=== PATIENT | male | born 1965 | race Caucasian/White ===

== ENCOUNTER 2016-12-28 13:33 | Inpatient (IN) | payer MEDICARE, OTHER ==
[~2016-12-28] VITALS: Ht 180.3 cm; Wt 77.6 kg
[~2016-12-28 13:33] MED LIST: PERC10TA27 PO; PRAV20TA2 PO; REQU5TAB PO
[2016-12-29] MEDS ORDERED: DIAZ5TAB PO ×2 (08:16)
[2017-01-02] MEDS ORDERED: CYCL1TAB29 PO (11:04)
[2017-01-02] MEDS ORDERED: DILA2TAB2 PO (11:04)
[2017-01-04 09:53] VITALS: BP 106/73; PULSE 76; RESP 18; TEMP 98.4; O2SAT 98
[2017-01-04] MEDS ORDERED: HYDROmorphone HCL 2 MG TAB ONE (10:08)
[2017-01-04] MEDS ORDERED: VANCOMYCIN HCL 1000 MG ON-CALL/NS 250 ML IV SCH ×2 (10:45)
[2017-01-04] MEDS ORDERED: METOPROLOL TARTRATE 25 MG TAB PO PRN (10:45)
[2017-01-04] MEDS ORDERED: INSULIN HUMAN REGULAR 1,000 UNITS/10 ML VIAL SQ PRN (10:45)
[2017-01-04] MEDS ORDERED: LACTATED RINGER'S 1000 ML IV PRN (10:45)
[2017-01-04] MEDS ORDERED: CHLORHEXIDINE GLUCONATE 2 % 1 PACK (2 CLOTHS) TOPICAL PRN (10:45)
[2017-01-04] MEDS ORDERED: POVIDONE IODINE 5% (ANTISEPSIS KIT) 4 APPLICATIONS EACH NARE PRN (10:45)
[2017-01-04] MEDS ORDERED: SODIUM CHLORID 0.9% 500 ML IV PRN (10:45)
[2017-01-04] MEDS ORDERED: LACTATED RINGER'S 1000 ML INJ 2,000 ML IV ONE (12:00)
[2017-01-04] MEDS ORDERED: PROPOFOL 200 MG/20 ML AMP IV ONE (12:00)
[2017-01-04] MEDS ORDERED: ONDANSETRON HCL 4 MG/2 ML VIAL IV PUSH ONE (12:00)
[2017-01-04] MEDS ORDERED: ACETAMINOPHEN 1000 MG/100 ML VIAL IV ONE (13:30)
[2017-01-04] MEDS ORDERED: GELFOAM SIZE 100 ONE (13:38)
[2017-01-04] MEDS ORDERED: THROMBIN (TOPICAL) 5,000 UNIT VIAL ONE (13:38)
[2017-01-04] MEDS ORDERED: GENTAMICIN SULFATE 80 MG/2 ML VIAL ONE (13:38)
[2017-01-04] MEDS ORDERED: ceFAZolin 2 GM PREMIX 50 ML ONE (13:38)
[2017-01-04] MEDS ORDERED: HYDROmorphone HCL PF 2 MG/ML VIAL ONE ×2 (13:39→14:41)
[2017-01-04] MEDS ORDERED: MIDAZOLAM HCL 2 MG/2 ML VIAL ONE (14:40)
[2017-01-04] MEDS ORDERED: FAMOTIDINE 20 MG/2 ML VIAL ONE (14:41)
[2017-01-04] MEDS ORDERED: fentaNYL CITRATE 250 MCG/5 ML AMP ONE ×2 (14:41→17:21)
[2017-01-04] MEDS ORDERED: KETAMINE HCL 500 MG/5 ML VIAL ONE (15:38)
[2017-01-04] MEDS ORDERED: BUPIVACAINE HCL PF 0.5% 30 ML VIAL ONE (17:45)
--- NOTE | 2017-01-04 19:40 | PD.OP ---
Operative Report Date of Surgery: Jan 04, 2017 Preoperative Diagnosis: Severe lumbar spondylosis Postoperative Diagnosis: Severe lumbar spondylosis Procedure: L4-L5 laminectomy, interbody arthrodhesis using PEEK cage and autologous bone graft, L4-L5 instrumental fixation using transpedicular screws and rods, L4-L5 posterolateral fusion using autologous bone graft and demineralized bone matrix. Microsurgical dissection Anesthesia: general Surgeon: Jairo Hood Manager Of Radiology(s): Robyn Tuttle Operation and Findings: INDICATIONS FOR PROCEDURE Mr Childers is a 51 year-old male who presented with intractable mechanical back pain and kayla evidence of lower extremity L5 radiculopathy. He had a prior laminectomy at L4-5 and a prior fusion at L5-S1. He failed maximum nonsurgical management including multiple modalities of conservative treatment as well as pain management interventions by an interventional pain specialist. The patient has undergone a previous surgical procedure. A redo surgical decompression and arthrodhesis at L4-5 were indicated as a last resort. The [id number] details of the procedure, indications, alternatives, risks and potential complications were fully discussed with the patient. The patient fully understood. All the questions were answered. No guarantees were given. The patient voiced requesting the procedure and provided informed consents. The patient was offered the alternative of delaying the procedure and continuing with nonsurgical management. DETAILS OF THE SURGICAL PROCEDURE Prior to the procedure, the surgical incision was marked in the preoperative surgical holding room, and the procedure, risks, and potential complications revisited with the patient. Placement of electrodes for intraoperative neurophysiological monitoring was completed. The patient was taken to the operative room, and following induction of general anesthesia, endotracheal intubation was performed. A Ramírez catheter, bilateral TORREY hose and sequential compression devices were placed and kept throughout the procedure. The patient was positioned prone, over a Sanya table over a Abilio frame. All pressure in the preoperative surgical holding room points were carefully padded with eggcrate and gel mattress. The eyes were tapped shut after ointment was applied by the anesthesiologist to prevent corneal abrasion. A Melia hugger was placed over the exposed lower body to maintain control of the core body temperature. The electrophysiological team placed the needles and electrodes in their proper location and baseline SSEP's and motor evoked potentials were registered. The entrance to each pedicles was marked using a C arm. The lumbar region was prepped and draped in the usual sterile fashion. The surgical procedure was performed in several steps as follow: SURGICAL APPROACH Once the patient was positioned, a localizing cross-table lateral x-ray was performed with a C-arm. Two paramedian small incisions were outlined on the skin approximately 3cm from the midline. The skin incisions were made with a # 10 blade. Small bleeders were controlled with the cautery. The dissection was then carried out into deper planes and through the thoracolumbar fascia with a Bovie. The intermuscular septum was identified and the myscles were blunted dissected along the septum. The facets and transverse process of L4 and L5 exposed and the proper anatomical landmarks were identified. A microsurgical self-retaining retractor was placed on the incision, and a localizing lateralizing cross-table x-ray was performed with an instrument underneath a lamina of the lumbar spine. INSTRUMENTAL FIXATION At this point in the procedure, placement of bilateral transpedicular screws was necessary for stabilization of the spine. Initially, the entry point for the screw was selected anatomically at the junction of the facet, with the transverse process, and the pars interarticularis at L4 and L5. This was started with a Giamshetti needle followed by the use of a barnes wire. A tap was used to create the threads for the screws. Finally bilateral transpedicular screws were carefully placed bilaterally at L4, and L5 under fluoroscopic visualization. An appropriate purchase was achieved with all screws. The position of each screw was assessed anatomically with an AP, lateral , oblique Xrays. An intraoperative scan view of the spine was then performed using the iso-centric c-arm. Each screw was then assessed electrophysiologically stimulating each screw with a nerve stimulator. SURGICAL DECOMPRESSION There was significant mass effect with compression of the neural structures. In order to relieve neural compression, it was necessary to perform a decompressive laminectomy, with decompression of the spinal canal and bilateral lateral recesses. Note that the scope of such decompression was significantly more extensive than the minimal exposure necessary to perform an interbody fusion, as there was extreme facet arthropathy with near complete collapse of the disk spaces and severe stenosis cause by the hyperthrophic joint facets. At this point of the procedure the operative microscope was draped in the usual sterile fashion and brought to the field. The rest of the surgical procedure was performed using microdissection technique with the exception of the closure. The margins of the previous laminectomy were expossed. Under the operating microscope, a decompressive laminectomy was carried out at L4-L5 as follow: given the previous laminectomy and significant scaring which was theathering the dural sac, it was necessary to further drill the facet to allow propper expossure of the disk. The laminae, base of the spinous processes and facets were carefully drilled exposing the ligamentum flavum. The facets were abnormal. A disk protusion was compressing the neural structures and exiting nerve roots. A near complete facetectomy was necessary resulting in further mechanical instability. The ligamentum flavum appeared hypertrophic, which in combination to scar tissue resulted on mass effect on the dorsal surface of the neural structures. The superior free border of the ligamentum flavum was elevated with a ligament dissector and the ligamentum flavum and scar tissue were removed with a 3 and 4 mm Kerrison forceps. The scar tissue and ligament were very adherent to the dural sac and during the dissection, and extreme care was taken during the dissection. The exiting nerve roots were identified, and a wide foraminotomy was performed with a Kerrison in their trajectory towards the neural foramen. Epidural veins located laterally to the dural sac were coagulated with the bipolar cautery, and then incised using microscissors. Gentle medial retraction of the dural sac allowed me to expose the disc space for the discectomy. Upon completion of the discectomy, an excellent decompression of the neural structures was achieved. The dura was very thinned. A durotomy or CSF leak did not occur, but as a precaution, the thinned area of dura was reinforced using duraseal INTERBODY ARTHRODHESIS In order to correct the narrowing of the disk space and maintain distraction of the space, and to achieve a solid interbody fusion, it was necessary the insertion of an interbody device into the disk space. Otherwise, the disk space would collapse, compromising the result of the surgical procedure. At this point of the procedure, the annulus fibrosus of the disk was carefully coagulated with a bipolar cautery and incised using an 11 bladed knife. Then, a microdiscectomy was carried out in a standard fashion using a combination of straight and up-biting pituitary forceps. A reverse angle curette was applied underneath the posterior longitudinal ligament, and used to push the disk fragments into the disk space, so they can be safely removed with a pituitary forceps. Once the discectomy was completed, it was necessary to decorticate the endplates, in order to eliminate the cartilaginous endplate and to expose healthy bone appropriate to perform the interbody fusion. The endplates at L4- L5 were then thoroughly decorticated using increasing size bone ronen and ring curets, eliminating the cartilaginous fragments from both, the superior and inferior endplates. A disk space distractor was applied to the pedicle screws and gentle distraction was applied. This maneuver was assisted by the use of a disk distractor. Increased motility was noted at the disk, which was consistent with instability due to facet arthropathy. Once a thorough preparation of the disk space was achieved, the disk space was irrigated with antibiotic solution, and the interbody fusion was performed by carefully impacting an expandable PPEK cages filled with autologous bone graft. The cage was then deployed underfluroscopic visualization. A solid position of the cage with good purchase was achieved. The position of the cage was assessed anatomically with a probe and radiologically with the C-arm. POSTEROLATERAL FUSION The posterolateral fusion is a critical component to the procedure, to prevent future fatigue and failure of the instrumental fixation. Initially, the transverse processes of the vertebral bodies, lateral surface of the facets and the lateral gutters of the spine were carefully cleaned, eliminating all soft tissue and muscle attachments. The area was then irrigated with a large amount of antibiotic solution. Subsequently, the transverse processes, lateral surface of the facets, and lateral gutters of the spine were thoroughly decorticated using the TPS drill with a 5mm cutting juhi, exposing cancellous bone, in preparation for the posterolateral fusion. The incision was again irrigated with antibiotic solution. Then, the posterolateral fusion was then performed by carefully packing the lateral gutters of the spine at L4-L5 with autologous iliac crest bone combined with demineralized bone matrix. I packed as much bone as possible. COMPLETION OF THE INSTRUMENTATION AND CLOSURE The rods were brought to the field, applied to all the screws, and the screw caps were sequentially applied. Compression was performed between the pedicle screws, and final tightening of the screws was completed using a torque wrench. The incision was again thoroughly irrigated with several liters of antibiotic solution, and hemostasis secured with the bipolar cautery. A Valsalva Maneuver performed by the anesthesiologist failed to show any evidence of cerebrospinal fluid leak or bleeding. The incision was then closed in planes. 0 Vicryl was used in an interrupted fashion to close the thoracolumbar fascia and the superficial fascia. The subcutaneous tissue was then approximated using 3-0 Vicryl in an interrupted fashion. Special care was taken to avoid space. The skin was then closed with 4-0 Vicryl and 3-0 Ethylon in a running, subcuticular fashion. Each plane of closure was irrigated with antibiotic solution. At the end of the procedure the sponge, needle and instrument counts were all correct. Estimated blood loss was 200 cc. No blood transfusion was given. The entire procedure was performed using continuous electrophysiological monitoring of the somatosensorial evoked potentials and EMG. The patient received prophylactic antibiotics. The patient was then extubated and transferred to the recovery room in stable condition. Jairo Hood MD Jan 04, 2017 19:40
[2017-01-04] MEDS ORDERED: MORPHINE SULFATE 4 MG/ML INJ IV PUSH PRN ×2 (19:45)
[2017-01-04] MEDS ORDERED: DIAZEPAM 5 MG TAB PO PRN (19:45)
[2017-01-04] MEDS ORDERED: NALOXONE HCL 0.4 MG/ML AMP IV PRN (19:45)
[2017-01-04] MEDS ORDERED: SODIUM CHLORIDE 0.9% FLUSH 5 ML FLUSH IVF PRN (19:45)
[2017-01-04] MEDS ORDERED: diphenhydrAMINE HCL 50 MG/ML VIAL IV PRN (19:45)
[2017-01-04] MEDS: NS + KCL 20 MEQ INJ 1,000 ML IV SCH (20:03)
[2017-01-04] MEDS ORDERED: NS + KCL 20 MEQ INJ 1,000 ML ONE (20:07)
[2017-01-04] MEDS ORDERED: DO NOT ADM ANY ANTICOAGULANT DRUGS PRN (20:15)
[2017-01-04] MEDS ORDERED: *MEPERIDINE 25 MG INJ VIAL PERIprocedural Use ONLY ONE (20:17)
--- NOTE | 2017-01-04 20:50 | RADRPT ---
EXAM DATE/TIME: 01/04/2017 15:31 [facility] COMPARISON: No previous studies available for comparison. INDICATIONS : L4-5 Posterior lumbar fusion. MEDICAL HISTORY : Smoker. SURGICAL HISTORY : L5-S1 Laminectomy. ENCOUNTER: Initial ACUITY: 1 day PAIN SCORE: Non-responsive. LOCATION: Lumbar spine. FINDINGS: Two view examination was performed in the OR. Transpedicular screws are seen at the L4 and L5 levels with a stabilization device at the L4-5 disc space. The hardware appears well placed.. CONCLUSION: Good placement of the surgical hardware. Donaldo Mccoy MD on January 04, 2017 at 20:46 Board Certified Radiologist. This report was verified electronically.
[2017-01-04 21:00] VITALS: BP 112/65; PULSE 86; RESP 18; TEMP 96.5; O2SAT 96
[2017-01-04] MEDS: SODIUM CHLORIDE 0.9% FLUSH 5 ML FLUSH IVF SCH (21:00)
[2017-01-04] MEDS: HYDROmorphone HCL PCA 6 MG/30 ML IV SCH (21:52)
[2017-01-04] MEDS: PCA - TOTAL MG DILAUDID DELIVERED PER SHIFT SCH (22:00)
[2017-01-04] MEDS: oxyCODONE/ACETAMINOPHEN 10 MG/325 MG TAB PO SCH (23:29)
[2017-01-04] MEDS: ceFAZolin 2 GM PREMIX 50 ML IV SCH (23:29)
[2017-01-05] VITALS (7 sets, daily range): BP systolic 98–119; BP diastolic 59–72; PULSE 84–95; RESP 16–18; TEMP 96.4–98.3; O2SAT 95–98
[2017-01-05] MEDS: PRAVASTATIN SOD 20 MG TAB PO SCH ×2 (00:41→22:08)
[2017-01-05] MEDS: HYDROmorphone HCL PCA 6 MG/30 ML IV SCH ×5 (00:47→19:28)
[2017-01-05] MEDS: PCA - TOTAL MG DILAUDID DELIVERED PER SHIFT SCH ×3 (06:00→22:00)
[2017-01-05] MEDS: oxyCODONE/ACETAMINOPHEN 10 MG/325 MG TAB PO SCH ×3 (06:11→22:08)
[2017-01-05] MEDS: NS + KCL 20 MEQ INJ 1,000 ML IV SCH ×2 (06:12→14:51)
[2017-01-05] MEDS: ceFAZolin 2 GM PREMIX 50 ML IV SCH ×2 (06:13→14:53)
[2017-01-05 08:17] LABS: POTASSIUM 4.2 MEQ/L (3.5-5.1)
[2017-01-05 08:19] LABS: AUTOMATED NEUTROPHIL # 11.5 TH/MM3 (1.8-7.7); HEMATOCRIT 38.4 % (39.0-51.0); HEMO FLAGS DIFF FINAL; LYMPH % 8.5 % (9.0-44.0); LYMPHOCYTE # 1.2 TH/MM3 (1.0-4.8); MEAN CELL VOLUME 100.6 FL (80.0-100.0); MEAN CORPUSCULAR HEMOGLOBIN 33.6 PG (27.0-34.0); MEAN CORPUSCULAR HGB CONC 33.4 % (32.0-36.0); MONO % 7.2 % (0.0-8.0); NEUT % 84.3 % (16.0-70.0); PLATELET COUNT 202 TH/MM3 (150-450); RED BLOOD COUNT 3.81 MIL/MM3 (4.50-5.90); RED CELL DISTRIBUTION WIDTH 13.7 % (11.6-17.2); WHITE BLOOD COUNT 13.6 TH/MM3 (4.0-11.0)
[2017-01-05] MEDS: SODIUM CHLORIDE 0.9% FLUSH 5 ML FLUSH IVF SCH ×2 (09:00→21:00)
[2017-01-05] MEDS: CYCLOBENZAPRINE HCL 10 MG TAB PO SCH ×3 (09:23→17:34)
[2017-01-05] MEDS: PANTOPRAZOLE SODIUM 40 MG VIAL IVP SCH (09:24)
[2017-01-05] MEDS: SODIUM CHLOR 0.9% 1000 ML INJ 1,000 ML IV SCH (10:30)
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
[2017-01-05] MEDS ORDERED: BEDSIDE COMMODE1 MI1 (12:31)
[2017-01-05] MEDS ORDERED: WALKER WHEELS/F1 MIS (12:31)
--- NOTE | 2017-01-05 12:35 | HHI.NSPN ---
(Mary Beth Witt) Note Status Status: Progress Note (Mary Beth Witt) Interval History Interval History Mr. Childers is s/p L4-L5 laminectomy, interbody arthrodhesis using PEEK cage and autologous bone graft, L4-L5 instrumental fixation using transpedicular screws and rods, L4-L5 posterolateral fusion using autologous bone graft and demineralized bone matrix. Microsurgical dissection on Jan 04, 2017. 01/05: POD 1, doing well, surgical pain controlled on WASHING MACHINE STRIPER. (Mary Beth Witt) Labs, Micro, & Vital Signs Results Date Time Temp Pulse Resp B/P Pulse Ox O2 Delivery O2 Flow Rate FiO2 01/05/17 10:50 18 01/05/17 09:18 18 01/05/17 08:24 98 21 01/05/17 08:00 97.4 84 16 105/69 96 01/05/17 08:00 18 01/05/17 06:00 18 01/05/17 04:31 18 01/05/17 04:15 96.4 91 18 119/72 97 01/05/17 00:47 19 01/05/17 00:10 97.1 84 18 98/59 95 01/04/17 22:00 18 01/04/17 21:52 16 01/04/17 21:00 96.5 86 18 112/65 96 01/04/17 20:55 83 15 127/81 100 Room Air 01/04/17 20:30 82 15 135/83 99 Room Air 01/04/17 20:15 81 15 121/78 100 Room Air 01/04/17 20:00 85 15 119/76 99 Nasal Cannula 2 01/04/17 19:50 97.5 93 15 127/70 100 Nasal Cannula 2 01/05/17 07:00 Intake Total 3960 ml Output Total 3875 ml Balance 85 ml Constitutional Vital Signs Date Time Temp Pulse Resp B/P Pulse Ox O2 Delivery O2 Flow Rate FiO2 01/05/17 10:50 18 01/05/17 09:18 18 01/05/17 08:24 98 21 01/05/17 08:00 97.4 84 16 105/69 96 01/05/17 08:00 18 01/05/17 06:00 18 01/05/17 04:31 18 01/05/17 04:15 96.4 91 18 119/72 97 01/05/17 00:47 19 01/05/17 00:10 97.1 84 18 98/59 95 01/04/17 22:00 18 01/04/17 21:52 16 01/04/17 21:00 96.5 86 18 112/65 96 01/04/17 20:55 83 15 127/81 100 Room Air 01/04/17 20:30 82 15 135/83 99 Room Air 01/04/17 20:15 81 15 121/78 100 Room Air 01/04/17 20:00 85 15 119/76 99 Nasal Cannula 2 01/04/17 19:50 97.5 93 15 127/70 100 Nasal Cannula 2 01/05/17 07:00 Intake Total 3960 ml Output Total 3875 ml Balance 85 ml (Mary Beth Witt) Review of Systems/Exam Exam Mr. Childers is alert, in no apparent distress. Speech is fluent. Incision is clean and dry, with dermabond prineo dressing in place. Cranial nerve examination: pupils equal, round and reactive to light. Extra- ocular movements are intact. Facial motor are normal and symmetrical. Muscle strength is 5/5 upper extremities. 5/5 to both iliopsoas, quadriceps, hamstrings, plantarflexion, dorsiflexion, and EHL in the lower extremities. (Mary Beth Witt) Exam Mr. Childers is alert, in no apparent distress. Speech is fluent. Incision is clean and dry, with dermabond prineo dressing in place. Cranial nerve examination: pupils equal, round and reactive to light. Extra- ocular movements are intact. Facial motor are normal and symmetrical. Muscle strength is 5/5 upper extremities. 5/5 to both iliopsoas, quadriceps, hamstrings, plantarflexion, dorsiflexion, and EHL Incision clean (Jairo Hood MD) Medications Current Medications Current Medications Medications (Trade) Dose Ordered Sig/Crsielda Route PRN Reason Start Time Stop Time Status Last Admin Dose Admin Lactated Ringer's 1,000 ml @ 30 mls/hr Q24H PRN IV SEE LABEL COMMENTS 01/04/17 10:45 01/07/17 10:44 01/04/17 10:00 Sodium Chloride 500 ml @ 30 mls/hr [id number] PRN IV SEE LABEL COMMENTS 01/04/17 10:45 01/07/17 10:44 Sodium Chloride 1,000 ml @ 30 mls/hr Q24H IV 01/04/17 10:30 Potassium Chloride/Sodium Chloride (NS + KCl 20 Meq Inj) 1,000 ml @ 100 mls/hr Q10H IV 01/04/17 19:35 01/05/17 06:12 IV Flush (NS Flush) 2 ml UNSCH PRN IVF FLUSH AFTER USING IV ACCESS 01/04/17 19:45 IV Flush 2 ml 2 ml BID IVF 01/04/17 21:00 Cefazolin Sodium/ Dextrose (Ancef 2 Gm Premix) 50 ml @ 100 mls/hr Q8H IV 01/04/17 22:00 01/05/17 14:29 01/05/17 06:13 Pantoprazole Sodium (Protonix Inj) 40 mg DAILY IVP 01/05/17 09:00 01/05/17 09:24 Acetaminophen (Tylenol) 650 mg Q4H PRN PO TEMPERATURE > 101.5 F 01/04/17 19:45 Cyclobenzaprine HCl (Flexeril) 10 mg TID PO 01/05/17 09:00 01/05/17 09:23 Diazepam (Valium) 5 mg DAILY PRN PO ANXIETY 01/04/17 19:45 Oxycodone/ Acetaminophen (Percocet 10-325 Mg) 1 tab Q8HR PO 01/04/17 22:00 01/05/17 06:11 Pravastatin Sodium (Pravachol) 20 mg HS PO 01/04/17 21:00 01/05/17 00:41 Ropinirole HCl (Requip) 5 mg DAILY PO 01/05/17 09:00 01/05/17 09:23 Ropinirole HCl (Requip) 10 mg HS PO 01/04/17 21:00 Naloxone HCl (Narcan Inj) 0.4 mg UNSCH PRN IV RESPIRATORY RATE LESS THAN 10 01/04/17 19:45 Diphenhydramine HCl (Benadryl Inj) 25 mg Q6H PRN IV ITCHING 01/04/17 19:45 Hydromorphone HCl (Dilaudid WASHING MACHINE STRIPER Inj) 6 mg UNSCH IV 01/04/17 19:45 01/05/17 09:18 WASHING MACHINE STRIPER Dosage Infused (Pha) 1 Q8HR .XX 01/04/17 22:00 01/05/17 06:00 Miscellaneous Information ALL NURSING DEPARTME... UNSCH PRN .XX SEE LABEL COMMENTS 01/04/17 20:15 01/05/17 20:14 (Mary Beth Witt) Medical Decision Making MDM Remarks 51 y/o male s/p L4-5 PLIF on 01/04/17, POD 1, doing well, neuro stable (Mary Beth Witt) Plan Plan Remarks cont surgical pain control with WASHING MACHINE STRIPER pump, strict bed rest today, will start mobilize OOB tomorrow with LSO cont IS every hour SCDs and TEDs for dvt prophylaxis appreciate medical mgt assistance (Mary Beth Witt) Attending Statement cont surgical pain control with WASHING MACHINE STRIPER pump, strict bed rest today, will start mobilize OOB tomorrow with LSO cont IS every hour SCDs and TEDs for dvt prophylaxis The exam, history, and the medical decision-making described in the above note were completed with the assistance of the mid-level provider. I reviewed and agree with the findings presented. I attest that I had a [id number] encounter with the patient on the same day, and personally performed and documented my assessment and findings in the medical record. (Jairo Hood MD) Mary Beth Witt Jan 05, 2017 12:35 Jairo Hood MD Jan 09, 2017 19:47
[2017-01-06] VITALS (7 sets, daily range): BP systolic 109–135; BP diastolic 61–78; PULSE 89–104; RESP 16–20; TEMP 96.7–98.6; O2SAT 90–97
[2017-01-06] MEDS: HYDROmorphone HCL PCA 6 MG/30 ML IV SCH ×4 (00:04→13:21)
[2017-01-06] MEDS: oxyCODONE/ACETAMINOPHEN 10 MG/325 MG TAB PO SCH ×3 (05:09→21:59)
[2017-01-06] MEDS: PCA - TOTAL MG DILAUDID DELIVERED PER SHIFT SCH ×3 (05:16→22:00)
[2017-01-06 07:59] LABS: AUTOMATED NEUTROPHIL # 7.7 TH/MM3 (1.8-7.7); BASOPHIL % 0.3 % (0.0-2.0); EOSINOPHIL # 0.1 TH/MM3 (0-0.4); EOSINOPHIL % 0.5 % (0.0-4.0); HEMATOCRIT 38.8 % (39.0-51.0); HEMO FLAGS DIFF FINAL; LYMPH % 21.1 % (9.0-44.0); LYMPHOCYTE # 2.3 TH/MM3 (1.0-4.8); MEAN CELL VOLUME 101.5 FL (80.0-100.0); MEAN CORPUSCULAR HEMOGLOBIN 33.6 PG (27.0-34.0); MEAN CORPUSCULAR HGB CONC 33.1 % (32.0-36.0); MONO % 8.3 % (0.0-8.0); NEUT % 69.8 % (16.0-70.0); PLATELET COUNT 189 TH/MM3 (150-450); RED BLOOD COUNT 3.82 MIL/MM3 (4.50-5.90); RED CELL DISTRIBUTION WIDTH 13.7 % (11.6-17.2)
[2017-01-06] MEDS: NS + KCL 20 MEQ INJ 1,000 ML IV SCH ×4 (08:52→22:02)
[2017-01-06] MEDS: CYCLOBENZAPRINE HCL 10 MG TAB PO SCH ×3 (08:55→18:30)
[2017-01-06] MEDS: PANTOPRAZOLE SODIUM 40 MG VIAL IVP SCH (08:56)
[2017-01-06] MEDS: SODIUM CHLORIDE 0.9% FLUSH 5 ML FLUSH IVF SCH ×2 (08:57→21:00)
[2017-01-06] MEDS: SODIUM CHLOR 0.9% 1000 ML INJ 1,000 ML IV SCH (10:30)
--- NOTE | 2017-01-06 11:42 | HHI.PR ---
Subjective Remarks pt has some pain at sx site left foot numbness is improving no other complaint ros for 10 point system is unremarkable Objective Objective Results - Vital Signs Date Time Temp Pulse Resp B/P Pulse Ox O2 Delivery O2 Flow Rate FiO2 01/06/17 09:04 20 01/06/17 08:34 20 01/06/17 08:00 98.0 104 20 135/78 90 01/06/17 05:16 17 01/06/17 05:15 17 01/06/17 04:10 98.6 97 18 120/73 96 01/06/17 00:10 98.5 95 18 109/61 96 01/06/17 00:04 18 01/05/17 22:00 18 01/05/17 20:05 97.8 95 17 117/66 97 01/05/17 19:28 18 01/05/17 17:29 18 01/05/17 16:00 98.3 89 16 114/68 97 01/05/17 14:50 18 01/05/17 12:00 97.9 88 16 107/70 97 I/O 01/05/17 01/05/17 01/05/17 01/06/17 01/06/17 01/06/17 07:00 15:00 23:00 07:00 15:00 23:00 Intake Total 480 ml 480 ml 480 ml 720 ml Output Total 1400 ml 1650 ml 1500 ml 1200 ml 700 ml Balance -920 ml -1170 ml -1020 ml -480 ml -700 ml Intake Oral 480 ml 480 ml 480 ml 720 ml Output Urine Total 1400 ml 1650 ml 1500 ml 1200 ml 700 ml # Bowel Movements 0 0 0 0 Result Diagram: 01/06/17 0617 01/05/17 0731 Other Results Laboratory Tests Test 01/06/17 06:17 White Blood Count 11.0 Red Blood Count 3.82 Hemoglobin 12.8 Hematocrit 38.8 Mean Corpuscular Volume 101.5 Mean Corpuscular Hemoglobin 33.6 Mean Corpuscular Hemoglobin 33.1 Concent Red Cell Distribution Width 13.7 Platelet Count 189 Mean Platelet Volume 7.6 Neutrophils (%) (Auto) 69.8 Lymphocytes (%) (Auto) 21.1 Monocytes (%) (Auto) 8.3 Eosinophils (%) (Auto) 0.5 Basophils (%) (Auto) 0.3 Neutrophils # (Auto) 7.7 Lymphocytes # (Auto) 2.3 Monocytes # (Auto) 0.9 Eosinophils # (Auto) 0.1 Basophils # (Auto) 0.0 CBC Comment DIFF FINAL Differential Comment Physical Exam Physical Exam General: Patient is in no acute distress lying on bed HEENT: No conjunctival changes & extraocular movements intact Cardio: s1 and s2 appreciated. NO rubs, murmurs, gallops Respiratory: Clear to auscultation bilaterally, non-labored breathing Abdominal: No pain on light palpation in all 4 quadrants, no rebound or guarding Extremities: No peripheral edema, warm and moist skin, posterior tibial pulses strong bilaterally Neurological: strength and movement intact in both lower and upper extremities Psych: Pleasant, cooperative, alert A/P Assessment and Plan 1. POD 1 L4-L5 laminectomy with screw fixation 2. Chronic Pain 3. Hyperlipidemia 4. Restless Legs 5. Mild postoperative leukocytosis Labs Reviewed inc wbc better meds reviewed Surgery Following Continue PT and Rehab gi prophylasix and dct prophylasix dw pt will follow Dakotah Varela MD Jan 06, 2017 11:42
--- NOTE | 2017-01-06 12:41 | HHI.NSPN ---
Note Status Status: Progress Note Interval History Interval History Mr. Childers is s/p L4-L5 laminectomy, interbody arthrodhesis using PEEK cage and autologous bone graft, L4-L5 instrumental fixation using transpedicular screws and rods, L4-L5 posterolateral fusion using autologous bone graft and demineralized bone matrix. Microsurgical dissection on Jan 04, 2017. 01/05: POD 1, doing well, surgical pain controlled on SUPERVISOR SAFETY DEPOSIT. 01/06: POD 2, moderate surgical pain still requiring SUPERVISOR SAF[employer] DEPOSIT Labs, Micro, & Vital Signs Results Date Time Temp Pulse Resp B/P Pulse Ox O2 Delivery O2 Flow Rate FiO2 01/06/17 09:04 20 01/06/17 08:34 20 01/06/17 08:00 98.0 104 20 135/78 90 01/06/17 05:16 17 01/06/17 05:15 17 01/06/17 04:10 98.6 97 18 120/73 96 01/06/17 00:10 98.5 95 18 109/61 96 01/06/17 00:04 18 01/05/17 22:00 18 01/05/17 20:05 97.8 95 17 117/66 97 01/05/17 19:28 18 01/05/17 17:29 18 01/05/17 16:00 98.3 89 16 114/68 97 01/05/17 14:50 18 01/06/17 06:59 Intake Total 1680 ml Output Total 4350 ml Balance -2670 ml Constitutional Vital Signs Date Time Temp Pulse Resp B/P Pulse Ox O2 Delivery O2 Flow Rate FiO2 01/06/17 09:04 20 01/06/17 08:34 20 01/06/17 08:00 98.0 104 20 135/78 90 01/06/17 05:16 17 01/06/17 05:15 17 01/06/17 04:10 98.6 97 18 120/73 96 01/06/17 00:10 98.5 95 18 109/61 96 01/06/17 00:04 18 01/05/17 22:00 18 01/05/17 20:05 97.8 95 17 117/66 97 01/05/17 19:28 18 01/05/17 17:29 18 01/05/17 16:00 98.3 89 16 114/68 97 01/05/17 14:50 18 01/06/17 06:59 Intake Total 1680 ml Output Total 4350 ml Balance -2670 ml Review of Systems/Exam Exam Mr. Childers is alert, in no apparent distress. Speech is fluent. Incision is clean and dry, with dermabond prineo dressing in place. Cranial nerve examination: pupils equal, round and reactive to light. Extra- ocular movements are intact. Facial motor are normal and symmetrical. Muscle strength is 5/5 upper extremities. 5/5 to both iliopsoas, quadriceps, hamstrings, plantarflexion, dorsiflexion, and EHL in the lower extremities. Medications Current Medications Current Medications Medications (Trade) Dose Ordered Sig/Criselda Route PRN Reason Start Time Stop Time Status Last Admin Dose Admin Lactated Ringer's 1,000 ml @ 30 mls/hr Q24H PRN IV SEE LABEL COMMENTS 01/04/17 10:45 01/07/17 10:44 01/04/17 10:00 Sodium Chloride 500 ml @ 30 mls/hr [id number] PRN IV SEE LABEL COMMENTS 01/04/17 10:45 01/07/17 10:44 Sodium Chloride 1,000 ml @ 30 mls/hr Q24H IV 01/04/17 10:30 Potassium Chloride/Sodium Chloride (NS + KCl 20 Meq Inj) 1,000 ml @ 100 mls/hr Q10H IV 01/04/17 19:35 01/06/17 08:52 IV Flush (NS Flush) 2 ml UNSCH PRN IVF FLUSH AFTER USING IV ACCESS 01/04/17 19:45 IV Flush (NS Flush) 2 ml BID IVF 01/04/17 21:00 Pantoprazole Sodium (Protonix Inj) 40 mg DAILY IVP 01/05/17 09:00 01/06/17 08:56 Acetaminophen (Tylenol) 650 mg Q4H PRN PO TEMPERATURE > 101.5 F 01/04/17 19:45 Cyclobenzaprine HCl (Flexeril) 10 mg TID PO 01/05/17 09:00 01/06/17 08:55 Diazepam (Valium) 5 mg DAILY PRN PO ANXIETY 01/04/17 19:45 Oxycodone/ Acetaminophen (Percocet 10-325 Mg) 1 tab Q8HR PO 01/04/17 22:00 01/06/17 05:09 Pravastatin Sodium (Pravachol) 20 mg HS PO 01/04/17 21:00 01/05/17 22:08 Ropinirole HCl (Requip) 5 mg DAILY PO 01/05/17 09:00 01/06/17 09:04 Ropinirole HCl (Requip) 10 mg HS PO 01/04/17 21:00 01/05/17 22:08 Naloxone HCl (Narcan Inj) 0.4 mg UNSCH PRN IV RESPIRATORY RATE LESS THAN 10 01/04/17 19:45 Diphenhydramine HCl (Benadryl Inj) 25 mg Q6H PRN IV ITCHING 01/04/17 19:45 Hydromorphone HCl (Dilaudid [employer] DEPOSIT Inj) 6 mg UNSCH IV 01/04/17 19:45 01/06/17 08:34 [employer] DEPOSIT Dosage Infused (Pha) 1 Q8HR .XX 01/04/17 22:00 01/06/17 05:16 Medical Decision Making MDM Remarks 51 y/o male s/p L4-5 PLIF on 01/04/17, POD 2, doing well, neuro stable, moderate surgical pain Plan Plan Remarks cont surgical pain control with SUPERVISOR [employer] DEPOSIT pump today will dc tomorrow clear to start mobilizing OOB with LSO brace cont IS every hour cont SCDs and TEDs for dvt prophylaxis appreciate medical mgt assistance anticipate dc home tomorrow if pain controlled Mary Beth Witt Jan 06, 2017 12:41
[2017-01-06] MEDS: PRAVASTATIN SOD 20 MG TAB PO SCH (22:00)
[2017-01-07 04:05] VITALS: BP 139/70; PULSE 91; RESP 18; TEMP 97.3; O2SAT 97
[2017-01-07] MEDS: HYDROmorphone HCL PCA 6 MG/30 ML IV SCH (04:45)
[2017-01-07] MEDS: oxyCODONE/ACETAMINOPHEN 10 MG/325 MG TAB PO SCH ×3 (05:38→21:24)
[2017-01-07] MEDS: PCA - TOTAL MG DILAUDID DELIVERED PER SHIFT SCH ×2 (05:39→10:00)
[2017-01-07 08:00] VITALS: BP 117/74; PULSE 85; RESP 20; TEMP 97.6; O2SAT 98
[2017-01-07] MEDS: SODIUM CHLORIDE 0.9% FLUSH 5 ML FLUSH IVF SCH ×2 (09:00→20:13)
[2017-01-07] MEDS: PANTOPRAZOLE SODIUM 40 MG VIAL IVP SCH (09:40)
[2017-01-07] MEDS: CYCLOBENZAPRINE HCL 10 MG TAB PO SCH ×3 (09:40→18:27)
[2017-01-07] MEDS: SODIUM CHLOR 0.9% 1000 ML INJ 1,000 ML IV SCH (09:42)
[2017-01-07] MEDS ORDERED: BISACODYL 10 MG SUPP RECTAL ONE (10:30)
[2017-01-07] MEDS ORDERED: TAMSULOSIN HCL 0.4 MG CAP PO SCH (10:30)
[2017-01-07] MEDS ORDERED: MAGNESIUM CITRATE SOLN 300 ML BTL PO ONE (10:30)
--- NOTE | 2017-01-07 10:31 | HHI.NSPN ---
(Mary Beth Witt) Note Status Status: Progress Note (Mary Beth Witt) Interval History Interval History Mr. Childers is s/p L4-L5 laminectomy, interbody arthrodhesis using PEEK cage and autologous bone graft, L4-L5 instrumental fixation using transpedicular screws and rods, L4-L5 posterolateral fusion using autologous bone graft and demineralized bone matrix. Microsurgical dissection on Jan 04, 2017. 01/05: POD 1, doing well, surgical pain controlled on CLOCK MECHANIC. 01/06: POD 2, moderate surgical pain still requiring CLOCK MECHANIC 01/07: POD 3, c/o urinary retention, urgency and has to push and force his urine out. reports of mild lower abdominal discomfort. also c/o constipation (Mary Beth Witt) Labs, Micro, & Vital Signs Results Date Time Temp Pulse Resp B/P Pulse Ox O2 Delivery O2 Flow Rate FiO2 01/07/17 08:00 97.6 85 20 117/74 98 01/07/17 05:39 20 01/07/17 05:15 20 01/07/17 04:45 20 01/07/17 04:05 97.3 91 18 139/70 97 01/06/17 23:50 98.1 89 18 126/72 94 01/06/17 22:00 20 01/06/17 20:00 97.9 99 17 119/71 96 01/06/17 16:10 96.7 96 16 126/77 97 01/06/17 14:15 16 01/06/17 14:00 16 01/06/17 13:21 16 01/06/17 12:00 96.7 99 20 135/70 94 01/07/17 07:00 Intake Total 1200 ml Output Total 1850 ml Balance -650 ml Constitutional Vital Signs Date Time Temp Pulse Resp B/P Pulse Ox O2 Delivery O2 Flow Rate FiO2 01/07/17 08:00 97.6 85 20 117/74 98 01/07/17 05:39 20 01/07/17 05:15 20 01/07/17 04:45 20 01/07/17 04:05 97.3 91 18 139/70 97 01/06/17 23:50 98.1 89 18 126/72 94 01/06/17 22:00 20 01/06/17 20:00 97.9 99 17 119/71 96 01/06/17 16:10 96.7 96 16 126/77 97 01/06/17 14:15 16 01/06/17 14:00 16 01/06/17 13:21 16 01/06/17 12:00 96.7 99 20 135/70 94 01/07/17 07:00 Intake Total 1200 ml Output Total 1850 ml Balance -650 ml (Mary Beth Witt) Review of Systems/Exam Exam Mr. Childers is alert, in no apparent distress. Speech is appropriate. Incision is clean and dry, with dermabond prineo dressing in place. Cranial nerve examination: pupils equal, round and reactive to light. Facial motor are normal and symmetrical. Motor: moving all four extremities well with good strength Abdomen: soft, Mild lower abdominal discomfort to palpation Respiratory: clear, nonlabored (Mary Beth Witt) Medications Current Medications Current Medications Medications (Trade) Dose Ordered Sig/Criselda Route PRN Reason Start Time Stop Time Status Last Admin Dose Admin Lactated Ringer's 1,000 ml @ 30 mls/hr Q24H PRN IV SEE LABEL COMMENTS 01/04/17 10:45 01/07/17 10:44 01/04/17 10:00 Sodium Chloride 500 ml @ 30 mls/hr [id number] PRN IV SEE LABEL COMMENTS 01/04/17 10:45 01/07/17 10:44 Sodium Chloride 1,000 ml @ 30 mls/hr Q24H IV 01/04/17 10:30 Potassium Chloride/Sodium Chloride (NS + KCl 20 Meq Inj) 1,000 ml @ 100 mls/hr Q10H IV 01/04/17 19:35 01/06/17 22:02 IV Flush (NS Flush) 2 ml UNSCH PRN IVF FLUSH AFTER USING IV ACCESS 01/04/17 19:45 IV Flush (NS Flush) 2 ml BID IVF 01/04/17 21:00 Pantoprazole Sodium (Protonix Inj) 40 mg DAILY IVP 01/05/17 09:00 01/07/17 09:40 Acetaminophen (Tylenol) 650 mg Q4H PRN PO TEMPERATURE > 101.5 F 01/04/17 19:45 Cyclobenzaprine HCl (Flexeril) 10 mg TID PO 01/05/17 09:00 01/07/17 09:40 Diazepam (Valium) 5 mg DAILY PRN PO ANXIETY 01/04/17 19:45 Oxycodone/ Acetaminophen (Percocet 10-325 Mg) 1 tab Q8HR PO 01/04/17 22:00 01/07/17 05:38 Pravastatin Sodium (Pravachol) 20 mg HS PO 01/04/17 21:00 01/06/17 22:00 Ropinirole HCl (Requip) 5 mg DAILY PO 01/05/17 09:00 01/07/17 09:40 Ropinirole HCl (Requip) 10 mg HS PO 01/04/17 21:00 01/06/17 22:00 Naloxone HCl (Narcan Inj) 0.4 mg UNSCH PRN IV RESPIRATORY RATE LESS THAN 10 01/04/17 19:45 Diphenhydramine HCl (Benadryl Inj) 25 mg Q6H PRN IV ITCHING 01/04/17 19:45 CLOCK MECHANIC Dosage Infused (Pha) 1 Q8HR .XX 01/04/17 22:00 01/07/17 05:39 (Mary Beth Witt) Medical Decision Making MDM Remarks 51 y/o male s/p L4-5 PLIF on 01/04/17, POD 3, neuro stable, moderate surgical pain, improving urinary urgency and retention (Mary Beth Witt) Plan Plan Remarks dc CLOCK MECHANIC, cont oral pain medications prn cont PT, encourage mobilization OOB cont IS every hour cont SCDs and TEDs for dvt prophylaxis medical mgt following bladder scan now, straight cath prn, start trial of Flomax 0.4 daily Mag Citrate for constipation, suppository prn (Mary Beth Witt) Attending Statement Neuro. Neuro checks in a serial fashion. Respiratory. pulmonary toilette, nasotracheal suction, and breathing treatments with nebulizers. PT and OT eval Nutrition. NPO Renal. monitor closely urine output, BUN and creatinine Endocrine. Monitor serial Acu checks and SSI for tight control ID monitor for signs of infection Protonix for stress ulcer prophylaxis Aureliano hose and SCD's for DVT prophylaxis The exam, history, and the medical decision-making described in the above note were completed with the assistance of the mid-level provider. I reviewed and agree with the findings presented. I attest that I had a [id number] encounter with the patient on the same day, and personally performed and documented my assessment and findings in the medical record. (Jairo Hood MD) Mary Beth Witt Jan 07, 2017 10:31 Jairo Hood MD Jan 10, 2017 08:17
--- NOTE | 2017-01-07 10:37 | HHI.PR ---
Subjective Remarks pt has some pain at sx site Patient has difficulty in urination he has to force to urinate. No burning or dysuria. No fever or chills. No abdominal pain. left foot numbness is improving no other complaint ros for 10 point system is unremarkable Objective Objective Results - Vital Signs Date Time Temp Pulse Resp B/P Pulse Ox O2 Delivery O2 Flow Rate FiO2 01/07/17 08:00 97.6 85 20 117/74 98 01/07/17 05:39 20 01/07/17 05:15 20 01/07/17 04:45 20 01/07/17 04:05 97.3 91 18 139/70 97 01/06/17 23:50 98.1 89 18 126/72 94 01/06/17 22:00 20 01/06/17 20:00 97.9 99 17 119/71 96 01/06/17 16:10 96.7 96 16 126/77 97 01/06/17 14:15 16 01/06/17 14:00 16 01/06/17 13:21 16 01/06/17 12:00 96.7 99 20 135/70 94 I/O 01/06/17 01/06/17 01/06/17 01/07/17 01/07/17 01/07/17 07:00 15:00 23:00 07:00 15:00 23:00 Intake Total 720 ml 240 ml 480 ml 480 ml Output Total 1200 ml 700 ml 650 ml 500 ml Balance -480 ml -460 ml -170 ml -20 ml Intake Oral 720 ml 240 ml 480 ml 480 ml Output Urine Total 1200 ml 700 ml 650 ml 500 ml # Voids 2 # Bowel Movements 0 0 0 0 Result Diagram: 01/06/17 0617 01/05/17 0731 Physical Exam Physical Exam General: Patient is in no acute distress lying on bed HEENT: No conjunctival changes & extraocular movements intact Cardio: s1 and s2 appreciated. NO rubs, murmurs, gallops Respiratory: Clear to auscultation bilaterally, non-labored breathing Abdominal: No pain on light palpation in all 4 quadrants, no rebound or guarding Extremities: No peripheral edema, warm and moist skin, posterior tibial pulses strong bilaterally Neurological: strength and movement intact in both lower and upper extremities Psych: Pleasant, cooperative, alert A/P Assessment and Plan 1. POD 1 L4-L5 laminectomy with screw fixation 2. Chronic Pain 3. Hyperlipidemia 4. Restless Legs 5. Mild postoperative leukocytosis Labs Reviewed inc wbc better meds reviewed Surgery Following Likely BPH rate may need Ramírez catheter. Plan to start Flomax. Also explained if discharged to follow urologist. Patient understood very well. Continue PT and Rehab gi prophylasix and dct prophylasix dw pt will follow Dakotah Varela MD Jan 07, 2017 10:37
[2017-01-07] MEDS ORDERED: TAMSULOSIN HCL 0.4 MG CAP PO ONE (10:45)
[2017-01-07 12:00] VITALS: BP 118/82; PULSE 94; RESP 18; TEMP 96.5; O2SAT 98
--- NOTE | 2017-01-07 15:08 | HHI.FF ---
Face to Face Verification Diagnosis: (1) S/P lumbar spinal fusion (2) Postoperative retention of urine Physical Therapy Order: Improve ambulation (limit leg exercises as tolerated) Home Health Nursing Order: Medical education Signs/symptoms of disease process Wound care and dressing changes Nursing assessment with vital signs I have seen patient Jamal Childers on 01/07/17. My clinical findings support the need for the requested home health care services because: Ltd mobility - disease progression Deconditioned w/ increased weakness High risk of falls I certify that my clinical findings support that this patient is homebound because: Post-op weakness Unsteady gait/balance Mary Beth Witt Jan 07, 2017 15:08
[2017-01-07 16:00] VITALS: BP 115/69; PULSE 94; RESP 20; TEMP 98.5; O2SAT 96
[2017-01-07] MEDS: NS + KCL 20 MEQ INJ 1,000 ML IV SCH (18:27)
[2017-01-07] MEDS: ACETAMINOPHEN 325 MG TAB PO PRN (20:09)
[2017-01-07] MEDS: PRAVASTATIN SOD 20 MG TAB PO SCH (20:10)
[2017-01-07 20:40] VITALS: BP 113/71; PULSE 92; RESP 18; TEMP 98.8; O2SAT 96
[2017-01-08 00:15] VITALS: BP 114/71; PULSE 96; RESP 18; TEMP 99.4; O2SAT 98
[2017-01-08] MEDS: NS + KCL 20 MEQ INJ 1,000 ML IV SCH (03:35)
[2017-01-08] MEDS: oxyCODONE/ACETAMINOPHEN 10 MG/325 MG TAB PO SCH ×2 (05:23→12:34)
[2017-01-08] MEDS: PCA - TOTAL MG DILAUDID DELIVERED PER SHIFT SCH (06:00)
[2017-01-08 08:00] VITALS: BP 105/72; PULSE 91; RESP 20; TEMP 96.9; O2SAT 98
[2017-01-08] MEDS: CYCLOBENZAPRINE HCL 10 MG TAB PO SCH ×2 (08:53→12:33)
[2017-01-08] MEDS ORDERED: TAMSULOSIN HCL 0.4 MG CAP PO SCH (09:00)
[2017-01-08] MEDS: SODIUM CHLORIDE 0.9% FLUSH 5 ML FLUSH IVF SCH (09:00)
[2017-01-08] MEDS: ACETAMINOPHEN 325 MG TAB PO PRN (09:06)
[2017-01-08] MEDS: PANTOPRAZOLE SODIUM 40 MG VIAL IVP SCH (09:07)
[2017-01-08] MEDS: SODIUM CHLOR 0.9% 1000 ML INJ 1,000 ML IV SCH (10:30)
[2017-01-08] MEDS ORDERED: PERC10TA27 PO (10:54)
[2017-01-08] MEDS ORDERED: TAMS5CAP PO (10:54)
--- NOTE | 2017-01-08 11:16 | HHI.DS ---
Discharge Summary Admission Date Jan 04, 2017 at 09:16 Discharge Date: Jan 08, 2017 Admitting Diagnosis CBC/BMP: 01/06/17 0617 01/05/17 0731 Significant Findings Laboratory Tests Test 01/06/17 06:17 Red Blood Count 3.82 MIL/MM3 (4.50-5.90) Hemoglobin 12.8 GM/DL (13.0-17.0) Hematocrit 38.8 % (39.0-51.0) Mean Corpuscular Volume 101.5 FL (80.0-100.0) Monocytes (%) (Auto) 8.3 % (0.0-8.0) Pt Condition on Discharge: Stable Discharge Disposition: Disch w/ Home Health Serv Discharge Instructions DIET: Follow Instructions for: Heart Healthy Diet ADDITIONAL Activity Instructio: Avoid strenuous activities, heavy lifting, bending, twisting, pushing, pulling or any other activities that may place stress on the spine. Wear back brace when ambulating. Avoid falls. Mary Beth Witt Jan 08, 2017 11:16
--- NOTE | 2017-01-08 11:16 | HHI.DCPOC ---
Discharge Care Plan Diagnosis: (1) S/P lumbar spinal fusion Goals to Promote Your Health * To prevent worsening of your condition and complications * To maintain your health at the optimal level Directions to Meet Your Goals Take your medications as prescribed Follow your dietary instruction Follow activity as directed Keep your appointments as scheduled Take your immunizations and boosters as scheduled If your symptoms worsen call your PCP, if no PCP go to Urgent Care Center or Emergency Room Smoking is Dangerous to Your Health. Avoid second hand smoke Call the 24-hour hour crisis hotline for domestic abuse at Mary Beth Witt Jan 08, 2017 11:16
[2017-01-08 11:30] VITALS: BP 117/73; PULSE 89; RESP 20; TEMP 97.5; O2SAT 95
== END 2017-01-08 14:00 | disposition home health service (06) | DRG 460 ==
LOC: HSDI 01-04 09:16 → N06B 01-04 21:03
PROVIDERS: ADMIT Neurological Surgery; ATTEND Neurological Surgery
PROC: 01NB0ZZ Release Lumbar Nerve, Open Approach (ICD-10-PCS; 2017-01-04)
PROC: 0SB20ZZ Excision of Lumbar Vertebral Disc, Open Approach (ICD-10-PCS; 2017-01-04)
PROC: 4A11X4G Monitoring of Peripheral Nervous Electrical Activity, Intraoperative, External Approach (ICD-10-PCS; 2017-01-04)
PROC: 0SG00A1 (ICD-10-PCS; principal; 2017-01-04 14:44)
DX: M47.26 Other spondylosis with radiculopathy, lumbar region (principal); E78.5 Hyperlipidemia, unspecified; G25.81 Restless legs syndrome; D72.829 Elevated white blood cell count, unspecified; G89.29 Other chronic pain; N40.1 Benign prostatic hyperplasia with lower urinary tract symptoms; R33.8 Other retention of urine; R39.15 Urgency of urination; K59.00 Constipation, unspecified; F17.210 Nicotine dependence, cigarettes, uncomplicated; Z85.820 Personal history of malignant melanoma of skin
CPT/HCPCS: 72100; 76000; 80048; 85025; 86850; 86900; 86901; 94150; C1713; C9113; J0131; J0690; J1170; J1580; J2175; J2250; J2405; J3010; J3370; J3480; J7050; J7120; L0200; L0484

== ENCOUNTER → 2016-12-29 | Outpatient (CLI) | payer MEDICARE, OTHER ==
[~2016-12-29] MED LIST changes: +BEDSIDE COMMODE1 MI1; +CYCL1TAB29 PO; +DIAZ5TAB PO; +DILA2TAB2 PO; +HYDR-3288 PO; +LYRI75CA PO; +TAMS5CAP PO; +WALKER WHEELS/F1 MIS
[2016-12-29 09:10] LABS: AUTOMATED NEUTROPHIL # 5.4 TH/MM3 (1.8-7.7); BASOPHIL % 0.5 % (0.0-2.0); EOSINOPHIL # 0.2 TH/MM3 (0-0.4); EOSINOPHIL % 2.5 % (0.0-4.0); HEMATOCRIT 45.8 % (39.0-51.0); HEMO FLAGS DIFF FINAL; LYMPH % 30.2 % (9.0-44.0); LYMPHOCYTE # 2.7 TH/MM3 (1.0-4.8); MEAN CELL VOLUME 99.7 FL (80.0-100.0); MEAN CORPUSCULAR HEMOGLOBIN 34.1 PG (27.0-34.0); MEAN CORPUSCULAR HGB CONC 34.2 % (32.0-36.0); MONO % 7.4 % (0.0-8.0); NEUT % 59.4 % (16.0-70.0); PLATELET COUNT 240 TH/MM3 (150-450); RED CELL DISTRIBUTION WIDTH 14.2 % (11.6-17.2)
[2016-12-29 09:14] LABS: APTT (PATIENT) 31.2 SEC (24.3-30.1); PROTHROMBIN TIME - PATIENT 10.5 SEC (9.8-11.6)
[2016-12-29 09:36] LABS: ANION GAP 7 MEQ/L (5-15); BICARBONATE 27.7 MEQ/L (21.0-32.0); BLOOD UREA NITROGEN 25 MG/DL (7-18); CHLORIDE 103 MEQ/L (98-107); GLOMERULAR FILTRATION RATE 77 ML/MIN (>89); GLUCOSE,FASTING 95 MG/DL (74-99); POTASSIUM 4.1 MEQ/L (3.5-5.1); SODIUM (NA) 138 MEQ/L (136-145)
[2016-12-29 09:38] LABS: ALT (GPT) 26 U/L (12-78)
[2016-12-29 09:43] LABS: BLOOD, URINE NEG (NEG); COMMENT (UR) CULT NOT INDICATED; CULTURE IF INDICATED CULT NOT INDICATED; GLUCOSE,URINE NEG (NEG); KETONE, URINE NEG (NEG); MUCUS URINE FEW /lpf (OCC); NITRITE,URINE NEG (NEG); PH, URINE 5.5 (5.0-8.5); SQUAMOUS EPITHELIAL CELL URINE <1 /hpf (0-5); URINE COLOR YELLOW (YELLW/STRAW)
[2016-12-29 09:50] LABS: ALKALINE PHOSPHATASE 90 U/L (45-117); AST (GOT) 17 U/L (15-37); TOTAL BILIRUBIN ADULT 0.4 MG/DL (0.2-1.0)
== END ==
LOC: CPRE 07:55
PROVIDERS: ATTEND Neurological Surgery
DX: Z01.812 Encounter for preprocedural laboratory examination (principal); M43.10 Spondylolisthesis, site unspecified
CPT/HCPCS: 36415; 80053; 81001; 85025; 85610; 85730

== ENCOUNTER 2017-01-02 09:32 | Emergency (ER) | payer MEDICARE, OTHER ==
[~2017-01-02 09:32] MED LIST changes: -BEDSIDE COMMODE1 MI1; -CYCL1TAB29 PO; -DILA2TAB2 PO; -HYDR-3288 PO; -LYRI75CA PO; -TAMS5CAP PO; -WALKER WHEELS/F1 MIS
[2017-01-02 09:37] VITALS: BP 132/88; PULSE 83; RESP 16; TEMP 98.2; O2SAT 98
[2017-01-02] MEDS ORDERED: CYCLOBENZAPRINE HCL 10 MG TAB PO ONE (10:00)
[2017-01-02] MEDS ORDERED: HYDROmorphone HCL PF 1 MG/ML VIAL IM ONE (10:00)
[2017-01-02] MEDS ORDERED: DEXAMETHASONE SOD PHOS 20 MG/5 ML VIAL IM ONE (10:00)
--- NOTE | 2017-01-02 10:02 | PD ---
HPI Chief Complaint: Back/ Neck Pain or Injury Time Seen by Provider: 09:44 Travel History International Travel<30 days: No Contact w/Intl Traveler<30days: No Traveled to known affect area: No History of Present Illness HPI Patient is a 51-year-old male presents emergency Department with complaint of low back pain. Patient states that he has a history of L5-S1 fusion. Over the last several months he has been having increasing pain in the lumbar spine, urinary incontinence for the last several weeks. The pain radiates down the left back into the left buttock and leg with associated paresthesias in the left leg, he describes this as a burning type pain. Patient is seen by Dr. Hood who scheduled him for a laminectomy in 2 days. Patient states that he had a trip and fall, landing on his knees. He did not hit his back or buttock. For the last several days since this fall he has been having increasing pain in the left low back at the site of his chronic pain. The pain is not any different in quality but just more severe. Patient historically has been seen by Dr. Hoover and Yong for pain management who prescribed him Vicodin for chronic back pain and Valium for anxiety. When patient was seen by Dr. Hood recently he was prescribed Percocet 10/325. He has been taking these without much improvement. Patient even tried to double up and take 2 of them last night around midnight which causes GI upset and emesis shortly thereafter. Historically he was on gabapentin, but was instructed he needed to discontinue this one week before his surgery. PFSH Past Medical History Anxiety: Yes Cancer: Yes (MELANOMA SKIN CA) Cardiovascular Problems: Yes ([place] ) High Cholesterol: Yes Immunizations Current: Yes Past Surgical History Other Surgery: Yes (SPINAL FUSIONS , MELANOMA REMOVAL FROM BACK) Social History Alcohol Use: No Tobacco Use: Yes (/2 PPD ) Substance Use: No Allergies-Medications (Allergen,Severity, Reaction): Coded Allergies: Toradol (Verified Allergy, Intermediate, VOMITING, 12/29/16) Morphine (Verified Adverse Reaction, Mild, Rash, 12/29/16) Reported Meds & Prescriptions Reported Meds & Active Scripts Active Percocet (Oxycodone-Acetaminophen) 10-325 mg Tab 1 Tab PO Q8HR Reported Diazepam 5 Mg Tab 5 Mg PO DAILY PRN Pravastatin 20 Mg Tab 20 Mg PO HS Requip (Ropinirole) 5 Mg Tab 10 Mg PO HS Requip (Ropinirole) 5 Mg Tab 5 Mg PO DAILY Review of Systems Except as stated in HPI: all other systems reviewed are Neg Physical Exam Narrative GENERAL: Well-appearing male sitting in bed, splinting torso against the stretcher SKIN: Focused skin assessment warm/dry. HEAD: Normocephalic. EYES: No scleral icterus. No injection or drainage. ENT: Mucous membranes pink and moist. NECK: Supple without midline tenderness to palpation CARDIOVASCULAR: Regular rate and rhythm. RESPIRATORY: No accessory muscle use. MUSCULOSKELETAL: No midline tenderness to palpation of the thoracic spine. Patient has left-sided paralumbar tenderness to palpation without palpable spasm. The midline lumbar spine is nontender. He has tenderness over the left superior sacroiliac joint. Positive left straight leg raise. He complains of subjective paresthesias throughout the left leg. Reflexes intact, strength intact. Able to ambulate, though with an antalgic gait NEUROLOGICAL: Awake and alert. Normal speech. PSYCHIATRIC: Appropriate mood and affect; insight and judgment normal. Data Data Last Documented VS Vital Signs Date Time Temp Pulse Resp B/P Pulse Ox O2 Delivery O2 Flow Rate FiO2 01/02/17 09:37 98.2 83 16 132/88 98 Orders Hydromorphone Pf Inj (Dilaudid Pf Inj) (01/02/17 10:00) Cyclobenzaprine (Flexeril) (01/02/17 10:00) Dexamethasone Inj (Decadron Inj) (01/02/17 10:00) MDM Medical Decision Making Medical Screen Exam Complete: Yes Emergency Medical Condition: Yes Medical Record Reviewed: Yes Differential Diagnosis 51-year-old male with chronic back pain here with increasing pain for the last several days. Differential includes acute on chronic back pain, occult fracture , radiculopathy, sciatica, cauda equina syndrome. Narrative Course Patient describes chronic radiculopathy and urinary incontinence over the last several weeks. These are not new symptoms and he is scheduled for laminectomy in 2 days. His pain is acutely worse over the last several days, no doubt at least in part due to having to stop his gabapentin prior to surgery. He describes a classic neuropathic, radicular pain down the left leg with severe paresthesias. As none of these symptoms are new, though slightly worse symptomatically. Being as though he is neurologically intact and do not feel he warrants imaging at this time. Patient was given 1 mg Dilaudid IM, 10 mg Decadron IM, 10 mg Flexeril orally. Patient was able to ambulate and states that the pain in the back is better but that neuropathic type pain in the leg persist. Diagnosis Primary Impression: Lumbar radiculopathy Referrals: Jairo Hood MD 2 days Additional Instructions: Flexeril as needed for muscle relaxation. Continue Percocet for mild to moderate pain and Dilaudid only for severe pain. Follow-up for laminectomy as scheduled on Tuesday. Med/Other Pt SpecificInfo: Prescription(s) given Scripts Hydromorphone (Dilaudid)2 Mg Tab2 Mg PO Q4H PRN (Pain Management) #15 TAB Ref 0 Prov:Jossie Maravilla MD 01/02/17 Cyclobenzaprine (Flexeril)10 Mg Tab10 Mg PO TID #21 TAB Ref 0 Prov:Jossie Maravilla MD 01/02/17 Disposition: 01 DISCHARGE HOME Condition: Stable Jossie Maravilla MD Jan 02, 2017 10:02
[2017-01-02] MEDS ORDERED: DILA2TAB2 PO (11:04)
[2017-01-02] MEDS ORDERED: CYCL1TAB29 PO (11:04)
== END 2017-01-02 11:19 | disposition home or self-care (01) ==
LOC: NEPD 09:32
DX: Z98.1 Arthrodesis status (principal); M54.16 Radiculopathy, lumbar region; G89.29 Other chronic pain; I25.2 Old myocardial infarction; E78.00 Pure hypercholesterolemia, unspecified; F17.210 Nicotine dependence, cigarettes, uncomplicated; W01.0XXA Fall on same level from slipping, tripping and stumbling without subsequent striking against object, initial encounter
CPT/HCPCS: 96372; 99284; J1100; J1170

== ENCOUNTER 2017-05-10 17:57 | Inpatient (IN) | payer MEDICARE, OTHER ==
[~2017-05-10] VITALS: Ht 180.3 cm; Wt 83.0 kg
[~2017-05-10 17:57] MED LIST changes: +BEDSIDE COMMODE1 MI1; +CYCL10TA PO; +DILA2TAB4 PO; +GADODIAMIDE PF 287 MG/ML 20 ML VIAL (for RAD MRI) IV PUSH ONE; +HYDR-3583; +IBUP1TAB7 PO; +PROT40TA PO; +ROTI6DIS; +TAMS5CAP PO; +TEMA15CA; +WALKER WHEELS/F1 MIS
[2017-05-10 17:58] VITALS: BP 140/68; PULSE 85; RESP 18; TEMP 98.4; O2SAT 98
--- NOTE | 2017-05-10 18:51 | PD ---
Physical Exam Date Seen by Provider: May 10, 2017 Time Seen by Provider: 18:47 Narrative 51-year-old white male presents to emergency department with complains of worsening lower back pain with radiation into the right leg area. The patient has had a history of a discectomy in cage. He had a fall 1 month ago. He is been seen by Dr. Hood his surgeon. He has had an MRI and CAT scan which reveals" a twisting of the cage". He was told to come into the ER if his pain intensifies. He states the pain is now becoming unbearable. Patient reports Dr. Hood would like to be notified when he presents to the ER. The patient states that he is taking 1-1/2 tablets of 10 mg hydrocodone 3 times daily. No acute bowel or bladder changes. Data Data Last Documented VS Vital Signs Date Time Temp Pulse Resp B/P (MAP) Pulse Ox O2 Delivery O2 Flow Rate FiO2 05/10/17 17:58 98.4 85 18 140/68 (92) 98 Room Air [facility] Medical Record Reviewed: No Supervised Visit with KASHIF: Cedric Tidwell May 10, 2017 18:51
[2017-05-10] MEDS ORDERED: ALEV220T14 PO (19:11)
[2017-05-10] MEDS ORDERED: oxyCODONE/ACETAMINOPHEN 10 MG/325 MG TAB PO ONE (19:45)
--- NOTE | 2017-05-10 19:50 | PD ---
HPI Chief Complaint: Pain: Acute or Chronic Time Seen by Provider: 19:17 Travel History International Travel<30 days: No Contact w/Intl Traveler<30days: No Traveled to known affect area: No History of Present Illness HPI 51 yo M c/o low back pain and LLE burning pains chronic, gradually worsening, now severe and constant. [place] 10/325 has not relieved pain. He was prescribed percocet however couldn't fill the script due to pharmacy refusal. pt has hx discectomy with cage and subsequent cage migration after a fall. he follows with dr gant and has discussed potential of revision surgery. no fever/chills. no incontinence of stool. pt reports very hard fall leading to migration of cage with worsening pain since. pt reports urinary incontinence this morning only noticed eventually due to warm sensation about the legs. PFSH Past Medical History Anxiety: Yes Cancer: Yes (MELANOMA) Cardiovascular Problems: No High Cholesterol: Yes Diabetes: No Endocrine: No Genitourinary: No Hepatitis: No Hiatal Hernia: No Immune Disorder: No Musculoskeletal: No Neurologic: Yes (NERVE COMPRESSION, HERNIATED DISK) Psychiatric: Yes (ANXIETY) Reproductive: No Respiratory: No Immunizations Current: Yes Thyroid Disease: No Tetanus Vaccination: < 5 Years Influenza Vaccination: No Past Surgical History Abdominal Surgery: No AICD: No Cardiac Surgery: No Ear Surgery: No Endocrine Surgery: No Genitourinary Surgery: No Joint Replacement: Yes (right shoulder) Neurologic Surgery: Yes (L4 & L5 in December and & L5-S1 LAMINECTOMY X5 few years ago ) Oral Surgery: No Pacemaker: No Thoracic Surgery: No Other Surgery: Yes (SPINAL FUSIONS , MELANOMA REMOVAL FROM BACK) Social History Alcohol Use: No Tobacco Use: Yes (07/14 PPD ) Substance Use: No Allergies-Medications (Allergen,Severity, Reaction): Coded Allergies: ketorolac (Unverified Allergy, Intermediate, VOMITING, 05/10/17) morphine (Unverified Adverse Reaction, Mild, Rash, 05/10/17) Reported Meds & Prescriptions Reported Meds & Active Scripts Active Walker with Front Wheels (Device) 1 Mis Mis 1 Ea .ROUTE DIRECTED Reported Aleve Arthritis (Naproxen Sodium) 220 Mg Tab 220 Mg PO BID Hydrocodone-Acetaminophen 10-325 mg Tab Neupro Patch 24 HR (Rotigotine Patch 24 HR) 6 Mg/24 Hr Patch Temazepam 15 Mg Cap Diazepam 5 Mg Tab 5 Mg PO DAILY PRN Pravastatin 20 Mg Tab 20 Mg PO HS Requip (Ropinirole) 5 Mg Tab 10 Mg PO HS Requip (Ropinirole) 5 Mg Tab 5 Mg PO DAILY Review of Systems Except as stated in HPI: all other systems reviewed are Neg General / Constitutional: No: Fever Neurologic: No: Weakness Physical Exam Narrative GENERAL: 51-year-old male well-nourished well-developed mild distress SKIN: Focused skin assessment warm/dry. HEAD: Atraumatic. Normocephalic. EYES: Pupils equal and round. No scleral icterus. No injection or drainage. ENT: No nasal bleeding or discharge. Mucous membranes pink and moist. NECK: Trachea midline. No JVD. CARDIOVASCULAR: Regular rate and rhythm. No murmur appreciated. RESPIRATORY: No accessory muscle use. Clear to auscultation. Breath sounds equal bilaterally. GASTROINTESTINAL: Abdomen soft, non-tender, nondistended. Hepatic and splenic margins not palpable. MUSCULOSKELETAL: No obvious deformities. No clubbing. No cyanosis. No edema. NEUROLOGICAL: 2+ DTRs bilaterally. No ankle clonus. Hip flexion normal. PSYCHIATRIC: Appropriate mood and affect; insight and judgment normal. Data Data Last Documented VS Vital Signs Date Time Temp Pulse Resp B/P (MAP) Pulse Ox O2 Delivery O2 Flow Rate FiO2 05/10/17 17:58 98.4 85 18 140/68 (92) 98 Room Air Orders Orders Oxycodone-Acetamin 10-325 Mg (Percocet 1 (05/10/17 19:45) Iv Access Insert/Monitor (05/10/17 19:50) Oximetry (05/10/17 19:50) Admit Order (Ed Use Only) (05/10/17 ) Vital Signs (Adult) Q4H (05/10/17 19:57) Diet Heart Healthy (05/11/17 Breakfast) Activity Bed Rest (05/10/17 19:57) Place In Observation (05/10/17 ) Vital Signs (Adult) Q4H (05/10/17 19:57) Activity Oob With Assistance (05/10/17 19:57) Intake + Output LOUIE.QSHIFT (05/10/17 19:57) Sodium Chloride 0.9% Flush (Ns Flush) (05/10/17 20:00) Sodium Chloride 0.9% Flush (Ns Flush) (05/10/17 21:00) Comprehensive Metabolic Panel (05/11/17 06:00) Complete Blood Count With Diff (05/11/17 06:00) Pt Request For Service (05/10/17 19:57) Ot Request For Service (05/10/17 19:57) Case Management Consult (05/10/17 19:57) Scd Bilateral/Knee High LOUIE.BID (05/10/17 19:57) Naloxone Inj (Narcan Inj) (05/10/17 20:00) Magnesium Hydroxide Liq (Milk Of Magnesi (05/10/17 20:00) Sennosides (Senokot) (05/10/17 20:00) Bisacodyl Supp (Dulcolax Supp) (05/10/17 20:00) Lactulose Liq (Lactulose Liq) (05/10/17 20:00) Oxycodone (Roxicodone) (05/10/17 20:00) Morphine Inj (Morphine Inj) (05/10/17 20:00) Morphine Inj (Morphine Inj) (05/10/17 20:00) Morphine Inj (Morphine Inj) (05/10/17 20:00) Oxycodone (Roxicodone) (05/10/17 20:00) Naloxone Inj (Narcan Inj) (05/10/17 20:00) MDM Medical Decision Making Medical Screen Exam Complete: Yes Emergency Medical Condition: Yes Medical Record Reviewed: Yes Differential Diagnosis cauda equina, spinal stenosis, djd Narrative Course d/w Dr Gant who requests [facility] admission with plan for operative intervention later this week AM L spine MR requested d/w Dr Costa for [facility] Diagnosis Primary Impression: S/P lumbar spinal fusion Additional Impression: Acute exacerbation of chronic low back pain Admitting Information Admitting Physician Requests: Observation Brett Elise MD May 10, 2017 19:50
[2017-05-10] MEDS ORDERED: LACTULOSE SYRUP 20 GM/30 ML CUP PO PRN (20:00)
[2017-05-10] MEDS ORDERED: NALOXONE HCL 0.4 MG/ML AMP IV PUSH PRN ×2 (20:00)
[2017-05-10] MEDS ORDERED: SODIUM CHLORIDE 0.9% FLUSH 10 ML FLUSH IV FLUSH PRN (20:00)
--- NOTE | 2017-05-10 20:22 | PD.CONS ---
[facility] Service neurosurgery Consult Requested By Cheikh AYALA Reason for Consult Intractable pain and urinary incontinence Primary Care Physician Jared Isaacs MD History of Present Illness Mr Childers 51-year-old male with severe spinal spondylosis, status post laminectomy and arthrodhesis in January of this year. Postoperatively he was doing very well with clinical resolution of his back pain and radiculopathy, until he suffered a severe fall and reinjured his spine.He reports he was at the [facility] when he suddenly fell down hard. He presents with acute worsening of chronic low back pain and left-sided radiculopathy. He reports constant sharp pain in the low back radiating to the left leg. Patient reports continued weakness in the left leg with foot drop. He does report an episode of loss of bladder contro today, however without any subsequent loss of bladder control. Recent xrays showed that his instrumentation has displaced following the fall. Neurosurgery consultation was requested Review of Systems Constitutional: DENIES: Diaphoretic episodes, Fatigue, Fever, Weight gain, Weight loss, Chills, Dizziness, Change in appetite, Night Sweats Endocrine: DENIES: Heat/cold intolerance, Polydipsia, Polyuria, Polyphagia Eyes: DENIES: Blurred vision, Diplopia, Eye inflammation, Eye pain, Vision loss , Photosensitivity, Double Vision Ears, nose, mouth, throat: DENIES: Tinnitus, Hearing loss, Vertigo, Nasal discharge, Oral lesions, Throat pain, Hoarseness, Ear Pain, Running Nose, Epistaxis, Sinus Pain, Toothache, Odynophagia Respiratory: DENIES: Apneas, Cough, Snoring, Wheezing, Hemoptysis, Sputum production, Shortness of breath Cardiovascular: DENIES: Chest pain, Palpitations, Syncope, Dyspnea on Exertion , PND, Lower Extremity Edema, Orthopnea, Claudication Gastrointestinal: DENIES: Abdominal pain, Black stools, Bloody stools, Constipation, Diarrhea, Nausea, Vomiting, Difficulty Swallowing, Anorexia Genitourinary: COMPLAINS OF: Sexual dysfunction, Urinary frequency, Urinary incontinence, Urgency, DENIES: Hematuria, Dysuria, Nocturia, Penile Discharge, Testicular Pain, Testicular Swelling Musculoskeletal: COMPLAINS OF: Joint pain, Muscle aches, Back pain Integumentary: DENIES: Abnormal pigmentation, Nail changes, Pruritus, Rash Hematologic/lymphatic: DENIES: Bruising, Lymphadenopathy Neurologic: COMPLAINS OF: Localized weakness, DENIES: Abnormal gait, Headache, Paresthesias, Seizures, Speech Problems, Tremor, Poor Balance Psychiatric: DENIES: Anxiety, Confusion, Mood changes, Depression, Hallucinations, Agitation, Suicidal Ideation, Homicidal Ideation, Delusions Past Family Social History Allergies: Coded Allergies: ketorolac (Unverified Allergy, Intermediate, VOMITING, 05/10/17) morphine (Unverified Adverse Reaction, Mild, Rash, 05/10/17) Past Medical History anxiety Hyperlipidemia Insomnia lumbar spondylosis Past Surgical History L4 & L5 in December and & L5-S1 LAMINECTOMY X5 few years ago Final effusion Melanoma removal Right shoulder surgery Active Ordered Medications Last 48 hours Impressions Lumbar Spine MRI 05/11/172008 Signed Impressions: Service Date/Time: Tuesday, May 11, 2017 08:48 - CONCLUSION: Epidural scarring involving the left L4, left L5 and left S1 roots. Artifact from transpedicular fixation of L4 and L5. No other significant postoperative changes are noted. Dameon Lovell MD FACR Family History Family history reviewed with the patient found to be currently noncontributory. Social History Patient smokes one fourth pack per day for years. Denies alcohol. Denies illicit drugs. Physical Exam Vital Signs Vital Signs Date Time Temp Pulse Resp B/P (MAP) Pulse Ox O2 Delivery O2 Flow Rate FiO2 05/10/17 17:58 98.4 85 18 140/68 (92) 98 Room Air Physical Exam The patient is alert, awake and oriented to time, place and person. Speech is fluent. Higher cognitive functions are normal. Cranial nerve examination demonstrates the pupils to be equal, round, and reactive to light. Extra-ocular movements are intact. Facial motor and sensory function are normal and symmetrical. Gross hearing is intact, bilaterally. The uvula is midline and elevates symmetrically with the soft palate. Sternocleidomastoid and trapezius muscles have normal and symmetrical strength. Other cranial nerves are intact. Neck is soft and supple. Cervical spine has a full range of motion in anterior flexion, extension, lateral bending, and rotation without pain. There is no tenderness to palpation to the spinous processes or paraspinal muscles. Muscle testing reveals normal bulk and tone overall without rigidity, spasticity , fasciculations, or atrophy. Muscle strength is 5/5 in all muscle groups of both upper extremities including deltoid, biceps, triceps, brachioradialis, wrist extension and hub borer. In the lower extremities, strength is 5/5 in both iliopsoas, quadriceps, hamstrings, plantar flexion, 1/5 right dorsiflexion, and extensor hallicus longus 4+/5 on the left. Sensory examination is intact to light touch and sharp/dull discrimination in both upper extremities, and decreased in an L5 dermatome Deep tendon reflexes are 2+ and symmetrical in the biceps, triceps, and brachioradialis, bilaterally, in the upper extremities. In the lower extremities , the patellar and Achilles are 2+, bilaterally. There is a bilateral plantar flexion response. Hoffmanns sign is negative. There is no clonus or other abnormal reflexes noted. Cerebellar examination is intact to [id number] test, rapid rhythmic alternating motion. There is no dysmetria, dysdiadochokinesia Imaging CT lumbar spine shows significant displacement of his instrumentation X rays of the lumbar spine have been reviewed as well Assessment and Plan Assessment and Plan Caprini VTE Risk Assessment Caprini VTE Risk Assessment: No/Low Risk (score <= 1) Caprini Risk Assessment Model Point Value = 1 Point Value = 2 Point Value = 3 Point Value = 5 Age 41-60 Minor surgery BMI > 25 kg/m2 Swollen legs Varicose veins or History of unexplained or recurrent spontaneous Oral contraceptives or hormone replacement Sepsis (< 1 month) Serious lung disease, including pneumonia (< 1 month) Abnormal pulmonary function Acute myocardial infarction Congestive heart failure (< 1 month) History of inflammatory bowel disease Medical patient at bed rest Age 61-74 Arthroscopic surgery Major open surgery (> 45 min) Laparoscopic surgery (> 45 min) Malignancy Confined to bed (> 72 hours) Immobilizing plaster cast Central venous access Age >= 75 History of VTE Family history of VTE Factor V Leiden Prothrombin [id number] Lupus anticoagulant Anticardiolipin antibodies Elevated serum homocysteine Heparin-induced thrombocytopenia Other congenital or acquired thrombophilia Stroke (< 1 month) Elective arthroplasty Hip, pelvis, or leg fracture Acute spinal cord injury (< 1 month) Prophylaxis Regimen Total Risk Factor Score Risk Level Prophylaxis Regimen 0-1 Low Early ambulation 2 Moderate Order ONE of the following: *Sequential Compression Device (SCD) *Heparin 5000 units SQ BID 3-4 Higher Order ONE of the following medications: *Heparin 5000 units SQ TID *Enoxaparin/Lovenox 40 mg SQ daily (WT < 150 kg, CrCl > 30 mL/min) *Enoxaparin/Lovenox 30 mg SQ daily (WT < 150 kg, CrCl > 10-29 mL/min) *Enoxaparin/Lovenox 30 mg SQ BID (WT < 150 kg, CrCl > 30 mL/min) AND/OR *Sequential Compression Device (SCD) 5 or more Highest Order ONE of the following medications: *Heparin 5000 units SQ TID (Preferred with Epidurals) *Enoxaparin/Lovenox 40 mg SQ daily (WT < 150 kg, CrCl > 30 mL/min) *Enoxaparin/Lovenox 30 mg SQ daily (WT < 150 kg, CrCl > 10-29 mL/min) *Enoxaparin/Lovenox 30 mg SQ BID (WT < 150 kg, CrCl > 30 mL/min) AND *Sequential Compression Device (SCD) Attending Statement Mr Childers suffered a hard fall while at the [facility]. I have reviewed Mr Childers his clinical and radiological findings. He suffered a severe fall with displacement of his instrumentation which is compromising his left L5 nerve root. He has a severe left L5 radiculopathy. Recommend a follow up MRI lumbar spine. I discussed with him the alternative methods of treatment including, conservative management, pain management by an interventional supervisor paint department, or a surgical decompression, which should always be a last resort. Ropinirole for possible restless leg. Doubtful this is helping, however can continue this. Anxiety. Chronic. Continue benzodiazepine Hyperlipidemia. Chronic. Continue home statin Narcotic induced constipation. The patient has been counseled to quit smoking and understands that nicotine use increases the chance of postoperative complications such as poor wound healing and failure of the spine to heal correctly, possibly mandating the need for further surgery. In addition the risks for anesthetic complications such as prolonged intubation or development of pneumonia are increased. The patient has been offered help including the use of a nicotine patch, smokeless cigarette or Chantix. Pulmonary.aggressive pulmonary toilette, nasotracheal suction, and breathing treatments with nebulizers. Nutrition. Oral diet Renal. monitor closely urine output, BUN and creatinine Endocrine. Monitor serial Acu checks and SSI as needed in detail ID monitor for signs of infection Protonix for stress ulcer prophylaxis Aureliano hose and SCD's for DVT prophylaxis. Will defer further recommendations to upon completion of his workup Jairo Hood MD May 10, 2017 20:22
[2017-05-10] MEDS ORDERED: HYDROmorphone HCL PF 1 MG/ML VIAL IV PUSH ONE (20:45)
[2017-05-10 21:00] LABS: BLOOD, URINE NEG (NEG); COMMENT (UR) CULT NOT INDICATED; CULTURE IF INDICATED CULT NOT INDICATED; GLUCOSE,URINE NEG (NEG); KETONE, URINE NEG (NEG); NITRITE,URINE NEG (NEG); PH, URINE 6.5 (5.0-8.5); URINE COLOR LIGHT-YELLOW (YELLW/STRAW)
[2017-05-10] MEDS ORDERED: PILL SPLITTER OTHER PRN (21:00)
--- NOTE | 2017-05-10 21:01 | HHI.HP ---
[facility] Service [facility] Primary Care Physician Jared Isaacs MD Admission Diagnosis Acute on Chronic LBP Diagnoses: Travel History International Travel<30 Days: No Contact w/Intl Traveler <30 Da: No Traveled to Known Affected Are: No History of Present Illness 51-year-old male with spinal compression, status post laminectomy with Dr. Hood in January of this year. Patient presents with acute worsening of chronic low back pain and left-sided radiculopathy. He reports constant sharp pain in the low back radiating to the left leg. Patient reports continued weakness in the left leg with foot drop ever since surgery in January. He does report an episode of loss of bladder control yesterday, however without any subsequent loss of bladder control. Denies any fevers, chills, chest pain, shortness of breath, nausea, vomiting. He did have some constipation which resolved yesterday after laxatives.. Review of Systems Except as stated in HPI: all other systems reviewed are Neg Past Family Social History Past Medical History Nerve compression, herniated disc And anxiety Hyperlipidemia Insomnia Past Surgical History L4 & L5 in December and & L5-S1 LAMINECTOMY X5 few years ago Final effusion Melanoma removal Right shoulder surgery Allergies: Coded Allergies: ketorolac (Unverified Allergy, Intermediate, VOMITING, 05/10/17) morphine (Unverified Adverse Reaction, Mild, Rash, 05/10/17) Family History Family history reviewed with the patient found to be currently noncontributory. Social History Patient smokes one fourth pack per day for years. Denies alcohol. Denies illicit drugs. Physical Exam Vital Signs Vital Signs Date Time Temp Pulse Resp B/P (MAP) Pulse Ox O2 Delivery O2 Flow Rate FiO2 05/10/17 17:58 98.4 85 18 140/68 (92) 98 Room Air Physical Exam GENERAL: This is a well-nourished, well-developed patient, who appears in pain. Alert and oriented 3. SKIN: No rashes, ecchymoses or lesions. Cool and dry. HEAD: Atraumatic. Normocephalic. No temporal or scalp tenderness. EYES: Pupils equal round and reactive. Extraocular motions intact. No scleral icterus. No injection or drainage. ENT: Nose without bleeding, purulent drainage or septal hematoma. Throat without erythema, tonsillar hypertrophy or exudate. Uvula midline. Airway patent. NECK: Trachea midline. No JVD or lymphadenopathy. Supple, nontender, no meningeal signs. CARDIOVASCULAR: Regular rate and rhythm without murmurs, gallops, or rubs. RESPIRATORY: Clear to auscultation. Breath sounds equal bilaterally. No wheezes , rales, or rhonchi. GASTROINTESTINAL: Abdomen soft, non-tender, nondistended. No hepato-splenomegaly , or palpable masses. No guarding. MUSCULOSKELETAL: Extremities without clubbing, cyanosis, or edema. No joint tenderness, effusion, or edema noted. No calf tenderness. Negative Homans sign bilaterally. NEUROLOGICAL: Awake and alert. Cranial nerves II through XII intact. Motor and sensory grossly within normal limits in the upper extremities. Five out of 5 muscle strength lateral upper extremities. Patient has 5 out of 5 strength in right lower extremity, 4-5 strength in left lower extremity. Patient has foot drop on the left. He says this is stable. Laboratory Laboratory Tests Test 05/10/17 20:15 Caprini VTE Risk Assessment Caprini VTE Risk Assessment: No/Low Risk (score <= 1) Caprini Risk Assessment Model Point Value = 1 Point Value = 2 Point Value = 3 Point Value = 5 Age 41-60 Minor surgery BMI > 25 kg/m2 Swollen legs Varicose veins or History of unexplained or recurrent spontaneous Oral contraceptives or hormone replacement Sepsis (< 1 month) Serious lung disease, including pneumonia (< 1 month) Abnormal pulmonary function Acute myocardial infarction Congestive heart failure (< 1 month) History of inflammatory bowel disease Medical patient at bed rest Age 61-74 Arthroscopic surgery Major open surgery (> 45 min) Laparoscopic surgery (> 45 min) Malignancy Confined to bed (> 72 hours) Immobilizing plaster cast Central venous access Age >= 75 History of VTE Family history of VTE Factor V Leiden Prothrombin [id number] Lupus anticoagulant Anticardiolipin antibodies Elevated serum homocysteine Heparin-induced thrombocytopenia Other congenital or acquired thrombophilia Stroke (< 1 month) Elective arthroplasty Hip, pelvis, or leg fracture Acute spinal cord injury (< 1 month) Prophylaxis Regimen Total Risk Factor Score Risk Level Prophylaxis Regimen 0-1 Low Early ambulation 2 Moderate Order ONE of the following: *Sequential Compression Device (SCD) *Heparin 5000 units SQ BID 3-4 Higher Order ONE of the following medications: *Heparin 5000 units SQ TID *Enoxaparin/Lovenox 40 mg SQ daily (WT < 150 kg, CrCl > 30 mL/min) *Enoxaparin/Lovenox 30 mg SQ daily (WT < 150 kg, CrCl > 10-29 mL/min) *Enoxaparin/Lovenox 30 mg SQ BID (WT < 150 kg, CrCl > 30 mL/min) AND/OR *Sequential Compression Device (SCD) 5 or more Highest Order ONE of the following medications: *Heparin 5000 units SQ TID (Preferred with Epidurals) *Enoxaparin/Lovenox 40 mg SQ daily (WT < 150 kg, CrCl > 30 mL/min) *Enoxaparin/Lovenox 30 mg SQ daily (WT < 150 kg, CrCl > 10-29 mL/min) *Enoxaparin/Lovenox 30 mg SQ BID (WT < 150 kg, CrCl > 30 mL/min) AND *Sequential Compression Device (SCD) Assessment and Plan Assessment and Plan //Intractable back pain -Patient was on ropinirole for possible restless leg. Doubtful this is helping , however can continue this. -Narcotics ordered. order long-acting. Dilaudid IV 1 ordered. -MRI lumbar spine pending. -Depending on lumbar spine, could consider -Neurosurgery consulted. Appreciate assistance. //Anxiety. Chronic. Continue benzodiazepine //Hyperlipidemia. Chronic. Continue home statin //Narcotic induced constipation. Resolved yesterday asked her laxatives. Laxatives when necessary. We'll continue to monitor. Discussed Condition With patient, nurse, ED physician. Bib Costa MD May 10, 2017 21:01
[2017-05-10] MEDS: SODIUM CHLORIDE 0.9% FLUSH 10 ML FLUSH IV FLUSH SCH (21:13)
[2017-05-10] MEDS: PRAVASTATIN SOD 20 MG TAB PO SCH (22:10)
[2017-05-10 22:57] LABS: AUTOMATED NEUTROPHIL # 5.3 TH/MM3 (1.8-7.7); BASOPHIL # 0.1 TH/MM3 (0-0.2); EOSINOPHIL # 0.2 TH/MM3 (0-0.4); HEMO FLAGS DIFF FINAL; LYMPH % 35.2 % (9.0-44.0); LYMPHOCYTE # 3.4 TH/MM3 (1.0-4.8); MEAN CELL VOLUME 96.9 FL (80.0-100.0); MEAN CORPUSCULAR HEMOGLOBIN 34.3 PG (27.0-34.0); MEAN CORPUSCULAR HGB CONC 35.4 % (32.0-36.0); NEUT % 54.8 % (16.0-70.0); PLATELET COUNT 250 TH/MM3 (150-450); RED BLOOD COUNT 4.13 MIL/MM3 (4.50-5.90); RED CELL DISTRIBUTION WIDTH 13.3 % (11.6-17.2); WHITE BLOOD COUNT 9.6 TH/MM3 (4.0-11.0)
[2017-05-10 23:17] LABS: ALKALINE PHOSPHATASE 97 U/L (45-117); TOTAL BILIRUBIN ADULT LESS THAN 0.1 MG/DL (0.2-1.0)
[2017-05-10 23:18] LABS: ALT (GPT) 35 U/L (12-78); ANION GAP 7 MEQ/L (5-15); AST (GOT) 25 U/L (15-37); BICARBONATE 27.7 MEQ/L (21.0-32.0); BLOOD UREA NITROGEN 17 MG/DL (7-18); CHLORIDE 106 MEQ/L (98-107); GLOMERULAR FILTRATION RATE 91 ML/MIN (>89); SODIUM (NA) 141 MEQ/L (136-145)
[2017-05-11 00:42] VITALS: BP 107/58; PULSE 77; RESP 18; TEMP 97.7; O2SAT 97
[2017-05-11 03:17] VITALS: BP 111/64; PULSE 75; RESP 18; TEMP 98.3; O2SAT 96
[2017-05-11] MEDS: MORPHINE SULFATE 4 MG/ML INJ IV PUSH PRN ×6 (04:37→21:58)
[2017-05-11 06:18] LABS: AUTOMATED NEUTROPHIL # 4.5 TH/MM3 (1.8-7.7); BASOPHIL # 0.1 TH/MM3 (0-0.2); BASOPHIL % 0.8 % (0.0-2.0); EOSINOPHIL # 0.2 TH/MM3 (0-0.4); EOSINOPHIL % 2.1 % (0.0-4.0); HEMATOCRIT 41.3 % (39.0-51.0); HEMO FLAGS DIFF FINAL; LYMPH % 36.9 % (9.0-44.0); LYMPHOCYTE # 3.2 TH/MM3 (1.0-4.8); MEAN CELL VOLUME 97.5 FL (80.0-100.0); MEAN CORPUSCULAR HEMOGLOBIN 33.4 PG (27.0-34.0); MEAN CORPUSCULAR HGB CONC 34.2 % (32.0-36.0); MONO % 8.9 % (0.0-8.0); NEUT % 51.3 % (16.0-70.0); PLATELET COUNT 245 TH/MM3 (150-450); RED BLOOD COUNT 4.24 MIL/MM3 (4.50-5.90); RED CELL DISTRIBUTION WIDTH 13.7 % (11.6-17.2); WHITE BLOOD COUNT 8.8 TH/MM3 (4.0-11.0)
[2017-05-11 06:36] LABS: ANION GAP 7 MEQ/L (5-15); AST (GOT) 17 U/L (15-37); BLOOD UREA NITROGEN 20 MG/DL (7-18); CHLORIDE 107 MEQ/L (98-107); GLOMERULAR FILTRATION RATE 86 ML/MIN (>89); POTASSIUM 3.9 MEQ/L (3.5-5.1); SODIUM (NA) 141 MEQ/L (136-145)
[2017-05-11 06:37] LABS: ALT (GPT) 31 U/L (12-78)
[2017-05-11 06:39] LABS: ALKALINE PHOSPHATASE 91 U/L (45-117); TOTAL BILIRUBIN ADULT 0.1 MG/DL (0.2-1.0)
[2017-05-11 07:40] VITALS: BP 111/69; PULSE 73; RESP 18; TEMP 98; O2SAT 97
[2017-05-11] MEDS: SODIUM CHLORIDE 0.9% FLUSH 10 ML FLUSH IV FLUSH SCH ×2 (08:00→21:54)
[2017-05-11] MEDS ORDERED: ROPINIROLE 5 MG PO SCH (09:00)
[2017-05-11] MEDS: MAGNESIUM HYDROXIDE SUSP 30 ML CUP PO PRN (09:38)
--- NOTE | 2017-05-11 10:26 | RADRPT ---
EXAM DATE/TIME: 05/11/2017 08:48 [place] COMPARISON: No previous studies available for comparison. INDICATIONS : Pain. CONTRAST: 16 cc Omniscan (gadodiamide) IV MEDICAL HISTORY : Renal calculi. Melanoma. SURGICAL HISTORY : Fusion, lumbar. Rt shoulder. ENCOUNTER: Initial ACUITY: 2 day PAIN SCORE: 5/10 LOCATION: back TECHNIQUE: Multiplanar multisequence MRI of the lumbar spine was performed with and without contrast. FINDINGS: The most caudal appearing lumbar vertebra is numbered as L5. Transpedicular fixation is present at L 4-L5 with moderate artifact. The marrow is homogeneous in the upper lumbar spine. Metallic artifact is present at L4 and L5. T12-L1: The thecal sac has a normal diameter. No evidence of disc bulge or protrusion. The neural foramina are patent bilaterally. L1-L2: The thecal sac has a normal diameter. No evidence of disc bulge or protrusion. The neural foramina are patent bilaterally. L2-L3: The thecal sac has a normal diameter. No evidence of disc bulge or protrusion. The neural foramina are patent bilaterally. L3-L4: The thecal sac has a normal diameter. No evidence of disc bulge or protrusion. The neural foramina are patent bilaterally. Very minimal facet arthritis is present. L4-L5: Transpedicular fixation is evident. The neural foramen are adequate. There is no significant neural impingement. There is minimal epidural scarring on the left with minimal scar entrapment of the lef t L4 and L5 root. L5-S1: Postsurgical changes are evident with minimal scarring involving the left L5 and the left F. with S1 root in its lateral recess. There may be conjoined roots at S1-S2. Mild SI joint degenerative changes are evident. Retroperitoneum is unremarkable. CONCLUSION: Epidural scarring involving the left L4, left L5 and left S1 roots. Artifact from tr anspedicular fixation of L4 and L5. No other significant postoperative changes are noted. Dameon Lovell MD FACR on May 11, 2017 at 10:21 Board Certified Radiologist. This report was verified electronically.
[2017-05-11 11:07] VITALS: BP 118/82; PULSE 78; RESP 16; TEMP 97.7; O2SAT 97
--- NOTE | 2017-05-11 11:28 | HHI.PR ---
Subjective Remarks Follow up on patient with intractable low back pain and left sided radiculopathy. Patient seen and examined. Patient states back and leg pain have improved some but is still significant. Reports pain level 5/10. He has surgery scheduled with Dr. Hood on May 24 but was told it may need to be done emergently. MRI completed. Denies any other complaints at present. Objective Vitals Vital Signs Date Time Temp Pulse Resp B/P (MAP) Pulse Ox O2 Delivery O2 Flow Rate FiO2 05/11/17 11:07 97.7 78 16 118/82 (94) 97 05/11/17 07:40 98.0 73 18 111/69 (83) 97 05/11/17 04:42 18 05/11/17 03:17 98.3 75 18 111/64 (80) 96 05/11/17 00:42 97.7 77 18 107/58 (74) 97 05/10/17 22:41 16 05/10/17 21:14 05/10/17 17:58 98.4 85 18 140/68 (92) 98 Room Air I/O 05/10/17 05/10/17 05/10/17 05/11/17 05/11/17 05/11/17 07:00 15:00 23:00 07:00 15:00 23:00 Output Total 300 ml Balance -300 ml Output Urine Total 300 ml # Voids 1 Result Diagram: 05/11/17 0535 05/11/17 0535 Imaging Last Impressions Lumbar Spine MRI 05/11/172008 Signed Impressions: Service Date/Time: Thursday, May 11, 2017 08:48 - CONCLUSION: Epidural scarring involving the left L4, left L5 and left S1 roots. Artifact from transpedicular fixation of L4 and L5. No other significant postoperative changes are noted. Dameon Lovell MD FACR Objective Remarks GENERAL: This is a well-nourished, well-developed patient, INAD. Alert and oriented 3. Does appear to have discomfort with moving in the bed. SKIN: Warm and dry. HEAD: Atraumatic. Normocephalic. EYES: Extraocular motions intact. No scleral icterus. No injection or drainage. ENT: Nose without bleeding, purulent drainage or septal hematoma. Airway patent. MMM. NECK: Trachea midline. CARDIOVASCULAR: Regular rate and rhythm without murmurs, gallops, or rubs. RESPIRATORY: Clear to auscultation. Breath sounds equal bilaterally. No wheezes , rales, or rhonchi. GASTROINTESTINAL: Abdomen soft, non-tender, nondistended. No hepato-splenomegaly , or palpable masses. No guarding. MUSCULOSKELETAL: Extremities without clubbing, cyanosis, or edema. No calf tenderness. NEUROLOGICAL: Awake and alert. Motor and sensory grossly within normal limits in the upper extremities. Five out of 5 muscle strength lateral upper extremities. Patient has 5 out of 5 strength in right lower extremity, 4-5 strength in left lower extremity. Patient has foot drop on the left. Medications and IVs Current Medications Medications (Trade) Dose Ordered Sig/Criselda Route Start Time Stop Time Status Last Admin (NS Flush) 2 ml UNSCH PRN IV FLUSH 05/10/17 20:00 (NS Flush) 2 ml BID IV FLUSH 05/10/17 21:00 05/11/17 08:00 (Narcan Inj) 0.4 mg UNSCH PRN IV PUSH 05/10/17 20:00 (Milk Of Magnesia Liq) 30 ml Q12H PRN PO 05/10/17 20:00 05/11/17 09:38 (Senokot) 17.2 mg Q12H PRN PO 05/10/17 20:00 (Dulcolax Supp) 10 mg DAILY PRN RECTAL 05/10/17 20:00 (Lactulose Liq) 30 ml DAILY PRN PO 05/10/17 20:00 (Roxicodone) 10 mg Q4H PRN PO 05/10/17 20:00 05/11/17 10:32 (Morphine Inj) 2 mg Q3H PRN IV PUSH 05/10/17 20:00 05/11/17 04:37 (Morphine Inj) 4 mg Q3H PRN IV PUSH 05/10/17 20:00 05/11/17 08:01 (Morphine Inj) 4 mg Q3H PRN IV PUSH 05/10/17 20:00 (Roxicodone) 5 mg Q4H PRN PO 05/10/17 20:00 (Narcan Inj) 0.4 mg UNSCH PRN IV PUSH 05/10/17 20:00 (Requip) 10 mg HS PO 05/10/17 21:00 05/10/17 22:35 (Requip) 5 mg DAILY PO 05/11/17 09:00 05/11/17 07:59 (Pill Splitter) 1 ea UNSCH PRN OTHER 05/10/17 21:00 (Pravachol) 20 mg HS PO 05/10/17 21:00 05/10/17 22:10 A/P Assessment and Plan //Intractable low back pain and left lumbar radiculopathy //Left foot drop, chronic -Patient was on ropinirole for possible restless leg. Doubtful this is helping , however can continue this. -continue pain management -MRI lumbar spine reviewed, previous fusion L4L5, epidural scarring left L4, L5 and S1 roots. -Patient has left AFO that is currently being refitted by hotel controller -Neurosurgery consulted. Appreciate assistance. -PT/OT eval/tx //Anxiety. Chronic. Continue benzodiazepine //Hyperlipidemia. Chronic. Continue home statin //Narcotic induced constipation. Resolved yesterday after laxatives. Laxatives when necessary. We'll continue to monitor. Discussed with Dr. Flores and patient Discharge Planning Per clinical course and Neurosurgery clearance Katie Aguila May 11, 2017 11:28
--- NOTE | 2017-05-11 14:17 | HHI.NSPN ---
Note Status Status: Progress Note Interval History Diagnosis Lumbar radiculopathy Interval History Mr Childers 51-year-old male with severe spinal spondylosis, status post laminectomy and arthrodhesis in January of this year. Postoperatively he was doing very well with clinical resolution of his back pain and radiculopathy, until he suffered a severe fall and reinjured his spine. He presents with acute worsening of chronic low back pain and left-sided radiculopathy. He reports constant sharp pain in the low back radiating to the left leg. Patient reports continued weakness in the left leg with foot drop. He does report an episode of loss of bladder contro today, however without any subsequent loss of bladder control. Recent xrays showed that his instrumentation has displaced following the fall. Neurosurgery consultation was requested 05/11. Continues to suffer severe pain. No further urinary incontinence. Follow up MRI done today Labs, Micro, & Vital Signs Results Date Time Temp Pulse Resp B/P (MAP) Pulse Ox O2 Delivery O2 Flow Rate FiO2 05/11/17 11:07 97.7 78 16 118/82 (94) 97 05/11/17 07:40 98.0 73 18 111/69 (83) 97 05/11/17 04:42 18 05/11/17 03:17 98.3 75 18 111/64 (80) 96 05/11/17 00:42 97.7 77 18 107/58 (74) 97 05/10/17 22:41 16 05/10/17 21:14 05/10/17 17:58 98.4 85 18 140/68 (92) 98 Room Air Constitutional Vital Signs Date Time Temp Pulse Resp B/P (MAP) Pulse Ox O2 Delivery O2 Flow Rate FiO2 05/11/17 11:07 97.7 78 16 118/82 (94) 97 05/11/17 07:40 98.0 73 18 111/69 (83) 97 05/11/17 04:42 18 05/11/17 03:17 98.3 75 18 111/64 (80) 96 05/11/17 00:42 97.7 77 18 107/58 (74) 97 05/10/17 22:41 16 05/10/17 21:14 05/10/17 17:58 98.4 85 18 140/68 (92) 98 Room Air Review of Systems Constitutional: DENIES: Diaphoretic episodes, Fatigue, Fever, Weight gain, Weight loss, Chills, Dizziness, Change in appetite, Night Sweats Endocrine: DENIES: Heat/cold intolerance, Polydipsia, Polyuria, Polyphagia Eyes: DENIES: Blurred vision, Diplopia, Eye inflammation, Eye pain, Vision loss , Photosensitivity, Double Vision Ears, nose, mouth, throat: DENIES: Tinnitus, Hearing loss, Vertigo, Nasal discharge, Oral lesions, Throat pain, Hoarseness, Ear Pain, Running Nose, Epistaxis, Sinus Pain, Toothache, Odynophagia Respiratory: DENIES: Apneas, Cough, Snoring, Wheezing, Hemoptysis, Sputum production, Shortness of breath Cardiovascular: DENIES: Chest pain, Palpitations, Syncope, Dyspnea on Exertion , PND, Lower Extremity Edema, Orthopnea, Claudication Gastrointestinal: DENIES: Abdominal pain, Black stools, Bloody stools, Constipation, Diarrhea, Nausea, Vomiting, Difficulty Swallowing, Anorexia Genitourinary: COMPLAINS OF: Sexual dysfunction, Urinary frequency, Urinary incontinence, Urgency, DENIES: Hematuria, Dysuria, Nocturia, Penile Discharge, Testicular Pain, Testicular Swelling Musculoskeletal: COMPLAINS OF: Joint pain, Muscle aches, Back pain Integumentary: DENIES: Abnormal pigmentation, Nail changes, Pruritus, Rash Hematologic/lymphatic: DENIES: Bruising, Lymphadenopathy Neurologic: COMPLAINS OF: Localized weakness, DENIES: Abnormal gait, Headache, Paresthesias, Seizures, Speech Problems, Tremor, Poor Balance Psychiatric: DENIES: Anxiety, Confusion, Mood changes, Depression, Hallucinations, Agitation, Suicidal Ideation, Homicidal Ideation, Delusions Physical Exam Mr Childers is alert, awake and oriented to time, place and person. Speech is fluent. Higher cognitive functions are normal. Cranial nerve examination demonstrates the pupils to be equal, round, and reactive to light. Extra-ocular movements are intact. Facial motor and sensory function are normal and symmetrical. Gross hearing is intact, bilaterally. The uvula is midline and elevates symmetrically with the soft palate. Sternocleidomastoid and trapezius muscles have normal and symmetrical strength. Other cranial nerves are intact. Neck is soft and supple. Cervical spine has a full range of motion in anterior flexion, extension, lateral bending, and rotation without pain. There is no tenderness to palpation to the spinous processes or paraspinal muscles. Muscle testing reveals normal bulk and tone overall without rigidity, spasticity , fasciculations, or atrophy. Muscle strength is 5/5 in all muscle groups of both upper extremities including deltoid, biceps, triceps, brachioradialis, wrist extension and case planner. In the lower extremities, strength is 5/5 in both iliopsoas, quadriceps, hamstrings, plantar flexion, 1/5 right dorsiflexion, and extensor hallicus longus 4+/5 on the left. Sensory examination is intact to light touch and sharp/dull discrimination in both upper extremities, and decreased in an L5 dermatome Deep tendon reflexes are 2+ and symmetrical in the biceps, triceps, and brachioradialis, bilaterally, in the upper extremities. In the lower extremities , the patellar and Achilles are 2+, bilaterally. There is a bilateral plantar flexion response. Hoffmanns sign is negative. There is no clonus or other abnormal reflexes noted. Cerebellar examination is intact to [id number] test, rapid rhythmic alternating motion. There is no dysmetria, dysdiadochokinesia Medications Current Medications Current Medications Oxycodone/ Acetaminophen (Percocet 10-325 Mg) 1 tab ONCE ONCE PO Last administered on 05/10/17 19:55; Start 05/10/17 at 19:45; Stop 05/10/17 at 19 :46; Status DC Sodium Chloride (NS Flush) 2 ml UNSCH PRN IV FLUSH FLUSH AFTER USING IV ACCESS ; Start 05/10/17 at 20:00 Sodium Chloride (NS Flush) 2 ml BID IV FLUSH Last administered on 05/11/17 08: 00; Start 05/10/17 at 21:00 Naloxone HCl (Narcan Inj) 0.4 mg UNSCH PRN IV PUSH SEE LABEL COMMENTS; Start 05/10/17 at 20:00 Magnesium Hydroxide (Milk Of Magnesia Liq) 30 ml Q12H PRN PO Mild constipation Last administered on 05/11/17 09:38; Start 05/10/17 at 20:00 Sennosides (Senokot) 17.2 mg Q12H PRN PO Moderate constipation; Start at 20:00 Bisacodyl (Dulcolax Supp) 10 mg DAILY PRN RECTAL SEVERE CONSITIPATION; Start 05/10/17 at 20:00 Lactulose (Lactulose Liq) 30 ml DAILY PRN PO SEVERE CONSITIPATION; Start 05/10 at 20:00 Oxycodone HCl (Roxicodone) 10 mg Q4H PRN PO PAIN SCALE 6 TO 10 Last administered on 05/11/17 10:32; Start 05/10/17 at 20:00 Morphine Sulfate (Morphine Inj) 2 mg Q3H PRN IV PUSH Pain 3-5; if unable to take PO Last administered on 05/11/17 11:44; Start 05/10/17 at 20:00 Morphine Sulfate (Morphine Inj) 4 mg Q3H PRN IV PUSH Pain 6-10;if unable to take PO Last administered on 05/11/17 08:01; Start 05/10/17 at 20:00 Morphine Sulfate (Morphine Inj) 4 mg Q3H PRN IV PUSH BREAKTHROUGH PAIN; Start 05/10/17 at 20:00 Oxycodone HCl (Roxicodone) 5 mg Q4H PRN PO PAIN SCALE 3 TO 5; Start 05/10/17 at 20:00 Naloxone HCl (Narcan Inj) 0.4 mg UNSCH PRN IV PUSH SEE LABEL COMMENTS; Start 05/10/17 at 20:00 Hydromorphone HCl (Dilaudid Pf Inj) 1 mg ONCE ONCE IV PUSH Last administered on 05/10/17 22:11; Start 05/10/17 at 20:45; Stop 05/10/17 at 20:52; Status DC Non-Formulary Medication 5 mg DAILY PO ; Start 05/11/17 at 09:00; Status UNV Ropinirole HCl (Requip) 10 mg HS PO Last administered on 05/10/17 22:35; Start 05/10/17 at 21:00 Ropinirole HCl (Requip) 5 mg DAILY PO Last administered on 05/11/17 07:59; Start 05/11/17 at 09:00 Miscellaneous (Pill Splitter) 1 ea UNSCH PRN OTHER SEE LABEL COMMENTS; Start 05/10/17 at 21:00 Pravastatin Sodium (Pravachol) 20 mg HS PO Last administered on 05/10/17 22: 10; Start 05/10/17 at 21:00 Gadodiamide (Omniscan Pf Inj) 16 ml STK-MED ONCE IV PUSH Last administered on 05/10/17 08:30; Start 05/10/17 at 08:30; Stop 05/11/17 at 10:41; Status DC Vancomycin HCl 1000 mg/Sodium Chloride 250 ml @ 250 mls/hr ONCE ONCE IV ; Start 05/13/17 at 06:00; Stop 05/13/17 at 06:59; Status UNV Chlorhexidine Gluconate (Hibiclens 4% Top Soln) 1 applic HS TOP ; Start at 21:00; Stop 05/13/17 at 21:01; Status UNV Medical Decision Making MDM Remarks Last 48 hours Impressions Lumbar Spine MRI 05/11/172008 Signed Impressions: Service Date/Time: Tuesday, May 11, 2017 08:48 - CONCLUSION: Epidural scarring involving the left L4, left L5 and left S1 roots. Artifact from transpedicular fixation of L4 and L5. No other significant postoperative changes are noted. Dameon Lovell MD FACR Plan Plan Remarks Caprini VTE Risk Assessment Caprini VTE Risk Assessment: No/Low Risk (score <= 1) Caprini Risk Assessment Model Point Value = 1 Point Value = 2 Point Value = 3 Point Value = 5 Age 41-60 Minor surgery BMI > 25 kg/m2 Swollen legs Varicose veins or History of unexplained or recurrent spontaneous Oral contraceptives or hormone replacement Sepsis (< 1 month) Serious lung disease, including pneumonia (< 1 month) Abnormal pulmonary function Acute myocardial infarction Congestive heart failure (< 1 month) History of inflammatory bowel disease Medical patient at bed rest Age 61-74 Arthroscopic surgery Major open surgery (> 45 min) Laparoscopic surgery (> 45 min) Malignancy Confined to bed (> 72 hours) Immobilizing plaster cast Central venous access Age >= 75 History of VTE Family history of VTE Factor V Leiden Prothrombin [id number] Lupus anticoagulant Anticardiolipin antibodies Elevated serum homocysteine Heparin-induced thrombocytopenia Other congenital or acquired thrombophilia Stroke (< 1 month) Elective arthroplasty Hip, pelvis, or leg fracture Acute spinal cord injury (< 1 month) Prophylaxis Regimen Total Risk Factor Score Risk Level Prophylaxis Regimen 0-1 Low Early ambulation 2 Moderate Order ONE of the following: *Sequential Compression Device (SCD) *Heparin 5000 units SQ BID 3-4 Higher Order ONE of the following medications: *Heparin 5000 units SQ TID *Enoxaparin/Lovenox 40 mg SQ daily (WT < 150 kg, CrCl > 30 mL/min) *Enoxaparin/Lovenox 30 mg SQ daily (WT < 150 kg, CrCl > 10-29 mL/min) *Enoxaparin/Lovenox 30 mg SQ BID (WT < 150 kg, CrCl > 30 mL/min) AND/OR *Sequential Compression Device (SCD) 5 or more Highest Order ONE of the following medications: *Heparin 5000 units SQ TID (Preferred with Epidurals) *Enoxaparin/Lovenox 40 mg SQ daily (WT < 150 kg, CrCl > 30 mL/min) *Enoxaparin/Lovenox 30 mg SQ daily (WT < 150 kg, CrCl > 10-29 mL/min) *Enoxaparin/Lovenox 30 mg SQ BID (WT < 150 kg, CrCl > 30 mL/min) AND *Sequential Compression Device (SCD) Attending Statement I reviewed his MRI lumbar spine. I again discussed with him the alternatives of treatment Continue Ropinirole for possible restless leg. Doubtful this is helping, however can continue this. Anxiety. Chronic. Continue benzodiazepine Hyperlipidemia. Chronic. Continue home statin Narcotic induced constipation. The patient has again been counseled to quit smoking and understands that nicotine use increases the chance of postoperative complications such as poor wound healing and failure of the spine to heal correctly, possibly mandating the need for further surgery. In addition the risks for anesthetic complications such as prolonged intubation or development of pneumonia are increased. Continue Pulmonary.aggressive pulmonary toilette, nasotracheal suction, and breathing treatments with nebulizers. Nutrition. Continue Oral diet Renal. monitor closely urine output, BUN and creatinine Endocrine. Monitor serial Acu checks and SSI as needed in detail ID monitor for signs of infection Continue Protonix for stress ulcer prophylaxis Continue Aureliano ghotra and SCD's for DVT prophylaxis. Jairo Hood MD May 11, 2017 14:17
[2017-05-11 15:28] VITALS: BP 107/75; PULSE 73; RESP 16; TEMP 97.7; O2SAT 97
[2017-05-11] MEDS ORDERED: ROTI4DIS T-DERMAL (18:54)
[2017-05-11 19:53] VITALS: BP 127/70; PULSE 75; RESP 17; TEMP 98; O2SAT 97
[2017-05-11] MEDS: CHLORHEXIDINE GLUCONATE 4% SOLN 120 ML BTL TOP SCH (21:00)
[2017-05-11] MEDS: PRAVASTATIN SOD 20 MG TAB PO SCH (21:53)
[2017-05-12] VITALS (7 sets, daily range): BP systolic 106–131; BP diastolic 67–81; PULSE 68–89; RESP 18–20; TEMP 97.8–98.3; O2SAT 95–98
[2017-05-12] MEDS: MORPHINE SULFATE 4 MG/ML INJ IV PUSH PRN ×4 (05:40→21:18)
[2017-05-12] MEDS: MAGNESIUM HYDROXIDE SUSP 30 ML CUP PO PRN (07:46)
[2017-05-12] MEDS: SODIUM CHLORIDE 0.9% FLUSH 10 ML FLUSH IV FLUSH SCH ×2 (08:40→21:18)
--- NOTE | 2017-05-12 09:49 | HHI.PR ---
Subjective Remarks Follow up on patient with intractable low back pain and left sided radiculopathy. Patient seen and examined. Patient reports continued pain in low back and left leg. No further episodes of incontinence. Requesting home med of Neupro for RLS. Patient scheduled for surgery in am. He denies any other complaints at present. Objective Vitals Vital Signs Date Time Temp Pulse Resp B/P (MAP) Pulse Ox O2 Delivery O2 Flow Rate FiO2 05/12/17 07:12 98.1 74 20 121/81 (94) 97 05/12/17 06:25 18 05/12/17 03:38 98.1 74 18 106/70 (82) 96 05/12/17 03:38 18 05/12/17 00:13 97.8 68 19 111/67 (82) 96 05/11/17 19:53 98.0 75 17 127/70 (89) 97 05/11/17 15:28 97.7 73 16 107/75 (86) 97 05/11/17 11:07 97.7 78 16 118/82 (94) 97 Result Diagram: 05/11/17 0535 05/11/17 0535 Imaging Last Impressions Lumbar Spine MRI 05/11/172008 Signed Impressions: Service Date/Time: Thursday, May 11, 2017 08:48 - CONCLUSION: Epidural scarring involving the left L4, left L5 and left S1 roots. Artifact from transpedicular fixation of L4 and L5. No other significant postoperative changes are noted. Dameon Lovell MD FACR Objective Remarks GENERAL: This is a well-nourished, well-developed patient, INAD. Alert and awake. Lying in bed. SKIN: Warm and dry. HEAD: Atraumatic. Normocephalic. EYES: Extraocular motions intact. No scleral icterus. No injection or drainage. ENT: Nose without bleeding, purulent drainage or septal hematoma. Airway patent. MMM. NECK: Trachea midline. CARDIOVASCULAR: Regular rate and rhythm without murmurs, gallops, or rubs. RESPIRATORY: Clear to auscultation. Breath sounds equal bilaterally. No wheezes , rales, or rhonchi. GASTROINTESTINAL: Abdomen soft, non-tender, nondistended. No hepato-splenomegaly , or palpable masses. No guarding. MUSCULOSKELETAL: Extremities without clubbing, cyanosis, or edema. No calf tenderness. NEUROLOGICAL: Awake and alert. Motor and sensory grossly within normal limits in the upper extremities. Five out of 5 muscle strength lateral upper extremities. Patient has 5 out of 5 strength in right lower extremity, 4-5 strength in left lower extremity. Patient has foot drop on the left. Medications and IVs Current Medications Medications (Trade) Dose Ordered Sig/Criselda Route Start Time Stop Time Status Last Admin (NS Flush) 2 ml UNSCH PRN IV FLUSH 05/10/17 20:00 (NS Flush) 2 ml BID IV FLUSH 05/10/17 21:00 05/12/17 08:40 (Narcan Inj) 0.4 mg UNSCH PRN IV PUSH 05/10/17 20:00 (Milk Of Magnesia Liq) 30 ml Q12H PRN PO 05/10/17 20:00 05/12/17 07:46 (Senokot) 17.2 mg Q12H PRN PO 05/10/17 20:00 (Dulcolax Supp) 10 mg DAILY PRN RECTAL 05/10/17 20:00 (Lactulose Liq) 30 ml DAILY PRN PO 05/10/17 20:00 (Roxicodone) 10 mg Q4H PRN PO 05/10/17 20:00 05/12/17 02:29 (Morphine Inj) 2 mg Q3H PRN IV PUSH 05/10/17 20:00 05/11/17 11:44 (Morphine Inj) 4 mg Q3H PRN IV PUSH 05/10/17 20:00 05/11/17 16:04 (Morphine Inj) 4 mg Q3H PRN IV PUSH 05/10/17 20:00 05/12/17 05:40 (Roxicodone) 5 mg Q4H PRN PO 05/10/17 20:00 05/12/17 07:45 (Narcan Inj) 0.4 mg UNSCH PRN IV PUSH 05/10/17 20:00 (Requip) 10 mg HS PO 05/10/17 21:00 05/11/17 21:53 (Requip) 5 mg DAILY PO 05/11/17 09:00 05/12/17 08:36 (Pill Splitter) 1 ea UNSCH PRN OTHER 05/10/17 21:00 (Pravachol) 20 mg HS PO 05/10/17 21:00 05/11/17 21:53 Vancomycin HCl 1000 mg/Sodium Chloride 250 ml @ 250 mls/hr ONCE ONCE IV 05/13/17 06:00 05/13/17 06:59 (Hibiclens 4% Top Soln) 1 applic HS TOP 05/11/17 21:00 05/13/17 21:01 05/11/17 21:00 A/P Assessment and Plan //Intractable low back pain and left lumbar radiculopathy //Left foot drop, chronic -continue pain management -MRI lumbar spine reviewed, previous fusion L4L5, epidural scarring left L4, L5 and S1 roots. 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 Appreciate assistance. Planned for surgical intervention tomorrow. NPO p MN. -Continue with PT/OT //RLS -Resume home dose of Neupro 4mg daily //Anxiety. Chronic. Continue benzodiazepine //Hyperlipidemia. Chronic. Continue home statin //Narcotic induced constipation. Resolved after laxatives. Laxatives when necessary. We'll continue to monitor. Discussed with Dr. Flores and patient Discharge Planning Per clinical course and Neurosurgery clearance Katie Aguila May 12, 2017 09:49
--- NOTE | 2017-05-12 12:36 | HHI.NSPN ---
(Mary Beth Witt) Note Status Status: Progress Note (Mary Beth Witt) Interval History Interval History Mr Liseth 51-year-old male with severe spinal spondylosis, status post laminectomy and arthrodhesis in January of this year. Postoperatively he was doing very well with clinical resolution of his back pain and radiculopathy, until he suffered a severe fall and reinjured his spine. He presents with acute worsening of chronic low back pain and left-sided radiculopathy. He reports constant sharp pain in the low back radiating to the left leg. Patient reports continued weakness in the left leg with foot drop. He does report an episode of loss of bladder contro today, however without any subsequent loss of bladder control. Recent xrays showed that his instrumentation has displaced following the fall. Neurosurgery consultation was requested 05/11. Continues to suffer severe pain. No further urinary incontinence. Follow up MRI done today 05/12: no improvement in his lumbar and radicular pain, eager for surgery tomorrow. (Mary Beth Witt) Labs, Micro, & Vital Signs Results Date Time Temp Pulse Resp B/P (MAP) Pulse Ox O2 Delivery O2 Flow Rate FiO2 05/12/17 11:50 98.0 75 20 131/71 (91) 96 05/12/17 07:12 98.1 74 20 121/81 (94) 97 05/12/17 06:25 18 05/12/17 03:38 98.1 74 18 106/70 (82) 96 05/12/17 03:38 18 05/12/17 00:13 97.8 68 19 111/67 (82) 96 05/11/17 19:53 98.0 75 17 127/70 (89) 97 05/11/17 15:28 97.7 73 16 107/75 (86) 97 Constitutional Vital Signs Date Time Temp Pulse Resp B/P (MAP) Pulse Ox O2 Delivery O2 Flow Rate FiO2 05/12/17 11:50 98.0 75 20 131/71 (91) 96 05/12/17 07:12 98.1 74 20 121/81 (94) 97 05/12/17 06:25 18 05/12/17 03:38 98.1 74 18 106/70 (82) 96 05/12/17 03:38 18 05/12/17 00:13 97.8 68 19 111/67 (82) 96 05/11/17 19:53 98.0 75 17 127/70 (89) 97 05/11/17 15:28 97.7 73 16 107/75 (86) 97 (Mary Beth Witt) Review of Systems Constitutional: DENIES: Fever, Chills Respiratory: DENIES: Apneas, Shortness of breath Cardiovascular: DENIES: Chest pain (Mary Beth Witt) Physical Exam Mr Childers is alert, awake and oriented to time, place and person. Speech is fluent. Cranial nerve examination: pupils equal, round, and reactive to light. Extra- ocular movements are intact. Facial motor are normal and symmetrical. Neck is soft and supple. Muscle strength is 5/5 in all muscle groups of both upper extremities including deltoid, biceps, triceps, 5- both exterminator helper. In the lower extremities, strength is 4 /5 in left iliopsoas with pain, 5/5 right iliopsoas, bilateral quadriceps, hamstrings, dorsiflexion, plantar flexion, 4-/5 left dorsiflexion. Sensory examination is decreased in an left L5 dermatome Deep tendon reflexes are 2+ and symmetrical in the biceps, triceps, and brachioradialis, bilaterally, in the upper extremities. In the lower extremities , the patellar and Achilles are 2+, bilaterally. There is a bilateral plantar flexion response. Hoffmanns sign is negative. There is no clonus or other abnormal reflexes noted. Cerebellar examination is intact to [id number] test, rapid rhythmic alternating motion. There is no dysmetria, dysdiadochokinesia (Mary Beth Witt) Mr Childers is alert, awake and oriented to time, place and person. Speech is fluent. Cranial nerve examination: pupils equal, round, and reactive to light. Extra- ocular movements are intact. Facial motor are normal and symmetrical. Neck is soft and supple. Muscle strength is 5/5 in all muscle groups of both upper extremities including deltoid, biceps, triceps, b and exterminator helper. In the lower extremities, strength is 5/5 in both iliopsoas, quadriceps, hamstrings, plantar flexion, 1/5 right dorsiflexion, and extensor hallicus longus 4+/5 on the left. Sensory examination is intact to light touch and sharp/dull discrimination in both upper extremities, and decreased in an L5 dermatome Deep tendon reflexes are 2+ and symmetrical in the biceps, triceps, and brachioradialis, bilaterally, in the upper extremities. In the lower extremities , the patellar and Achilles are 2+, bilaterally. There is a bilateral plantar flexion response. Hoffmanns sign is negative. There is no clonus or other abnormal reflexes noted. Cerebellar examination is intact to [id number] test, rapid rhythmic alternating motion. There is no dysmetria, dysdiadochokinesia (Jairo Hood MD) Medications Current Medications Current Medications Medications (Trade) Dose Ordered Sig/Criselda Route PRN Reason Start Time Stop Time Status Last Admin Dose Admin Sodium Chloride (NS Flush) 2 ml UNSCH PRN IV FLUSH FLUSH AFTER USING IV ACCESS 05/10/17 20:00 Sodium Chloride (NS Flush) 2 ml BID IV FLUSH 05/10/17 21:00 05/12/17 08:40 Magnesium Hydroxide (Milk Of Magnesia Liq) 30 ml Q12H PRN PO Mild constipation 05/10/17 20:00 05/12/17 07:46 Sennosides (Senokot) 17.2 mg Q12H PRN PO Moderate constipation 05/10/17 20:00 Bisacodyl (Dulcolax Supp) 10 mg DAILY PRN RECTAL SEVERE CONSITIPATION 05/10/17 20:00 Lactulose (Lactulose Liq) 30 ml DAILY PRN PO SEVERE CONSITIPATION 05/10/17 20:00 Oxycodone HCl (Roxicodone) 10 mg Q4H PRN PO PAIN SCALE 6 TO 10 05/10/17 20:00 05/12/17 02:29 Morphine Sulfate (Morphine Inj) 2 mg Q3H PRN IV PUSH Pain 3-5; if unable to take PO 05/10/17 20:00 05/11/17 11:44 Morphine Sulfate (Morphine Inj) 4 mg Q3H PRN IV PUSH Pain 6-10;if unable to take PO 05/10/17 20:00 05/12/17 10:17 Morphine Sulfate (Morphine Inj) 4 mg Q3H PRN IV PUSH BREAKTHROUGH PAIN 05/10/17 20:00 05/12/17 05:40 Oxycodone HCl (Roxicodone) 5 mg Q4H PRN PO PAIN SCALE 3 TO 5 05/10/17 20:00 05/12/17 07:45 Naloxone HCl (Narcan Inj) 0.4 mg UNSCH PRN IV PUSH SEE LABEL COMMENTS 05/10/17 20:00 Ropinirole HCl (Requip) 10 mg HS PO 05/10/17 21:00 05/11/17 21:53 Ropinirole HCl (Requip) 5 mg DAILY PO 05/11/17 09:00 05/12/17 08:36 Miscellaneous (Pill Splitter) 1 ea UNSCH PRN OTHER SEE LABEL COMMENTS 05/10/17 21:00 Pravastatin Sodium (Pravachol) 20 mg HS PO 05/10/17 21:00 05/11/17 21:53 Vancomycin HCl 1000 mg/Sodium Chloride 250 ml @ 250 mls/hr ONCE ONCE IV 05/13/17 06:00 05/13/17 06:59 Chlorhexidine Gluconate (Hibiclens 4% Top Soln) 1 applic HS TOP 05/11/17 21:00 05/13/17 21:01 05/11/17 21:00 Patient Own Medication Neupro 4mg transdermal pa... DAILY TOPICAL 05/13/17 09:00 Future Hold (Mary Beth Witt) Current Medications Current Medications Oxycodone/ Acetaminophen (Percocet 10-325 Mg) 1 tab ONCE ONCE PO Last administered on 05/10/17 19:55; Start 05/10/17 at 19:45; Stop 05/10/17 at 19 :46; Status DC Sodium Chloride (NS Flush) 2 ml UNSCH PRN IV FLUSH FLUSH AFTER USING IV ACCESS ; Start 05/10/17 at 20:00 Sodium Chloride (NS Flush) 2 ml BID IV FLUSH Last administered on 05/12/17 08: 40; Start 05/10/17 at 21:00 Naloxone HCl (Narcan Inj) 0.4 mg UNSCH PRN IV PUSH SEE LABEL COMMENTS; Start 05/10/17 at 20:00; Stop 05/12/17 at 10:23; Status DC Magnesium Hydroxide (Milk Of Magnesia Liq) 30 ml Q12H PRN PO Mild constipation Last administered on 05/12/17 07:46; Start 05/10/17 at 20:00 Sennosides (Senokot) 17.2 mg Q12H PRN PO Moderate constipation; Start at 20:00 Bisacodyl (Dulcolax Supp) 10 mg DAILY PRN RECTAL SEVERE CONSITIPATION; Start 05/10/17 at 20:00 Lactulose (Lactulose Liq) 30 ml DAILY PRN PO SEVERE CONSITIPATION; Start 05/10 at 20:00 Oxycodone HCl (Roxicodone) 10 mg Q4H PRN PO PAIN SCALE 6 TO 10 Last administered on 05/12/17 14:59; Start 05/10/17 at 20:00 Morphine Sulfate (Morphine Inj) 2 mg Q3H PRN IV PUSH Pain 3-5; if unable to take PO Last administered on 05/11/17 11:44; Start 05/10/17 at 20:00 Morphine Sulfate (Morphine Inj) 4 mg Q3H PRN IV PUSH Pain 6-10;if unable to take PO Last administered on 05/12/17 10:17; Start 05/10/17 at 20:00 Morphine Sulfate (Morphine Inj) 4 mg Q3H PRN IV PUSH BREAKTHROUGH PAIN Last administered on 05/12/17 05:40; Start 05/10/17 at 20:00 Oxycodone HCl (Roxicodone) 5 mg Q4H PRN PO PAIN SCALE 3 TO 5 Last administered on 05/12/17 07:45; Start 05/10/17 at 20:00 Naloxone HCl (Narcan Inj) 0.4 mg UNSCH PRN IV PUSH SEE LABEL COMMENTS; Start 05/10/17 at 20:00 Hydromorphone HCl (Dilaudid Pf Inj) 1 mg ONCE ONCE IV PUSH Last administered on 05/10/17 22:11; Start 05/10/17 at 20:45; Stop 05/10/17 at 20:52; Status DC Non-Formulary Medication 5 mg DAILY PO ; Start 05/11/17 at 09:00; Status UNV Ropinirole HCl (Requip) 10 mg HS PO Last administered on 05/11/17 21:53; Start 05/10/17 at 21:00 Ropinirole HCl (Requip) 5 mg DAILY PO Last administered on 05/12/17 08:36; Start 05/11/17 at 09:00 Miscellaneous (Pill Splitter) 1 ea UNSCH PRN OTHER SEE LABEL COMMENTS; Start 05/10/17 at 21:00 Pravastatin Sodium (Pravachol) 20 mg HS PO Last administered on 05/11/17 21:53 ; Start 05/10/17 at 21:00 Gadodiamide (Omniscan Pf Inj) 16 ml STK-MED ONCE IV PUSH Last administered on 05/10/17 08:30; Start 05/10/17 at 08:30; Stop 05/11/17 at 10:41; Status DC Vancomycin HCl 1000 mg/Sodium Chloride 250 ml @ 250 mls/hr ONCE ONCE IV ; Start 05/13/17 at 06:00; Stop 05/13/17 at 06:59 Chlorhexidine Gluconate (Hibiclens 4% Top Soln) 1 applic HS TOP Last administered on 05/11/17 21:00; Start 05/11/17 at 21:00; Stop 05/13/17 at 21:01 Patient Own Medication Neupro 4mg transdermal pa... DAILY TOPICAL ; Start at 09:00; Status Future Hold (Jairo Hood MD) Medical Decision Making MDM Remarks (Mary Beth Witt) Plan Plan Remarks Mr. Childers continues to suffer from severe, intractable back pain with left lower extremity radiculopathy. He has weakness in the dorsiflexion of the left foot. OR tomorrow for redo L4 5 and interbody arthrodesis with repositioning of the interbody cage, and posterolateral fusion. Dr. Hood have discussed the details of the surgical decompression including the [id number] procedure, its indications, alternatives, risks, and potential complications. Risks and potential complications include, but are not limited to , infection, blood loss, CSF leak, partial or complete loss of sight in one or both eyes, paresis, paralysis, permanent pain, hoarseness or difficulty swallowing, loss of bowel or bladder function, complications from anesthesia, blood clot, stroke, myocardial infarction, or even . NPO tonight hibiclens bath SCDs and TEDs for dvt prophylaxis (Mary Beth Witt) Attending Statement Rd VTE Risk Assessment Caprini VTE Risk Assessment: No/Low Risk (score <= 1) Caprini Risk Assessment Model Point Value = 1 Point Value = 2 Point Value = 3 Point Value = 5 Age 41-60 Minor surgery BMI > 25 kg/m2 Swollen legs Varicose veins or History of unexplained or recurrent spontaneous Oral contraceptives or hormone replacement Sepsis (< 1 month) Serious lung disease, including pneumonia (< 1 month) Abnormal pulmonary function Acute myocardial infarction Congestive heart failure (< 1 month) History of inflammatory bowel disease Medical patient at bed rest Age 61-74 Arthroscopic surgery Major open surgery (> 45 min) Laparoscopic surgery (> 45 min) Malignancy Confined to bed (> 72 hours) Immobilizing plaster cast Central venous access Age >= 75 History of VTE Family history of VTE Factor V Leiden Prothrombin [id number] Lupus anticoagulant Anticardiolipin antibodies Elevated serum homocysteine Heparin-induced thrombocytopenia Other congenital or acquired thrombophilia Stroke (< 1 month) Elective arthroplasty Hip, pelvis, or leg fracture Acute spinal cord injury (< 1 month) Prophylaxis Regimen Total Risk Factor Score Risk Level Prophylaxis Regimen 0-1 Low Early ambulation 2 Moderate Order ONE of the following: *Sequential Compression Device (SCD) *Heparin 5000 units SQ BID 3-4 Higher Order ONE of the following medications: *Heparin 5000 units SQ TID *Enoxaparin/Lovenox 40 mg SQ daily (WT < 150 kg, CrCl > 30 mL/min) *Enoxaparin/Lovenox 30 mg SQ daily (WT < 150 kg, CrCl > 10-29 mL/min) *Enoxaparin/Lovenox 30 mg SQ BID (WT < 150 kg, CrCl > 30 mL/min) AND/OR *Sequential Compression Device (SCD) 5 or more Highest Order ONE of the following medications: *Heparin 5000 units SQ TID (Preferred with Epidurals) *Enoxaparin/Lovenox 40 mg SQ daily (WT < 150 kg, CrCl > 30 mL/min) *Enoxaparin/Lovenox 30 mg SQ daily (WT < 150 kg, CrCl > 10-29 mL/min) *Enoxaparin/Lovenox 30 mg SQ BID (WT < 150 kg, CrCl > 30 mL/min) AND *Sequential Compression Device (SCD) Attending Statement I again discussed with him the alternatives of treatment. he wants to proceed with surgery Continue Ropinirole for possible restless leg. Doubtful this is helping, however can continue this. Anxiety. Chronic. Continue benzodiazepine Hyperlipidemia. Chronic. Continue home statin Narcotic induced constipation. The patient has again been counseled to quit smoking and understands that nicotine use increases the chance of postoperative complications such as poor wound healing and failure of the spine to heal correctly, possibly mandating the need for further surgery. In addition the risks for anesthetic complications such as prolonged intubation or development of pneumonia are increased. Pulmonary.aggressive pulmonary toilette, nasotracheal suction, and breathing treatments with nebulizers. Nutrition. Oral diet Renal. monitor closely urine output, BUN and creatinine Endocrine. Monitor serial Acu checks and SSI as needed in detail ID monitor for signs of infection Protonix for stress ulcer prophylaxis Aureliano ghotra and SCD's for DVT prophylaxis. Will defer further recommendations to upon completion of his workup The exam, history, and the medical decision-making described in the above note were completed with the assistance of the mid-level provider. I reviewed and agree with the findings presented. I attest that I had a [id number] encounter with the patient on the same day, and personally performed and documented my assessment and findings in the medical record. (Jairo Hood MD) Mary Beth Witt May 12, 2017 12:36 Jairo Hood MD May 12, 2017 16:29
[2017-05-12] MEDS ORDERED: METOPROLOL TARTRATE 25 MG TAB PO PRN (17:45)
[2017-05-12] MEDS ORDERED: POVIDONE IODINE 5% (ANTISEPSIS KIT) 4 APPLICATIONS EACH NARE PRN (17:45)
[2017-05-12] MEDS ORDERED: SODIUM CHLORID 0.9% 500 ML IV PRN (17:45)
[2017-05-12] MEDS ORDERED: INSULIN HUMAN REGULAR 1,000 UNITS/10 ML VIAL SQ PRN (17:45)
[2017-05-12] MEDS ORDERED: LACTATED RINGER'S 1000 ML IV PRN (17:45)
[2017-05-12] MEDS ORDERED: CHLORHEXIDINE GLUCONATE 2 % 1 PACK (2 CLOTHS) TOPICAL PRN (17:45)
[2017-05-12] MEDS: CHLORHEXIDINE GLUCONATE 4% SOLN 120 ML BTL TOP SCH (21:00)
[2017-05-12] MEDS: PRAVASTATIN SOD 20 MG TAB PO SCH (21:17)
[2017-05-13 04:42] VITALS: BP 108/72; PULSE 79; RESP 18; TEMP 97.8; O2SAT 96
[2017-05-13] MEDS ORDERED: VANCOMYCIN INJ 1,000 MG in SODIUM CHLOR 0.9% 250 ML INJ 250 ML IV ONE (06:00)
[2017-05-13] MEDS ORDERED: BUPIVACAINE HCL PF 0.5% 30 ML VIAL ONE (06:59)
[2017-05-13] MEDS ORDERED: ceFAZolin 2 GM PREMIX 50 ML ONE (06:59)
[2017-05-13] MEDS ORDERED: HEPARIN SODIUM - SQ 10,000 UNITS/ML VIAL ONE (06:59)
[2017-05-13] MEDS ORDERED: THROMBIN (TOPICAL) 5,000 UNIT VIAL ONE (06:59)
[2017-05-13] MEDS ORDERED: VANCOMYCIN HCL 1000 MG VIAL ONE (06:59)
[2017-05-13] MEDS ORDERED: GELFOAM SIZE 100 ONE (06:59)
[2017-05-13] MEDS ORDERED: GENTAMICIN SULFATE 80 MG/2 ML VIAL ONE (07:00)
[2017-05-13 07:29] VITALS: BP 133/80; PULSE 78; RESP 20; TEMP 97.9; O2SAT 96
--- NOTE | 2017-05-13 07:33 | HHI.PR ---
Subjective Remarks Follow up on patient with intractable low back pain and left sided radiculopathy. Patient seen and examined today. Patient reports difficult night due to not receiving any pain medication from 11pm to 6am despite asking several times. He also was not given his Neupro patch. He is eager for surgery today. He is NPO. He denies any complaints of fever, chills, N/V, dyspnea, abdominal pain, chest pain, diarrhea or constipation. He is anticipating 4 day inpatient postoperative course then [facility]. Afebrile. VSS. Objective Vitals Vital Signs Date Time Temp Pulse Resp B/P (MAP) Pulse Ox O2 Delivery O2 Flow Rate FiO2 05/13/17 04:42 97.8 79 18 108/72 (84) 96 05/12/17 23:26 98.1 72 18 117/71 (86) 96 05/12/17 19:44 98.1 89 20 127/79 (95) 95 05/12/17 15:22 98.3 80 20 118/71 (87) 98 05/12/17 11:50 98.0 75 20 131/71 (91) 96 Result Diagram: 05/11/17 0535 05/11/17 0535 Imaging Last Impressions Lumbar Spine MRI 05/11/172008 Signed Impressions: Service Date/Time: Thursday, May 11, 2017 08:48 - CONCLUSION: Epidural scarring involving the left L4, left L5 and left S1 roots. Artifact from transpedicular fixation of L4 and L5. No other significant postoperative changes are noted. Dameon Lovell MD FACR Objective Remarks GENERAL: This is a well-nourished, well-developed patient, INAD. Sitting up in bed. Awake and alert. SKIN: Warm and dry. HEAD: Atraumatic. Normocephalic. EYES: Extraocular motions intact. No scleral icterus. No injection or drainage. ENT: Nose without bleeding, purulent drainage or septal hematoma. Airway patent. MMM. NECK: Trachea midline. CARDIOVASCULAR: Regular rate and rhythm without murmurs, gallops, or rubs. RESPIRATORY: Clear to auscultation. Breath sounds equal bilaterally. No wheezes , rales, or rhonchi. GASTROINTESTINAL: Abdomen soft, non-tender, nondistended. No hepato-splenomegaly , or palpable masses. No guarding. MUSCULOSKELETAL: Extremities without clubbing, cyanosis, or edema. No calf tenderness. NEUROLOGICAL: Awake and alert. Motor and sensory grossly within normal limits in the upper extremities. Five out of 5 muscle strength lateral upper extremities. Patient has 5 out of 5 strength in right lower extremity, 4-5 strength in left lower extremity. Patient has foot drop on the left. Medications and IVs Current Medications Medications (Trade) Dose Ordered Sig/Criselda Route Start Time Stop Time Status Last Admin (NS Flush) 2 ml UNSCH PRN IV FLUSH 05/10/17 20:00 (NS Flush) 2 ml BID IV FLUSH 05/10/17 21:00 05/12/17 21:18 (Milk Of Magnesia Liq) 30 ml Q12H PRN PO 05/10/17 20:00 05/12/17 07:46 (Senokot) 17.2 mg Q12H PRN PO 05/10/17 20:00 (Dulcolax Supp) 10 mg DAILY PRN RECTAL 05/10/17 20:00 (Lactulose Liq) 30 ml DAILY PRN PO 05/10/17 20:00 (Roxicodone) 10 mg Q4H PRN PO 05/10/17 20:00 05/13/17 05:34 (Morphine Inj) 2 mg Q3H PRN IV PUSH 05/10/17 20:00 05/11/17 11:44 (Morphine Inj) 4 mg Q3H PRN IV PUSH 05/10/17 20:00 05/12/17 21:18 (Morphine Inj) 4 mg Q3H PRN IV PUSH 05/10/17 20:00 05/12/17 05:40 (Roxicodone) 5 mg Q4H PRN PO 05/10/17 20:00 05/12/17 07:45 (Narcan Inj) 0.4 mg UNSCH PRN IV PUSH 05/10/17 20:00 (Requip) 10 mg HS PO 05/10/17 21:00 05/12/17 21:17 (Requip) 5 mg DAILY PO 05/11/17 09:00 05/12/17 08:36 (Pill Splitter) 1 ea UNSCH PRN OTHER 05/10/17 21:00 (Pravachol) 20 mg HS PO 05/10/17 21:00 05/12/17 21:17 (Hibiclens 4% Top Soln) 1 applic HS TOP 05/11/17 21:00 05/13/17 21:01 05/12/17 21:00 Patient Own Medication Neupro 4mg transdermal pa... DAILY TOPICAL 05/13/17 09:00 Future Hold Lactated Ringer's 1,000 ml @ 30 mls/hr Q24H PRN IV 05/12/17 17:45 05/15/17 17:44 Sodium Chloride 500 ml @ 30 mls/hr [id number] PRN IV 05/12/17 17:45 05/15/17 17:44 (Lopressor) 25 mg PAYROLL CLERK PRN PO 05/12/17 17:45 05/15/17 17:44 (Betadine 5% Antisepsis Kit) 1 applic PAYROLL CLERK PRN EACH NARE 05/12/17 17:45 05/15/17 17:44 (Chlorhexidine 2% Cloth) 3 pack PAYROLL CLERK PRN TOPICAL 05/12/17 17:45 05/15/17 17:44 (NovoLIN R INJ) See Protocol Table ... PAYROLL CLERK PRN SQ 05/12/17 17:45 05/15/17 17:44 A/P Assessment and Plan //Intractable low back pain and left lumbar radiculopathy //Left foot drop, chronic -continue pain management -MRI lumbar spine reviewed, previous fusion L4L5, epidural scarring left L4, L5 and S1 roots. 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 Appreciate assistance. Planned for surgical intervention today. -Continue with PT/OT //RLS -Resume home dose of Neupro 4mg daily //Anxiety. Chronic. Continue benzodiazepine //Hyperlipidemia. Chronic. Continue home statin //Narcotic induced constipation. Resolved after laxatives. Laxatives when necessary. We'll continue to monitor. Discussed with Dr. Flores and patient Discharge Planning Per clinical course following surgery and Neurosurgery clearance Katie Aguila May 13, 2017 07:33
[2017-05-13] MEDS ORDERED: ROTIGOTINE 4 MG TOPICAL SCH (09:00)
[2017-05-13] MEDS ORDERED: PROPOFOL 200 MG/20 ML AMP IV ONE (12:00)
[2017-05-13] MEDS ORDERED: ePHEDrine/NS 25 MG/5 ML SYR IV ONE (12:00)
[2017-05-13] MEDS ORDERED: GLYCOPYRROLATE 1 MG/5 ML SYRINGE IV PUSH ONE (12:00)
[2017-05-13] MEDS ORDERED: ROCURONIUM INJ 50 MG/5 ML SYRINGE IV PUSH ONE (12:00)
[2017-05-13] MEDS ORDERED: LACTATED RINGER'S 1000 ML INJ 2,000 ML IV ONE (12:00)
[2017-05-13] MEDS ORDERED: PHENYLEPH/NS 1000 MCG/10 ML SYR IV ONE (12:00)
[2017-05-13] MEDS ORDERED: SODIUM CHLOR 0.9% 250 ML INJ 250 ML IV ONE (12:00)
[2017-05-13] MEDS ORDERED: SODIUM CHLORID 0.9% 500 ML INJ 500 ML IV ONE (12:00)
[2017-05-13] MEDS ORDERED: LIDOCAINE HCL 1% PF 5 ML AMPULE OTHER ONE (12:00)
[2017-05-13] MEDS ORDERED: PHENYLEPHRINE HCL 10 MG/ML VIAL IV ONE (12:00)
[2017-05-13] MEDS ORDERED: MIDAZOLAM HCL 2 MG/2 ML VIAL IV ONE (12:00)
[2017-05-13] MEDS ORDERED: DEXAMETHASONE SOD PHOS 4 MG/ML VIAL IV ONE (12:00)
[2017-05-13] MEDS ORDERED: ESMOLOL HCL 100 MG/10 ML VIAL IV ONE (12:00)
[2017-05-13] MEDS ORDERED: GLUCAGON 1 MG/ML VIAL OTHER PRN (12:30)
[2017-05-13] MEDS ORDERED: DEXTROSE 50% IN WATER 50 ML VIAL(D50) IV PUSH PRN (12:30)
[2017-05-13] MEDS ORDERED: ACETAMINOPHEN 325 MG TAB PO PRN (12:30)
[2017-05-13] MEDS ORDERED: MENTHOL LOZENGE BUCCAL PRN (12:30)
[2017-05-13] MEDS ORDERED: diphenhydrAMINE HCL 50 MG/ML VIAL IV PUSH PRN (12:30)
[2017-05-13] MEDS: SODIUM CHLORIDE 0.9% FLUSH 5 ML FLUSH IVF SCH ×2 (12:30→20:33)
[2017-05-13] MEDS ORDERED: RESP: ALBUTEROL 2.5 MG/3 ML NEB (PRN) INH (12:30)
[2017-05-13] MEDS ORDERED: SODIUM CHLORIDE 0.9% FLUSH 5 ML FLUSH IVF PRN (12:30)
[2017-05-13] MEDS ORDERED: cloNIDine HCL 0.1 MG TAB PO/NG PRN (12:30)
[2017-05-13] MEDS ORDERED: NALOXONE HCL 0.4 MG/ML AMP IV PUSH PRN (12:30)
[2017-05-13] MEDS ORDERED: DO NOT ADM ANY ANTICOAGULANT DRUGS PRN (13:22)
[2017-05-13] MEDS ORDERED: *MEPERIDINE 25 MG INJ VIAL PERIprocedural Use ONLY ONE (13:31)
--- NOTE | 2017-05-13 13:33 | RADRPT ---
EXAM DATE/TIME: 05/13/2017 09:38 [facility] COMPARISON: SPINE LUMBAR LTD (AP & LAT), January 04, 2017, 15:31. INDICATIONS : Post-op redo L4-L5 laminotomy, interbody arthrodesis, reposition interbody cage, posteriolateral fusi on. MEDICAL HISTORY : None. SURGICAL HISTORY : Fusion, lumbar. ENCOUNTER: Subsequent ACUITY: 3 days PAIN SCORE: Non-responsive. LOCATION: Lumbar spine. FINDINGS: Cage has been removed. Alignment is now anatomic with interbody neodisc in place. CONCLUSION: Anatomic alignment.. Dameon Lovell MD FACR on May 13, 2017 at 13:29 Board Certified Radiologist. This report was verified electronically.
[2017-05-13] MEDS: HYDROmorphone HCL PCA 6 MG/30 ML IV SCH ×3 (14:02→23:18)
[2017-05-13] MEDS: SODIUM CHLOR 0.9% 1000 ML INJ 1,000 ML IV SCH ×2 (14:04→23:12)
[2017-05-13] MEDS: PCA - TOTAL MG DILAUDID DELIVERED PER SHIFT SCH ×2 (15:35→23:18)
[2017-05-13 16:00] VITALS: BP 101/67; PULSE 96; RESP 17; TEMP 95.5; O2SAT 97
[2017-05-13] MEDS: INSULIN ASPART SUPPLEMENTAL SCALE SQ SCH ×2 (17:00→20:39)
[2017-05-13] MEDS: ceFAZolin 2 GM PREMIX 50 ML IV SCH ×2 (17:01→23:12)
[2017-05-13 19:49] VITALS: BP 114/65; PULSE 99; RESP 17; TEMP 97.9; O2SAT 97
[2017-05-13] MEDS: CHLORHEXIDINE GLUCONATE 4% SOLN 120 ML BTL TOP SCH (20:33)
[2017-05-13] MEDS: PRAVASTATIN SOD 20 MG TAB PO SCH (20:33)
[2017-05-13] MEDS: DOCUSATE SODIUM 100 MG CAP PO SCH (20:33)
[2017-05-13] MEDS: ROTIGOTINE 4 MG TOPICAL SCH (20:51)
--- NOTE | 2017-05-13 22:15 | PD.OP ---
Operative Report Date of Surgery: May 13, 2017 Preoperative Diagnosis: L4-5 recurrent disk herniation and displacement of hardware Postoperative Diagnosis: L4-5 recurrent disk herniation with disk extrusion, and hardware displacement Procedure: L4-5 redo laminectomy and microdiscectomy, posterolateral fusion using autologous iliac crest bone with demineralized bone matrix Anesthesia: general Surgeon: Jairo Hood Technical Sales Advisor(s): Agatha Hinds Operation and Findings: INDICATIONS FOR PROCEDURE Mr. Childers is a 51 year ols male with history of a prior lumbar laminectomy and fusion. He suffered a severe fall while at the [employer] market. He presented with intractable mechanical back pain and kayla evidence of lower extremity radiculopathy. CT and MRI brain were done, which showed a recurrent disk herniation as well as displacement of the cage, and compression of the left exiting nerve root. He failed nonsurgical management A redo surgical decompression and arthrodhesis were indicated as a last resort. The [id number] details of the procedure, indications, alternatives, risks and potential complications were fully discussed with the patient. The patient fully understood. All the questions were answered. No guarantees were given. The patient voiced requesting the procedure and provided informed consents. The patient was offered the alternative of delaying the procedure and continuing with nonsurgical management. DETAILS OF THE SURGICAL PROCEDURE Prior to the procedure, the surgical incision was marked in the preoperative surgical holding room, and the procedure, risks, and potential complications revisited with the patient. Placement of electrodes for intraoperative neurophysiological monitoring was completed. The patient was taken to the operative room, and following induction of general anesthesia, endotracheal intubation was performed. A Ramírez catheter, bilateral TORREY hose and sequential compression devices were placed and kept throughout the procedure. The patient was positioned prone, over a Sanya table over a Abilio frame. All pressure in the preoperative surgical holding room points were carefully padded with eggcrate and gel mattress. The eyes were tapped shut after ointment was applied by the anesthesiologist to prevent corneal abrasion. A Melia hugger was placed over the expossed lower body to maintain control of the core body temperature. The electrophysiological team placed the needles and electrodes in their proper location and baseline SSEP's and motor evoked potentials were registered. The entrance to each pedicles was marked using a C arm. The lumbar region was prepped and draped in the usual sterile fashion. The surgical procedure was performed in several steps as follow: SURGICAL APPROACH Once the patient was positioned, a localizing cross-table lateral x-ray was performed with a C-arm. A left paramedian small incision was outlined on the skin approximately 3cm from the midline. The skin incision was made with a #10 blade. Small bleeders were controlled with the cautery. The dissection was then carried out into deper planes and through the thoracolumbar fascia with a Bovie. The intermuscular septum was identified and the myscles were blunted dissected along the septum. The prior instrumentation was carefully exposed and a self-retaining retractor was placed on the incision. At this point of the procedure, the cross link of the prior instrumentation was carefully exposed free of scar tissue and the cross link was removed. Then, the caps of the previously placed screws were sequentially removed allowing removal of the ari. HARVESTING OF ILLIAC CREST BONE A fascial incision was then made over the patient's right posterior iliac crest. The fascia was carefully opened with a Bovie and the posterior iliac crest was exposed. A small cortical window was created with an osteotome. Cancellous bone was then harvested, to be used during the interbody arthrodesis and the posterolateral fusion. Once an appropriate amount of bone was obtained , the incision was irrigated with antibiotic solution and hemostasis secured by packing the iliac crest with Surgicel. The cortical window was then repositioned and secured using 0 Vicryl sutures. The incision was irrigated and the fascia was closed with interrupted 0 Vicryl sutures. The subcutaneous tissue was approximated with 3-0 Vicryl sutures. SURGICAL DECOMPRESSION At this point of the procedure the operative microscope was draped in the usual sterile fashion and brought to the field. The rest of the surgical procedure was performed using microdissection technique with the exception of the closure. The margins of the previous laminectomy were expossed. Under the operating microscope, a decompressive laminectomy was carried out at L4-L5 as follow: given the previous laminectomy and significant scaring which was theathering the dural sac, it was necessary to further drill the facet to allow proper exposure of the disk. The laminae, base of the spinous processes and facets were carefully drilled exposing the ligamentum flavum. A large disk extrusion was compressing the neural structures and exiting nerve roots. A near complete facetectomy was necessary. The superior free border of the ligamentum flavum was elevated with a ligament dissector and the ligamentum flavum and scar tissue were removed with a 3 and 4 mm Kerrison forceps. The scar tissue and ligament were very adherent to the dural sac and during the dissection, and extreme care was taken during the dissection. The exiting nerve root was identified, and a wide foraminotomy was performed with a Kerrison in their trajectory towards the neural foramen. Epidural veins located laterally to the dural sac were coagulated with the bipolar cautery, and then incised using microscissors. Gentle medial retraction of the dural sac allowed me to expose the disc space for the discectomy. The cage was then expossed, and carefully dissected and removed INTERBODY ARTHRODHESIS At this point of the procedure, the annulus fibrosus of the disk was carefully coagulated with a bipolar cautery and incised using an 11 bladed knife. Then, a microdiscectomy was carried out in a standard fashion using a combination of straight and up-biting pituitary forceps. A reverse angle curette was applied underneath the posterior longitudinal ligament, and used to push the disk fragments into the disk space, so they can be safely removed with a pituitary forceps. Once the discectomy was completed, it was necessary to decorticate the endplates, in order to eliminate the cartilaginous endplate and to expose healthy bone appropriate to perform the interbody fusion. The endplates at L4- L5 were then thoroughly decorticated using increasing size bone ronen and ring curets, eliminating the cartilaginous fragments from both, the superior and inferior endplates. Once a thorough preparation of the disk space was achieved, the disk space was irrigated with antibiotic solution, and the interbody fusion was performed by carefully impacting a monolytic PPEK cage filled with autologous iliac crest bone graft. The use of several shoe impactors with different angulation, allowed me for an excellent, proper position of the interbody cage. A solid position of the cage with good purchase was achieved. The position of the cages were assessed anatomically with a probe and radiologically with the C-arm. POSTEROLATERAL FUSION The left transverse processes of the vertebral bodies, lateral surface of the facets and the lateral gutters of the spine were carefully cleaned, eliminating all soft tissue and muscle attachments. The area was then irrigated with a large amount of antibiotic solution. Subsequently, the transverse processes, lateral surface of the facets, and lateral gutters of the spine were thoroughly decorticated using the TPS drill with a 5mm cutting juhi, exposing cancellous bone, in preparation for the posterolateral fusion. The incision was again irrigated with antibiotic solution. Then, the posterolateral fusion was then performed by carefully packing the lateral gutters of the spine at L4-L5 with autologous iliac crest bone combined with demineralized bone matrix. I packed as much bone as possible. COMPLETION OF THE INSTRUMENTATION AND CLOSURE The rods were brought to the field, applied to all the screws, and the screw caps were sequentially applied. Compression was performed between the pedicle screws, and final tightening of the screws was completed using a torque wrench. A cross-link was used to connect the rods, in order to increase the stability of the construct. The cross link was secured using a torque wrench previously calibrated. The incision was again thoroughly irrigated with several liters of antibiotic solution, and hemostasis secured with the bipolar cautery. A Valsalva Maneuver performed by the anesthesiologist failed to show any evidence of cerebrospinal fluid leak or bleeding. A 7 mm Sanya-Wagner drain was left in the epidural space and externalized through a separate stab incision. The incision was then closed in planes. 0 Vicryl was used in an interrupted fashion to close the thoracolumbar fascia and the superficial fascia. The subcutaneous tissue was then approximated using 3-0 Vicryl in an interrupted fashion. Special care was taken to avoid space. The skin was then closed with 4-0 Vicryl in a running, subcuticular fashion and the 2-0 Ethylon. Each plane of closure was irrigated with antibiotic solution. At the end of the procedure the sponge, needle and instrument counts were all correct. Estimated blood loss was 300 cc. No blood transfusion was given. The entire procedure was performed using continuous electrophysiological monitoring of the somatosensorial evoked potentials and EMG. The patient received prophylactic antibiotics. The patient was then extubated and transferred to the recovery room in stable condition. Jairo Hood MD May 13, 2017 22:15
[2017-05-13 23:53] VITALS: BP 114/72; PULSE 97; RESP 16; TEMP 98.9; O2SAT 96
[2017-05-14] MEDS: HYDROmorphone HCL PCA 6 MG/30 ML IV SCH ×4 (03:10→22:41)
[2017-05-14 03:44] VITALS: BP 109/68; PULSE 94; RESP 17; TEMP 98.5; O2SAT 96
[2017-05-14] MEDS: PCA - TOTAL MG DILAUDID DELIVERED PER SHIFT SCH ×3 (05:33→20:29)
[2017-05-14] MEDS: CYCLOBENZAPRINE HCL 10 MG TAB PO PRN (06:19)
[2017-05-14 07:32] LABS: AUTOMATED NEUTROPHIL # 16.2 TH/MM3 (1.8-7.7); BASOPHIL # 0.2 TH/MM3 (0-0.2); BASOPHIL % 0.9 % (0.0-2.0); HEMATOCRIT 39.6 % (39.0-51.0); HEMO FLAGS DIFF FINAL; LYMPH % 8.1 % (9.0-44.0); LYMPHOCYTE # 1.6 TH/MM3 (1.0-4.8); MEAN CELL VOLUME 96.9 FL (80.0-100.0); MEAN CORPUSCULAR HEMOGLOBIN 32.5 PG (27.0-34.0); MEAN CORPUSCULAR HGB CONC 33.6 % (32.0-36.0); MONO % 7.4 % (0.0-8.0); NEUT % 83.6 % (16.0-70.0); PLATELET COUNT 230 TH/MM3 (150-450); RED BLOOD COUNT 4.09 MIL/MM3 (4.50-5.90); RED CELL DISTRIBUTION WIDTH 13.4 % (11.6-17.2); WHITE BLOOD COUNT 19.3 TH/MM3 (4.0-11.0)
[2017-05-14] MEDS: DOCUSATE SODIUM 100 MG CAP PO SCH ×2 (07:33→20:22)
[2017-05-14] MEDS: ceFAZolin 2 GM PREMIX 50 ML IV SCH (07:33)
[2017-05-14] MEDS: PANTOPRAZOLE SOD 40 MG DELAYED RELEASE TAB PO SCH (07:34)
[2017-05-14 07:35] LABS: BICARBONATE 23.5 MEQ/L (21.0-32.0)
[2017-05-14 07:42] LABS: POTASSIUM 5.3 MEQ/L (3.5-5.1)
[2017-05-14 08:00] VITALS: BP 110/65; PULSE 97; RESP 19; TEMP 98.7; O2SAT 98
[2017-05-14] MEDS: SODIUM CHLORIDE 0.9% FLUSH 5 ML FLUSH IVF SCH ×2 (09:00→20:23)
[2017-05-14] MEDS ORDERED: PNEUMOCOCCAL POLYVALENT INJ 25 MCG/0.5 ML SYR IM ONE (10:00)
[2017-05-14] MEDS ORDERED: INFLUENZA VIRUS VACCINE (QUADRIVALENT) 0.5 ML SYR IM ONE (10:00)
--- NOTE | 2017-05-14 10:41 | HHI.NSPN ---
(Mary Beth Witt) Note Status Status: Progress Note (Mary Beth Witt) Interval History Interval History Mr Liseth 51-year-old male with severe spinal spondylosis, status post laminectomy and arthrodhesis in January of this year. Postoperatively he was doing very well with clinical resolution of his back pain and radiculopathy, until he suffered a severe fall and reinjured his spine. He presents with acute worsening of chronic low back pain and left-sided radiculopathy. He reports constant sharp pain in the low back radiating to the left leg. Patient reports continued weakness in the left leg with foot drop. He does report an episode of loss of bladder contro today, however without any subsequent loss of bladder control. Recent xrays showed that his instrumentation has displaced following the fall. Neurosurgery consultation was requested 05/11. Continues to suffer severe pain. No further urinary incontinence. Follow up MRI done today 05/12: no improvement in his lumbar and radicular pain, eager for surgery tomorrow 05/14: s/p redo L4-5 PLIF with repositioning of interbody cage on 05/13. pt on bedrest, surgical pain controlled. (Mary Beth Witt) Labs, Micro, & Vital Signs Results Date Time Temp Pulse Resp B/P (MAP) Pulse Ox O2 Delivery O2 Flow Rate FiO2 05/14/17 08:00 98.7 97 19 110/65 (80) 98 05/14/17 07:43 16 05/14/17 05:33 16 05/14/17 03:44 98.5 94 17 109/68 (82) 96 05/14/17 03:10 18 05/13/17 23:53 98.9 97 16 114/72 (86) 96 05/13/17 23:18 18 05/13/17 23:18 18 05/13/17 19:49 97.9 99 17 114/65 (81) 97 05/13/17 17:03 17 05/13/17 16:00 95.5 96 17 101/67 (78) 97 05/13/17 15:35 17 05/13/17 14:30 98.8 92 18 91/58 (69) 91 Nasal Cannula 2 05/13/17 14:15 94 18 99/58 (72) 92 Nasal Cannula 2 05/13/17 14:02 15 05/13/17 14:00 91 18 96/55 (69) 94 Nasal Cannula 2 05/13/17 13:45 93 18 94/53 (67) 95 Nasal Cannula 2 05/13/17 13:30 91 14 114/55 (74) 98 Nasal Cannula 2 05/13/17 13:22 98.8 92 15 83/54 (64) 94 Nasal Cannula 2 Constitutional Vital Signs Date Time Temp Pulse Resp B/P (MAP) Pulse Ox O2 Delivery O2 Flow Rate FiO2 05/14/17 08:00 98.7 97 19 110/65 (80) 98 05/14/17 07:43 16 05/14/17 05:33 16 05/14/17 03:44 98.5 94 17 109/68 (82) 96 05/14/17 03:10 18 05/13/17 23:53 98.9 97 16 114/72 (86) 96 05/13/17 23:18 18 05/13/17 23:18 18 05/13/17 19:49 97.9 99 17 114/65 (81) 97 05/13/17 17:03 17 05/13/17 16:00 95.5 96 17 101/67 (78) 97 05/13/17 15:35 17 05/13/17 14:30 98.8 92 18 91/58 (69) 91 Nasal Cannula 2 05/13/17 14:15 94 18 99/58 (72) 92 Nasal Cannula 2 05/13/17 14:02 15 05/13/17 14:00 91 18 96/55 (69) 94 Nasal Cannula 2 05/13/17 13:45 93 18 94/53 (67) 95 Nasal Cannula 2 05/13/17 13:30 91 14 114/55 (74) 98 Nasal Cannula 2 05/13/17 13:22 98.8 92 15 83/54 (64) 94 Nasal Cannula 2 (Mary Beth Witt) Review of Systems Constitutional: DENIES: Fever, Chills Respiratory: DENIES: Shortness of breath Cardiovascular: DENIES: Chest pain Musculoskeletal: COMPLAINS OF: Back pain (Mary Beth Witt) Physical Exam Mr Childers is alert. Speech is fluent. Cranial nerve examination: pupils equal, round, and reactive to light. EOMs are intact. Facial motor are normal and symmetrical. Surgical wound with dry Optifoam dressing Neck is soft and supple. Muscle strength in the lower extremities moving major muscle groups grossly limited due to postop pain, stable chronic 4/5 left dorsiflexion Sensory examination is decreased in an L5 dermatome (Mary Beth Witt) Medications Current Medications Current Medications Medications (Trade) Dose Ordered Sig/Criselda Route PRN Reason Start Time Stop Time Status Last Admin Dose Admin Magnesium Hydroxide (Milk Of Magnesia Liq) 30 ml Q12H PRN PO Mild constipation 05/10/17 20:00 05/12/17 07:46 Sennosides (Senokot) 17.2 mg Q12H PRN PO Moderate constipation 05/10/17 20:00 Bisacodyl (Dulcolax Supp) 10 mg DAILY PRN RECTAL SEVERE CONSITIPATION 05/10/17 20:00 Lactulose (Lactulose Liq) 30 ml DAILY PRN PO SEVERE CONSITIPATION 05/10/17 20:00 Oxycodone HCl (Roxicodone) 10 mg Q4H PRN PO PAIN SCALE 6 TO 10 05/10/17 20:00 05/14/17 06:19 Oxycodone HCl (Roxicodone) 5 mg Q4H PRN PO PAIN SCALE 3 TO 5 05/10/17 20:00 05/12/17 07:45 Ropinirole HCl (Requip) 10 mg HS PO 05/10/17 21:00 05/13/17 20:33 Ropinirole HCl (Requip) 5 mg DAILY PO 05/11/17 09:00 05/14/17 08:26 Miscellaneous (Pill Splitter) 1 ea UNSCH PRN OTHER SEE LABEL COMMENTS 05/10/17 21:00 Pravastatin Sodium (Pravachol) 20 mg HS PO 05/10/17 21:00 05/13/17 20:33 Metoprolol Tartrate (Lopressor) 25 mg PUBLIC RELATIONS SUPERVISOR PRN PO SEE LABEL COMMENTS 05/12/17 17:45 05/15/17 17:44 Povidone Iodine (Betadine 5% Antisepsis Kit) 1 applic PUBLIC RELATIONS SUPERVISOR PRN EACH NARE SEE LABEL COMMENTS 05/12/17 17:45 05/15/17 17:44 Chlorhexidine Gluconate (Chlorhexidine 2% Cloth) 3 pack PUBLIC RELATIONS SUPERVISOR PRN TOPICAL SEE LABEL COMMENTS 05/12/17 17:45 05/15/17 17:44 Insulin Human Regular (NovoLIN R INJ) See Protocol Table ... PUBLIC RELATIONS SUPERVISOR PRN SQ SEE PROTOCOL TABLE 05/12/17 17:45 05/15/17 17:44 Sodium Chloride 1,000 ml @ 100 mls/hr Q10H IV 05/13/17 12:25 05/13/17 23:12 IV Flush (NS Flush) 2 ml UNSCH PRN IVF FLUSH AFTER USING IV ACCESS 05/13/17 12:30 IV Flush (NS Flush) 2 ml BID IVF 05/13/17 12:30 05/13/17 20:33 Docusate Sodium (Colace) 100 mg BID PO 05/13/17 21:00 05/14/17 07:33 Pantoprazole Sodium (Protonix) 40 mg DAILY PO 05/14/17 09:00 05/14/17 07:34 Ondansetron HCl (Zofran Inj) 4 mg Q6H PRN IV PUSH NAUSEA OR VOMITING 05/13/17 12:30 Cyclobenzaprine HCl (Flexeril) 10 mg Q8H PRN PO MUSCLE SPASM 05/13/17 12:30 05/14/17 06:19 Clonidine (Catapres) 0.1 mg Q6H PRN PO/NG SYS BP GREATER THAN 170 MMHG 05/13/17 12:30 Acetaminophen (Tylenol) 650 mg Q4H PRN PO TEMPERATURE > 101.5 F 05/13/17 12:30 Menthol (Wellington Mayur) 1 lozenge UNSCH PRN BUCCAL SORE THROAT 05/13/17 12:30 Albuterol Sulfate (Albuterol Neb) 2.5 mg Q4HR NEB PRN INH WHEEZING 05/13/17 12:30 Chlorhexidine Gluconate (Hibiclens 4% Top Soln) 1 applic HS TOP 05/13/17 21:00 05/15/17 21:01 05/13/17 20:33 Dextrose (D50w (Vial) Inj) 50 ml UNSCH PRN IV PUSH HYPOGLYCEMIA-SEE COMMENTS 05/13/17 12:30 Glucagon (Glucagon Inj) 1 mg UNSCH PRN OTHER HYPOGLYCEMIA-SEE COMMENTS 05/13/17 12:30 Insulin Aspart (NovoLOG SUPPLEMENTAL SCALE) 1 ACHS SLIDING SCALE SQ 05/13/17 17:00 Naloxone HCl (Narcan Inj) 0.4 mg UNSCH PRN IV PUSH RESPIRATORY RATE LESS THAN 10 05/13/17 12:30 Diphenhydramine HCl (Benadryl Inj) 25 mg Q6H PRN IV PUSH ITCHING 05/13/17 12:30 Hydromorphone HCl (Dilaudid HEATING WORKER Inj) 6 mg UNSCH IV 05/13/17 12:30 05/14/17 07:43 HEATING WORKER Dosage Infused (Pha) 1 Q8HR .XX 05/13/17 14:00 05/14/17 05:33 Miscellaneous Information ALL NURSING DEPARTME... UNSCH PRN .XX SEE LABEL COMMENTS 05/13/17 13:22 05/14/17 13:21 Patient Own Medication Neupro 4mg transdermal pa... HS TOPICAL 05/13/17 21:00 05/13/17 20:51 (Mary Beth Witt) Medical Decision Making MDM Remarks 51 y/o male s/p redo L4-5 PLIF with repositioning of interbody cage, dural repair of CSF leak 05/13/17 (Mary Beth Witt) Plan Plan Remarks doing well cont HEATING WORKER for pain control, po pain meds prn cont strict bed rest, HOB flat for intraop CSF leak SCDs and TEDs for dvt prophylaxis IS every hour (Mary Beth Witt) Attending Statement The exam, history, and the medical decision-making described in the above note were completed with the assistance of the mid-level provider. I reviewed and agree with the findings presented. I attest that I had a [id number] encounter with the patient on the same day, and personally performed and documented my assessment and findings in the medical record. (Jairo Hood MD) Mary Beth Witt May 14, 2017 10:41 Jairo Hood MD May 15, 2017 19:13
[2017-05-14 11:24] VITALS: O2SAT 95
[2017-05-14] MEDS: SODIUM CHLOR 0.9% 1000 ML INJ 1,000 ML IV SCH ×2 (11:30→18:25)
[2017-05-14 12:00] VITALS: BP 107/62; PULSE 94; RESP 19; TEMP 98.1; O2SAT 96
[2017-05-14] MEDS: MAGNESIUM HYDROXIDE SUSP 30 ML CUP PO PRN (15:21)
[2017-05-14 16:00] VITALS: BP 114/69; PULSE 95; RESP 18; TEMP 96.1; O2SAT 97
[2017-05-14 19:30] VITALS: BP 112/69; PULSE 89; RESP 17; TEMP 98.1; O2SAT 97
[2017-05-14] MEDS: PRAVASTATIN SOD 20 MG TAB PO SCH (20:22)
[2017-05-14] MEDS: ROTIGOTINE 4 MG TOPICAL SCH (20:23)
[2017-05-14] MEDS: CHLORHEXIDINE GLUCONATE 4% SOLN 120 ML BTL TOP SCH (20:25)
[2017-05-15] VITALS (8 sets, daily range): BP systolic 117–132; BP diastolic 69–79; PULSE 74–88; RESP 17–19; TEMP 97.7–98.9; O2SAT 93–99
[2017-05-15] MEDS: SODIUM CHLOR 0.9% 1000 ML INJ 1,000 ML IV SCH ×2 (04:25→14:25)
[2017-05-15] MEDS: HYDROmorphone HCL PCA 6 MG/30 ML IV SCH (05:07)
[2017-05-15] MEDS: PCA - TOTAL MG DILAUDID DELIVERED PER SHIFT SCH ×3 (05:12→22:00)
[2017-05-15] MEDS: MAGNESIUM HYDROXIDE SUSP 30 ML CUP PO PRN ×2 (08:55→12:01)
[2017-05-15] MEDS: SENNOSIDES 8.6 MG TAB PO PRN (08:56)
[2017-05-15] MEDS: CYCLOBENZAPRINE HCL 10 MG TAB PO PRN ×2 (08:56→18:27)
[2017-05-15] MEDS: DOCUSATE SODIUM 100 MG CAP PO SCH ×2 (08:56→20:30)
[2017-05-15] MEDS: PANTOPRAZOLE SOD 40 MG DELAYED RELEASE TAB PO SCH (08:56)
[2017-05-15] MEDS: SODIUM CHLORIDE 0.9% FLUSH 5 ML FLUSH IVF SCH ×2 (09:15→20:31)
--- NOTE | 2017-05-15 10:36 | HHI.NSPN ---
(Mary Beth Witt) Note Status Status: Progress Note (Mary Beth Witt) Interval History Interval History Mr Liseth 51-year-old male with severe spinal spondylosis, status post laminectomy and arthrodhesis in January of this year. Postoperatively he was doing very well with clinical resolution of his back pain and radiculopathy, until he suffered a severe fall and reinjured his spine. He presents with acute worsening of chronic low back pain and left-sided radiculopathy. He reports constant sharp pain in the low back radiating to the left leg. Patient reports continued weakness in the left leg with foot drop. He does report an episode of loss of bladder contro today, however without any subsequent loss of bladder control. Recent xrays showed that his instrumentation has displaced following the fall. Neurosurgery consultation was requested 05/11. Continues to suffer severe pain. No further urinary incontinence. Follow up MRI done today 05/12: no improvement in his lumbar and radicular pain, eager for surgery tomorrow 05/14: s/p redo L4-5 PLIF with repositioning of interbody cage on 05/13. pt on bedrest, surgical pain controlled. 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 He than sat up on edge of bed this am on his own despite strict bed rest order. wound reexamined, dressing dry with mild shadowing, no leaking from incision. (Mary Beth Witt) Labs, Micro, & Vital Signs Results Date Time Temp Pulse Resp B/P (MAP) Pulse Ox O2 Delivery O2 Flow Rate FiO2 05/15/17 08:08 94 21 05/15/17 08:00 98.1 79 18 132/73 (92) 97 05/15/17 05:12 18 05/15/17 05:07 18 05/15/17 03:55 97.7 88 19 120/69 (86) 96 05/15/17 00:45 97.8 85 17 117/70 (86) 95 05/14/17 23:30 18 05/14/17 22:41 18 05/14/17 20:32 21 05/14/17 20:29 16 05/14/17 19:30 98.1 89 17 112/69 (83) 97 05/14/17 16:00 96.1 95 18 114/69 (84) 97 05/14/17 15:55 18 05/14/17 12:00 98.1 94 19 107/62 (77) 96 05/14/17 11:24 95 21 Constitutional Vital Signs Date Time Temp Pulse Resp B/P (MAP) Pulse Ox O2 Delivery O2 Flow Rate FiO2 05/15/17 08:08 94 21 05/15/17 08:00 98.1 79 18 132/73 (92) 97 05/15/17 05:12 18 05/15/17 05:07 18 05/15/17 03:55 97.7 88 19 120/69 (86) 96 05/15/17 00:45 97.8 85 17 117/70 (86) 95 05/14/17 23:30 18 05/14/17 22:41 18 05/14/17 20:32 21 05/14/17 20:29 16 05/14/17 19:30 98.1 89 17 112/69 (83) 97 05/14/17 16:00 96.1 95 18 114/69 (84) 97 05/14/17 15:55 18 05/14/17 12:00 98.1 94 19 107/62 (77) 96 05/14/17 11:24 95 21 (Mary Beth Witt) Review of Systems Constitutional: DENIES: Fever, Chills Musculoskeletal: COMPLAINS OF: Back pain (Mary Beth Witt) Physical Exam Mr Childers is alert and oriented x 3. Speech is fluent. Cranial nerve examination: pupils equal, round, and reactive to light. EOMs are intact. Facial motor are normal and symmetrical. Incision is dry, no leaking noted. The gauze and Primapore dressing is dry, there is mild shadowing noted. Neck is soft and supple. Muscle strength: In the lower extremities 5/5 bilateral iliopsoas, quadriceps, hamstrings, dorsiflexion, plantar flexion, 4-/5 left dorsiflexion. Sensory examination is decreased in an L5 dermatome (Mary Beth Witt) Medications Current Medications Current Medications Medications (Trade) Dose Ordered Sig/Criselda Route PRN Reason Start Time Stop Time Status Last Admin Dose Admin Magnesium Hydroxide (Milk Of Magnesia Liq) 30 ml Q12H PRN PO Mild constipation 05/10/17 20:00 05/15/17 08:55 Sennosides (Senokot) 17.2 mg Q12H PRN PO Moderate constipation 05/10/17 20:00 05/15/17 08:56 Bisacodyl (Dulcolax Supp) 10 mg DAILY PRN RECTAL SEVERE CONSITIPATION 05/10/17 20:00 Lactulose (Lactulose Liq) 30 ml DAILY PRN PO SEVERE CONSITIPATION 05/10/17 20:00 Oxycodone HCl (Roxicodone) 10 mg Q4H PRN PO PAIN SCALE 6 TO 10 05/10/17 20:00 05/15/17 08:55 Oxycodone HCl (Roxicodone) 5 mg Q4H PRN PO PAIN SCALE 3 TO 5 05/10/17 20:00 05/12/17 07:45 Ropinirole HCl (Requip) 10 mg HS PO 05/10/17 21:00 05/14/17 20:21 Ropinirole HCl (Requip) 5 mg DAILY PO 05/11/17 09:00 05/15/17 08:56 Miscellaneous (Pill Splitter) 1 ea UNSCH PRN OTHER SEE LABEL COMMENTS 05/10/17 21:00 Pravastatin Sodium (Pravachol) 20 mg HS PO 05/10/17 21:00 05/14/17 20:22 Metoprolol Tartrate (Lopressor) 25 mg LIQUOR GALLERY OPERATOR PRN PO SEE LABEL COMMENTS 05/12/17 17:45 05/15/17 17:44 Povidone Iodine (Betadine 5% Antisepsis Kit) 1 applic LIQUOR GALLERY OPERATOR PRN EACH NARE SEE LABEL COMMENTS 05/12/17 17:45 05/15/17 17:44 Chlorhexidine Gluconate (Chlorhexidine 2% Cloth) 3 pack LIQUOR GALLERY OPERATOR PRN TOPICAL SEE LABEL COMMENTS 05/12/17 17:45 05/15/17 17:44 Sodium Chloride 1,000 ml @ 100 mls/hr Q10H IV 05/13/17 12:25 05/15/17 04:25 IV Flush (NS Flush) 2 ml UNSCH PRN IVF FLUSH AFTER USING IV ACCESS 05/13/17 12:30 IV Flush (NS Flush) 2 ml BID IVF 05/13/17 12:30 05/14/17 09:00 Docusate Sodium (Colace) 100 mg BID PO 05/13/17 21:00 05/15/17 08:56 Pantoprazole Sodium (Protonix) 40 mg DAILY PO 05/14/17 09:00 05/15/17 08:56 Ondansetron HCl (Zofran Inj) 4 mg Q6H PRN IV PUSH NAUSEA OR VOMITING 05/13/17 12:30 Cyclobenzaprine HCl (Flexeril) 10 mg Q8H PRN PO MUSCLE SPASM 05/13/17 12:30 05/15/17 08:56 Clonidine (Catapres) 0.1 mg Q6H PRN PO/NG SYS BP GREATER THAN 170 MMHG 05/13/17 12:30 Acetaminophen (Tylenol) 650 mg Q4H PRN PO TEMPERATURE > 101.5 F 05/13/17 12:30 Menthol ([place] Mayur) 1 lozenge UNSCH PRN BUCCAL SORE THROAT 05/13/17 12:30 Albuterol Sulfate (Albuterol Neb) 2.5 mg Q4HR NEB PRN INH WHEEZING 05/13/17 12:30 Chlorhexidine Gluconate (Hibiclens 4% Top Soln) 1 applic HS TOP 05/13/17 21:00 05/15/17 21:01 05/13/17 20:33 Naloxone HCl (Narcan Inj) 0.4 mg UNSCH PRN IV PUSH RESPIRATORY RATE LESS THAN 10 05/13/17 12:30 Diphenhydramine HCl (Benadryl Inj) 25 mg Q6H PRN IV PUSH ITCHING 05/13/17 12:30 Hydromorphone HCl (Dilaudid SCRIPT WRITER Inj) 6 mg UNSCH IV 05/13/17 12:30 05/15/17 05:07 SCRIPT WRITER Dosage Infused (Pha) 1 Q8HR .XX 05/13/17 14:00 05/15/17 05:12 Patient Own Medication Neupro 4mg transdermal pa... HS TOPICAL 05/13/17 21:00 05/14/17 20:23 (Mary Beth Witt) Medical Decision Making MDM Remarks 51 y/o male s/p redo L4-5 PLIF with repositioning of interbody cage, dural repair of CSF leak 05/13/17 (Mary Beth Witt) Plan Plan Remarks doing well cont po pain meds prn cont strict bed rest, HOB flat x 3 more days SCDs and TEDs for dvt prophylaxis, cleared per Dr. Hood to start chemical proph - start on sq lovenox daily IS every hour (Mary Beth Witt) Attending Statement The exam, history, and the medical decision-making described in the above note were completed with the assistance of the mid-level provider. I reviewed and agree with the findings presented. I attest that I had a [id number] encounter with the patient on the same day, and personally performed and documented my assessment and findings in the medical record. (Jairo Hood MD) Mary Beth Witt May 15, 2017 10:36 Jairo Hood MD May 15, 2017 19:13
--- NOTE | 2017-05-15 10:52 | HHI.PR ---
Subjective Remarks Patient seen and examined this morning. Afebrile vital signs stable. 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 He is s/p redo L4 -5 PLIF with repositioning of interbody cage on 05/13. Patient is currently bed rest and mostly flat at this time. He is looking forward to when he'll get up and move around. He reports that his legs are moving good. He is occasionally feeling some charley horse pain in the left upper thigh. His restless leg syndrome is being managed with his home medication. Patient has no major complaints at this time. Objective Vitals Vital Signs Date Time Temp Pulse Resp B/P (MAP) Pulse Ox O2 Delivery O2 Flow Rate FiO2 05/15/17 08:08 94 21 05/15/17 08:00 98.1 79 18 132/73 (92) 97 05/15/17 05:12 18 05/15/17 05:07 18 05/15/17 03:55 97.7 88 19 120/69 (86) 96 05/15/17 00:45 97.8 85 17 117/70 (86) 95 05/14/17 23:30 18 05/14/17 22:41 18 05/14/17 20:32 21 05/14/17 20:29 16 05/14/17 19:30 98.1 89 17 112/69 (83) 97 05/14/17 16:00 96.1 95 18 114/69 (84) 97 05/14/17 15:55 18 05/14/17 12:00 98.1 94 19 107/62 (77) 96 05/14/17 11:24 95 21 I/O 05/14/17 05/14/17 05/14/17 05/15/17 05/15/17 05/15/17 07:00 15:00 23:00 07:00 15:00 23:00 Intake Total 1350 ml 1440 ml 480 ml 480 ml Output Total 650 ml 1450 ml 900 ml 750 ml Balance 700 ml -10 ml -420 ml -270 ml Intake Oral 500 ml 1440 ml 480 ml 480 ml IV Total 850 ml Output Urine Total 650 ml 1450 ml 900 ml 750 ml # Voids 4 # Bowel Movements 0 0 Result Diagram: 05/14/17 0440 05/14/17 0440 Imaging Last Impressions Lumbar Spine X-Ray 05/13/17 0000 Signed Impressions: Service Date/Time: Saturday, May 13, 2017 09:38 - CONCLUSION: Anatomic alignment.. Dameon Lovell MD FACR Lumbar Spine MRI 05/11/172008 Signed Impressions: Service Date/Time: Thursday, May 11, 2017 08:48 - CONCLUSION: Epidural scarring involving the left L4, left L5 and left S1 roots. Artifact from transpedicular fixation of L4 and L5. No other significant postoperative changes are noted. Dameon Lovell MD FACR Objective Remarks GEN: Well-developed, well-nourished patient. No acute distress. Lying flat in bed currently not allowed to sit up CV: Regular rate and rhythm without obvious murmurs LUNGS: Clear to auscultation bilaterally. Normal respiratory effort. No wheezes , rales, rhonchi. GI: Soft, nontender, nondistended. No palpable masses. Bowel sounds WNL. EXT: No edema. NEURO/PSYCH: Afocal. Awake, alert, and oriented x3. Appropriate insight and judgment. Moving all of his extremities, 5 out of 5 strength Procedures s/p redo L4-5 PLIF with repositioning of interbody cage on 05/13 Medications and IVs Current Medications Medications (Trade) Dose Ordered Sig/Criselda Route Start Time Stop Time Status Last Admin (Milk Of Magnesia Liq) 30 ml Q12H PRN PO 05/10/17 20:00 05/15/17 08:55 (Senokot) 17.2 mg Q12H PRN PO 05/10/17 20:00 05/15/17 08:56 (Dulcolax Supp) 10 mg DAILY PRN RECTAL 05/10/17 20:00 (Lactulose Liq) 30 ml DAILY PRN PO 05/10/17 20:00 (Roxicodone) 10 mg Q4H PRN PO 05/10/17 20:00 05/15/17 08:55 (Roxicodone) 5 mg Q4H PRN PO 05/10/17 20:00 05/12/17 07:45 (Requip) 10 mg HS PO 05/10/17 21:00 05/14/17 20:21 (Requip) 5 mg DAILY PO 05/11/17 09:00 05/15/17 08:56 (Pill Splitter) 1 ea UNSCH PRN OTHER 05/10/17 21:00 (Pravachol) 20 mg HS PO 05/10/17 21:00 05/14/17 20:22 (Lopressor) 25 mg DRIVEWAY SEALER PRN PO 05/12/17 17:45 05/15/17 17:44 (Betadine 5% Antisepsis Kit) 1 applic DRIVEWAY SEALER PRN EACH NARE 05/12/17 17:45 05/15/17 17:44 (Chlorhexidine 2% Cloth) 3 pack DRIVEWAY SEALER PRN TOPICAL 05/12/17 17:45 05/15/17 17:44 Sodium Chloride 1,000 ml @ 100 mls/hr Q10H IV 05/13/17 12:25 05/15/17 04:25 (NS Flush) 2 ml UNSCH PRN IVF 05/13/17 12:30 (NS Flush) 2 ml BID IVF 05/13/17 12:30 05/14/17 09:00 (Colace) 100 mg BID PO 05/13/17 21:00 05/15/17 08:56 (Protonix) 40 mg DAILY PO 05/14/17 09:00 05/15/17 08:56 (Zofran Inj) 4 mg Q6H PRN IV PUSH 05/13/17 12:30 (Flexeril) 10 mg Q8H PRN PO 05/13/17 12:30 05/15/17 08:56 (Catapres) 0.1 mg Q6H PRN PO/NG 05/13/17 12:30 (Tylenol) 650 mg Q4H PRN PO 05/13/17 12:30 ([place] Mayur) 1 lozenge UNSCH PRN BUCCAL 05/13/17 12:30 (Albuterol Neb) 2.5 mg Q4HR NEB PRN INH 05/13/17 12:30 (Hibiclens 4% Top Soln) 1 applic HS TOP 05/13/17 21:00 05/15/17 21:01 05/13/17 20:33 (Narcan Inj) 0.4 mg UNSCH PRN IV PUSH 05/13/17 12:30 (Benadryl Inj) 25 mg Q6H PRN IV PUSH 05/13/17 12:30 (Dilaudid OUTSIDE CUTTER HAND Inj) 6 mg UNSCH IV 05/13/17 12:30 05/15/17 05:07 OUTSIDE CUTTER HAND Dosage Infused (Pha) 1 Q8HR .XX 05/13/17 14:00 05/15/17 05:12 Patient Own Medication Neupro 4mg transdermal pa... HS TOPICAL 05/13/17 21:00 05/14/17 20:23 A/P Problem List: (1) Lumbar radiculopathy ICD Code: M54.16 - Radiculopathy, lumbar region Status: Acute (2) Acute exacerbation of chronic low back pain ICD Code: M54.5 - Low back pain; G89.29 - Other chronic pain Status: Acute (3) S/P lumbar spinal fusion ICD Code: Z98.1 - Arthrodesis status Status: Acute (4) Anxiety ICD Code: F41.9 - Anxiety disorder, unspecified (5) Restless leg syndrome ICD Code: G25.81 - Restless legs syndrome (6) Dyslipidemia ICD Code: E78.5 - Hyperlipidemia, unspecified Assessment and Plan Mr Childers 51-year-old male with severe spinal spondylosis, status post laminectomy and arthrodhesis he developed acute worsening of his lower back pain which resulted in redo L4-5 PLIF with repositioning of interbody cage on . 1. s/p redo L4-5 PLIF with repositioning of interbody cage 05/13/17 * Strict bedrest orders. Head of bed flat * OUTSIDE CUTTER HAND pump discontinued * Pain control with oxycodone 5 mg when necessary pain scale 3-5, oxycodone 10 mg when necessary pain scale 6-10 2. Restless leg syndrome * Neupro 3. Dyslipidemia * Pravastatin Discharge Planning Discharged to be determined by neurosurgery team Thony Mari MD, R3 May 15, 2017 10:52
[2017-05-15] MEDS: ENOXAPARIN SODIUM 40 MG/0.4 ML SYRINGE SQ SCH (12:00)
[2017-05-15] MEDS: ONDANSETRON HCL 4 MG/2 ML VIAL IV PUSH PRN (12:02)
[2017-05-15] MEDS: PRAVASTATIN SOD 20 MG TAB PO SCH (20:31)
[2017-05-15] MEDS: CHLORHEXIDINE GLUCONATE 4% SOLN 120 ML BTL TOP SCH (20:31)
[2017-05-15] MEDS: ROTIGOTINE 4 MG TOPICAL SCH (20:32)
[2017-05-16] MEDS: SODIUM CHLOR 0.9% 1000 ML INJ 1,000 ML IV SCH ×3 (00:25→14:46)
[2017-05-16] MEDS: CYCLOBENZAPRINE HCL 10 MG TAB PO PRN ×2 (02:30→14:33)
[2017-05-16] MEDS: PCA - TOTAL MG DILAUDID DELIVERED PER SHIFT SCH ×3 (06:00→20:18)
[2017-05-16 07:36] VITALS: BP 115/71; PULSE 75; RESP 18; TEMP 98.1; O2SAT 96
[2017-05-16] MEDS: DOCUSATE SODIUM 100 MG CAP PO SCH ×2 (08:56→20:15)
[2017-05-16] MEDS: PANTOPRAZOLE SOD 40 MG DELAYED RELEASE TAB PO SCH (08:57)
[2017-05-16] MEDS: SODIUM CHLORIDE 0.9% FLUSH 5 ML FLUSH IVF SCH ×2 (08:57→20:16)
[2017-05-16] MEDS: ONDANSETRON HCL 4 MG/2 ML VIAL IV PUSH PRN ×2 (10:02→20:15)
--- NOTE | 2017-05-16 10:02 | HHI.PR ---
Subjective Remarks He is s/p redo L4-5 PLIF with repositioning of interbody cage on 05/13. Patient is currently bed rest and mostly flat at this time. He is looking forward to when he'll get up and move around. He reports that his legs are moving good. He is occasionally feeling some charley horse pain in the left upper thigh. His restless leg syndrome is being managed with his home medication. Patient has no major complaints at this time. - can not wait to get off of bed rest states having difficulty urinating while lying down DW RN AND PT Objective Vitals Vital Signs Date Time Temp Pulse Resp B/P (MAP) Pulse Ox O2 Delivery O2 Flow Rate FiO2 05/16/17 07:36 98.1 75 18 115/71 (86) 96 05/16/17 07:29 16 05/15/17 23:00 98.7 86 18 124/76 (92) 97 05/15/17 19:00 98.4 74 17 122/79 (93) 93 05/15/17 16:55 18 05/15/17 16:00 98.1 82 18 122/75 (91) 95 05/15/17 14:50 18 05/15/17 14:00 18 05/15/17 12:00 98.9 88 18 129/79 (96) 99 I/O 05/15/17 05/15/17 05/15/17 05/16/17 05/16/17 05/16/17 07:00 15:00 23:00 07:00 15:00 23:00 Intake Total 480 ml 50 ml 1360 ml 360 ml Output Total 750 ml Balance -270 ml 50 ml 1360 ml 360 ml Intake Oral 480 ml 360 ml 360 ml IV Total 50 ml 1000 ml Output Urine Total 750 ml # Voids 5 3 2 # Bowel Movements 0 1 2 Result Diagram: 05/14/17 0440 05/14/17 0440 Other Results Laboratory Tests Test 05/14/17 04:40 White Blood Count 19.3 TH/MM3 Red Blood Count 4.09 MIL/MM3 Hemoglobin 13.3 GM/DL Hematocrit 39.6 % Mean Corpuscular Volume 96.9 FL Mean Corpuscular Hemoglobin 32.5 PG Mean Corpuscular Hemoglobin Concent 33.6 % Red Cell Distribution Width 13.4 % Platelet Count 230 TH/MM3 Mean Platelet Volume 7.8 FL Neutrophils (%) (Auto) 83.6 % Lymphocytes (%) (Auto) 8.1 % Monocytes (%) (Auto) 7.4 % Eosinophils (%) (Auto) 0.0 % Basophils (%) (Auto) 0.9 % Neutrophils # (Auto) 16.2 TH/MM3 Lymphocytes # (Auto) 1.6 TH/MM3 Monocytes # (Auto) 1.4 TH/MM3 Eosinophils # (Auto) 0.0 TH/MM3 Basophils # (Auto) 0.2 TH/MM3 CBC Comment DIFF FINAL Differential Comment Blood Urea Nitrogen 18 MG/DL Creatinine 0.90 MG/DL Random Glucose 111 MG/DL Calcium Level 8.1 MG/DL Sodium Level 137 MEQ/L Potassium Level 5.3 MEQ/L Chloride Level 104 MEQ/L Carbon Dioxide Level 23.5 MEQ/L Anion Gap 10 MEQ/L Estimat Glomerular Filtration Rate 88 ML/MIN Imaging Last Impressions Lumbar Spine X-Ray 05/13/17 0000 Signed Impressions: Service Date/Time: Saturday, May 13, 2017 09:38 - CONCLUSION: Anatomic alignment.. Dameon Lovell MD FACR Lumbar Spine MRI 05/11/172008 Signed Impressions: Service Date/Time: Thursday, May 11, 2017 08:48 - CONCLUSION: Epidural scarring involving the left L4, left L5 and left S1 roots. Artifact from transpedicular fixation of L4 and L5. No other significant postoperative changes are noted. Dameon Lovell MD FACR Objective Remarks GENERAL: AWAKE AND ALERT SKIN: Warm and dry. HEAD: Atraumatic. Normocephalic. EYES: Pupils equal and round. No scleral icterus. No injection or drainage. EOMI ENT: No nasal bleeding or discharge. Mucous membranes pink and moist. TONGUE MIDLINE NECK: Trachea midline. No JVD. CARDIOVASCULAR: Regular rate and rhythm. S1, S2 NO S3 OR S4 RESPIRATORY: No accessory muscle use. Clear to auscultation. Breath sounds equal bilaterally. GASTROINTESTINAL: Abdomen soft, non-tender, nondistended. Hepatic and splenic margins not palpable. MUSCULOSKELETAL: Extremities without clubbing, cyanosis, or edema. No obvious deformities. NEUROLOGICAL: Awake and alert. No obvious cranial nerve deficits. Motor grossly within normal limits. Five out of 5 muscle strength in the arms and legs. Normal speech. PSYCHIATRIC: Appropriate mood and affect; insight and judgment normal. Procedures s/p redo L4-5 PLIF with repositioning of interbody cage on 05/13 Medications and IVs Current Medications Oxycodone/ Acetaminophen (Percocet 10-325 Mg) 1 tab ONCE ONCE PO Last administered on 05/10/17 19:55; Start 05/10/17 at 19:45; Stop 05/10/17 at 19 :46; Status DC Sodium Chloride (NS Flush) 2 ml UNSCH PRN IV FLUSH FLUSH AFTER USING IV ACCESS ; Start 05/10/17 at 20:00; Stop 05/13/17 at 14:13; Status DC Sodium Chloride (NS Flush) 2 ml BID IV FLUSH Last administered on 05/12/17 21: 18; Start 05/10/17 at 21:00; Stop 05/13/17 at 14:13; Status DC Naloxone HCl (Narcan Inj) 0.4 mg UNSCH PRN IV PUSH SEE LABEL COMMENTS; Start 05/10/17 at 20:00; Stop 05/12/17 at 10:23; Status DC Magnesium Hydroxide (Milk Of Magnesia Liq) 30 ml Q12H PRN PO Mild constipation Last administered on 05/15/17 12:01; Start 05/10/17 at 20:00 Sennosides (Senokot) 17.2 mg Q12H PRN PO Moderate constipation Last administered on 05/15/17 08:56; Start 05/10/17 at 20:00 Bisacodyl (Dulcolax Supp) 10 mg DAILY PRN RECTAL SEVERE CONSITIPATION; Start 05/10/17 at 20:00 Lactulose (Lactulose Liq) 30 ml DAILY PRN PO SEVERE CONSITIPATION; Start 05/10 at 20:00 Oxycodone HCl (Roxicodone) 10 mg Q4H PRN PO PAIN SCALE 6 TO 10 Last administered on 05/16/17 06:28; Start 05/10/17 at 20:00 Morphine Sulfate (Morphine Inj) 2 mg Q3H PRN IV PUSH Pain 3-5; if unable to take PO Last administered on 05/11/17 11:44; Start 05/10/17 at 20:00; Stop at 12:30; Status DC Morphine Sulfate (Morphine Inj) 4 mg Q3H PRN IV PUSH Pain 6-10;if unable to take PO Last administered on 05/12/17 21:18; Start 05/10/17 at 20:00; Stop at 12:30; Status DC Morphine Sulfate (Morphine Inj) 4 mg Q3H PRN IV PUSH BREAKTHROUGH PAIN Last administered on 05/12/17 05:40; Start 05/10/17 at 20:00; Stop 05/13/17 at 12: 30; Status DC Oxycodone HCl (Roxicodone) 5 mg Q4H PRN PO PAIN SCALE 3 TO 5 Last administered on 05/15/17 13:48; Start 05/10/17 at 20:00 Naloxone HCl (Narcan Inj) 0.4 mg UNSCH PRN IV PUSH SEE LABEL COMMENTS; Start 05/10/17 at 20:00; Stop 05/13/17 at 14:13; Status DC Hydromorphone HCl (Dilaudid Pf Inj) 1 mg ONCE ONCE IV PUSH Last administered on 05/10/17 22:11; Start 05/10/17 at 20:45; Stop 05/10/17 at 20:52; Status DC Non-Formulary Medication 5 mg DAILY PO ; Start 05/11/17 at 09:00; Status UNV Ropinirole HCl (Requip) 10 mg HS PO Last administered on 05/15/17 20:31; Start 05/10/17 at 21:00 Ropinirole HCl (Requip) 5 mg DAILY PO Last administered on 05/16/17 08:57; Start 05/11/17 at 09:00 Miscellaneous (Pill Splitter) 1 ea UNSCH PRN OTHER SEE LABEL COMMENTS; Start 05/10/17 at 21:00 Pravastatin Sodium (Pravachol) 20 mg HS PO Last administered on 05/15/17 20:31 ; Start 05/10/17 at 21:00 Gadodiamide (Omniscan Pf Inj) 16 ml STK-MED ONCE IV PUSH Last administered on 05/10/17 08:30; Start 05/10/17 at 08:30; Stop 05/11/17 at 10:41; Status DC Vancomycin HCl 1000 mg/Sodium Chloride 250 ml @ 250 mls/hr ONCE ONCE IV Last administered on 05/13/17 05:36; Start 05/13/17 at 06:00; Stop 05/13/17 at 06:59 ; Status DC Chlorhexidine Gluconate (Hibiclens 4% Top Soln) 1 applic HS TOP Last administered on 05/12/17 21:00; Start 05/11/17 at 21:00; Stop 05/13/17 at 13:56 ; Status DC Patient Own Medication Neupro 4mg transdermal pa... DAILY TOPICAL ; Start at 09:00; Stop 05/13/17 at 20:32; Status DC Lactated Ringer's 1,000 ml @ 30 mls/hr Q24H PRN IV SEE LABEL COMMENTS Last administered on 05/13/17 08:10; Start 05/12/17 at 17:45; Stop 05/13/17 at 13:21 ; Status DC Sodium Chloride 500 ml @ 30 mls/hr [id number] PRN IV SEE LABEL COMMENTS; Start at 17:45; Stop 05/13/17 at 13:21; Status DC Metoprolol Tartrate (Lopressor) 25 mg PRACTICE PHYSICIAN PRN PO SEE LABEL COMMENTS; Start 05/12/17 at 17:45; Stop 05/15/17 at 17:44; Status DC Povidone Iodine (Betadine 5% Antisepsis Kit) 1 applic PRACTICE PHYSICIAN PRN EACH NARE SEE LABEL COMMENTS; Start 05/12/17 at 17:45; Stop 05/15/17 at 17:44; Status DC Chlorhexidine Gluconate (Chlorhexidine 2% Cloth) 3 pack PRACTICE PHYSICIAN PRN TOPICAL SEE LABEL COMMENTS; Start 05/12/17 at 17:45; Stop 05/15/17 at 17:44; Status DC Insulin Human Regular (NovoLIN R INJ) See Protocol Table ... PRACTICE PHYSICIAN PRN SQ SEE PROTOCOL TABLE; Start 05/12/17 at 17:45; Stop 05/14/17 at 12:20; Status DC Vancomycin HCl (Vancomycin Inj) 1,000 mg STK-MED ONCE .ROUTE Last administered on 05/13/17 11:00; Start 05/13/17 at 06:59; Stop 05/13/17 at 07:00; Status DC Heparin Sodium (Porcine) (Heparin Inj) 30,000 units STK-MED ONCE .ROUTE ; Start 05/13/17 at 06:59; Stop 05/13/17 at 07:00; Status DC Thrombin (Thrombin Top Soln) 10,000 units STK-MED ONCE .ROUTE Last administered on 05/13/17 11:00; Start 05/13/17 at 06:59; Stop 05/13/17 at 07:00 ; Status DC Cefazolin Sodium/ Dextrose 50 ml @ As Directed STK-MED ONCE .ROUTE Last administered on 05/13/17 09:23; Start 05/13/17 at 06:59; Stop 05/13/17 at 07:00 ; Status DC Bupivacaine HCl (Marcaine Pf 0.5% Inj) 30 ml STK-MED ONCE .ROUTE Last administered on 05/13/17 11:00; Start 05/13/17 at 06:59; Stop 05/13/17 at 07:00 ; Status DC Gelatin (Gelfoam 100 Top) 1 foam STK-MED ONCE .ROUTE Last administered on 10:30; Start 05/13/17 at 06:59; Stop 05/13/17 at 07:00; Status DC Gentamicin Sulfate (Gentamicin Inj) 240 mg STK-MED ONCE .ROUTE Last administered on 05/13/17 11:00; Start 05/13/17 at 07:00; Stop 05/13/17 at 07:01 ; Status DC Sodium Chloride 1,000 ml @ 100 mls/hr Q10H IV Last administered on 05/15/17 14:25; Start 05/13/17 at 12:25 IV Flush (NS Flush) 2 ml UNSCH PRN IVF FLUSH AFTER USING IV ACCESS; Start 05/13 at 12:30 IV Flush (NS Flush) 2 ml BID IVF Last administered on 05/16/17 08:57; Start 05/13/17 at 12:30 Cefazolin Sodium/ Dextrose 50 ml @ 100 mls/hr Q8H IV Last administered on 05/14 07:33; Start 05/13/17 at 17:00; Stop 05/14/17 at 09:29; Status DC Docusate Sodium (Colace) 100 mg BID PO Last administered on 05/15/17 20:30; Start 05/13/17 at 21:00 Pantoprazole Sodium (Protonix) 40 mg DAILY PO Last administered on 05/16/17 08 :57; Start 05/14/17 at 09:00 Ondansetron HCl (Zofran Inj) 4 mg Q6H PRN IV PUSH NAUSEA OR VOMITING Last administered on 05/15/17 12:02; Start 05/13/17 at 12:30 Cyclobenzaprine HCl (Flexeril) 10 mg Q8H PRN PO MUSCLE SPASM Last administered on 05/16/17 02:30; Start 05/13/17 at 12:30 Clonidine (Catapres) 0.1 mg Q6H PRN PO/NG SYS BP GREATER THAN 170 MMHG; Start 05/13/17 at 12:30 Acetaminophen (Tylenol) 650 mg Q4H PRN PO TEMPERATURE > 101.5 F; Start at 12:30 Menthol ([place] Mayur) 1 lozenge UNSCH PRN BUCCAL SORE THROAT; Start 05/13/17 at 12:30 Albuterol Sulfate (Albuterol Neb) 2.5 mg Q4HR NEB PRN INH WHEEZING; Start 05/13 at 12:30 Chlorhexidine Gluconate (Hibiclens 4% Top Soln) 1 applic HS TOP Last administered on 05/13/17 20:33; Start 05/13/17 at 21:00; Stop 05/15/17 at 21:01 ; Status DC Dextrose (D50w (Vial) Inj) 50 ml UNSCH PRN IV PUSH HYPOGLYCEMIA-SEE COMMENTS; Start 05/13/17 at 12:30; Stop 05/14/17 at 12:20; Status DC Glucagon (Glucagon Inj) 1 mg UNSCH PRN OTHER HYPOGLYCEMIA-SEE COMMENTS; Start 05/13/17 at 12:30; Stop 05/14/17 at 12:20; Status DC Insulin Aspart (NovoLOG SUPPLEMENTAL SCALE) 1 ACHS SLIDING SCALE SQ ; Start at 17:00; Stop 05/14/17 at 12:20; Status DC Naloxone HCl (Narcan Inj) 0.4 mg UNSCH PRN IV PUSH RESPIRATORY RATE LESS THAN 10; Start 05/13/17 at 12:30 Diphenhydramine HCl (Benadryl Inj) 25 mg Q6H PRN IV PUSH ITCHING; Start at 12:30 Hydromorphone HCl (Dilaudid PACKING LINE OPERATOR Inj) 6 mg UNSCH IV Last administered on 05:07; Start 05/13/17 at 12:30 PACKING LINE OPERATOR Dosage Infused (Pha) 1 Q8HR .XX Last administered on 05/15/17 05:12; Start 05/13/17 at 14:00 Meperidine HCl (*DEMEROL INJ PERIprocedural ONLY) 25 mg STK-MED ONCE .ROUTE Last administered on 05/13/17 13:31; Start 05/13/17 at 13:31; Stop 05/13/17 at 13:32; Status DC Miscellaneous Information ALL NURSING DEPARTME... UNSCH PRN .XX SEE LABEL COMMENTS; Start 05/13/17 at 13:22; Stop 05/14/17 at 13:21; Status DC Influenza Virus Vaccine (Flu (Quadrivalent) Vaccine Inj) 0.5 ml ONCE ONCE IM Last administered on 05/14/17 11:30; Start 05/14/17 at 10:00; Stop 05/14/17 at 10:01; Status DC Pneumococcal Polyvalent Vaccine (Pneumovax-23 Inj) 25 mcg ONCE ONCE IM Last administered on 05/14/17 10:00; Start 05/14/17 at 10:00; Stop 05/14/17 at 10:01 ; Status DC Patient Own Medication Neupro 4mg transdermal pa... HS TOPICAL Last administered on 05/15/17 20:32; Start 05/13/17 at 21:00 Enoxaparin Sodium (Lovenox Inj) 40 mg Q24H SQ Last administered on 05/15/17 12 :00; Start 05/15/17 at 12:00 Urinary Catheter: No A/P Problem List: (1) Lumbar radiculopathy ICD Code: M54.16 - Radiculopathy, lumbar region Status: Acute (2) Acute exacerbation of chronic low back pain ICD Code: M54.5 - Low back pain; G89.29 - Other chronic pain Status: Acute (3) S/P lumbar spinal fusion ICD Code: Z98.1 - Arthrodesis status Status: Acute (4) Anxiety ICD Code: F41.9 - Anxiety disorder, unspecified (5) Restless leg syndrome ICD Code: G25.81 - Restless legs syndrome (6) Dyslipidemia ICD Code: E78.5 - Hyperlipidemia, unspecified Assessment and Plan Mr Khannae 51-year-old male with severe spinal spondylosis, status post laminectomy and arthrodhesis he developed acute worsening of his lower back pain which resulted in redo L4-5 PLIF with repositioning of interbody cage on . 1. s/p redo L4-5 PLIF with repositioning of interbody cage 05/13/17 * Strict bedrest orders. Head of bed flat * PACKING LINE OPERATOR pump discontinued * Pain control with oxycodone 5 mg when necessary pain scale 3-5, oxycodone 10 mg when necessary pain scale 6-10 2. Restless leg syndrome * Neupro * REQUIP 3. Dyslipidemia * Pravastatin * * AM LABS Discharge Planning ONCE MOBILE Dameon Sharma DO May 16, 2017 10:02
[2017-05-16] MEDS: ENOXAPARIN SODIUM 40 MG/0.4 ML SYRINGE SQ SCH (10:33)
[2017-05-16 12:00] VITALS: BP 117/73; PULSE 82; RESP 19; TEMP 97; O2SAT 95
--- NOTE | 2017-05-16 12:05 | HHI.NSPN ---
(Mary Beth Witt) Note Status Status: Progress Note (Mary Beth Witt) Interval History Interval History Mr Liseth 51-year-old male with severe spinal spondylosis, status post laminectomy and arthrodhesis in January of this year. Postoperatively he was doing very well with clinical resolution of his back pain and radiculopathy, until he suffered a severe fall and reinjured his spine. He presents with acute worsening of chronic low back pain and left-sided radiculopathy. He reports constant sharp pain in the low back radiating to the left leg. Patient reports continued weakness in the left leg with foot drop. He does report an episode of loss of bladder contro today, however without any subsequent loss of bladder control. Recent xrays showed that his instrumentation has displaced following the fall. Neurosurgery consultation was requested 05/11. Continues to suffer severe pain. No further urinary incontinence. Follow up MRI done today 05/12: no improvement in his lumbar and radicular pain, eager for surgery tomorrow 05/14: s/p redo L4-5 PLIF with repositioning of interbody cage on 05/13. pt on bedrest, surgical pain controlled. 05/15: reports wound leaking last night/early intervention specialist and had multiple dressing changes due to saturation. He than sat up on edge of bed this am on his own despite strict bed rest order. wound reexamined, dressing dry with mild shadowing, no leaking from incision. 05/16: needing to have a BM, incision checked no drainage seen. (Mary Beth Witt) Labs, Micro, & Vital Signs Results Date Time Temp Pulse Resp B/P (MAP) Pulse Ox O2 Delivery O2 Flow Rate FiO2 05/16/17 11:42 18 05/16/17 07:36 98.1 75 18 115/71 (86) 96 05/15/17 23:00 98.7 86 18 124/76 (92) 97 05/15/17 19:00 98.4 74 17 122/79 (93) 93 05/15/17 16:55 18 05/15/17 16:00 98.1 82 18 122/75 (91) 95 05/15/17 14:50 18 05/15/17 14:00 18 Constitutional Vital Signs Date Time Temp Pulse Resp B/P (MAP) Pulse Ox O2 Delivery O2 Flow Rate FiO2 05/16/17 11:42 18 05/16/17 07:36 98.1 75 18 115/71 (86) 96 05/15/17 23:00 98.7 86 18 124/76 (92) 97 05/15/17 19:00 98.4 74 17 122/79 (93) 93 05/15/17 16:55 18 05/15/17 16:00 98.1 82 18 122/75 (91) 95 05/15/17 14:50 18 05/15/17 14:00 18 (Mary Beth Witt) Physical Exam Mr Childers is alert, awake and oriented to time, place and person. Speech is fluent. Cranial nerve examination: pupils equal, round, and reactive to light. Extra- ocular movements are intact. Facial motor are normal and symmetrical. Wound is clean and dry, no drainage from incision. Dressing with mild serosanguineous shadowing - did not saturate. Neck is soft and supple. Muscle strength: In the lower extremities, strength is 5/5 iliopsoas, bilateral quadriceps, hamstrings, dorsiflexion, plantar flexion, 4-/5 left dorsiflexion. Sensory examination is decreased in an left L5 dermatome (Mary Beth Witt) Medications Current Medications Current Medications Medications (Trade) Dose Ordered Sig/Criselda Route PRN Reason Start Time Stop Time Status Last Admin Dose Admin Magnesium Hydroxide (Milk Of Magnesia Liq) 30 ml Q12H PRN PO Mild constipation 05/10/17 20:00 05/15/17 12:01 Sennosides (Senokot) 17.2 mg Q12H PRN PO Moderate constipation 05/10/17 20:00 05/15/17 08:56 Bisacodyl (Dulcolax Supp) 10 mg DAILY PRN RECTAL SEVERE CONSITIPATION 05/10/17 20:00 Lactulose (Lactulose Liq) 30 ml DAILY PRN PO SEVERE CONSITIPATION 05/10/17 20:00 Oxycodone HCl (Roxicodone) 10 mg Q4H PRN PO PAIN SCALE 6 TO 10 05/10/17 20:00 05/16/17 10:33 Oxycodone HCl (Roxicodone) 5 mg Q4H PRN PO PAIN SCALE 3 TO 5 05/10/17 20:00 05/15/17 13:48 Ropinirole HCl (Requip) 10 mg HS PO 05/10/17 21:00 05/15/17 20:31 Ropinirole HCl (Requip) 5 mg DAILY PO 05/11/17 09:00 05/16/17 08:57 Miscellaneous (Pill Splitter) 1 ea UNSCH PRN OTHER SEE LABEL COMMENTS 05/10/17 21:00 Pravastatin Sodium (Pravachol) 20 mg HS PO 05/10/17 21:00 05/15/17 20:31 Sodium Chloride 1,000 ml @ 100 mls/hr Q10H IV 05/13/17 12:25 05/15/17 14:25 IV Flush (NS Flush) 2 ml UNSCH PRN IVF FLUSH AFTER USING IV ACCESS 05/13/17 12:30 IV Flush (NS Flush) 2 ml BID IVF 05/13/17 12:30 05/16/17 08:57 Docusate Sodium (Colace) 100 mg BID PO 05/13/17 21:00 05/15/17 20:30 Pantoprazole Sodium (Protonix) 40 mg DAILY PO 05/14/17 09:00 05/16/17 08:57 Ondansetron HCl (Zofran Inj) 4 mg Q6H PRN IV PUSH NAUSEA OR VOMITING 05/13/17 12:30 05/16/17 10:02 Cyclobenzaprine HCl (Flexeril) 10 mg Q8H PRN PO MUSCLE SPASM 05/13/17 12:30 05/16/17 02:30 Clonidine (Catapres) 0.1 mg Q6H PRN PO/NG SYS BP GREATER THAN 170 MMHG 05/13/17 12:30 Acetaminophen (Tylenol) 650 mg Q4H PRN PO TEMPERATURE > 101.5 F 05/13/17 12:30 Menthol ([place] Mayur) 1 lozenge UNSCH PRN BUCCAL SORE THROAT 05/13/17 12:30 Albuterol Sulfate (Albuterol Neb) 2.5 mg Q4HR NEB PRN INH WHEEZING 05/13/17 12:30 Naloxone HCl (Narcan Inj) 0.4 mg UNSCH PRN IV PUSH RESPIRATORY RATE LESS THAN 10 05/13/17 12:30 Diphenhydramine HCl (Benadryl Inj) 25 mg Q6H PRN IV PUSH ITCHING 05/13/17 12:30 Hydromorphone HCl (Dilaudid STAFF EDITOR Inj) 6 mg UNSCH IV 05/13/17 12:30 05/15/17 05:07 STAFF EDITOR Dosage Infused (Pha) 1 Q8HR .XX 05/13/17 14:00 05/15/17 05:12 Patient Own Medication Neupro 4mg transdermal pa... HS TOPICAL 05/13/17 21:00 05/15/17 20:32 Enoxaparin Sodium (Lovenox Inj) 40 mg Q24H SQ 05/15/17 12:00 05/16/17 10:33 (Mary Beth Witt) Medical Decision Making MDM Remarks 51 y/o male s/p redo L4-5 PLIF with repositioning of interbody cage, dural repair of CSF leak 05/13/17 (Mary Beth Witt) Plan Plan Remarks cont current pain control, supportive care cont strict bed rest today, HOB flat, possible OOB tomorrow - will assess after rounds in the am SCDs and TEDs for dvt prophylaxis, sq lovenox IS every hour medical mgt following - appreciate assistance (Mary Beth Witt) Attending Statement The exam, history, and the medical decision-making described in the above note were completed with the assistance of the mid-level provider. I reviewed and agree with the findings presented. I attest that I had a [id number] encounter with the patient on the same day, and personally performed and documented my assessment and findings in the medical record. (Jairo Hood MD) Mary Beth Witt May 16, 2017 12:05 Jairo Hood MD May 19, 2017 17:35
[2017-05-16 16:00] VITALS: BP 101/77; PULSE 88; RESP 18; TEMP 98.1; O2SAT 98
[2017-05-16 20:00] VITALS: BP 119/73; PULSE 97; RESP 16; TEMP 99.7; O2SAT 95
[2017-05-16] MEDS: PRAVASTATIN SOD 20 MG TAB PO SCH (20:15)
[2017-05-16] MEDS: ROTIGOTINE 4 MG TOPICAL SCH (20:17)
[2017-05-17] VITALS: BP 118/81; PULSE 91; RESP 17; TEMP 98.2; O2SAT 96
[2017-05-17] MEDS: SODIUM CHLOR 0.9% 1000 ML INJ 1,000 ML IV SCH ×2 (02:00→17:11)
[2017-05-17] MEDS: PCA - TOTAL MG DILAUDID DELIVERED PER SHIFT SCH ×2 (04:14→14:00)
[2017-05-17 07:12] LABS: AUTOMATED NEUTROPHIL # 6.4 TH/MM3 (1.8-7.7); BASOPHIL # 0.1 TH/MM3 (0-0.2); BASOPHIL % 0.5 % (0.0-2.0); EOSINOPHIL # 0.1 TH/MM3 (0-0.4); HEMATOCRIT 41.3 % (39.0-51.0); HEMO FLAGS DIFF FINAL; LYMPH % 23.6 % (9.0-44.0); LYMPHOCYTE # 2.3 TH/MM3 (1.0-4.8); MEAN CORPUSCULAR HEMOGLOBIN 33.5 PG (27.0-34.0); MEAN CORPUSCULAR HGB CONC 34.9 % (32.0-36.0); MONO % 9.9 % (0.0-8.0); PLATELET COUNT 283 TH/MM3 (150-450); RED CELL DISTRIBUTION WIDTH 12.9 % (11.6-17.2); WHITE BLOOD COUNT 9.8 TH/MM3 (4.0-11.0)
[2017-05-17 07:22] VITALS: BP 123/70; PULSE 82; RESP 18; TEMP 96.6; O2SAT 97
[2017-05-17] MEDS: DOCUSATE SODIUM 100 MG CAP PO SCH ×2 (07:33→21:16)
[2017-05-17] MEDS: PANTOPRAZOLE SOD 40 MG DELAYED RELEASE TAB PO SCH (07:33)
[2017-05-17 07:45] LABS: ALT (GPT) 24 U/L (12-78); ANION GAP 8 MEQ/L (5-15); AST (GOT) 17 U/L (15-37); BICARBONATE 25.1 MEQ/L (21.0-32.0); BLOOD UREA NITROGEN 19 MG/DL (7-18); CHLORIDE 101 MEQ/L (98-107); GLOMERULAR FILTRATION RATE 103 ML/MIN (>89); MAGNESIUM 2.2 MG/DL (1.5-2.5); POTASSIUM 4.1 MEQ/L (3.5-5.1); SODIUM (NA) 134 MEQ/L (136-145)
[2017-05-17 07:49] LABS: ALKALINE PHOSPHATASE 92 U/L (45-117); FREE T4 1.15 NG/DL (0.76-1.46); TOTAL BILIRUBIN ADULT 0.6 MG/DL (0.2-1.0)
[2017-05-17] MEDS: SENNOSIDES 8.6 MG TAB PO PRN (08:05)
[2017-05-17] MEDS: MAGNESIUM HYDROXIDE SUSP 30 ML CUP PO PRN (08:05)
[2017-05-17] MEDS: SODIUM CHLORIDE 0.9% FLUSH 5 ML FLUSH IVF SCH ×2 (09:00→21:21)
[2017-05-17] MEDS: CARISOPRODOL 350 MG TAB PO PRN ×2 (09:55→18:22)
[2017-05-17] MEDS: ENOXAPARIN SODIUM 40 MG/0.4 ML SYRINGE SQ SCH (11:41)
[2017-05-17 11:56] VITALS: BP 121/77; PULSE 83; RESP 18; TEMP 96.6; O2SAT 97
[2017-05-17] MEDS: BISACODYL 10 MG SUPP RECTAL PRN (12:42)
--- NOTE | 2017-05-17 12:47 | HHI.NSPN ---
(Mary Beth Witt) Note Status Status: Progress Note (Mary Beth Witt) Interval History Interval History Mr Liseth 51-year-old male with severe spinal spondylosis, status post laminectomy and arthrodhesis in January of this year. Postoperatively he was doing very well with clinical resolution of his back pain and radiculopathy, until he suffered a severe fall and reinjured his spine. He presents with acute worsening of chronic low back pain and left-sided radiculopathy. He reports constant sharp pain in the low back radiating to the left leg. Patient reports continued weakness in the left leg with foot drop. He does report an episode of loss of bladder contro today, however without any subsequent loss of bladder control. Recent xrays showed that his instrumentation has displaced following the fall. Neurosurgery consultation was requested 05/11. Continues to suffer severe pain. No further urinary incontinence. Follow up MRI done today 05/12: no improvement in his lumbar and radicular pain, eager for surgery tomorrow 05/14: s/p redo L4-5 PLIF with repositioning of interbody cage on 05/13. pt on bedrest, surgical pain controlled. 05/15: reports wound leaking last night/early childhood and had multiple dressing changes due to saturation. He than sat up on edge of bed this am on his own despite strict bed rest order. wound reexamined, dressing dry with mild shadowing, no leaking from incision. 05/16: needing to have a BM, incision checked no drainage seen. 05/17: reports left hamstrings muscle spasm not being controlled with flexeril. mild halo sign on his lumbar dressing this morning, no active leaking, no saturation of dressing. (Mary Beth Witt) Labs, Micro, & Vital Signs Results Date Time Temp Pulse Resp B/P (MAP) Pulse Ox O2 Delivery O2 Flow Rate FiO2 05/17/17 11:56 96.6 83 18 121/77 (92) 97 05/17/17 07:22 96.6 82 18 123/70 (87) 97 05/17/17 00:00 98.2 91 17 118/81 (93) 96 05/16/17 20:00 99.7 97 16 119/73 (88) 95 05/16/17 16:00 98.1 88 18 101/77 (85) 98 05/16/17 15:45 16 Constitutional Vital Signs Date Time Temp Pulse Resp B/P (MAP) Pulse Ox O2 Delivery O2 Flow Rate FiO2 05/17/17 11:56 96.6 83 18 121/77 (92) 97 05/17/17 07:22 96.6 82 18 123/70 (87) 97 05/17/17 00:00 98.2 91 17 118/81 (93) 96 05/16/17 20:00 99.7 97 16 119/73 (88) 95 05/16/17 16:00 98.1 88 18 101/77 (85) 98 05/16/17 15:45 16 (Mary Beth Witt) Physical Exam Mr Childers is alert and oriented x 3. Speech is fluent. Conversing well, mentation intact. Cranial nerve examination: pupils equal. EOMs are intact. Facial motor are normal and symmetrical. Surgical wound is dry, no leaking. There is small sanguinous halo sign noted on dressing, not saturated. Neck is soft and supple. Muscle strength in the lower extremities moving major muscle groups grossly limited due to postop pain, stable chronic 4/5 left dorsiflexion Sensory examination is decreased in an L5 dermatome (Mary Beth Witt) Medications Current Medications Current Medications Medications (Trade) Dose Ordered Sig/Criselda Route PRN Reason Start Time Stop Time Status Last Admin Dose Admin Magnesium Hydroxide (Milk Of Magnesia Liq) 30 ml Q12H PRN PO Mild constipation 05/10/17 20:00 05/17/17 08:05 Sennosides (Senokot) 17.2 mg Q12H PRN PO Moderate constipation 05/10/17 20:00 05/17/17 08:05 Bisacodyl (Dulcolax Supp) 10 mg DAILY PRN RECTAL SEVERE CONSITIPATION 05/10/17 20:00 05/17/17 12:42 Lactulose (Lactulose Liq) 30 ml DAILY PRN PO SEVERE CONSITIPATION 05/10/17 20:00 Oxycodone HCl (Roxicodone) 5 mg Q4H PRN PO PAIN SCALE 3 TO 5 05/10/17 20:00 05/15/17 13:48 Ropinirole HCl (Requip) 10 mg HS PO 05/10/17 21:00 05/16/17 20:16 Ropinirole HCl (Requip) 5 mg DAILY PO 05/11/17 09:00 05/17/17 08:13 Miscellaneous (Pill Splitter) 1 ea UNSCH PRN OTHER SEE LABEL COMMENTS 05/10/17 21:00 Pravastatin Sodium (Pravachol) 20 mg HS PO 05/10/17 21:00 05/16/17 20:15 Sodium Chloride 1,000 ml @ 100 mls/hr Q10H IV 05/13/17 12:25 05/17/17 02:00 IV Flush (NS Flush) 2 ml UNSCH PRN IVF FLUSH AFTER USING IV ACCESS 05/13/17 12:30 IV Flush (NS Flush) 2 ml BID IVF 05/13/17 12:30 05/16/17 08:57 Docusate Sodium (Colace) 100 mg BID PO 05/13/17 21:00 05/17/17 07:33 Pantoprazole Sodium (Protonix) 40 mg DAILY PO 05/14/17 09:00 05/17/17 07:33 Ondansetron HCl (Zofran Inj) 4 mg Q6H PRN IV PUSH NAUSEA OR VOMITING 05/13/17 12:30 05/16/17 20:15 Clonidine (Catapres) 0.1 mg Q6H PRN PO/NG SYS BP GREATER THAN 170 MMHG 05/13/17 12:30 Acetaminophen (Tylenol) 650 mg Q4H PRN PO TEMPERATURE > 101.5 F 05/13/17 12:30 Menthol (Brixey Mayur) 1 lozenge UNSCH PRN BUCCAL SORE THROAT 05/13/17 12:30 Albuterol Sulfate (Albuterol Neb) 2.5 mg Q4HR NEB PRN INH WHEEZING 05/13/17 12:30 Naloxone HCl (Narcan Inj) 0.4 mg UNSCH PRN IV PUSH RESPIRATORY RATE LESS THAN 10 05/13/17 12:30 Diphenhydramine HCl (Benadryl Inj) 25 mg Q6H PRN IV PUSH ITCHING 05/13/17 12:30 Hydromorphone HCl (Dilaudid HISTOLOGY MANAGER Inj) 6 mg UNSCH IV 05/13/17 12:30 05/15/17 05:07 HISTOLOGY MANAGER Dosage Infused (Pha) 1 Q8HR .XX 05/13/17 14:00 05/15/17 05:12 Patient Own Medication Neupro 4mg transdermal pa... HS TOPICAL 05/13/17 21:00 05/16/17 20:17 Enoxaparin Sodium (Lovenox Inj) 40 mg Q24H SQ 05/15/17 12:00 05/17/17 11:41 Oxycodone HCl (Roxicodone) 20 mg Q4H PRN PO PAIN SCALE 6 TO 10 05/17/17 12:00 05/17/17 11:42 Carisoprodol (Soma) 350 mg Q8H PRN PO muscle spasms 05/17/17 09:30 05/17/17 09:55 (Mary Beth Witt) Medical Decision Making MDM Remarks 51 y/o male s/p redo L4-5 PLIF with repositioning of interbody cage, dural repair of CSF leak 05/13/17 (Mary Beth Witt) Plan Plan Remarks cont current pain control, supportive care change flexeril to Soma prn muscle spasms cont strict bed rest today, but will increase HOB up to 30 degrees, monitor wound for leaking - dw nursing SCDs and TEDs for dvt prophylaxis, sq lovenox IS every hour medical mgt following - appreciate assistance (Mary Beth Witt) Attending Statement The exam, history, and the medical decision-making described in the above note were completed with the assistance of the mid-level provider. I reviewed and agree with the findings presented. I attest that I had a [id number] encounter with the patient on the same day, and personally performed and documented my assessment and findings in the medical record. (Jairo Hood MD) Mary Beth Witt May 17, 2017 12:47 Jairo Hood MD May 19, 2017 17:37
--- NOTE | 2017-05-17 15:11 | HHI.PR ---
Subjective Remarks He is s/p redo L4-5 PLIF with repositioning of interbody cage on 05/13. Patient is currently bed rest and mostly flat at this time. He is looking forward to when he'll get up and move around. He reports that his legs are moving good. He is occasionally feeling some charley horse pain in the left upper thigh. His restless leg syndrome is being managed with his home medication. Patient has no major complaints at this time. 11-6 can not wait to get off of bed rest states having difficulty urinating while lying down DW RN AND PT 11-7 HAD ISSUES WITH PAIN MEDS ADJUSTED DW RN AND PT AND NEUROSURGERY PT WANTED OFF HIS DIRECTOR OF PERSONNEL TOO SOON HAVING ISSUES WITH BM Objective Vitals Vital Signs Date Time Temp Pulse Resp B/P (MAP) Pulse Ox O2 Delivery O2 Flow Rate FiO2 05/17/17 11:56 96.6 83 18 121/77 (92) 97 05/17/17 07:22 96.6 82 18 123/70 (87) 97 05/17/17 00:00 98.2 91 17 118/81 (93) 96 05/16/17 20:00 99.7 97 16 119/73 (88) 95 05/16/17 16:00 98.1 88 18 101/77 (85) 98 05/16/17 15:45 16 I/O 05/16/17 05/16/17 05/16/17 05/17/17 05/17/17 05/17/17 07:00 15:00 23:00 07:00 15:00 23:00 Intake Total 360 ml 744 ml 1216 ml Output Total 1100 ml 800 ml 250 ml Balance 360 ml -356 ml 416 ml -250 ml Intake Oral 360 ml 480 ml 480 ml IV Total 264 ml 736 ml Output Urine Total 1100 ml 800 ml 250 ml Bladder Scan Volume Amount 167 ml # Voids 2 3 # Bowel Movements 2 0 0 Result Diagram: 05/17/17 0640 05/17/17 0640 Other Results Laboratory Tests Test 05/17/17 06:40 White Blood Count 9.8 TH/MM3 Red Blood Count 4.30 MIL/MM3 Hemoglobin 14.4 GM/DL Hematocrit 41.3 % Mean Corpuscular Volume 96.0 FL Mean Corpuscular Hemoglobin 33.5 PG Mean Corpuscular Hemoglobin Concent 34.9 % Red Cell Distribution Width 12.9 % Platelet Count 283 TH/MM3 Mean Platelet Volume 7.5 FL Neutrophils (%) (Auto) 65.0 % Lymphocytes (%) (Auto) 23.6 % Monocytes (%) (Auto) 9.9 % Eosinophils (%) (Auto) 1.0 % Basophils (%) (Auto) 0.5 % Neutrophils # (Auto) 6.4 TH/MM3 Lymphocytes # (Auto) 2.3 TH/MM3 Monocytes # (Auto) 1.0 TH/MM3 Eosinophils # (Auto) 0.1 TH/MM3 Basophils # (Auto) 0.1 TH/MM3 CBC Comment DIFF FINAL Differential Comment Blood Urea Nitrogen 19 MG/DL Creatinine 0.79 MG/DL Random Glucose 92 MG/DL Total Protein 7.6 GM/DL Albumin 3.2 GM/DL Calcium Level 8.9 MG/DL Phosphorus Level 3.5 MG/DL Magnesium Level 2.2 MG/DL Alkaline Phosphatase 92 U/L Aspartate Amino Transf (AST/SGOT) 17 U/L Alanine Aminotransferase (ALT/SGPT) 24 U/L Total Bilirubin 0.6 MG/DL Sodium Level 134 MEQ/L Potassium Level 4.1 MEQ/L Chloride Level 101 MEQ/L Carbon Dioxide Level 25.1 MEQ/L Anion Gap 8 MEQ/L Estimat Glomerular Filtration Rate 103 ML/MIN Free Thyroxine 1.15 NG/DL Thyroid Stimulating Hormone 3rd Gen 1.430 uIU/ML Imaging Last Impressions Lumbar Spine X-Ray 05/13/17 0000 Signed Impressions: Service Date/Time: Saturday, May 13, 2017 09:38 - CONCLUSION: Anatomic alignment.. Dameon Lovell MD FACR Lumbar Spine MRI 05/11/172008 Signed Impressions: Service Date/Time: Thursday, May 11, 2017 08:48 - CONCLUSION: Epidural scarring involving the left L4, left L5 and left S1 roots. Artifact from transpedicular fixation of L4 and L5. No other significant postoperative changes are noted. Dameon Lovell MD FACR Objective Remarks GENERAL: AWAKE AND ALERT SKIN: Warm and dry. HEAD: Atraumatic. Normocephalic. EYES: Pupils equal and round. No scleral icterus. No injection or drainage. EOMI ENT: No nasal bleeding or discharge. Mucous membranes pink and moist. TONGUE MIDLINE NECK: Trachea midline. No JVD. CARDIOVASCULAR: Regular rate and rhythm. S1, S2 NO S3 OR S4 RESPIRATORY: No accessory muscle use. Clear to auscultation. Breath sounds equal bilaterally. GASTROINTESTINAL: Abdomen soft, non-tender, nondistended. Hepatic and splenic margins not palpable. MUSCULOSKELETAL: Extremities without clubbing, cyanosis, or edema. No obvious deformities. NEUROLOGICAL: Awake and alert. No obvious cranial nerve deficits. Motor grossly within normal limits. Five out of 5 muscle strength in the arms and legs. Normal speech. PSYCHIATRIC: Appropriate mood and affect; insight and judgment normal. Procedures s/p redo L4-5 PLIF with repositioning of interbody cage on 05/13 Medications and IVs Current Medications Oxycodone/ Acetaminophen (Percocet 10-325 Mg) 1 tab ONCE ONCE PO Last administered on 05/10/17 19:55; Start 05/10/17 at 19:45; Stop 05/10/17 at 19 :46; Status DC Sodium Chloride (NS Flush) 2 ml UNSCH PRN IV FLUSH FLUSH AFTER USING IV ACCESS ; Start 05/10/17 at 20:00; Stop 05/13/17 at 14:13; Status DC Sodium Chloride (NS Flush) 2 ml BID IV FLUSH Last administered on 05/12/17 21: 18; Start 05/10/17 at 21:00; Stop 05/13/17 at 14:13; Status DC Naloxone HCl (Narcan Inj) 0.4 mg UNSCH PRN IV PUSH SEE LABEL COMMENTS; Start 05/10/17 at 20:00; Stop 05/12/17 at 10:23; Status DC Magnesium Hydroxide (Milk Of Magnesia Liq) 30 ml Q12H PRN PO Mild constipation Last administered on 05/17/17 08:05; Start 05/10/17 at 20:00 Sennosides (Senokot) 17.2 mg Q12H PRN PO Moderate constipation Last administered on 05/17/17 08:05; Start 05/10/17 at 20:00 Bisacodyl (Dulcolax Supp) 10 mg DAILY PRN RECTAL SEVERE CONSITIPATION Last administered on 05/17/17 12:42; Start 05/10/17 at 20:00 Lactulose (Lactulose Liq) 30 ml DAILY PRN PO SEVERE CONSITIPATION; Start 05/10 at 20:00 Oxycodone HCl (Roxicodone) 10 mg Q4H PRN PO PAIN SCALE 6 TO 10 Last administered on 05/17/17 07:33; Start 05/10/17 at 20:00; Stop 05/17/17 at 09: 00; Status DC Morphine Sulfate (Morphine Inj) 2 mg Q3H PRN IV PUSH Pain 3-5; if unable to take PO Last administered on 05/11/17 11:44; Start 05/10/17 at 20:00; Stop at 12:30; Status DC Morphine Sulfate (Morphine Inj) 4 mg Q3H PRN IV PUSH Pain 6-10;if unable to take PO Last administered on 05/12/17 21:18; Start 05/10/17 at 20:00; Stop at 12:30; Status DC Morphine Sulfate (Morphine Inj) 4 mg Q3H PRN IV PUSH BREAKTHROUGH PAIN Last administered on 05/12/17 05:40; Start 05/10/17 at 20:00; Stop 05/13/17 at 12: 30; Status DC Oxycodone HCl (Roxicodone) 5 mg Q4H PRN PO PAIN SCALE 3 TO 5 Last administered on 05/15/17 13:48; Start 05/10/17 at 20:00 Naloxone HCl (Narcan Inj) 0.4 mg UNSCH PRN IV PUSH SEE LABEL COMMENTS; Start 05/10/17 at 20:00; Stop 05/13/17 at 14:13; Status DC Hydromorphone HCl (Dilaudid Pf Inj) 1 mg ONCE ONCE IV PUSH Last administered on 05/10/17 22:11; Start 05/10/17 at 20:45; Stop 05/10/17 at 20:52; Status DC Non-Formulary Medication 5 mg DAILY PO ; Start 05/11/17 at 09:00; Status UNV Ropinirole HCl (Requip) 10 mg HS PO Last administered on 05/16/17 20:16; Start 05/10/17 at 21:00 Ropinirole HCl (Requip) 5 mg DAILY PO Last administered on 05/17/17 08:13; Start 05/11/17 at 09:00 Miscellaneous (Pill Splitter) 1 ea UNSCH PRN OTHER SEE LABEL COMMENTS; Start 05/10/17 at 21:00 Pravastatin Sodium (Pravachol) 20 mg HS PO Last administered on 05/16/17 20:15 ; Start 05/10/17 at 21:00 Gadodiamide (Omniscan Pf Inj) 16 ml STK-MED ONCE IV PUSH Last administered on 05/10/17 08:30; Start 05/10/17 at 08:30; Stop 05/11/17 at 10:41; Status DC Vancomycin HCl 1000 mg/Sodium Chloride 250 ml @ 250 mls/hr ONCE ONCE IV Last administered on 05/13/17 05:36; Start 05/13/17 at 06:00; Stop 05/13/17 at 06:59 ; Status DC Chlorhexidine Gluconate (Hibiclens 4% Top Soln) 1 applic HS TOP Last administered on 05/12/17 21:00; Start 05/11/17 at 21:00; Stop 05/13/17 at 13:56 ; Status DC Patient Own Medication Neupro 4mg transdermal pa... DAILY TOPICAL ; Start at 09:00; Stop 05/13/17 at 20:32; Status DC Lactated Ringer's 1,000 ml @ 30 mls/hr Q24H PRN IV SEE LABEL COMMENTS Last administered on 05/13/17 08:10; Start 05/12/17 at 17:45; Stop 05/13/17 at 13:21 ; Status DC Sodium Chloride 500 ml @ 30 mls/hr [id number] PRN IV SEE LABEL COMMENTS; Start at 17:45; Stop 05/13/17 at 13:21; Status DC Metoprolol Tartrate (Lopressor) 25 mg LINE CLOSER PRN PO SEE LABEL COMMENTS; Start 05/12/17 at 17:45; Stop 05/15/17 at 17:44; Status DC Povidone Iodine (Betadine 5% Antisepsis Kit) 1 applic LINE CLOSER PRN EACH NARE SEE LABEL COMMENTS; Start 05/12/17 at 17:45; Stop 05/15/17 at 17:44; Status DC Chlorhexidine Gluconate (Chlorhexidine 2% Cloth) 3 pack LINE CLOSER PRN TOPICAL SEE LABEL COMMENTS; Start 05/12/17 at 17:45; Stop 05/15/17 at 17:44; Status DC Insulin Human Regular (NovoLIN R INJ) See Protocol Table ... LINE CLOSER PRN SQ SEE PROTOCOL TABLE; Start 05/12/17 at 17:45; Stop 05/14/17 at 12:20; Status DC Vancomycin HCl (Vancomycin Inj) 1,000 mg STK-MED ONCE .ROUTE Last administered on 05/13/17 11:00; Start 05/13/17 at 06:59; Stop 05/13/17 at 07:00; Status DC Heparin Sodium (Porcine) (Heparin Inj) 30,000 units STK-MED ONCE .ROUTE ; Start 05/13/17 at 06:59; Stop 05/13/17 at 07:00; Status DC Thrombin (Thrombin Top Soln) 10,000 units STK-MED ONCE .ROUTE Last administered on 05/13/17 11:00; Start 05/13/17 at 06:59; Stop 05/13/17 at 07:00 ; Status DC Cefazolin Sodium/ Dextrose 50 ml @ As Directed STK-MED ONCE .ROUTE Last administered on 05/13/17 09:23; Start 05/13/17 at 06:59; Stop 05/13/17 at 07:00 ; Status DC Bupivacaine HCl (Marcaine Pf 0.5% Inj) 30 ml STK-MED ONCE .ROUTE Last administered on 05/13/17 11:00; Start 05/13/17 at 06:59; Stop 05/13/17 at 07:00 ; Status DC Gelatin (Gelfoam 100 Top) 1 foam STK-MED ONCE .ROUTE Last administered on 10:30; Start 05/13/17 at 06:59; Stop 05/13/17 at 07:00; Status DC Gentamicin Sulfate (Gentamicin Inj) 240 mg STK-MED ONCE .ROUTE Last administered on 05/13/17 11:00; Start 05/13/17 at 07:00; Stop 05/13/17 at 07:01 ; Status DC Sodium Chloride 1,000 ml @ 100 mls/hr Q10H IV Last administered on 05/17/17 02:00; Start 05/13/17 at 12:25 IV Flush (NS Flush) 2 ml UNSCH PRN IVF FLUSH AFTER USING IV ACCESS; Start 05/13 at 12:30 IV Flush (NS Flush) 2 ml BID IVF Last administered on 05/16/17 08:57; Start 05/13/17 at 12:30 Cefazolin Sodium/ Dextrose 50 ml @ 100 mls/hr Q8H IV Last administered on 05/14 07:33; Start 05/13/17 at 17:00; Stop 05/14/17 at 09:29; Status DC Docusate Sodium (Colace) 100 mg BID PO Last administered on 05/17/17 07:33; Start 05/13/17 at 21:00 Pantoprazole Sodium (Protonix) 40 mg DAILY PO Last administered on 05/17/17 07 :33; Start 05/14/17 at 09:00 Ondansetron HCl (Zofran Inj) 4 mg Q6H PRN IV PUSH NAUSEA OR VOMITING Last administered on 05/16/17 20:15; Start 05/13/17 at 12:30 Cyclobenzaprine HCl (Flexeril) 10 mg Q8H PRN PO MUSCLE SPASM Last administered on 05/16/17 14:33; Start 05/13/17 at 12:30; Stop 05/17/17 at 09:23; Status DC Clonidine (Catapres) 0.1 mg Q6H PRN PO/NG SYS BP GREATER THAN 170 MMHG; Start 05/13/17 at 12:30 Acetaminophen (Tylenol) 650 mg Q4H PRN PO TEMPERATURE > 101.5 F; Start at 12:30 Menthol ([place] Mayur) 1 lozenge UNSCH PRN BUCCAL SORE THROAT; Start 05/13/17 at 12:30 Albuterol Sulfate (Albuterol Neb) 2.5 mg Q4HR NEB PRN INH WHEEZING; Start 05/13 at 12:30 Chlorhexidine Gluconate (Hibiclens 4% Top Soln) 1 applic HS TOP Last administered on 05/13/17 20:33; Start 05/13/17 at 21:00; Stop 05/15/17 at 21:01 ; Status DC Dextrose (D50w (Vial) Inj) 50 ml UNSCH PRN IV PUSH HYPOGLYCEMIA-SEE COMMENTS; Start 05/13/17 at 12:30; Stop 05/14/17 at 12:20; Status DC Glucagon (Glucagon Inj) 1 mg UNSCH PRN OTHER HYPOGLYCEMIA-SEE COMMENTS; Start 05/13/17 at 12:30; Stop 05/14/17 at 12:20; Status DC Insulin Aspart (NovoLOG SUPPLEMENTAL SCALE) 1 ACHS SLIDING SCALE SQ ; Start at 17:00; Stop 05/14/17 at 12:20; Status DC Naloxone HCl (Narcan Inj) 0.4 mg UNSCH PRN IV PUSH RESPIRATORY RATE LESS THAN 10; Start 05/13/17 at 12:30; Stop 05/17/17 at 14:21; Status DC Diphenhydramine HCl (Benadryl Inj) 25 mg Q6H PRN IV PUSH ITCHING; Start at 12:30; Stop 05/17/17 at 14:21; Status DC Hydromorphone HCl (Dilaudid DIRECTOR OF PERSONNEL Inj) 6 mg UNSCH IV Last administered on 05:07; Start 05/13/17 at 12:30; Stop 05/17/17 at 14:21; Status DC DIRECTOR OF PERSONNEL Dosage Infused (Pha) 1 Q8HR .XX Last administered on 05/15/17 05:12; Start 05/13/17 at 14:00; Stop 05/17/17 at 14:21; Status DC Meperidine HCl (*DEMEROL INJ PERIprocedural ONLY) 25 mg STK-MED ONCE .ROUTE Last administered on 05/13/17 13:31; Start 05/13/17 at 13:31; Stop 05/13/17 at 13:32; Status DC Miscellaneous Information ALL NURSING DEPARTME... UNSCH PRN .XX SEE LABEL COMMENTS; Start 05/13/17 at 13:22; Stop 05/14/17 at 13:21; Status DC Influenza Virus Vaccine (Flu (Quadrivalent) Vaccine Inj) 0.5 ml ONCE ONCE IM Last administered on 05/14/17 11:30; Start 05/14/17 at 10:00; Stop 05/14/17 at 10:01; Status DC Pneumococcal Polyvalent Vaccine (Pneumovax-23 Inj) 25 mcg ONCE ONCE IM Last administered on 05/14/17 10:00; Start 05/14/17 at 10:00; Stop 05/14/17 at 10:01 ; Status DC Patient Own Medication Neupro 4mg transdermal pa... HS TOPICAL Last administered on 05/16/17 20:17; Start 05/13/17 at 21:00 Enoxaparin Sodium (Lovenox Inj) 40 mg Q24H SQ Last administered on 05/17/17 11 :41; Start 05/15/17 at 12:00 Oxycodone HCl (Roxicodone) 20 mg Q4H PRN PO PAIN SCALE 6 TO 10 Last administered on 05/17/17 11:42; Start 05/17/17 at 12:00 Carisoprodol (Soma) 350 mg Q8H PRN PO muscle spasms Last administered on 09:55; Start 05/17/17 at 09:30 A/P Problem List: (1) Lumbar radiculopathy ICD Code: M54.16 - Radiculopathy, lumbar region Status: Acute (2) Acute exacerbation of chronic low back pain ICD Code: M54.5 - Low back pain; G89.29 - Other chronic pain Status: Acute (3) S/P lumbar spinal fusion ICD Code: Z98.1 - Arthrodesis status Status: Acute (4) Anxiety ICD Code: F41.9 - Anxiety disorder, unspecified (5) Restless leg syndrome ICD Code: G25.81 - Restless legs syndrome (6) Dyslipidemia ICD Code: E78.5 - Hyperlipidemia, unspecified Assessment and Plan Mr Liseth 51-year-old male with severe spinal spondylosis, status post laminectomy and arthrodhesis he developed acute worsening of his lower back pain which resulted in redo L4-5 PLIF with repositioning of interbody cage on . . s/p redo L4-5 PLIF with repositioning of interbody cage 05/13/17 * Strict bedrest orders. Head of bed flat * DIRECTOR OF PERSONNEL pump discontinued * Pain control with oxycodone 5 mg when necessary pain scale 3-5, oxycodone 10 mg when necessary pain scale 6-10 2. Restless leg syndrome * Neupro * REQUIP 3. Dyslipidemia * Pravastatin * * AM LABS * 4. CONSTIPATION GIVE MEDS NEEDED Discharge Planning ONCE MOBILE Dameon Sharma DO May 17, 2017 15:11
[2017-05-17] MEDS ORDERED: MAGNESIUM CITRATE SOLN 300 ML BTL PO PRN (15:15)
[2017-05-17 16:00] VITALS: BP 106/70; PULSE 95; RESP 18; TEMP 97.7; O2SAT 95
[2017-05-17 17:01] LABS: HEMOGLOBIN A1a 1.2 %; HEMOGLOBIN A1b 1.7 %; HEMOGLOBIN Ao 84.8 %; HEMOGLOBIN LA1C 2.1 %
[2017-05-17 20:00] VITALS: BP 99/64; PULSE 96; RESP 20; TEMP 98.3; O2SAT 97
[2017-05-17 21:05] VITALS: BP 113/70; PULSE 90
[2017-05-17] MEDS: PRAVASTATIN SOD 20 MG TAB PO SCH (21:16)
[2017-05-17] MEDS: ROTIGOTINE 4 MG TOPICAL SCH (21:17)
[2017-05-18] VITALS (9 sets, daily range): BP systolic 100–116; BP diastolic 60–78; PULSE 76–92; RESP 17–20; TEMP 97.1–98.8; O2SAT 92–97
[2017-05-18] MEDS: CARISOPRODOL 350 MG TAB PO PRN ×2 (04:07→19:56)
[2017-05-18 06:36] LABS: ALT (GPT) 23 U/L (12-78); ANION GAP 11 MEQ/L (5-15); AST (GOT) 19 U/L (15-37); BICARBONATE 24.4 MEQ/L (21.0-32.0); BLOOD UREA NITROGEN 18 MG/DL (7-18); CHLORIDE 100 MEQ/L (98-107); GLOMERULAR FILTRATION RATE 98 ML/MIN (>89); POTASSIUM 4.2 MEQ/L (3.5-5.1); SODIUM (NA) 135 MEQ/L (136-145)
[2017-05-18 06:37] LABS: ALKALINE PHOSPHATASE 93 U/L (45-117); TOTAL BILIRUBIN ADULT 0.4 MG/DL (0.2-1.0)
[2017-05-18 07:09] LABS: BASOPHIL # 0.1 TH/MM3 (0-0.2); BASOPHIL % 0.7 % (0.0-2.0); EOSINOPHIL # 0.2 TH/MM3 (0-0.4); HEMATOCRIT 38.9 % (39.0-51.0); HEMO FLAGS DIFF FINAL; LYMPH % 26.8 % (9.0-44.0); LYMPHOCYTE # 2.2 TH/MM3 (1.0-4.8); MEAN CELL VOLUME 94.9 FL (80.0-100.0); MEAN CORPUSCULAR HEMOGLOBIN 33.2 PG (27.0-34.0); NEUT % 60.5 % (16.0-70.0); PLATELET COUNT 288 TH/MM3 (150-450); RED CELL DISTRIBUTION WIDTH 13.1 % (11.6-17.2); WHITE BLOOD COUNT 8.2 TH/MM3 (4.0-11.0)
[2017-05-18] MEDS: SODIUM CHLOR 0.9% 1000 ML INJ 1,000 ML IV SCH ×2 (07:13→21:31)
[2017-05-18] MEDS: SODIUM CHLORIDE 0.9% FLUSH 5 ML FLUSH IVF SCH ×2 (09:00→21:00)
--- NOTE | 2017-05-18 09:29 | HHI.NSPN ---
(Mary Beth Witt) Note Status Status: Progress Note (Mary Beth Witt) Interval History Interval History Mr Liseth 51-year-old male with severe spinal spondylosis, status post laminectomy and arthrodhesis in January of this year. Postoperatively he was doing very well with clinical resolution of his back pain and radiculopathy, until he suffered a severe fall and reinjured his spine. He presents with acute worsening of chronic low back pain and left-sided radiculopathy. He reports constant sharp pain in the low back radiating to the left leg. Patient reports continued weakness in the left leg with foot drop. He does report an episode of loss of bladder contro today, however without any subsequent loss of bladder control. Recent xrays showed that his instrumentation has displaced following the fall. Neurosurgery consultation was requested 05/11. Continues to suffer severe pain. No further urinary incontinence. Follow up MRI done today 05/12: no improvement in his lumbar and radicular pain, eager for surgery tomorrow 05/14: s/p redo L4-5 PLIF with repositioning of interbody cage on 05/13. pt on bedrest, surgical pain controlled. 05/15: reports wound leaking last night/glue jointer feeder and had multiple dressing changes due to saturation. He than sat up on edge of bed this am on his own despite strict bed rest order. wound reexamined, dressing dry with mild shadowing, no leaking from incision. 05/16: needing to have a BM, incision checked no drainage seen. 05/17: reports left hamstrings muscle spasm not being controlled with flexeril. mild halo sign on his lumbar dressing this morning, no active leaking, no saturation of dressing. 05/18: gauze dressing overnight saturated - yellow tinged. complaining of increased back and neck pain due to prolonged laying flat in bed - requesting TIMBER RIDER. also requests to restart his Restoril that he takes at home prn sleep, reports feeling very anxious and currently tearful. (Mary Beth Witt) Labs, Micro, & Vital Signs Results Date Time Temp Pulse Resp B/P (MAP) Pulse Ox O2 Delivery O2 Flow Rate FiO2 05/18/17 07:24 97.1 92 18 100/78 (85) 92 05/18/17 04:00 97.6 90 20 104/72 (83) 96 05/18/17 00:00 98.4 89 18 103/69 (80) 95 05/17/17 21:05 90 113/70 (84) 05/17/17 20:00 98.3 96 20 99/64 (76) 97 05/17/17 16:00 97.7 95 18 106/70 (82) 95 05/17/17 11:56 96.6 83 18 121/77 (92) 97 Constitutional Vital Signs Date Time Temp Pulse Resp B/P (MAP) Pulse Ox O2 Delivery O2 Flow Rate FiO2 05/18/17 07:24 97.1 92 18 100/78 (85) 92 05/18/17 04:00 97.6 90 20 104/72 (83) 96 05/18/17 00:00 98.4 89 18 103/69 (80) 95 05/17/17 21:05 90 113/70 (84) 05/17/17 20:00 98.3 96 20 99/64 (76) 97 05/17/17 16:00 97.7 95 18 106/70 (82) 95 05/17/17 11:56 96.6 83 18 121/77 (92) 97 (Mary Beth Witt) Physical Exam Mr Childers is alert and oriented x 3. Speech is fluent. Conversing well, mentation intact. Cranial nerve examination: Facial motor are normal and symmetrical. Surgical wound is with no active leaking. His dressing that was changed overnight saturated with yellow tinged fluid appears to be CSF, nonpurulent. Current dressing with moderate saturation. Neck is soft and supple. Muscle strength in the lower extremities moving major muscle groups grossly limited due to postop pain, stable chronic 4/5 left dorsiflexion (Mary Beth Witt) Medications Current Medications Current Medications Medications (Trade) Dose Ordered Sig/Criselda Route PRN Reason Start Time Stop Time Status Last Admin Dose Admin Magnesium Hydroxide (Milk Of Magnesia Liq) 30 ml Q12H PRN PO Mild constipation 05/10/17 20:00 05/17/17 08:05 Sennosides (Senokot) 17.2 mg Q12H PRN PO Moderate constipation 05/10/17 20:00 05/17/17 08:05 Bisacodyl (Dulcolax Supp) 10 mg DAILY PRN RECTAL SEVERE CONSITIPATION 05/10/17 20:00 05/17/17 12:42 Lactulose (Lactulose Liq) 30 ml DAILY PRN PO SEVERE CONSITIPATION 05/10/17 20:00 Oxycodone HCl (Roxicodone) 5 mg Q4H PRN PO PAIN SCALE 3 TO 5 05/10/17 20:00 05/15/17 13:48 Ropinirole HCl (Requip) 10 mg HS PO 05/10/17 21:00 05/17/17 21:16 Ropinirole HCl (Requip) 5 mg DAILY PO 05/11/17 09:00 05/17/17 08:13 Miscellaneous (Pill Splitter) 1 ea UNSCH PRN OTHER SEE LABEL COMMENTS 05/10/17 21:00 Pravastatin Sodium (Pravachol) 20 mg HS PO 05/10/17 21:00 05/17/17 21:16 Sodium Chloride 1,000 ml @ 70 mls/hr [id number] IV 05/13/17 12:25 05/17/17 17:11 IV Flush (NS Flush) 2 ml UNSCH PRN IVF FLUSH AFTER USING IV ACCESS 05/13/17 12:30 IV Flush (NS Flush) 2 ml BID IVF 05/13/17 12:30 05/16/17 08:57 Docusate Sodium (Colace) 100 mg BID PO 05/13/17 21:00 05/17/17 21:16 Pantoprazole Sodium (Protonix) 40 mg DAILY PO 05/14/17 09:00 05/17/17 07:33 Ondansetron HCl (Zofran Inj) 4 mg Q6H PRN IV PUSH NAUSEA OR VOMITING 05/13/17 12:30 05/16/17 20:15 Clonidine (Catapres) 0.1 mg Q6H PRN PO/NG SYS BP GREATER THAN 170 MMHG 05/13/17 12:30 Acetaminophen (Tylenol) 650 mg Q4H PRN PO TEMPERATURE > 101.5 F 05/13/17 12:30 Menthol ([place] Mayur) 1 lozenge UNSCH PRN BUCCAL SORE THROAT 05/13/17 12:30 Albuterol Sulfate (Albuterol Neb) 2.5 mg Q4HR NEB PRN INH WHEEZING 05/13/17 12:30 Patient Own Medication Neupro 4mg transdermal pa... HS TOPICAL 05/13/17 21:00 05/17/17 21:17 Oxycodone HCl (Roxicodone) 20 mg Q4H PRN PO PAIN SCALE 6 TO 10 05/17/17 12:00 05/18/17 05:56 Carisoprodol (Soma) 350 mg Q8H PRN PO muscle spasms 05/17/17 09:30 05/18/17 04:07 Magnesium Citrate (Citroma Liq) 300 ml Q8H PRN PO VERY SEVERE CONSTIPATION 05/17/17 15:15 (Mary Beth Witt) Medical Decision Making MDM Remarks 51 y/o male s/p redo L4-5 PLIF with repositioning of interbody cage, dural repair of CSF leak 05/13/17 increased anxiety and insomnia due to prolonged strict bed rest (Mary Beth Witt) Plan Plan Remarks dw Dr. Erwin potter to restart TIMBER RIDER for pain, decrease roxicodone dose start low dose xanax prn anxiety, restart his restoril prn insomnia lay patient back HOB flat with strict bed rest, placement of lumbar drain for CSF leak SCDs and TEDs for dvt prophylaxis, dc lovenox for drain placement medical mgt following - appreciate assistance (Mary Beth Witt) Attending Statement The exam, history, and the medical decision-making described in the above note were completed with the assistance of the mid-level provider. I reviewed and agree with the findings presented. I attest that I had a [id number] encounter with the patient on the same day, and personally performed and documented my assessment and findings in the medical record. (Jairo Hood MD) Mary Beth Witt May 18, 2017 09:29 Jairo Hood MD May 24, 2017 16:21
[2017-05-18] MEDS: PANTOPRAZOLE SOD 40 MG DELAYED RELEASE TAB PO SCH (09:55)
[2017-05-18] MEDS: DOCUSATE SODIUM 100 MG CAP PO SCH ×2 (09:55→21:00)
--- NOTE | 2017-05-18 10:49 | HHI.PR ---
Subjective Remarks He is s/p redo L4-5 PLIF with repositioning of interbody cage on 05/13. Patient is currently bed rest and mostly flat at this time. He is looking forward to when he'll get up and move around. He reports that his legs are moving good. He is occasionally feeling some charley horse pain in the left upper thigh. His restless leg syndrome is being managed with his home medication. Patient has no major complaints at this time. 11-6 can not wait to get off of bed rest states having difficulty urinating while lying down DW RN AND PT 11-7 HAD ISSUES WITH PAIN MEDS ADJUSTED DW RN AND PT AND NEUROSURGERY PT WANTED OFF HIS INSULATION SPRAYER TOO SOON HAVING ISSUES WITH BM -8 PAIN IS BETTER CONTROLLED ON CURRENT REGIMENT DW RN AND PT CONTINUE CURRENT LIMITED ACTIVITY PER NEUROSURGERY Objective Vitals Vital Signs Date Time Temp Pulse Resp B/P (MAP) Pulse Ox O2 Delivery O2 Flow Rate FiO2 05/18/17 07:24 97.1 92 18 100/78 (85) 92 05/18/17 04:00 97.6 90 20 104/72 (83) 96 05/18/17 00:00 98.4 89 18 103/69 (80) 95 05/17/17 21:05 90 113/70 (84) 05/17/17 20:00 98.3 96 20 99/64 (76) 97 05/17/17 16:00 97.7 95 18 106/70 (82) 95 05/17/17 11:56 96.6 83 18 121/77 (92) 97 I/O 05/17/17 05/17/17 05/17/17 05/18/17 05/18/17 05/18/17 07:00 15:00 23:00 07:00 15:00 23:00 Intake Total 1216 ml 960 ml 1480 ml 960 ml Output Total 800 ml 250 ml 600 ml 1450 ml Balance 416 ml 710 ml 880 ml -490 ml Intake Oral 480 ml 960 ml 480 ml 960 ml IV Total 736 ml 1000 ml Output Urine Total 800 ml 250 ml 600 ml 1450 ml Bladder Scan Volume Amount 167 ml # Voids 3 # Bowel Movements 0 1 0 Result Diagram: 05/18/17 0558 05/18/17 0558 Other Results Laboratory Tests Test 05/17/17 06:40 05/18/17 05:58 White Blood Count 9.8 TH/MM3 8.2 TH/MM3 Red Blood Count 4.30 MIL/MM3 4.10 MIL/MM3 Hemoglobin 14.4 GM/DL 13.6 GM/DL Hematocrit 41.3 % 38.9 % Mean Corpuscular Volume 96.0 FL 94.9 FL Mean Corpuscular Hemoglobin 33.5 PG 33.2 PG Mean Corpuscular Hemoglobin Concent 34.9 % 35.0 % Red Cell Distribution Width 12.9 % 13.1 % Platelet Count 283 TH/MM3 288 TH/MM3 Mean Platelet Volume 7.5 FL 7.4 FL Neutrophils (%) (Auto) 65.0 % 60.5 % Lymphocytes (%) (Auto) 23.6 % 26.8 % Monocytes (%) (Auto) 9.9 % 10.0 % Eosinophils (%) (Auto) 1.0 % 2.0 % Basophils (%) (Auto) 0.5 % 0.7 % Neutrophils # (Auto) 6.4 TH/MM3 5.0 TH/MM3 Lymphocytes # (Auto) 2.3 TH/MM3 2.2 TH/MM3 Monocytes # (Auto) 1.0 TH/MM3 0.8 TH/MM3 Eosinophils # (Auto) 0.1 TH/MM3 0.2 TH/MM3 Basophils # (Auto) 0.1 TH/MM3 0.1 TH/MM3 CBC Comment DIFF FINAL DIFF FINAL Differential Comment Blood Urea Nitrogen 19 MG/DL 18 MG/DL Creatinine 0.79 MG/DL 0.82 MG/DL Random Glucose 92 MG/DL 105 MG/DL Total Protein 7.6 GM/DL 6.7 GM/DL Albumin 3.2 GM/DL 3.2 GM/DL Calcium Level 8.9 MG/DL 8.6 MG/DL Phosphorus Level 3.5 MG/DL 3.7 MG/DL Magnesium Level 2.2 MG/DL 2.0 MG/DL Alkaline Phosphatase 92 U/L 93 U/L Aspartate Amino Transf (AST/SGOT) 17 U/L 19 U/L Alanine Aminotransferase (ALT/SGPT) 24 U/L 23 U/L Total Bilirubin 0.6 MG/DL 0.4 MG/DL Sodium Level 134 MEQ/L 135 MEQ/L Potassium Level 4.1 MEQ/L 4.2 MEQ/L Chloride Level 101 MEQ/L 100 MEQ/L Carbon Dioxide Level 25.1 MEQ/L 24.4 MEQ/L Anion Gap 8 MEQ/L 11 MEQ/L Estimat Glomerular Filtration Rate 103 ML/MIN 98 ML/MIN Hemoglobin A1c 5.7 % Free Thyroxine 1.15 NG/DL Thyroid Stimulating Hormone 3rd Gen 1.430 uIU/ML Hematology Comments Imaging Last Impressions Lumbar Spine X-Ray 05/13/17 0000 Signed Impressions: Service Date/Time: Saturday, May 13, 2017 09:38 - CONCLUSION: Anatomic alignment.. Dameon Lovell MD FACR Lumbar Spine MRI 05/11/172008 Signed Impressions: Service Date/Time: Thursday, May 11, 2017 08:48 - CONCLUSION: Epidural scarring involving the left L4, left L5 and left S1 roots. Artifact from transpedicular fixation of L4 and L5. No other significant postoperative changes are noted. Dameon Lovell MD FACR Objective Remarks GENERAL: AWAKE AND ALERT SKIN: Warm and dry. HEAD: Atraumatic. Normocephalic. EYES: Pupils equal and round. No scleral icterus. No injection or drainage. EOMI ENT: No nasal bleeding or discharge. Mucous membranes pink and moist. TONGUE MIDLINE NECK: Trachea midline. No JVD. CARDIOVASCULAR: Regular rate and rhythm. S1, S2 NO S3 OR S4 RESPIRATORY: No accessory muscle use. Clear to auscultation. Breath sounds equal bilaterally. GASTROINTESTINAL: Abdomen soft, non-tender, nondistended. Hepatic and splenic margins not palpable. MUSCULOSKELETAL: Extremities without clubbing, cyanosis, or edema. No obvious deformities. NEUROLOGICAL: Awake and alert. No obvious cranial nerve deficits. Motor grossly within normal limits. Five out of 5 muscle strength in the arms and legs. Normal speech. PSYCHIATRIC: Appropriate mood and affect; insight and judgment normal. Procedures s/p redo L4-5 PLIF with repositioning of interbody cage on 05/13 Medications and IVs Current Medications Oxycodone/ Acetaminophen (Percocet 10-325 Mg) 1 tab ONCE ONCE PO Last administered on 05/10/17t 19:55; Start 05/10/17 at 19:45; Stop 05/10/17 at 19 :46; Status DC Sodium Chloride (NS Flush) 2 ml UNSCH PRN IV FLUSH FLUSH AFTER USING IV ACCESS ; Start 05/10/17 at 20:00; Stop 05/13/17 at 14:13; Status DC Sodium Chloride (NS Flush) 2 ml BID IV FLUSH Last administered on 05/12/17 21: 18; Start 05/10/17 at 21:00; Stop 05/13/17 at 14:13; Status DC Naloxone HCl (Narcan Inj) 0.4 mg UNSCH PRN IV PUSH SEE LABEL COMMENTS; Start 05/10/17 at 20:00; Stop 05/12/17 at 10:23; Status DC Magnesium Hydroxide (Milk Of Magnesia Liq) 30 ml Q12H PRN PO Mild constipation Last administered on 05/17/17 08:05; Start 05/10/17 at 20:00 Sennosides (Senokot) 17.2 mg Q12H PRN PO Moderate constipation Last administered on 05/17/17 08:05; Start 05/10/17 at 20:00 Bisacodyl (Dulcolax Supp) 10 mg DAILY PRN RECTAL SEVERE CONSITIPATION Last administered on 05/17/17 12:42; Start 05/10/17 at 20:00 Lactulose (Lactulose Liq) 30 ml DAILY PRN PO SEVERE CONSITIPATION; Start 05/10 at 20:00 Oxycodone HCl (Roxicodone) 10 mg Q4H PRN PO PAIN SCALE 6 TO 10 Last administered on 05/17/17 07:33; Start 05/10/17 at 20:00; Stop 05/17/17 at 09: 00; Status DC Morphine Sulfate (Morphine Inj) 2 mg Q3H PRN IV PUSH Pain 3-5; if unable to take PO Last administered on 05/11/17 11:44; Start 05/10/17 at 20:00; Stop at 12:30; Status DC Morphine Sulfate (Morphine Inj) 4 mg Q3H PRN IV PUSH Pain 6-10;if unable to take PO Last administered on 05/12/17 21:18; Start 05/10/17 at 20:00; Stop at 12:30; Status DC Morphine Sulfate (Morphine Inj) 4 mg Q3H PRN IV PUSH BREAKTHROUGH PAIN Last administered on 05/12/17 05:40; Start 05/10/17 at 20:00; Stop 05/13/17 at 12: 30; Status DC Oxycodone HCl (Roxicodone) 5 mg Q4H PRN PO PAIN SCALE 3 TO 5 Last administered on 05/15/17 13:48; Start 05/10/17 at 20:00 Naloxone HCl (Narcan Inj) 0.4 mg UNSCH PRN IV PUSH SEE LABEL COMMENTS; Start 05/10/17 at 20:00; Stop 05/13/17 at 14:13; Status DC Hydromorphone HCl (Dilaudid Pf Inj) 1 mg ONCE ONCE IV PUSH Last administered on 05/10/17 22:11; Start 05/10/17 at 20:45; Stop 05/10/17 at 20:52; Status DC Non-Formulary Medication 5 mg DAILY PO ; Start 05/11/17 at 09:00; Status UNV Ropinirole HCl (Requip) 10 mg HS PO Last administered on 05/17/17 21:16; Start 05/10/17 at 21:00 Ropinirole HCl (Requip) 5 mg DAILY PO Last administered on 05/18/17 09:55; Start 05/11/17 at 09:00 Miscellaneous (Pill Splitter) 1 ea UNSCH PRN OTHER SEE LABEL COMMENTS; Start 05/10/17 at 21:00 Pravastatin Sodium (Pravachol) 20 mg HS PO Last administered on 05/17/17 21:16 ; Start 05/10/17 at 21:00 Gadodiamide (Omniscan Pf Inj) 16 ml STK-MED ONCE IV PUSH Last administered on 05/10/17 08:30; Start 05/10/17 at 08:30; Stop 05/11/17 at 10:41; Status DC Vancomycin HCl 1000 mg/Sodium Chloride 250 ml @ 250 mls/hr ONCE ONCE IV Last administered on 05/13/17 05:36; Start 05/13/17 at 06:00; Stop 05/13/17 at 06:59 ; Status DC Chlorhexidine Gluconate (Hibiclens 4% Top Soln) 1 applic HS TOP Last administered on 05/12/17 21:00; Start 05/11/17 at 21:00; Stop 05/13/17 at 13:56 ; Status DC Patient Own Medication Neupro 4mg transdermal pa... DAILY TOPICAL ; Start at 09:00; Stop 05/13/17 at 20:32; Status DC Lactated Ringer's 1,000 ml @ 30 mls/hr Q24H PRN IV SEE LABEL COMMENTS Last administered on 05/13/17 08:10; Start 05/12/17 at 17:45; Stop 05/13/17 at 13:21 ; Status DC Sodium Chloride 500 ml @ 30 mls/hr [id number] PRN IV SEE LABEL COMMENTS; Start at 17:45; Stop 05/13/17 at 13:21; Status DC Metoprolol Tartrate (Lopressor) 25 mg HEEL LIFT GOUGER PRN PO SEE LABEL COMMENTS; Start 05/12/17 at 17:45; Stop 05/15/17 at 17:44; Status DC Povidone Iodine (Betadine 5% Antisepsis Kit) 1 applic HEEL LIFT GOUGER PRN EACH NARE SEE LABEL COMMENTS; Start 05/12/17 at 17:45; Stop 05/15/17 at 17:44; Status DC Chlorhexidine Gluconate (Chlorhexidine 2% Cloth) 3 pack HEEL LIFT GOUGER PRN TOPICAL SEE LABEL COMMENTS; Start 05/12/17 at 17:45; Stop 05/15/17 at 17:44; Status DC Insulin Human Regular (NovoLIN R INJ) See Protocol Table ... HEEL LIFT GOUGER PRN SQ SEE PROTOCOL TABLE; Start 05/12/17 at 17:45; Stop 05/14/17 at 12:20; Status DC Vancomycin HCl (Vancomycin Inj) 1,000 mg STK-MED ONCE .ROUTE Last administered on 05/13/17 11:00; Start 05/13/17 at 06:59; Stop 05/13/17 at 07:00; Status DC Heparin Sodium (Porcine) (Heparin Inj) 30,000 units STK-MED ONCE .ROUTE ; Start 05/13/17 at 06:59; Stop 05/13/17 at 07:00; Status DC Thrombin (Thrombin Top Soln) 10,000 units STK-MED ONCE .ROUTE Last administered on 05/13/17 11:00; Start 05/13/17 at 06:59; Stop 05/13/17 at 07:00 ; Status DC Cefazolin Sodium/ Dextrose 50 ml @ As Directed STK-MED ONCE .ROUTE Last administered on 05/13/17 09:23; Start 05/13/17 at 06:59; Stop 05/13/17 at 07:00 ; Status DC Bupivacaine HCl (Marcaine Pf 0.5% Inj) 30 ml STK-MED ONCE .ROUTE Last administered on 05/13/17 11:00; Start 05/13/17 at 06:59; Stop 05/13/17 at 07:00 ; Status DC Gelatin (Gelfoam 100 Top) 1 foam STK-MED ONCE .ROUTE Last administered on 10:30; Start 05/13/17 at 06:59; Stop 05/13/17 at 07:00; Status DC Gentamicin Sulfate (Gentamicin Inj) 240 mg STK-MED ONCE .ROUTE Last administered on 05/13/17 11:00; Start 05/13/17 at 07:00; Stop 05/13/17 at 07:01 ; Status DC Sodium Chloride 1,000 ml @ 70 mls/hr [id number] IV Last administered on 17:11; Start 05/13/17 at 12:25 IV Flush (NS Flush) 2 ml UNSCH PRN IVF FLUSH AFTER USING IV ACCESS; Start 05/13 at 12:30 IV Flush (NS Flush) 2 ml BID IVF Last administered on 05/18/17 09:00; Start 05/13/17 at 12:30 Cefazolin Sodium/ Dextrose 50 ml @ 100 mls/hr Q8H IV Last administered on 05/14 07:33; Start 05/13/17 at 17:00; Stop 05/14/17 at 09:29; Status DC Docusate Sodium (Colace) 100 mg BID PO Last administered on 05/18/17 09:55; Start 05/13/17 at 21:00 Pantoprazole Sodium (Protonix) 40 mg DAILY PO Last administered on 05/18/17 09 :55; Start 05/14/17 at 09:00 Ondansetron HCl (Zofran Inj) 4 mg Q6H PRN IV PUSH NAUSEA OR VOMITING Last administered on 05/16/17 20:15; Start 05/13/17 at 12:30 Cyclobenzaprine HCl (Flexeril) 10 mg Q8H PRN PO MUSCLE SPASM Last administered on 05/16/17 14:33; Start 05/13/17 at 12:30; Stop 05/17/17 at 09:23; Status DC Clonidine (Catapres) 0.1 mg Q6H PRN PO/NG SYS BP GREATER THAN 170 MMHG; Start 05/13/17 at 12:30 Acetaminophen (Tylenol) 650 mg Q4H PRN PO TEMPERATURE > 101.5 F; Start at 12:30 Menthol ([place] Mayur) 1 lozenge UNSCH PRN BUCCAL SORE THROAT; Start 05/13/17 at 12:30 Albuterol Sulfate (Albuterol Neb) 2.5 mg Q4HR NEB PRN INH WHEEZING; Start 05/13 at 12:30 Chlorhexidine Gluconate (Hibiclens 4% Top Soln) 1 applic HS TOP Last administered on 05/13/17 20:33; Start 05/13/17 at 21:00; Stop 05/15/17 at 21:01 ; Status DC Dextrose (D50w (Vial) Inj) 50 ml UNSCH PRN IV PUSH HYPOGLYCEMIA-SEE COMMENTS; Start 05/13/17 at 12:30; Stop 05/14/17 at 12:20; Status DC Glucagon (Glucagon Inj) 1 mg UNSCH PRN OTHER HYPOGLYCEMIA-SEE COMMENTS; Start 05/13/17 at 12:30; Stop 05/14/17 at 12:20; Status DC Insulin Aspart (NovoLOG SUPPLEMENTAL SCALE) 1 ACHS SLIDING SCALE SQ ; Start at 17:00; Stop 05/14/17 at 12:20; Status DC Naloxone HCl (Narcan Inj) 0.4 mg UNSCH PRN IV PUSH RESPIRATORY RATE LESS THAN 10; Start 05/13/17 at 12:30; Stop 05/17/17 at 14:21; Status DC Diphenhydramine HCl (Benadryl Inj) 25 mg Q6H PRN IV PUSH ITCHING; Start at 12:30; Stop 05/17/17 at 14:21; Status DC Hydromorphone HCl (Dilaudid INSULATION SPRAYER Inj) 6 mg UNSCH IV Last administered on 05:07; Start 05/13/17 at 12:30; Stop 05/17/17 at 14:21; Status DC INSULATION SPRAYER Dosage Infused (Pha) 1 Q8HR .XX Last administered on 05/15/17 05:12; Start 05/13/17 at 14:00; Stop 05/17/17 at 14:21; Status DC Meperidine HCl (*DEMEROL INJ PERIprocedural ONLY) 25 mg STK-MED ONCE .ROUTE Last administered on 05/13/17 13:31; Start 05/13/17 at 13:31; Stop 05/13/17 at 13:32; Status DC Miscellaneous Information ALL NURSING DEPARTME... UNSCH PRN .XX SEE LABEL COMMENTS; Start 05/13/17 at 13:22; Stop 05/14/17 at 13:21; Status DC Influenza Virus Vaccine (Flu (Quadrivalent) Vaccine Inj) 0.5 ml ONCE ONCE IM Last administered on 05/14/17 11:30; Start 05/14/17 at 10:00; Stop 05/14/17 at 10:01; Status DC Pneumococcal Polyvalent Vaccine (Pneumovax-23 Inj) 25 mcg ONCE ONCE IM Last administered on 05/14/17 10:00; Start 05/14/17 at 10:00; Stop 05/14/17 at 10:01 ; Status DC Patient Own Medication Neupro 4mg transdermal pa... HS TOPICAL Last administered on 05/17/17 21:17; Start 05/13/17 at 21:00 Enoxaparin Sodium (Lovenox Inj) 40 mg Q24H SQ Last administered on 05/17/17 11 :41; Start 05/15/17 at 12:00; Stop 05/18/17 at 09:15; Status DC Oxycodone HCl (Roxicodone) 20 mg Q4H PRN PO PAIN SCALE 6 TO 10 Last administered on 05/18/17 09:50; Start 05/17/17 at 12:00 Carisoprodol (Soma) 350 mg Q8H PRN PO muscle spasms Last administered on 04:07; Start 05/17/17 at 09:30 Magnesium Citrate (Citroma Liq) 300 ml Q8H PRN PO VERY SEVERE CONSTIPATION; Start 05/17/17 at 15:15 Urinary Catheter: No A/P Problem List: (1) Lumbar radiculopathy ICD Code: M54.16 - Radiculopathy, lumbar region Status: Acute (2) Acute exacerbation of chronic low back pain ICD Code: M54.5 - Low back pain; G89.29 - Other chronic pain Status: Acute (3) S/P lumbar spinal fusion ICD Code: Z98.1 - Arthrodesis status Status: Acute (4) Anxiety ICD Code: F41.9 - Anxiety disorder, unspecified (5) Restless leg syndrome ICD Code: G25.81 - Restless legs syndrome (6) Dyslipidemia ICD Code: E78.5 - Hyperlipidemia, unspecified Assessment and Plan Mr Childers 51-year-old male with severe spinal spondylosis, status post laminectomy and arthrodhesis he developed acute worsening of his lower back pain which resulted in redo L4-5 PLIF with repositioning of interbody cage on . . s/p redo L4-5 PLIF with repositioning of interbody cage 05/13/17 * Strict bedrest orders. Head of bed flat * INSULATION SPRAYER pump discontinued * Pain control with oxycodone 5 mg when necessary pain scale 3-5, oxycodone 20 mg when necessary pain scale 6-10 * PAIN BETTER CONTROLLED 2. Restless leg syndrome * Neupro * REQUIP 3. Dyslipidemia * Pravastatin * * AM LABS * 4. CONSTIPATION GIVE MEDS NEEDED STILL ON SOME DEGREE OF BED REST NEUROSURGERY Discharge Planning ONCE MOBILE Dameon Sharma DO May 18, 2017 10:49
[2017-05-18] MEDS ORDERED: NALOXONE HCL 0.4 MG/ML AMP IV PUSH PRN (11:30)
[2017-05-18] MEDS ORDERED: diphenhydrAMINE HCL 50 MG/ML VIAL IV PUSH PRN (11:30)
[2017-05-18] MEDS: ALPRAZolam 0.25 MG TAB PO PRN (11:57)
[2017-05-18 12:10] LABS: PROTHROMBIN TIME - PATIENT 10.7 SEC (9.8-11.6)
[2017-05-18] MEDS: PCA - TOTAL MG DILAUDID DELIVERED PER SHIFT SCH ×2 (14:00→22:00)
[2017-05-18] MEDS: HYDROmorphone HCL PCA 6 MG/30 ML IV SCH (14:06)
[2017-05-18] MEDS ORDERED: MIDAZOLAM HCL 2 MG/2 ML VIAL ONE (16:08)
[2017-05-18] MEDS ORDERED: ceFAZolin 2 GM PREMIX 50 ML ONE (16:24)
--- NOTE | 2017-05-18 16:49 | PD.RAD ---
Post Procedure Progress Note Pre Procedure Diagnosis: (1) S/P lumbar spinal fusion (2) Acute exacerbation of chronic low back pain Post Procedure Diagnosis: (1) Acute exacerbation of chronic low back pain (2) S/P lumbar spinal fusion Procedure Date: May 18, 2017 Supervising Radiologist: Yuri Mendez Proceduralist/Assist: Amrit Pena, RT(R), Lonnie Rodriguez, RT(R) Anesthesia: Conscious Sedation Plan of Activity Patient to Unit: [facility] Patient Condition: Good See PACS Report for procedural detail/treatment Yuri Mendez MD May 18, 2017 16:49
--- NOTE | 2017-05-18 17:09 | RADRPT ---
EXAM DATE/TIME: 05/18/2017 15:41 [place] COMPARISON: No previous studies available for comparison. INDICATIONS : Patient presents with Cerebral Spinal Fluid leak in need of lumbar drain placement. MEDICAL HISTORY : Nerve compression Herniated disc Hyperlipidemia Insomnia SURGIAL HISTORY : L4-5 Laminectomy L5-S1 Laminectomy Melanoma removal Right shoulder surgery ENCOUNTER: Initial ACUITY: 1 week PAIN SCORE: 8/10 LOCATION: Low back LUMBAR PUNCTURE TIME: 1630 hours FLUORO TIME: 1.29 minutes IMAGE SERIES: ? SEDATION TIME: minutes LEVEL: Tip of lumbar drain was placed at T10 OPENING PRESSURE: 42.5 cm of water FLUID: 13 cc of cloudy, red CSF was collected and sent to the laboratory for analysis. DEVICE(S): 1.) 5 Citizen [place] lumbar drain catheter PROCEDURE : 1. Fluoroscopically guided lumbar drain placement. 2. Conscious sedation with continuous EKG and oximetry monitoring. The risks, benefits and alternatives to the procedure were explained and verbal and written consent w as obtained. The site was prepped in sterile fashion. Full sterile technique was used, including ca p, mask, sterile gloves and gown and a large sterile sheet. Hand hygiene and 2% chlorhexidine and/or betadine/alcohol prep was utilized per protocol for cutaneous antisepsis. The skin and subcutaneous tissues were infiltrated with local anesthetic solution. With fluoroscopic guidance the lumbar thecal sac was punctured with a 14 gauge Touhy needle and a lum bar drain was placed with its tip at the level as described above and the catheter was sutured in deep ce. CSF was identified returning from the catheter at the termination of the procedure. Samples were collected and submitted for laboratory analysis per request. Conscious sedation was performed with the prescribed dosages and duration as above in the presence of an independent trained radiology nurse to assist in the monitoring of the patient. EKG and oximetry remained stable throughout the procedure. The patient tolerated the procedure well and there were n o complications. The patient was sent to post anesthesia recovery in stable condition. CONCLUSION: Uncomplicated lumbar drain placement as above. Yuri Mendez MD on May 18, 2017 at 17:07 Board Certified Radiologist. This report was verified electronically.
[2017-05-18] MEDS: ROTIGOTINE 4 MG TOPICAL SCH (21:00)
[2017-05-18] MEDS: PRAVASTATIN SOD 20 MG TAB PO SCH (21:46)
[2017-05-19 00:14] VITALS: BP 110/72; PULSE 80; RESP 17; TEMP 98.9; O2SAT 96
[2017-05-19] MEDS: HYDROmorphone HCL PCA 6 MG/30 ML IV SCH (02:38)
[2017-05-19 05:47] VITALS: BP 106/56; PULSE 94; RESP 17; TEMP 98.5; O2SAT 96
[2017-05-19] MEDS: PCA - TOTAL MG DILAUDID DELIVERED PER SHIFT SCH (06:00)
[2017-05-19] MEDS: CARISOPRODOL 350 MG TAB PO PRN ×2 (06:32→22:22)
[2017-05-19 08:00] VITALS: BP 107/71; PULSE 91; RESP 18; TEMP 107; TEMP 98.6; O2SAT 95
[2017-05-19] MEDS: DOCUSATE SODIUM 100 MG CAP PO SCH ×2 (08:51→20:54)
[2017-05-19] MEDS: PANTOPRAZOLE SOD 40 MG DELAYED RELEASE TAB PO SCH (08:52)
[2017-05-19] MEDS: SODIUM CHLORIDE 0.9% FLUSH 5 ML FLUSH IVF SCH ×2 (09:00→21:00)
[2017-05-19 10:30] LABS: AUTOMATED NEUTROPHIL # 4.9 TH/MM3 (1.8-7.7); BASOPHIL % 0.6 % (0.0-2.0); EOSINOPHIL # 0.2 TH/MM3 (0-0.4); EOSINOPHIL % 2.4 % (0.0-4.0); HEMATOCRIT 42.1 % (39.0-51.0); HEMO FLAGS DIFF FINAL; LYMPH % 26.5 % (9.0-44.0); LYMPHOCYTE # 2.2 TH/MM3 (1.0-4.8); MEAN CELL VOLUME 96.9 FL (80.0-100.0); MEAN CORPUSCULAR HGB CONC 35.1 % (32.0-36.0); MONO % 10.6 % (0.0-8.0); NEUT % 59.9 % (16.0-70.0); PLATELET COUNT 318 TH/MM3 (150-450); RED BLOOD COUNT 4.35 MIL/MM3 (4.50-5.90); RED CELL DISTRIBUTION WIDTH 13.1 % (11.6-17.2); WHITE BLOOD COUNT 8.1 TH/MM3 (4.0-11.0)
[2017-05-19 10:50] LABS: ALKALINE PHOSPHATASE 106 U/L (45-117); ALT (GPT) 24 U/L (12-78); ANION GAP 7 MEQ/L (5-15); AST (GOT) 19 U/L (15-37); BICARBONATE 28.1 MEQ/L (21.0-32.0); BLOOD UREA NITROGEN 20 MG/DL (7-18); CHLORIDE 98 MEQ/L (98-107); GLOMERULAR FILTRATION RATE 85 ML/MIN (>89); MAGNESIUM 2.2 MG/DL (1.5-2.5); POTASSIUM 3.9 MEQ/L (3.5-5.1); SODIUM (NA) 133 MEQ/L (136-145); TOTAL BILIRUBIN ADULT 0.4 MG/DL (0.2-1.0)
--- NOTE | 2017-05-19 11:03 | HHI.PR ---
Subjective Remarks The patient was concerned about his pain regimen and wanted to be taken off of the [employer]. Discussed with his over the phone. The patient said that he had some charley horses from his left box down to his left thigh. He said he got some sleep overnight. Has been tolerating a diet. Discussed with nursing. Objective Vitals Vital Signs Date Time Temp Pulse Resp B/P (MAP) Pulse Ox O2 Delivery O2 Flow Rate FiO2 05/19/17 08:00 98.6 91 18 107/71 (83) 95 05/19/17 06:00 15 05/19/17 05:47 98.5 94 17 106/56 (73) 96 05/19/17 03:58 17 05/19/17 02:38 18 05/19/17 00:14 98.9 80 17 110/72 (85) 96 05/18/17 22:00 16 05/18/17 20:30 98.8 87 17 109/69 (82) 97 05/18/17 18:15 81 18 100/66 (77) 97 05/18/17 17:45 81 18 100/60 (73) 97 05/18/17 17:15 76 18 116/76 (89) 97 05/18/17 17:00 98.4 80 18 101/67 (78) 97 05/18/17 14:06 18 05/18/17 11:55 98.2 85 18 105/69 (81) 95 I/O 05/18/17 05/18/17 05/18/17 05/19/17 05/19/17 05/19/17 07:00 15:00 23:00 07:00 15:00 23:00 Intake Total 960 ml 240 ml 600 ml Output Total 1450 ml 10 ml 1430 ml Balance -490 ml 240 ml -10 ml -830 ml Intake Oral 960 ml 240 ml 600 ml Output Urine Total 1450 ml 1350 ml Drainage Total 10 ml 80 ml # Voids 2 # Bowel Movements 0 Result Diagram: 05/19/1792405/19/17924 Imaging Last Impressions Lumbar Puncture Fluoroscopy 05/18/17914 Signed Impressions: Service Date/Time: Thursday, May 18, 2017 15:41 - CONCLUSION: Uncomplicated lumbar drain placement as above. Yuri Mendez MD Lumbar Spine X-Ray 05/13/17 0000 Signed Impressions: Service Date/Time: Saturday, May 13, 2017 09:38 - CONCLUSION: Anatomic alignment.. Dameon Lovell MD FACR Lumbar Spine MRI 05/11/172008 Signed Impressions: Service Date/Time: Thursday, May 11, 2017 08:48 - CONCLUSION: Epidural scarring involving the left L4, left L5 and left S1 roots. Artifact from transpedicular fixation of L4 and L5. No other significant postoperative changes are noted. Dameon Lovell MD FACR Objective Remarks GENERAL: Resting comfortably. SKIN: Warm and dry. HEAD: Atraumatic. Normocephalic. EYES: Pupils equal and round. No scleral icterus. No injection or drainage. EOMI. ENT: No nasal bleeding or discharge. Mucous membranes pink and moist. NECK: Trachea midline. No JVD. CARDIOVASCULAR: Regular rate and rhythm. RESPIRATORY: No accessory muscle use. Clear to auscultation. Breath sounds equal bilaterally. GASTROINTESTINAL: Abdomen soft, non-tender, nondistended. Hepatic and splenic margins not palpable. MUSCULOSKELETAL: Extremities without clubbing, cyanosis, or edema. No obvious deformities. NEUROLOGICAL: Awake and alert. No obvious cranial nerve deficits. Motor grossly within normal limits. Normal speech. PSYCHIATRIC: Appropriate mood and affect; insight and judgment normal. Procedures s/p redo L4-5 PLIF with repositioning of interbody cage on 05/13 Medications and IVs Current Medications Medications (Trade) Dose Ordered Sig/Criselda Route Start Time Stop Time Status Last Admin (Milk Of Magnesia Liq) 30 ml Q12H PRN PO 05/10/17 20:00 05/17/17 08:05 (Senokot) 17.2 mg Q12H PRN PO 05/10/17 20:00 05/17/17 08:05 (Dulcolax Supp) 10 mg DAILY PRN RECTAL 05/10/17 20:00 05/17/17 12:42 (Lactulose Liq) 30 ml DAILY PRN PO 05/10/17 20:00 (Roxicodone) 5 mg Q4H PRN PO 05/10/17 20:00 05/15/17 13:48 (Requip) 10 mg HS PO 05/10/17 21:00 05/18/17 21:46 (Requip) 5 mg DAILY PO 05/11/17 09:00 05/19/17 08:52 (Pill Splitter) 1 ea UNSCH PRN OTHER 05/10/17 21:00 (Pravachol) 20 mg HS PO 05/10/17 21:00 05/18/17 21:46 Sodium Chloride 1,000 ml @ 70 mls/hr [id number] IV 05/13/17 12:25 05/17/17 17:11 (NS Flush) 2 ml UNSCH PRN IVF 05/13/17 12:30 (NS Flush) 2 ml BID IVF 05/13/17 12:30 05/18/17 09:00 (Colace) 100 mg BID PO 05/13/17 21:00 05/19/17 08:51 (Protonix) 40 mg DAILY PO 05/14/17 09:00 05/19/17 08:52 (Zofran Inj) 4 mg Q6H PRN IV PUSH 05/13/17 12:30 05/16/17 20:15 (Catapres) 0.1 mg Q6H PRN PO/NG 05/13/17 12:30 (Tylenol) 650 mg Q4H PRN PO 05/13/17 12:30 ([place] Mayur) 1 lozenge UNSCH PRN BUCCAL 05/13/17 12:30 (Albuterol Neb) 2.5 mg Q4HR NEB PRN INH 05/13/17 12:30 Patient Own Medication Neupro 4mg transdermal pa... HS TOPICAL 05/13/17 21:00 05/17/17 21:17 (Soma) 350 mg Q8H PRN PO 05/17/17 09:30 05/19/17 06:32 (Citroma Liq) 300 ml Q8H PRN PO 05/17/17 15:15 (Restoril) 7.5 mg HS PRN PO 05/18/17 21:00 (Xanax) 0.25 mg Q8H PRN PO 05/18/17 11:15 05/18/17 11:57 (Roxicodone) 10 mg Q4H PRN PO 05/18/17 12:00 05/19/17 08:53 (Narcan Inj) 0.4 mg UNSCH PRN IV PUSH 05/18/17 11:30 (Benadryl Inj) 25 mg Q6H PRN IV PUSH 05/18/17 11:30 (Dilaudid [employer] Inj) 6 mg UNSCH IV 05/18/17 11:30 05/19/17 02:38 [employer] Dosage Infused (Pha) 1 Q8HR .XX 05/18/17 14:00 05/19/17 06:00 A/P Problem List: (1) Lumbar radiculopathy ICD Code: M54.16 - Radiculopathy, lumbar region Status: Acute (2) Acute exacerbation of chronic low back pain ICD Code: M54.5 - Low back pain; G89.29 - Other chronic pain Status: Acute (3) S/P lumbar spinal fusion ICD Code: Z98.1 - Arthrodesis status Status: Acute (4) Anxiety ICD Code: F41.9 - Anxiety disorder, unspecified (5) Restless leg syndrome ICD Code: G25.81 - Restless legs syndrome (6) Dyslipidemia ICD Code: E78.5 - Hyperlipidemia, unspecified Assessment and Plan Mr Childers 51-year-old male with severe spinal spondylosis, status post laminectomy and arthrodhesis he developed acute worsening of his lower back pain which resulted in redo L4-5 PLIF with repositioning of interbody cage on . S/p redo L4-5 PLIF with repositioning of interbody cage 05/13/17 MRI lumbar spine reviewed, previous fusion L4L5, epidural scarring left L4, L5 and S1 roots. Strict bedrest orders. Head of bed flat [employer] pump discontinued Pain control with oxycodone 5 mg when necessary pain scale 3-5, oxycodone 10 mg when necessary pain scale 6-10, Dilaudid IV for breakthrough. Restless leg syndrome - on home Requip dose. - will bring in own patches. Constipation S/t pain meds. - bowel regimen. PPx: SCDs Discharge Planning Per Saul Vasquez DO May 19, 2017 11:03
[2017-05-19] MEDS: POLYETHYLENE GLYCOL 17 GM PKG PO SCH (11:30)
[2017-05-19] MEDS ORDERED: LACTULOSE SYRUP 20 GM/30 ML CUP PO ONE (11:30)
[2017-05-19] MEDS: SODIUM CHLOR 0.9% 1000 ML INJ 1,000 ML IV SCH (11:49)
[2017-05-19 12:00] VITALS: BP 159/68; PULSE 77; RESP 18; TEMP 98.8; O2SAT 90
[2017-05-19] MEDS: HYDROmorphone HCL PF 1 MG/ML VIAL IV PUSH PRN ×3 (14:12→23:38)
--- NOTE | 2017-05-19 15:55 | HHI.NSPN ---
(Mary Beth Witt) Note Status Status: Progress Note (aMry Beth Witt) Interval History Interval History Mr Liseth 51-year-old male with severe spinal spondylosis, status post laminectomy and arthrodhesis in January of this year. Postoperatively he was doing very well with clinical resolution of his back pain and radiculopathy, until he suffered a severe fall and reinjured his spine. He presents with acute worsening of chronic low back pain and left-sided radiculopathy. He reports constant sharp pain in the low back radiating to the left leg. Patient reports continued weakness in the left leg with foot drop. He does report an episode of loss of bladder contro today, however without any subsequent loss of bladder control. Recent xrays showed that his instrumentation has displaced following the fall. Neurosurgery consultation was requested 05/11. Continues to suffer severe pain. No further urinary incontinence. Follow up MRI done today 05/12: no improvement in his lumbar and radicular pain, eager for surgery tomorrow 05/14: s/p redo L4-5 PLIF with repositioning of interbody cage on 05/13. pt on bedrest, surgical pain controlled. 05/15: reports wound leaking last night/private advisor and had multiple dressing changes due to saturation. He than sat up on edge of bed this am on his own despite strict bed rest order. wound reexamined, dressing dry with mild shadowing, no leaking from incision. 05/16: needing to have a BM, incision checked no drainage seen. 05/17: reports left hamstrings muscle spasm not being controlled with flexeril. mild halo sign on his lumbar dressing this morning, no active leaking, no saturation of dressing. 05/18: gauze dressing overnight saturated - yellow tinged. complaining of increased back and neck pain due to prolonged laying flat in bed - requesting TRANSPORTATION MAINTENANCE WORKER. also requests to restart his Restoril that he takes at home prn sleep, reports feeling very anxious and currently tearful. 05/19: patient seen this morning during rounds. lumbar being drained 10 cc every hour, dressings are still being saturated. has TRANSPORTATION MAINTENANCE WORKER, reports doing well with pain control on pump. (Mary Beth Witt) Labs, Micro, & Vital Signs Results Date Time Temp Pulse Resp B/P (MAP) Pulse Ox O2 Delivery O2 Flow Rate FiO2 05/19/17 12:00 98.8 77 18 159/68 (98) 90 05/19/17 08:00 98.6 91 18 107/71 (83) 95 05/19/17 06:00 15 05/19/17 05:47 98.5 94 17 106/56 (73) 96 05/19/17 03:58 17 05/19/17 02:38 18 05/19/17 00:14 98.9 80 17 110/72 (85) 96 05/18/17 22:00 16 05/18/17 20:30 98.8 87 17 109/69 (82) 97 05/18/17 18:15 81 18 100/66 (77) 97 05/18/17 17:45 81 18 100/60 (73) 97 05/18/17 17:15 76 18 116/76 (89) 97 05/18/17 17:00 98.4 80 18 101/67 (78) 97 Constitutional Vital Signs Date Time Temp Pulse Resp B/P (MAP) Pulse Ox O2 Delivery O2 Flow Rate FiO2 05/19/17 12:00 98.8 77 18 159/68 (98) 90 05/19/17 08:00 98.6 91 18 107/71 (83) 95 05/19/17 06:00 15 05/19/17 05:47 98.5 94 17 106/56 (73) 96 05/19/17 03:58 17 05/19/17 02:38 18 05/19/17 00:14 98.9 80 17 110/72 (85) 96 05/18/17 22:00 16 05/18/17 20:30 98.8 87 17 109/69 (82) 97 05/18/17 18:15 81 18 100/66 (77) 97 05/18/17 17:45 81 18 100/60 (73) 97 05/18/17 17:15 76 18 116/76 (89) 97 05/18/17 17:00 98.4 80 18 101/67 (78) 97 (Mary Beth Witt) Physical Exam Mr Childers is alert and oriented x 3. Speech is fluent. Conversing well, mentation intact. Cranial nerve examination: Facial motor are normal and symmetrical. Lumbar drain in place. Previous wound dressing saturated with CSF. (Mary Beth Witt) Medications Current Medications Current Medications Medications (Trade) Dose Ordered Sig/Criselda Route PRN Reason Start Time Stop Time Status Last Admin Dose Admin Magnesium Hydroxide (Milk Of Magnesia Liq) 30 ml Q12H PRN PO Mild constipation 05/10/17 20:00 05/17/17 08:05 Sennosides (Senokot) 17.2 mg Q12H PRN PO Moderate constipation 05/10/17 20:00 05/17/17 08:05 Bisacodyl (Dulcolax Supp) 10 mg DAILY PRN RECTAL SEVERE CONSITIPATION 05/10/17 20:00 05/17/17 12:42 Lactulose (Lactulose Liq) 30 ml DAILY PRN PO SEVERE CONSITIPATION 05/10/17 20:00 Oxycodone HCl (Roxicodone) 5 mg Q4H PRN PO PAIN SCALE 3 TO 5 05/10/17 20:00 05/15/17 13:48 Ropinirole HCl (Requip) 10 mg HS PO 05/10/17 21:00 05/18/17 21:46 Ropinirole HCl (Requip) 5 mg DAILY PO 05/11/17 09:00 05/19/17 08:52 Miscellaneous (Pill Splitter) 1 ea UNSCH PRN OTHER SEE LABEL COMMENTS 05/10/17 21:00 Pravastatin Sodium (Pravachol) 20 mg HS PO 05/10/17 21:00 05/18/17 21:46 Sodium Chloride 1,000 ml @ 70 mls/hr [id number] IV 05/13/17 12:25 05/17/17 17:11 IV Flush (NS Flush) 2 ml UNSCH PRN IVF FLUSH AFTER USING IV ACCESS 05/13/17 12:30 IV Flush (NS Flush) 2 ml BID IVF 05/13/17 12:30 05/19/17 09:00 Docusate Sodium (Colace) 100 mg BID PO 05/13/17 21:00 05/19/17 08:51 Pantoprazole Sodium (Protonix) 40 mg DAILY PO 05/14/17 09:00 05/19/17 08:52 Ondansetron HCl (Zofran Inj) 4 mg Q6H PRN IV PUSH NAUSEA OR VOMITING 05/13/17 12:30 05/16/17 20:15 Clonidine (Catapres) 0.1 mg Q6H PRN PO/NG SYS BP GREATER THAN 170 MMHG 05/13/17 12:30 Acetaminophen (Tylenol) 650 mg Q4H PRN PO TEMPERATURE > 101.5 F 05/13/17 12:30 Menthol ([place] Mayur) 1 lozenge UNSCH PRN BUCCAL SORE THROAT 05/13/17 12:30 Albuterol Sulfate (Albuterol Neb) 2.5 mg Q4HR NEB PRN INH WHEEZING 05/13/17 12:30 Patient Own Medication Neupro 4mg transdermal pa... HS TOPICAL 05/13/17 21:00 05/17/17 21:17 Carisoprodol (Soma) 350 mg Q8H PRN PO muscle spasms 05/17/17 09:30 05/19/17 06:32 Magnesium Citrate (Citroma Liq) 300 ml Q8H PRN PO VERY SEVERE CONSTIPATION 05/17/17 15:15 Temazepam (Restoril) 7.5 mg HS PRN PO insomnia 05/18/17 21:00 Alprazolam (Xanax) 0.25 mg Q8H PRN PO anxiety 05/18/17 11:15 05/18/17 11:57 Oxycodone HCl (Roxicodone) 10 mg Q4H PRN PO PAIN SCALE 6 TO 10 05/18/17 12:00 05/19/17 13:06 Naloxone HCl (Narcan Inj) 0.4 mg UNSCH PRN IV PUSH RESPIRATORY RATE LESS THAN 10 05/18/17 11:30 Diphenhydramine HCl (Benadryl Inj) 25 mg Q6H PRN IV PUSH ITCHING 05/18/17 11:30 Hydromorphone HCl (Dilaudid Pf Inj) 1 mg Q4H PRN IV PUSH breakthrough pain 05/19/17 11:30 05/19/17 14:12 Polyethylene Glycol (Miralax) 17 gm DAILY PO 05/19/17 11:30 05/19/17 11:30 (Mary Beth Witt) Medical Decision Making MDM Remarks 51 y/o male s/p redo L4-5 PLIF with repositioning of interbody cage, dural repair of CSF leak 05/13/17 s/p placement of external lumbar drain 05/18 due to CSF leak anxiety and insomnia due to prolonged strict bed rest (Mary Beth Witt) Plan Plan Remarks cont pain control with TRANSPORTATION MAINTENANCE WORKER, cont low dose xanax prn anxiety, restoril prn insomnia- this has helped cont strict bed rest with HOB flat continuous lumbar draining of CSF SCDs and TEDs for dvt prophylaxis, medical mgt following - appreciate assistance (Mary Beth Witt) Attending Statement The exam, history, and the medical decision-making described in the above note were completed with the assistance of the mid-level provider. I reviewed and agree with the findings presented. I attest that I had a [id number] encounter with the patient on the same day, and personally performed and documented my assessment and findings in the medical record. (Jairo Hood MD) Mary Beth Witt May 19, 2017 15:55 Jairo Hood MD May 19, 2017 21:07
[2017-05-19 16:00] VITALS: BP 113/73; PULSE 89; RESP 18; TEMP 98.6; O2SAT 98
[2017-05-19] MEDS: PRAVASTATIN SOD 20 MG TAB PO SCH (20:55)
[2017-05-19 21:30] VITALS: BP 110/70; PULSE 90; RESP 17; TEMP 98.3; O2SAT 96
[2017-05-19] MEDS: TEMAZEPAM 7.5 MG CAP PO PRN (22:22)
[2017-05-19] MEDS: ROTIGOTINE 4 MG TOPICAL SCH (22:23)
[2017-05-20 00:30] VITALS: BP 116/68; PULSE 81; RESP 17; TEMP 99.3; O2SAT 93
[2017-05-20] MEDS ORDERED: ACETAMINOPHEN 325 MG TAB PO PRN (01:00)
[2017-05-20] MEDS: SODIUM CHLOR 0.9% 1000 ML INJ 1,000 ML IV SCH ×2 (02:07→16:25)
[2017-05-20] MEDS ORDERED: NALOXONE HCL 0.4 MG/ML AMP IV PUSH PRN (02:45)
[2017-05-20] MEDS: HYDROmorphone HCL PCA 6 MG/30 ML IV SCH (03:45)
[2017-05-20] MEDS: ALPRAZolam 0.25 MG TAB PO PRN (04:17)
[2017-05-20 04:45] VITALS: BP 120/76; PULSE 94; RESP 18; TEMP 97.6; O2SAT 98
[2017-05-20] MEDS ORDERED: GABAPENTIN 300 MG CAP PO SCH (06:00)
[2017-05-20] MEDS: PCA - TOTAL MG DILAUDID DELIVERED PER SHIFT SCH ×3 (06:00→22:00)
[2017-05-20] MEDS: POLYETHYLENE GLYCOL 17 GM PKG PO SCH (08:33)
[2017-05-20] MEDS: SODIUM CHLORIDE 0.9% FLUSH 5 ML FLUSH IVF SCH ×2 (08:35→21:00)
[2017-05-20] MEDS: DOCUSATE SODIUM 100 MG CAP PO SCH ×2 (08:35→21:48)
[2017-05-20] MEDS: PANTOPRAZOLE SOD 40 MG DELAYED RELEASE TAB PO SCH (08:35)
[2017-05-20 08:44] VITALS: BP 92/61; PULSE 83; RESP 18; TEMP 98; O2SAT 97
[2017-05-20] MEDS ORDERED: BISACODYL 10 MG SUPP RECTAL ONE (12:00)
--- NOTE | 2017-05-20 12:04 | HHI.PR ---
Subjective Remarks The patient said that his pain got worse overnight and that he had to use the pain pump. He also said he hasn't been able to urinate in a few days. He also describes a numbing pain in both his lower extremities that is nonstop. He is still constipated. No other acute concerns. Objective Vitals Vital Signs Date Time Temp Pulse Resp B/P (MAP) Pulse Ox O2 Delivery O2 Flow Rate FiO2 05/20/17 08:44 98.0 83 18 92/61 (71) 97 05/20/17 06:00 14 05/20/17 04:45 97.6 94 18 120/76 (91) 98 05/20/17 03:45 18 05/20/17 00:30 99.3 81 17 116/68 (84) 93 05/19/17 21:30 98.3 90 17 110/70 (83) 96 05/19/17 16:00 98.6 89 18 113/73 (86) 98 I/O 05/19/17 05/19/17 05/19/17 05/20/17 05/20/17 05/20/17 07:00 15:00 23:00 07:00 15:00 23:00 Intake Total 600 ml 800 ml 900 ml Output Total 1430 ml 600 ml 120 ml 980 ml Balance -830 ml -600 ml 680 ml -80 ml Intake Oral 600 ml 800 ml 900 ml Output Urine Total 1350 ml 600 ml 0 ml 900 ml Drainage Total 80 ml 120 ml 80 ml # Bowel Movements 0 0 0 Result Diagram: 05/19/1792405/19/17924 Imaging Last Impressions Lumbar Puncture Fluoroscopy 05/18/1715 Signed Impressions: Service Date/Time: Thursday, May 18, 2017 15:41 - CONCLUSION: Uncomplicated lumbar drain placement as above. Yuri Mendez MD Lumbar Spine X-Ray 05/13/17 0000 Signed Impressions: Service Date/Time: Saturday, May 13, 2017 09:38 - CONCLUSION: Anatomic alignment.. Dameon Lovell MD FACR Lumbar Spine MRI 05/11/172008 Signed Impressions: Service Date/Time: Thursday, May 11, 2017 08:48 - CONCLUSION: Epidural scarring involving the left L4, left L5 and left S1 roots. Artifact from transpedicular fixation of L4 and L5. No other significant postoperative changes are noted. Dameon Lovell MD FACR Objective Remarks GENERAL: Resting comfortably. SKIN: Warm and dry. HEAD: Atraumatic. Normocephalic. EYES: Pupils equal and round. No scleral icterus. No injection or drainage. EOMI. ENT: No nasal bleeding or discharge. Mucous membranes pink and moist. NECK: Trachea midline. No JVD. CARDIOVASCULAR: Regular rate and rhythm. RESPIRATORY: No accessory muscle use. Clear to auscultation. Breath sounds equal bilaterally. GASTROINTESTINAL: Abdomen soft, non-tender, nondistended. Hepatic and splenic margins not palpable. MUSCULOSKELETAL: Extremities without clubbing, cyanosis, or edema. No obvious deformities. NEUROLOGICAL: Awake and alert. No obvious cranial nerve deficits. Motor grossly within normal limits. Normal speech. PSYCHIATRIC: Appropriate mood and affect; insight and judgment normal. Procedures s/p redo L4-5 PLIF with repositioning of interbody cage on 05/13 Medications and IVs Current Medications Medications (Trade) Dose Ordered Sig/Criselda Route Start Time Stop Time Status Last Admin (Milk Of Magnesia Liq) 30 ml Q12H PRN PO 05/10/17 20:00 05/17/17 08:05 (Senokot) 17.2 mg Q12H PRN PO 05/10/17 20:00 05/17/17 08:05 (Dulcolax Supp) 10 mg DAILY PRN RECTAL 05/10/17 20:00 05/17/17 12:42 (Lactulose Liq) 30 ml DAILY PRN PO 05/10/17 20:00 (Roxicodone) 5 mg Q4H PRN PO 05/10/17 20:00 05/15/17 13:48 (Requip) 10 mg HS PO 05/10/17 21:00 05/18/17 21:46 (Requip) 5 mg DAILY PO 05/11/17 09:00 05/20/17 08:35 (Pill Splitter) 1 ea UNSCH PRN OTHER 05/10/17 21:00 (Pravachol) 20 mg HS PO 05/10/17 21:00 05/19/17 20:55 Sodium Chloride 1,000 ml @ 70 mls/hr [id number] IV 05/13/17 12:25 05/17/17 17:11 (NS Flush) 2 ml UNSCH PRN IVF 05/13/17 12:30 (NS Flush) 2 ml BID IVF 05/13/17 12:30 05/19/17 21:00 (Colace) 100 mg BID PO 05/13/17 21:00 05/20/17 08:35 (Protonix) 40 mg DAILY PO 05/14/17 09:00 05/20/17 08:35 (Zofran Inj) 4 mg Q6H PRN IV PUSH 05/13/17 12:30 05/16/17 20:15 (Catapres) 0.1 mg Q6H PRN PO/NG 05/13/17 12:30 (Tylenol) 650 mg Q4H PRN PO 05/13/17 12:30 ([place] Mayur) 1 lozenge UNSCH PRN BUCCAL 05/13/17 12:30 (Albuterol Neb) 2.5 mg Q4HR NEB PRN INH 05/13/17 12:30 Patient Own Medication Neupro 4mg transdermal pa... HS TOPICAL 05/13/17 21:00 05/19/17 22:23 (Soma) 350 mg Q8H PRN PO 05/17/17 09:30 05/19/17 22:22 (Citroma Liq) 300 ml Q8H PRN PO 05/17/17 15:15 (Restoril) 7.5 mg HS PRN PO 05/18/17 21:00 05/19/17 22:22 (Xanax) 0.25 mg Q8H PRN PO 05/18/17 11:15 05/20/17 04:17 (Roxicodone) 10 mg Q4H PRN PO 05/18/17 12:00 05/20/17 10:01 (Narcan Inj) 0.4 mg UNSCH PRN IV PUSH 05/18/17 11:30 (Benadryl Inj) 25 mg Q6H PRN IV PUSH 05/18/17 11:30 (Miralax) 17 gm DAILY PO 05/19/17 11:30 05/20/17 08:33 (Tylenol) 650 mg Q6H PRN PO 05/20/17 01:00 (Dilaudid SYSTEM ARCHITECT Inj) 6 mg UNSCH IV 05/20/17 02:45 05/20/17 03:45 SYSTEM ARCHITECT Dosage Infused (Pha) 1 Q8HR .XX 05/20/17 06:00 05/20/17 06:00 (Narcan Inj) 0.4 mg UNSCH PRN IV PUSH 05/20/17 02:45 (Neurontin) 600 mg Q8HR PO 05/20/17 14:00 UNV (Dulcolax Supp) 10 mg ONCE ONCE RECTAL 05/20/17 12:00 05/20/17 12:01 UNV A/P Problem List: (1) Lumbar radiculopathy ICD Code: M54.16 - Radiculopathy, lumbar region Status: Acute (2) Acute exacerbation of chronic low back pain ICD Code: M54.5 - Low back pain; G89.29 - Other chronic pain Status: Acute (3) S/P lumbar spinal fusion ICD Code: Z98.1 - Arthrodesis status Status: Acute (4) Anxiety ICD Code: F41.9 - Anxiety disorder, unspecified (5) Restless leg syndrome ICD Code: G25.81 - Restless legs syndrome (6) Dyslipidemia ICD Code: E78.5 - Hyperlipidemia, unspecified Assessment and Plan Mr Liseth 51-year-old male with severe spinal spondylosis, status post laminectomy and arthrodhesis he developed acute worsening of his lower back pain which resulted in redo L4-5 PLIF with repositioning of interbody cage on . S/p redo L4-5 PLIF with repositioning of interbody cage 05/13/17 MRI lumbar spine reviewed, previous fusion L4L5, epidural scarring left L4, L5 and S1 roots. Strict bedrest orders. Head of bed flat Pain control with oxycodone 5 mg when necessary pain scale 3-5, oxycodone 10 mg when necessary pain scale 6-10, and SYSTEM ARCHITECT. - increase gabapentin to 600 mg TID. - follow up with neurosurgery. - PT/ OT. Urinary retention The pt has not been able to urinate in over a day. - replace Ramírez. Restless leg syndrome - on home Requip dose. - will bring in own patches. Constipation S/t pain meds. - bowel regimen. PPx: SCDs Discharge Planning Per Saul Vasquez DO May 20, 2017 12:04
[2017-05-20 12:47] VITALS: BP 108/68; PULSE 79; RESP 17; TEMP 97.5; O2SAT 94
[2017-05-20] MEDS: GABAPENTIN 300 MG CAP PO SCH ×2 (14:28→21:48)
--- NOTE | 2017-05-20 14:49 | HHI.NSPN ---
(Mary Beth Witt) Note Status Status: Progress Note (Mary Beth Witt) Interval History Interval History Mr Liseth 51-year-old male with severe spinal spondylosis, status post laminectomy and arthrodhesis in January of this year. Postoperatively he was doing very well with clinical resolution of his back pain and radiculopathy, until he suffered a severe fall and reinjured his spine. He presents with acute worsening of chronic low back pain and left-sided radiculopathy. He reports constant sharp pain in the low back radiating to the left leg. Patient reports continued weakness in the left leg with foot drop. He does report an episode of loss of bladder contro today, however without any subsequent loss of bladder control. Recent xrays showed that his instrumentation has displaced following the fall. Neurosurgery consultation was requested 05/11. Continues to suffer severe pain. No further urinary incontinence. Follow up MRI done today 05/12: no improvement in his lumbar and radicular pain, eager for surgery tomorrow 05/14: s/p redo L4-5 PLIF with repositioning of interbody cage on 05/13. pt on bedrest, surgical pain controlled. 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 He than sat up on edge of bed this am on his own despite strict bed rest order. wound reexamined, dressing dry with mild shadowing, no leaking from incision. 05/16: needing to have a BM, incision checked no drainage seen. 05/17: reports left hamstrings muscle spasm not being controlled with flexeril. mild halo sign on his lumbar dressing this morning, no active leaking, no saturation of dressing. 05/18: gauze dressing overnight saturated - yellow tinged. complaining of increased back and neck pain due to prolonged laying flat in bed - requesting DISH UP PERSON. also requests to restart his Restoril that he takes at home prn sleep, reports feeling very anxious and currently tearful. 05/19: patient seen this morning during rounds. lumbar being drained 10 cc every hour, dressings are still being saturated. has DISH UP PERSON, reports doing well with pain control on pump. 05/20: pt seen this am during rounds. pt had c/o spinal MACDONALD's last night, CSF draining decreased, improved MACDONALD's. pain controlled on DISH UP PERSON. dressing changed this morning less saturated. (Mary Beth Witt) Labs, Micro, & Vital Signs Results Date Time Temp Pulse Resp B/P (MAP) Pulse Ox O2 Delivery O2 Flow Rate FiO2 05/20/17 12:47 97.5 79 17 108/68 (81) 94 05/20/17 08:44 98.0 83 18 92/61 (71) 97 05/20/17 06:00 14 05/20/17 04:45 97.6 94 18 120/76 (91) 98 05/20/17 03:45 18 05/20/17 00:30 99.3 81 17 116/68 (84) 93 05/19/17 21:30 98.3 90 17 110/70 (83) 96 05/19/17 16:00 98.6 89 18 113/73 (86) 98 Constitutional Vital Signs Date Time Temp Pulse Resp B/P (MAP) Pulse Ox O2 Delivery O2 Flow Rate FiO2 05/20/17 12:47 97.5 79 17 108/68 (81) 94 05/20/17 08:44 98.0 83 18 92/61 (71) 97 05/20/17 06:00 14 05/20/17 04:45 97.6 94 18 120/76 (91) 98 05/20/17 03:45 18 05/20/17 00:30 99.3 81 17 116/68 (84) 93 05/19/17 21:30 98.3 90 17 110/70 (83) 96 05/19/17 16:00 98.6 89 18 113/73 (86) 98 (Mary Beth Witt) Review of Systems Constitutional: DENIES: Fever, Chills Cardiovascular: DENIES: Chest pain Musculoskeletal: COMPLAINS OF: Back pain Neurologic: COMPLAINS OF: Headache (mild, improved) (Mary Beth Witt) Physical Exam Mr Childers is alert and oriented x 3. Speech is fluent. Conversing well, mentation intact. Cranial nerve examination: Facial motor are normal and symmetrical. Lumbar drain in place. CSF blood tinged. Incision with gauze dressing currently dry. Dressing replaced early this morning examined with mild to mod saturation - improved from yesterday. Neck: soft, supple (Mary Beth Witt) Medical Decision Making MDM Remarks 51 y/o male s/p redo L4-5 PLIF with repositioning of interbody cage, dural repair of CSF leak 05/13/17 s/p placement of external lumbar drain 05/18 due to CSF leak anxiety and insomnia due to prolonged strict bed rest (Mary Beth Witt) Plan Plan Remarks cont current pain regimen, DISH UP PERSON pump for pain control cont low dose xanax prn anxiety, restoril prn insomnia- this has helped cont strict bed rest with HOB flat continuous CSF at 15 cc/hr SCDs and TEDs for dvt prophylaxis, cont medical mgt following - appreciate assistance dw nursing (Mary Beth Witt) Attending Statement The exam, history, and the medical decision-making described in the above note were completed with the assistance of the mid-level provider. I reviewed and agree with the findings presented. I attest that I had a [id number] encounter with the patient on the same day, and personally performed and documented my assessment and findings in the medical record. (Jairo Hood MD) Mary Beth Witt May 20, 2017 14:49 Jairo Hood MD May 24, 2017 16:44
[2017-05-20 16:28] VITALS: BP 115/66; PULSE 84; RESP 17; TEMP 98; O2SAT 96
[2017-05-20] MEDS: BISACODYL 10 MG SUPP RECTAL PRN (18:37)
[2017-05-20 20:45] VITALS: BP 109/73; PULSE 94; RESP 17; TEMP 97.4; O2SAT 98
[2017-05-20] MEDS: PRAVASTATIN SOD 20 MG TAB PO SCH (21:47)
[2017-05-20] MEDS: CARISOPRODOL 350 MG TAB PO PRN (23:20)
[2017-05-20] MEDS: TEMAZEPAM 7.5 MG CAP PO PRN (23:22)
[2017-05-20] MEDS: ROTIGOTINE 4 MG TOPICAL SCH (23:23)
[2017-05-21] VITALS (10 sets, daily range): BP systolic 106–123; BP diastolic 59–76; PULSE 80–91; RESP 14–20; TEMP 98.1–98.8; O2SAT 94–98
[2017-05-21] MEDS: HYDROmorphone HCL PCA 6 MG/30 ML IV SCH ×2 (00:03→16:23)
[2017-05-21] MEDS: GABAPENTIN 300 MG CAP PO SCH ×3 (05:03→21:23)
[2017-05-21] MEDS: PCA - TOTAL MG DILAUDID DELIVERED PER SHIFT SCH ×3 (06:00→21:30)
[2017-05-21] MEDS: SODIUM CHLOR 0.9% 1000 ML INJ 1,000 ML IV SCH ×2 (06:43→21:28)
[2017-05-21 07:53] LABS: BICARBONATE 25.8 MEQ/L (21.0-32.0); POTASSIUM 3.9 MEQ/L (3.5-5.1)
[2017-05-21] MEDS: DOCUSATE SODIUM 100 MG CAP PO SCH ×2 (08:40→21:22)
[2017-05-21] MEDS: PANTOPRAZOLE SOD 40 MG DELAYED RELEASE TAB PO SCH (08:41)
[2017-05-21] MEDS: SODIUM CHLORIDE 0.9% FLUSH 5 ML FLUSH IVF SCH ×2 (08:43→21:22)
[2017-05-21] MEDS: POLYETHYLENE GLYCOL 17 GM PKG PO SCH (08:44)
[2017-05-21] MEDS: CARISOPRODOL 350 MG TAB PO PRN ×2 (09:00→21:26)
--- NOTE | 2017-05-21 10:31 | HHI.PR ---
Subjective Remarks The patient reports feeling a lot better. He said he has some cramps in his calves but otherwise he is able to move his legs more and his pain level is much better at this time. He says he is not eating all that much because of the position he stuck in. He is wondering when he can get up out of bed. Discussed with nursing. Objective Vitals Vital Signs Date Time Temp Pulse Resp B/P (MAP) Pulse Ox O2 Delivery O2 Flow Rate FiO2 05/21/17 08:00 98.3 88 16 106/74 (85) 98 05/21/17 06:15 14 05/21/17 06:00 14 05/21/17 05:45 98.1 80 19 123/70 (87) 97 05/21/17 04:49 14 05/21/17 00:40 98.8 87 18 113/76 (88) 96 05/21/17 00:03 16 05/20/17 22:00 14 05/20/17 20:45 97.4 94 17 109/73 (85) 98 05/20/17 16:28 98.0 84 17 115/66 (82) 96 05/20/17 14:00 16 05/20/17 12:47 97.5 79 17 108/68 (81) 94 I/O 05/20/17 05/20/17 05/20/17 05/21/17 05/21/17 05/21/17 07:00 15:00 23:00 07:00 15:00 23:00 Intake Total 900 ml 1380 ml 2500 ml Output Total 980 ml 1232 ml 1165 ml Balance -80 ml 148 ml 1335 ml Intake Oral 900 ml 1380 ml 2500 ml Output Urine Total 900 ml 1152 ml 1000 ml Drainage Total 80 ml 80 ml 165 ml # Bowel Movements 0 0 1 Result Diagram: 05/19/17 0925 05/21/17 0643 Imaging Last Impressions Lumbar Puncture Fluoroscopy 05/18/17 0915 Signed Impressions: Service Date/Time: Thursday, May 18, 2017 15:41 - CONCLUSION: Uncomplicated lumbar drain placement as above. Yuri Mendez MD Lumbar Spine X-Ray 05/13/17 0000 Signed Impressions: Service Date/Time: Saturday, May 13, 2017 09:38 - CONCLUSION: Anatomic alignment.. Damoen Lovell MD FACR Lumbar Spine MRI 05/11/172008 Signed Impressions: Service Date/Time: Thursday, May 11, 2017 08:48 - CONCLUSION: Epidural scarring involving the left L4, left L5 and left S1 roots. Artifact from transpedicular fixation of L4 and L5. No other significant postoperative changes are noted. Daemon Lovell MD FACR Objective Remarks GENERAL: Resting comfortably. SKIN: Warm and dry. HEAD: Atraumatic. Normocephalic. EYES: Pupils equal and round. No scleral icterus. No injection or drainage. EOMI. ENT: No nasal bleeding or discharge. Mucous membranes pink and moist. NECK: Trachea midline. No JVD. CARDIOVASCULAR: Regular rate and rhythm. RESPIRATORY: No accessory muscle use. Clear to auscultation. Breath sounds equal bilaterally. GASTROINTESTINAL: Abdomen soft, non-tender, nondistended. Hepatic and splenic margins not palpable. MUSCULOSKELETAL: Extremities without clubbing, cyanosis, or edema. No obvious deformities. NEUROLOGICAL: Awake and alert. No obvious cranial nerve deficits. Motor grossly within normal limits. Normal speech. PSYCHIATRIC: Appropriate mood and affect; insight and judgment normal. Procedures s/p redo L4-5 PLIF with repositioning of interbody cage on 05/13 Medications and IVs Current Medications Medications (Trade) Dose Ordered Sig/Criselda Route Start Time Stop Time Status Last Admin (Milk Of Magnesia Liq) 30 ml Q12H PRN PO 05/10/17 20:00 05/17/17 08:05 (Senokot) 17.2 mg Q12H PRN PO 05/10/17 20:00 05/17/17 08:05 (Dulcolax Supp) 10 mg DAILY PRN RECTAL 05/10/17 20:00 05/20/17 18:37 (Lactulose Liq) 30 ml DAILY PRN PO 05/10/17 20:00 (Roxicodone) 5 mg Q4H PRN PO 05/10/17 20:00 05/15/17 13:48 (Requip) 10 mg HS PO 05/10/17 21:00 05/20/17 23:21 (Requip) 5 mg DAILY PO 05/11/17 09:00 05/21/17 08:40 (Pill Splitter) 1 ea UNSCH PRN OTHER 05/10/17 21:00 (Pravachol) 20 mg HS PO 05/10/17 21:00 05/20/17 21:47 Sodium Chloride 1,000 ml @ 70 mls/hr [id number] IV 05/13/17 12:25 05/17/17 17:11 (NS Flush) 2 ml UNSCH PRN IVF 05/13/17 12:30 (NS Flush) 2 ml BID IVF 05/13/17 12:30 05/19/17 21:00 (Colace) 100 mg BID PO 05/13/17 21:00 05/21/17 08:40 (Protonix) 40 mg DAILY PO 05/14/17 09:00 05/21/17 08:41 (Zofran Inj) 4 mg Q6H PRN IV PUSH 05/13/17 12:30 05/16/17 20:15 (Catapres) 0.1 mg Q6H PRN PO/NG 05/13/17 12:30 (Tylenol) 650 mg Q4H PRN PO 05/13/17 12:30 (Delmar Mayur) 1 lozenge UNSCH PRN BUCCAL 05/13/17 12:30 (Albuterol Neb) 2.5 mg Q4HR NEB PRN INH 05/13/17 12:30 Patient Own Medication Neupro 4mg transdermal pa... HS TOPICAL 05/13/17 21:00 05/20/17 23:23 (Soma) 350 mg Q8H PRN PO 05/17/17 09:30 05/21/17 09:00 (Citroma Liq) 300 ml Q8H PRN PO 05/17/17 15:15 (Restoril) 7.5 mg HS PRN PO 05/18/17 21:00 05/20/17 23:22 (Xanax) 0.25 mg Q8H PRN PO 05/18/17 11:15 05/20/17 04:17 (Roxicodone) 10 mg Q4H PRN PO 05/18/17 12:00 05/21/17 08:43 (Narcan Inj) 0.4 mg UNSCH PRN IV PUSH 05/18/17 11:30 (Benadryl Inj) 25 mg Q6H PRN IV PUSH 05/18/17 11:30 (Miralax) 17 gm DAILY PO 05/19/17 11:30 05/20/17 08:33 (Tylenol) 650 mg Q6H PRN PO 05/20/17 01:00 (Dilaudid NEUROSURGERY RESEARCH DIRECTOR Inj) 6 mg UNSCH IV 05/20/17 02:45 05/21/17 00:03 NEUROSURGERY RESEARCH DIRECTOR Dosage Infused (Pha) 1 Q8HR .XX 05/20/17 06:00 05/21/17 06:00 (Narcan Inj) 0.4 mg UNSCH PRN IV PUSH 05/20/17 02:45 (Neurontin) 600 mg Q8HR PO 05/20/17 14:00 05/21/17 05:03 A/P Problem List: (1) Lumbar radiculopathy ICD Code: M54.16 - Radiculopathy, lumbar region Status: Acute (2) Acute exacerbation of chronic low back pain ICD Code: M54.5 - Low back pain; G89.29 - Other chronic pain Status: Acute (3) S/P lumbar spinal fusion ICD Code: Z98.1 - Arthrodesis status Status: Acute (4) Anxiety ICD Code: F41.9 - Anxiety disorder, unspecified (5) Restless leg syndrome ICD Code: G25.81 - Restless legs syndrome (6) Dyslipidemia ICD Code: E78.5 - Hyperlipidemia, unspecified Assessment and Plan Mr Liseth 51-year-old male with severe spinal spondylosis, status post laminectomy and arthrodhesis he developed acute worsening of his lower back pain which resulted in redo L4-5 PLIF with repositioning of interbody cage on . S/p redo L4-5 PLIF with repositioning of interbody cage 05/13/17 MRI lumbar spine reviewed, previous fusion L4L5, epidural scarring left L4, L5 and S1 roots. Strict bedrest orders. Head of bed flat Pain control with oxycodone 5 mg when necessary pain scale 3-5, oxycodone 10 mg when necessary pain scale 6-10, and NEUROSURGERY RESEARCH DIRECTOR. - increase gabapentin to 600 mg TID. Improved. - follow up with neurosurgery. Still on bedrest. Drain still in place. - PT/ OT. Urinary retention The pt has not been able to urinate in over a day. - replace Ramírez. Restless leg syndrome - on home Requip dose. - will bring in own patches. Constipation S/t pain meds. - bowel regimen. PPx: SCDs Discharge Planning Per Saul Vasquez DO May 21, 2017 10:31
--- NOTE | 2017-05-21 11:22 | HHI.NSPN ---
History Interval History Mr Childers 51-year-old male with severe spinal spondylosis, status post laminectomy and arthrodhesis in January of this year. Postoperatively he was doing very well with clinical resolution of his back pain and radiculopathy, until he suffered a severe fall and reinjured his spine. He presents with acute worsening of chronic low back pain and left-sided radiculopathy. He reports constant sharp pain in the low back radiating to the left leg. Patient reports continued weakness in the left leg with foot drop. He does report an episode of loss of bladder contro today, however without any subsequent loss of bladder control. Recent xrays showed that his instrumentation has displaced following the fall. Neurosurgery consultation was requested 05/11. Continues to suffer severe pain. No further urinary incontinence. Follow up MRI done today 05/12: no improvement in his lumbar and radicular pain, eager for surgery tomorrow 05/14: s/p redo L4-5 PLIF with repositioning of interbody cage on 05/13. pt on bedrest, surgical pain controlled. 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 He than sat up on edge of bed this am on his own despite strict bed rest order. wound reexamined, dressing dry with mild shadowing, no leaking from incision. 05/16: needing to have a BM, incision checked no drainage seen. 05/17: reports left hamstrings muscle spasm not being controlled with flexeril. mild halo sign on his lumbar dressing this morning, no active leaking, no saturation of dressing. 05/18: gauze dressing overnight saturated - yellow tinged. complaining of increased back and neck pain due to prolonged laying flat in bed - requesting BASKET MENDER. also requests to restart his Restoril that he takes at home prn sleep, reports feeling very anxious and currently tearful. 05/19: patient seen this morning during rounds. lumbar being drained 10 cc every hour, dressings are still being saturated. has BASKET MENDER, reports doing well with pain control on pump. 05/20: pt seen this am during rounds. pt had c/o spinal MACDONALD's last night, CSF draining decreased, improved MACDONALD's. pain controlled on BASKET MENDER. dressing changed this morning less saturated. 05/21: Patient is awake and alert. No complaints of headache. Lumbar dressing was changed at 4 AM. Moderate saturation of the previous dressing about this morning redressing appears fairly dry. Lumbar drain continues to put out xanthochromic fluid. Exam Results Vital Signs Date Time Temp Pulse Resp B/P (MAP) Pulse Ox O2 Delivery O2 Flow Rate FiO2 05/21/17 08:00 98.3 88 16 106/74 (85) 98 Intake and Output 05/21/17 05/21/17 05/22/17 08:00 16:00 00:00 Intake Total 2500 ml Output Total 1165 ml Balance 1335 ml Physical Examination Mr Childers is alert and oriented x 3. Speech is fluent. Conversing well, mentation intact. Cranial nerve examination: Facial motor are normal and symmetrical. Lumbar drain in place. CSF blood tinged. Incision with gauze dressing currently dry. Dressing replaced early this morning examined with mild to mod saturation - improved from yesterday. Neck: soft, supple Lab, Micro, Other Results Laboratory Tests Test 05/21/17 06:43 Blood Urea Nitrogen 17 Creatinine 0.90 Random Glucose 142 Calcium Level 9.0 Sodium Level 133 Potassium Level 3.9 Chloride Level 98 Carbon Dioxide Level 25.8 Anion Gap 9 Estimat Glomerular Filtration Rate 88 Date/Time Source Procedure Growth Status 05/18/17 17:34 Cerebral Spinal Fluid Lumbar Puncture Gram Stain - Final Complete 05/18/17 17:34 Cerebral Spinal Fluid Lumbar Puncture CSF Culture - Final NO GROWTH IN 72 HOURS Complete Medical Decision Making Impression and Plan Assessment: Status post revision PLIF with intraoperative dural tear. Patient being treated with recumbency and lumbar drain. Continued drainage through the incision however. Plan: Continue lumbar drain and recumbency. Aki Grady MD May 21, 2017 11:22
[2017-05-21] MEDS: PRAVASTATIN SOD 20 MG TAB PO SCH (21:22)
[2017-05-21] MEDS: TEMAZEPAM 7.5 MG CAP PO PRN (21:22)
[2017-05-21] MEDS: ROTIGOTINE 4 MG TOPICAL SCH (21:23)
[2017-05-22 00:46] VITALS: BP 121/78; PULSE 81; RESP 17; TEMP 97.4; O2SAT 97
[2017-05-22 05:16] VITALS: BP 107/66; PULSE 72; RESP 17; TEMP 97.9; O2SAT 96
[2017-05-22] MEDS: CARISOPRODOL 350 MG TAB PO PRN ×2 (05:55→20:18)
[2017-05-22] MEDS: GABAPENTIN 300 MG CAP PO SCH ×3 (05:55→21:58)
[2017-05-22] MEDS: PCA - TOTAL MG DILAUDID DELIVERED PER SHIFT SCH (05:57)
[2017-05-22 08:00] VITALS: BP 109/74; PULSE 76; RESP 16; TEMP 97.5; O2SAT 95
[2017-05-22] MEDS: PANTOPRAZOLE SOD 40 MG DELAYED RELEASE TAB PO SCH (08:36)
[2017-05-22] MEDS: DOCUSATE SODIUM 100 MG CAP PO SCH ×2 (08:36→20:18)
[2017-05-22] MEDS: SODIUM CHLORIDE 0.9% FLUSH 5 ML FLUSH IVF SCH ×2 (08:37→20:19)
[2017-05-22] MEDS: POLYETHYLENE GLYCOL 17 GM PKG PO SCH (08:37)
[2017-05-22] MEDS: HYDROmorphone HCL PCA 6 MG/30 ML IV SCH (09:25)
--- NOTE | 2017-05-22 10:56 | HHI.NSPN ---
History Interval History Mr Childers 51-year-old male with severe spinal spondylosis, status post laminectomy and arthrodhesis in January of this year. Postoperatively he was doing very well with clinical resolution of his back pain and radiculopathy, until he suffered a severe fall and reinjured his spine. He presents with acute worsening of chronic low back pain and left-sided radiculopathy. He reports constant sharp pain in the low back radiating to the left leg. Patient reports continued weakness in the left leg with foot drop. He does report an episode of loss of bladder contro today, however without any subsequent loss of bladder control. Recent xrays showed that his instrumentation has displaced following the fall. Neurosurgery consultation was requested 05/11. Continues to suffer severe pain. No further urinary incontinence. Follow up MRI done today 05/12: no improvement in his lumbar and radicular pain, eager for surgery tomorrow 05/14: s/p redo L4-5 PLIF with repositioning of interbody cage on 05/13. pt on bedrest, surgical pain controlled. 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 He than sat up on edge of bed this am on his own despite strict bed rest order. wound reexamined, dressing dry with mild shadowing, no leaking from incision. 05/16: needing to have a BM, incision checked no drainage seen. 05/17: reports left hamstrings muscle spasm not being controlled with flexeril. mild halo sign on his lumbar dressing this morning, no active leaking, no saturation of dressing. 05/18: gauze dressing overnight saturated - yellow tinged. complaining of increased back and neck pain due to prolonged laying flat in bed - requesting VARNISHING MACHINE OPERATOR. also requests to restart his Restoril that he takes at home prn sleep, reports feeling very anxious and currently tearful. 05/19: patient seen this morning during rounds. lumbar being drained 10 cc every hour, dressings are still being saturated. has VARNISHING MACHINE OPERATOR, reports doing well with pain control on pump. 05/20: pt seen this am during rounds. pt had c/o spinal MACDONALD's last night, CSF draining decreased, improved MACDONALD's. pain controlled on VARNISHING MACHINE OPERATOR. dressing changed this morning less saturated. 05/21: Patient is awake and alert. No complaints of headache. Lumbar dressing was changed at 4 AM. Moderate saturation of the previous dressing about this morning redressing appears fairly dry. Lumbar drain continues to put out xanthochromic fluid. 05/22: Patient remains awake and alert. No complaints of headache. Minimal drainage on the lumbar dressing this morning. New dressing applied at 10:30 AM. Exam Results Vital Signs Date Time Temp Pulse Resp B/P (MAP) Pulse Ox O2 Delivery O2 Flow Rate FiO2 05/22/17 09:25 18 05/22/17 08:00 97.5 76 109/74 (86) 95 Intake and Output 05/22/17 05/22/17 05/23/17 08:00 16:00 00:00 Intake Total 240 ml Output Total 950 ml Balance -710 ml Physical Examination Patient is awake and alert. Speech is intact. Motor function is 5 over 5 in the upper and lower extremities. Sensory intact to primary modalities. Lumbar incision without gross drainage and minimal drainage on dressing this morning. Lab, Micro, Other Results Date/Time Source Procedure Growth Status 05/18/17 17:34 Cerebral Spinal Fluid Lumbar Puncture Gram Stain - Final Complete 05/18/17 17:34 Cerebral Spinal Fluid Lumbar Puncture CSF Culture - Final NO GROWTH IN 72 HOURS Complete Medical Decision Making Impression and Plan Assessment: Status post revision PLIF with dural tear noted intraoperatively. Patient being treated with recumbency and lumbar drain. Decreasing drainage noted on dressing changes. Plan: Continue lumbar drain and recumbency for today. Dr. Hood to evaluate in aAki Leo MD May 22, 2017 10:56
[2017-05-22 12:00] VITALS: BP 100/63; PULSE 83; RESP 16; TEMP 97.7; O2SAT 95
--- NOTE | 2017-05-22 14:35 | HHI.PR ---
Subjective Remarks The patient was sitting up and getting washed up. He had questions about his back pain going down to the legs. He wanted the Ramírez catheter removed. Discussed with nursing. Objective Vitals Vital Signs Date Time Temp Pulse Resp B/P (MAP) Pulse Ox O2 Delivery O2 Flow Rate FiO2 05/22/17 12:00 97.7 83 16 100/63 (75) 95 05/22/17 09:25 18 05/22/17 08:00 97.5 76 16 109/74 (86) 95 05/22/17 06:57 18 05/22/17 06:57 18 05/22/17 05:57 18 05/22/17 05:16 97.9 72 17 107/66 (80) 96 05/22/17 00:46 97.4 81 17 121/78 (92) 97 05/21/17 21:30 18 05/21/17 21:30 18 05/21/17 21:00 98.4 91 20 120/71 (87) 97 05/21/17 16:23 18 05/21/17 16:00 98.1 89 16 115/66 (82) 94 05/21/17 14:33 18 I/O 05/21/17 05/21/17 05/21/17 05/22/17 05/22/17 05/22/17 07:00 15:00 23:00 07:00 15:00 23:00 Intake Total 2500 ml 700 ml 466 ml 240 ml Output Total 1165 ml 400 ml 165 ml 950 ml Balance 1335 ml 300 ml 301 ml -710 ml Intake Oral 2500 ml 700 ml 240 ml IV Total 466 ml Output Urine Total 1000 ml 400 ml 950 ml Drainage Total 165 ml 165 ml # Bowel Movements 1 0 Result Diagram: 05/19/1725 05/21/17 0643 Imaging Last Impressions Lumbar Puncture Fluoroscopy 05/18/17 0915 Signed Impressions: Service Date/Time: Thursday, May 18, 2017 15:41 - CONCLUSION: Uncomplicated lumbar drain placement as above. Yuri Mendez MD Lumbar Spine X-Ray 05/13/17 0000 Signed Impressions: Service Date/Time: Saturday, May 13, 2017 09:38 - CONCLUSION: Anatomic alignment.. Dameon Lovell MD FACR Lumbar Spine MRI 05/11/172008 Signed Impressions: Service Date/Time: Thursday, May 11, 2017 08:48 - CONCLUSION: Epidural scarring involving the left L4, left L5 and left S1 roots. Artifact from transpedicular fixation of L4 and L5. No other significant postoperative changes are noted. Dameon Lovell MD FACR Objective Remarks GENERAL: Resting comfortably. SKIN: Warm and dry. HEAD: Atraumatic. Normocephalic. EYES: Pupils equal and round. No scleral icterus. No injection or drainage. EOMI. ENT: No nasal bleeding or discharge. Mucous membranes pink and moist. NECK: Trachea midline. No JVD. CARDIOVASCULAR: Regular rate and rhythm. RESPIRATORY: No accessory muscle use. Clear to auscultation. Breath sounds equal bilaterally. GASTROINTESTINAL: Abdomen soft, non-tender, nondistended. Hepatic and splenic margins not palpable. MUSCULOSKELETAL: Extremities without clubbing, cyanosis, or edema. No obvious deformities. NEUROLOGICAL: Awake and alert. No obvious cranial nerve deficits. Motor grossly within normal limits. Normal speech. PSYCHIATRIC: Appropriate mood and affect; insight and judgment normal. Procedures s/p redo L4-5 PLIF with repositioning of interbody cage on 05/13 Medications and IVs Current Medications Medications (Trade) Dose Ordered Sig/Criselda Route Start Time Stop Time Status Last Admin (Milk Of Magnesia Liq) 30 ml Q12H PRN PO 05/10/17 20:00 05/17/17 08:05 (Senokot) 17.2 mg Q12H PRN PO 05/10/17 20:00 05/17/17 08:05 (Dulcolax Supp) 10 mg DAILY PRN RECTAL 05/10/17 20:00 05/20/17 18:37 (Lactulose Liq) 30 ml DAILY PRN PO 05/10/17 20:00 (Requip) 10 mg HS PO 05/10/17 21:00 05/21/17 21:26 (Requip) 5 mg DAILY PO 05/11/17 09:00 05/22/17 08:36 (Pill Splitter) 1 ea UNSCH PRN OTHER 05/10/17 21:00 (Pravachol) 20 mg HS PO 05/10/17 21:00 05/21/17 21:22 Sodium Chloride 1,000 ml @ 70 mls/hr [id number] IV 05/13/17 12:25 05/21/17 21:28 (NS Flush) 2 ml UNSCH PRN IVF 05/13/17 12:30 (NS Flush) 2 ml BID IVF 05/13/17 12:30 05/21/17 21:22 (Colace) 100 mg BID PO 05/13/17 21:00 05/22/17 08:36 (Protonix) 40 mg DAILY PO 05/14/17 09:00 05/22/17 08:36 (Zofran Inj) 4 mg Q6H PRN IV PUSH 05/13/17 12:30 05/16/17 20:15 (Catapres) 0.1 mg Q6H PRN PO/NG 05/13/17 12:30 (Tylenol) 650 mg Q4H PRN PO 05/13/17 12:30 ([place] Mayur) 1 lozenge UNSCH PRN BUCCAL 05/13/17 12:30 (Albuterol Neb) 2.5 mg Q4HR NEB PRN INH 05/13/17 12:30 Patient Own Medication Neupro 4mg transdermal pa... HS TOPICAL 05/13/17 21:00 05/21/17 21:23 (Soma) 350 mg Q8H PRN PO 05/17/17 09:30 05/22/17 05:55 (Citroma Liq) 300 ml Q8H PRN PO 05/17/17 15:15 (Restoril) 7.5 mg HS PRN PO 05/18/17 21:00 05/21/17 21:22 (Xanax) 0.25 mg Q8H PRN PO 05/18/17 11:15 05/20/17 04:17 (Narcan Inj) 0.4 mg UNSCH PRN IV PUSH 05/18/17 11:30 (Benadryl Inj) 25 mg Q6H PRN IV PUSH 05/18/17 11:30 (Miralax) 17 gm DAILY PO 05/19/17 11:30 05/20/17 08:33 (Tylenol) 650 mg Q6H PRN PO 05/20/17 01:00 (Neurontin) 600 mg Q8HR PO 05/20/17 14:00 05/22/17 12:41 (Roxicodone) 20 mg Q12HR PRN PO 05/22/17 11:30 05/22/17 12:42 A/P Problem List: (1) Lumbar radiculopathy ICD Code: M54.16 - Radiculopathy, lumbar region Status: Acute (2) Acute exacerbation of chronic low back pain ICD Code: M54.5 - Low back pain; G89.29 - Other chronic pain Status: Acute (3) S/P lumbar spinal fusion ICD Code: Z98.1 - Arthrodesis status Status: Acute (4) Anxiety ICD Code: F41.9 - Anxiety disorder, unspecified (5) Restless leg syndrome ICD Code: G25.81 - Restless legs syndrome (6) Dyslipidemia ICD Code: E78.5 - Hyperlipidemia, unspecified Assessment and Plan Mr Liseth 51-year-old male with severe spinal spondylosis, status post laminectomy and arthrodhesis he developed acute worsening of his lower back pain which resulted in redo L4-5 PLIF with repositioning of interbody cage on . S/p redo L4-5 PLIF with repositioning of interbody cage 05/13/17 MRI lumbar spine reviewed, previous fusion L4L5, epidural scarring left L4, L5 and S1 roots. - activity and pain control per NS. - increase gabapentin to 600 mg TID. Improved. - follow up with neurosurgery. Still on bedrest. Drain still in place. - PT/ OT. Urinary retention S/t surgery. - replaced Ramírez. - start Flomax. - voiding trial in a few days. Restless leg syndrome - on home Requip dose. - will bring in own patches. Constipation S/t pain meds. - bowel regimen. PPx: SCDs Discharge Planning Per Saul Vasquez DO May 22, 2017 14:35
[2017-05-22] MEDS: TAMSULOSIN HCL 0.4 MG CAP PO SCH (14:52)
[2017-05-22 16:00] VITALS: BP 113/70; PULSE 80; RESP 16; TEMP 98.2; O2SAT 96
[2017-05-22] MEDS: ROTIGOTINE 4 MG TOPICAL SCH (20:17)
[2017-05-22] MEDS: TEMAZEPAM 7.5 MG CAP PO PRN (20:18)
[2017-05-22] MEDS: PRAVASTATIN SOD 20 MG TAB PO SCH (20:18)
[2017-05-22 21:22] VITALS: BP 106/67; PULSE 82; RESP 20; TEMP 98.2; O2SAT 97
[2017-05-22] MEDS ORDERED: MORPHINE SULFATE 2 MG/ML INJ IV PUSH ONE (21:30)
[2017-05-23 00:09] VITALS: BP 112/70; PULSE 84; RESP 17; TEMP 97.9; O2SAT 95
[2017-05-23 05:04] VITALS: BP 146/67; PULSE 82; RESP 17; TEMP 97.5; O2SAT 94
[2017-05-23] MEDS: GABAPENTIN 300 MG CAP PO SCH ×3 (06:29→21:35)
[2017-05-23 08:23] VITALS: BP 110/68; PULSE 77; RESP 20; TEMP 98.1; O2SAT 98
[2017-05-23] MEDS: DOCUSATE SODIUM 100 MG CAP PO SCH ×2 (08:37→20:03)
[2017-05-23] MEDS: PANTOPRAZOLE SOD 40 MG DELAYED RELEASE TAB PO SCH (08:37)
[2017-05-23] MEDS: POLYETHYLENE GLYCOL 17 GM PKG PO SCH (08:38)
[2017-05-23] MEDS: TAMSULOSIN HCL 0.4 MG CAP PO SCH (08:38)
[2017-05-23] MEDS: SODIUM CHLORIDE 0.9% FLUSH 5 ML FLUSH IVF SCH ×2 (08:38→20:07)
[2017-05-23] MEDS: CARISOPRODOL 350 MG TAB PO PRN ×2 (08:42→20:02)
[2017-05-23] MEDS: BISACODYL 10 MG SUPP RECTAL PRN (08:42)
[2017-05-23] MEDS: ALPRAZolam 0.25 MG TAB PO PRN (08:42)
--- NOTE | 2017-05-23 11:14 | HHI.PR ---
Subjective Remarks The patient was resting comfortably in bed. He said he did not like the pain medication regimen. Otherwise he said everything else was going well. Discussed with nursing. Objective Vitals Vital Signs Date Time Temp Pulse Resp B/P (MAP) Pulse Ox O2 Delivery O2 Flow Rate FiO2 05/23/17 08:23 98.1 77 20 110/68 (82) 98 05/23/17 05:04 97.5 82 17 146/67 (93) 94 05/23/17 00:09 97.9 84 17 112/70 (84) 95 05/22/17 21:22 98.2 82 20 106/67 (80) 97 05/22/17 16:00 98.2 80 16 113/70 (84) 96 05/22/17 12:00 97.7 83 16 100/63 (75) 95 I/O 05/22/17 05/22/17 05/22/17 05/23/17 05/23/17 05/23/17 07:00 15:00 23:00 07:00 15:00 23:00 Intake Total 240 ml 480 ml 240 ml Output Total 950 ml 1835 ml 870 ml 35 ml Balance -710 ml -1355 ml -630 ml -35 ml Intake Oral 240 ml 480 ml 240 ml Output Urine Total 950 ml 1775 ml 750 ml Drainage Total 60 ml 120 ml 35 ml # Bowel Movements 0 Result Diagram: 05/19/1725 05/21/17 0643 Imaging Last Impressions Lumbar Puncture Fluoroscopy 05/18/17 0915 Signed Impressions: Service Date/Time: Thursday, May 18, 2017 15:41 - CONCLUSION: Uncomplicated lumbar drain placement as above. Yuri Mendez MD Lumbar Spine X-Ray 05/13/17 0000 Signed Impressions: Service Date/Time: Saturday, May 13, 2017 09:38 - CONCLUSION: Anatomic alignment.. Dameon Lovell MD FACR Lumbar Spine MRI 05/11/172008 Signed Impressions: Service Date/Time: Thursday, May 11, 2017 08:48 - CONCLUSION: Epidural scarring involving the left L4, left L5 and left S1 roots. Artifact from transpedicular fixation of L4 and L5. No other significant postoperative changes are noted. Dameon Lovell MD FACR Objective Remarks GENERAL: Resting comfortably. SKIN: Warm and dry. HEAD: Atraumatic. Normocephalic. EYES: Pupils equal and round. No scleral icterus. No injection or drainage. EOMI. ENT: No nasal bleeding or discharge. Mucous membranes pink and moist. NECK: Trachea midline. No JVD. CARDIOVASCULAR: Regular rate and rhythm. RESPIRATORY: No accessory muscle use. Clear to auscultation. Breath sounds equal bilaterally. GASTROINTESTINAL: Abdomen soft, non-tender, nondistended. Hepatic and splenic margins not palpable. MUSCULOSKELETAL: Extremities without clubbing, cyanosis, or edema. No obvious deformities. NEUROLOGICAL: Awake and alert. No obvious cranial nerve deficits. Motor grossly within normal limits. Normal speech. PSYCHIATRIC: Appropriate mood and affect; insight and judgment normal. Procedures s/p redo L4-5 PLIF with repositioning of interbody cage on 05/13 Medications and IVs Current Medications Medications (Trade) Dose Ordered Sig/Criselda Route Start Time Stop Time Status Last Admin (Milk Of Magnesia Liq) 30 ml Q12H PRN PO 05/10/17 20:00 05/17/17 08:05 (Senokot) 17.2 mg Q12H PRN PO 05/10/17 20:00 05/17/17 08:05 (Dulcolax Supp) 10 mg DAILY PRN RECTAL 05/10/17 20:00 05/23/17 08:42 (Lactulose Liq) 30 ml DAILY PRN PO 05/10/17 20:00 (Requip) 10 mg HS PO 05/10/17 21:00 05/22/17 20:18 (Requip) 5 mg DAILY PO 05/11/17 09:00 05/23/17 08:38 (Pill Splitter) 1 ea UNSCH PRN OTHER 05/10/17 21:00 (Pravachol) 20 mg HS PO 05/10/17 21:00 05/22/17 20:18 (NS Flush) 2 ml UNSCH PRN IVF 05/13/17 12:30 (NS Flush) 2 ml BID IVF 05/13/17 12:30 05/23/17 08:38 (Colace) 100 mg BID PO 05/13/17 21:00 05/23/17 08:37 (Protonix) 40 mg DAILY PO 05/14/17 09:00 05/23/17 08:37 (Zofran Inj) 4 mg Q6H PRN IV PUSH 05/13/17 12:30 05/16/17 20:15 (Catapres) 0.1 mg Q6H PRN PO/NG 05/13/17 12:30 (Tylenol) 650 mg Q4H PRN PO 05/13/17 12:30 ([place] Mayur) 1 lozenge UNSCH PRN BUCCAL 05/13/17 12:30 (Albuterol Neb) 2.5 mg Q4HR NEB PRN INH 05/13/17 12:30 Patient Own Medication Neupro 4mg transdermal pa... HS TOPICAL 05/13/17 21:00 05/22/17 20:17 (Soma) 350 mg Q8H PRN PO 05/17/17 09:30 05/23/17 08:42 (Citroma Liq) 300 ml Q8H PRN PO 05/17/17 15:15 (Restoril) 7.5 mg HS PRN PO 05/18/17 21:00 05/22/17 20:18 (Xanax) 0.25 mg Q8H PRN PO 05/18/17 11:15 05/23/17 08:42 (Narcan Inj) 0.4 mg UNSCH PRN IV PUSH 05/18/17 11:30 (Benadryl Inj) 25 mg Q6H PRN IV PUSH 05/18/17 11:30 (Miralax) 17 gm DAILY PO 05/19/17 11:30 05/20/17 08:33 (Tylenol) 650 mg Q6H PRN PO 05/20/17 01:00 05/22/17 16:41 (Neurontin) 600 mg Q8HR PO 05/20/17 14:00 05/23/17 06:29 (Flomax) 0.4 mg DAILY PO 05/22/17 14:45 05/23/17 08:38 (Roxicodone) 5 mg Q4H PRN PO 05/23/17 16:00 UNV (Roxicodone) 10 mg Q4H PRN PO 05/23/17 16:00 UNV (Dilaudid Pf Inj) 0.5 mg Q6HR PRN IV PUSH 05/23/17 10:45 UNV A/P Problem List: (1) Lumbar radiculopathy ICD Code: M54.16 - Radiculopathy, lumbar region Status: Acute (2) Acute exacerbation of chronic low back pain ICD Code: M54.5 - Low back pain; G89.29 - Other chronic pain Status: Acute (3) S/P lumbar spinal fusion ICD Code: Z98.1 - Arthrodesis status Status: Acute (4) Anxiety ICD Code: F41.9 - Anxiety disorder, unspecified (5) Restless leg syndrome ICD Code: G25.81 - Restless legs syndrome (6) Dyslipidemia ICD Code: E78.5 - Hyperlipidemia, unspecified Assessment and Plan Mr Childers 51-year-old male with severe spinal spondylosis, status post laminectomy and arthrodhesis he developed acute worsening of his lower back pain which resulted in redo L4-5 PLIF with repositioning of interbody cage on . S/p redo L4-5 PLIF with repositioning of interbody cage 05/13/17 MRI lumbar spine reviewed, previous fusion L4L5, epidural scarring left L4, L5 and S1 roots. - activity per NS. - on oxycodone q6h with Dilaudid for breakthrough pain. Wean as tolerated. - increase gabapentin to 600 mg TID. Improved. - follow up with neurosurgery. Drain still in place. - PT/ OT. Urinary retention S/t surgery. - replaced Ramírez. - start Flomax. - voiding trial in a few days. Restless leg syndrome - on home Requip dose. - will bring in own patches. Constipation S/t pain meds. - bowel regimen. PPx: SCDs Discharge Planning Per Saul Vasquez DO May 23, 2017 11:14
[2017-05-23 12:00] VITALS: BP 133/83; PULSE 87; RESP 20; TEMP 98.5; O2SAT 96
[2017-05-23] MEDS: HYDROmorphone HCL PF 0.5 MG/0.5 ML SYRINGE IV PUSH PRN ×2 (13:12→20:02)
[2017-05-23 16:41] VITALS: BP 113/71; PULSE 89; RESP 20; TEMP 98.6; O2SAT 95
[2017-05-23] MEDS: PRAVASTATIN SOD 20 MG TAB PO SCH (20:04)
[2017-05-23] MEDS: TEMAZEPAM 7.5 MG CAP PO PRN (20:04)
[2017-05-23 20:50] VITALS: BP 114/73; PULSE 95; RESP 18; TEMP 98; O2SAT 95
[2017-05-23] MEDS: ROTIGOTINE 4 MG TOPICAL SCH (21:00)
[2017-05-24 00:50] VITALS: BP 120/64; PULSE 90; RESP 18; TEMP 98.4; O2SAT 95
[2017-05-24] MEDS: BISACODYL 10 MG SUPP RECTAL PRN (01:13)
[2017-05-24] MEDS: HYDROmorphone HCL PF 0.5 MG/0.5 ML SYRINGE IV PUSH PRN ×4 (03:23→22:00)
[2017-05-24] MEDS: CARISOPRODOL 350 MG TAB PO PRN (05:02)
[2017-05-24] MEDS: ALPRAZolam 0.25 MG TAB PO PRN (05:02)
[2017-05-24 05:36] VITALS: BP 113/72; PULSE 83; RESP 18; TEMP 98.1; O2SAT 95
[2017-05-24] MEDS: GABAPENTIN 300 MG CAP PO SCH ×3 (06:27→20:59)
[2017-05-24 08:00] VITALS: BP 140/69; PULSE 89; RESP 20; TEMP 98; O2SAT 98
[2017-05-24] MEDS: TAMSULOSIN HCL 0.4 MG CAP PO SCH (09:05)
[2017-05-24] MEDS: PANTOPRAZOLE SOD 40 MG DELAYED RELEASE TAB PO SCH (09:05)
[2017-05-24] MEDS: POLYETHYLENE GLYCOL 17 GM PKG PO SCH (09:05)
[2017-05-24] MEDS: DOCUSATE SODIUM 100 MG CAP PO SCH ×2 (09:05→20:59)
[2017-05-24] MEDS: SODIUM CHLORIDE 0.9% FLUSH 5 ML FLUSH IVF SCH ×2 (09:05→21:00)
--- NOTE | 2017-05-24 10:21 | HHI.PR ---
Subjective Remarks Follow up for severe spinal spondylosis, status post laminectomy. Patient is doing well. Spinal drain in place but not draining much. No fever, chills. Objective Vitals Vital Signs Date Time Temp Pulse Resp B/P (MAP) Pulse Ox O2 Delivery O2 Flow Rate FiO2 05/24/17 08:00 98.0 89 20 140/69 (92) 98 05/24/17 05:36 98.1 83 18 113/72 (86) 95 05/24/17 00:50 98.4 90 18 120/64 (82) 95 05/23/17 20:50 98.0 95 18 114/73 (87) 95 05/23/17 16:41 98.6 89 20 113/71 (85) 95 05/23/17 12:00 98.5 87 20 133/83 (100) 96 I/O 05/23/17 05/23/17 05/23/17 05/24/17 05/24/17 05/24/17 07:00 15:00 23:00 07:00 15:00 23:00 Intake Total 240 ml 720 ml Output Total 870 ml 1585 ml 565 ml 430 ml Balance -630 ml -865 ml -565 ml -430 ml Intake Oral 240 ml 720 ml Output Urine Total 750 ml 1550 ml 500 ml 400 ml Drainage Total 120 ml 35 ml 65 ml 30 ml # Bowel Movements 1 1 Result Diagram: 05/21/17 0643 Imaging Last Impressions Lumbar Puncture Fluoroscopy 05/18/17 0915 Signed Impressions: Service Date/Time: Thursday, May 18, 2017 15:41 - CONCLUSION: Uncomplicated lumbar drain placement as above. Yuri Mendez MD Lumbar Spine X-Ray 05/13/17 0000 Signed Impressions: Service Date/Time: Saturday, May 13, 2017 09:38 - CONCLUSION: Anatomic alignment.. Dameon Lovell MD FACR Lumbar Spine MRI 05/11/172008 Signed Impressions: Service Date/Time: Thursday, May 11, 2017 08:48 - CONCLUSION: Epidural scarring involving the left L4, left L5 and left S1 roots. Artifact from transpedicular fixation of L4 and L5. No other significant postoperative changes are noted. Dameon Lovell MD FACR Objective Remarks GENERAL: Alert, Oriented x 3 SKIN: Warm and dry. HEAD: Normocephalic. EYES: No scleral icterus. No injection or drainage. NECK: Supple, trachea midline. No JVD or lymphadenopathy. CARDIOVASCULAR: Regular rate and rhythm without murmurs, gallops, or rubs. RESPIRATORY: Breath sounds equal bilaterally. No accessory muscle use. GASTROINTESTINAL: Abdomen soft, non-tender, nondistended. MUSCULOSKELETAL: No cyanosis, or edema. BACK: Nontender without obvious deformity. No CVA tenderness. Procedures s/p redo L4-5 PLIF with repositioning of interbody cage on 05/13 A/P Problem List: (1) Lumbar radiculopathy ICD Code: M54.16 - Radiculopathy, lumbar region Status: Acute (2) Acute exacerbation of chronic low back pain ICD Code: M54.5 - Low back pain; G89.29 - Other chronic pain Status: Acute (3) S/P lumbar spinal fusion ICD Code: Z98.1 - Arthrodesis status Status: Acute (4) Anxiety ICD Code: F41.9 - Anxiety disorder, unspecified (5) Restless leg syndrome ICD Code: G25.81 - Restless legs syndrome (6) Dyslipidemia ICD Code: E78.5 - Hyperlipidemia, unspecified Assessment and Plan Mr Liseth 51-year-old male with severe spinal spondylosis, status post laminectomy and arthrodhesis he developed acute worsening of his lower back pain which resulted in redo L4-5 PLIF with repositioning of interbody cage on . S/p redo L4-5 PLIF with repositioning of interbody cage 05/13/17 MRI lumbar spine shows previous fusion L4L5, epidural scarring left L4, L5 and S1 roots. - activity per NS. - on oxycodone q6h with Dilaudid for breakthrough pain. Wean as tolerated. - increase gabapentin to 600 mg TID. Improved. Also on Soma. - follow up with neurosurgery. Drain still in place. Drain can probably be discontinued. - Patient can likely be advanced with his activities. Urinary retention - Will d/c Ramírez. - Continue Tamsulosin. Restless leg syndrome - Continue Ropinirole. Full code. Lovenox. Ruben Flores DO May 24, 2017 10:21
[2017-05-24 12:45] VITALS: BP 119/67; PULSE 81; RESP 20; TEMP 98.2; O2SAT 98
--- NOTE | 2017-05-24 15:13 | HHI.NSPN ---
Note Status Status: Progress Note Interval History Interval History THIS NOTE IS FOR 05/23/17 WHEN PATIENT WAS SEEN AND EXAMINED, NOTE NOT SAVED Mr Childers 51-year-old male with severe spinal spondylosis, status post laminectomy and arthrodhesis in January of this year. Postoperatively he was doing very well with clinical resolution of his back pain and radiculopathy, until he suffered a severe fall and reinjured his spine. He presents with acute worsening of chronic low back pain and left-sided radiculopathy. He reports constant sharp pain in the low back radiating to the left leg. Patient reports continued weakness in the left leg with foot drop. He does report an episode of loss of bladder contro today, however without any subsequent loss of bladder control. Recent xrays showed that his instrumentation has displaced following the fall. Neurosurgery consultation was requested 05/11. Continues to suffer severe pain. No further urinary incontinence. Follow up MRI done today 05/12: no improvement in his lumbar and radicular pain, eager for surgery tomorrow 05/14: s/p redo L4-5 PLIF with repositioning of interbody cage on 05/13. pt on bedrest, surgical pain controlled. 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 He than sat up on edge of bed this am on his own despite strict bed rest order. wound reexamined, dressing dry with mild shadowing, no leaking from incision. 05/16: needing to have a BM, incision checked no drainage seen. 05/17: reports left hamstrings muscle spasm not being controlled with flexeril. mild halo sign on his lumbar dressing this morning, no active leaking, no saturation of dressing. 05/18: gauze dressing overnight saturated - yellow tinged. complaining of increased back and neck pain due to prolonged laying flat in bed - requesting [employer]. also requests to restart his Restoril that he takes at home prn sleep, reports feeling very anxious and currently tearful. 05/19: patient seen this morning during rounds. lumbar being drained 10 cc every hour, dressings are still being saturated. has [employer], reports doing well with pain control on pump. 05/20: pt seen this am during rounds. pt had c/o spinal MACDONALD's last night, CSF draining decreased, improved MACDONALD's. pain controlled on [employer]. dressing changed this morning less saturated. 05/23: his dressings are much dryer, still draining CSF and remains on bed rest. c/o of low back pain and leg pain - has been laying for too long. Labs, Micro, & Vital Signs Results Date Time Temp Pulse Resp B/P (MAP) Pulse Ox O2 Delivery O2 Flow Rate FiO2 05/24/17 12:45 98.2 81 20 119/67 (84) 98 05/24/17 08:00 98.0 89 20 140/69 (92) 98 05/24/17 05:36 98.1 83 18 113/72 (86) 95 05/24/17 00:50 98.4 90 18 120/64 (82) 95 05/23/17 20:50 98.0 95 18 114/73 (87) 95 05/23/17 16:41 98.6 89 20 113/71 (85) 95 Constitutional Vital Signs Date Time Temp Pulse Resp B/P (MAP) Pulse Ox O2 Delivery O2 Flow Rate FiO2 05/24/17 12:45 98.2 81 20 119/67 (84) 98 05/24/17 08:00 98.0 89 20 140/69 (92) 98 05/24/17 05:36 98.1 83 18 113/72 (86) 95 05/24/17 00:50 98.4 90 18 120/64 (82) 95 05/23/17 20:50 98.0 95 18 114/73 (87) 95 05/23/17 16:41 98.6 89 20 113/71 (85) 95 Physical Exam THIS NOTE IS FOR 05/23/17 WHEN PATIENT WAS SEEN AND EXAMINED, NOTE NOT SAVED Mr. Childers is awake and alert. Speech is intact. Lumbar incision without gross drainage and very minimal drainage on dressing this morning. Medications Current Medications Current Medications Medications (Trade) Dose Ordered Sig/Criselda Route PRN Reason Start Time Stop Time Status Last Admin Dose Admin Magnesium Hydroxide (Milk Of Magnesia Liq) 30 ml Q12H PRN PO Mild constipation 05/10/17 20:00 05/17/17 08:05 Sennosides (Senokot) 17.2 mg Q12H PRN PO Moderate constipation 05/10/17 20:00 05/17/17 08:05 Bisacodyl (Dulcolax Supp) 10 mg DAILY PRN RECTAL SEVERE CONSITIPATION 05/10/17 20:00 05/24/17 01:13 Lactulose (Lactulose Liq) 30 ml DAILY PRN PO SEVERE CONSITIPATION 05/10/17 20:00 Ropinirole HCl (Requip) 10 mg HS PO 05/10/17 21:00 05/23/17 20:07 Ropinirole HCl (Requip) 5 mg DAILY PO 05/11/17 09:00 05/24/17 09:05 Miscellaneous (Pill Splitter) 1 ea UNSCH PRN OTHER SEE LABEL COMMENTS 05/10/17 21:00 Pravastatin Sodium (Pravachol) 20 mg HS PO 05/10/17 21:00 05/23/17 20:04 IV Flush (NS Flush) 2 ml UNSCH PRN IVF FLUSH AFTER USING IV ACCESS 05/13/17 12:30 IV Flush (NS Flush) 2 ml BID IVF 05/13/17 12:30 05/23/17 20:07 Docusate Sodium (Colace) 100 mg BID PO 05/13/17 21:00 05/24/17 09:05 Pantoprazole Sodium (Protonix) 40 mg DAILY PO 05/14/17 09:00 05/24/17 09:05 Ondansetron HCl (Zofran Inj) 4 mg Q6H PRN IV PUSH NAUSEA OR VOMITING 05/13/17 12:30 05/16/17 20:15 Clonidine (Catapres) 0.1 mg Q6H PRN PO/NG SYS BP GREATER THAN 170 MMHG 05/13/17 12:30 Acetaminophen (Tylenol) 650 mg Q4H PRN PO TEMPERATURE > 101.5 F 05/13/17 12:30 Menthol ([place] Mayur) 1 lozenge UNSCH PRN BUCCAL SORE THROAT 05/13/17 12:30 Albuterol Sulfate (Albuterol Neb) 2.5 mg Q4HR NEB PRN INH WHEEZING 05/13/17 12:30 Patient Own Medication Neupro 4mg transdermal pa... HS TOPICAL 05/13/17 21:00 05/23/17 21:00 Carisoprodol (Soma) 350 mg Q8H PRN PO muscle spasms 05/17/17 09:30 05/24/17 05:02 Magnesium Citrate (Citroma Liq) 300 ml Q8H PRN PO VERY SEVERE CONSTIPATION 05/17/17 15:15 Temazepam (Restoril) 7.5 mg HS PRN PO insomnia 05/18/17 21:00 05/23/17 20:04 Alprazolam (Xanax) 0.25 mg Q8H PRN PO anxiety 05/18/17 11:15 05/24/17 05:02 Naloxone HCl (Narcan Inj) 0.4 mg UNSCH PRN IV PUSH RESPIRATORY RATE LESS THAN 10 05/18/17 11:30 Diphenhydramine HCl (Benadryl Inj) 25 mg Q6H PRN IV PUSH ITCHING 05/18/17 11:30 Polyethylene Glycol (Miralax) 17 gm DAILY PO 05/19/17 11:30 05/24/17 09:05 Acetaminophen (Tylenol) 650 mg Q6H PRN PO HEADACHE 05/20/17 01:00 05/22/17 16:41 Gabapentin (Neurontin) 600 mg Q8HR PO 05/20/17 14:00 05/24/17 13:19 Tamsulosin HCl (Flomax) 0.4 mg DAILY PO 05/22/17 14:45 05/24/17 09:05 Hydromorphone HCl (Dilaudid Pf Inj) 0.5 mg Q6HR PRN IV PUSH BREAKTHROUGH PAIN 05/23/17 12:00 05/24/17 09:02 Oxycodone HCl (Roxicodone) 5 mg Q6H PRN PO pain 3-5 05/23/17 11:08 Enoxaparin Sodium (Lovenox Inj) 40 mg Q24H SQ 05/24/17 20:00 Oxycodone HCl (Roxicodone) 10 mg Q4HR PRN PO PAIN 6-10 05/24/17 15:00 Medical Decision Making MDM Remarks THIS NOTE IS FOR 05/23/17 WHEN PATIENT WAS SEEN AND EXAMINED, NOTE NOT SAVED 51 y/o male s/p redo L4-5 PLIF with repositioning of interbody cage, dural repair of CSF leak 05/13/17 s/p placement of external lumbar drain 05/18 due to CSF leak, 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
--- NOTE | 2017-05-24 15:34 | HHI.NSPN ---
Note Status Status: Progress Note Interval History Interval History Mr Childers 51-year-old male with severe spinal spondylosis, status post laminectomy and arthrodhesis in January of this year. Postoperatively he was doing very well with clinical resolution of his back pain and radiculopathy, until he suffered a severe fall and reinjured his spine. He presents with acute worsening of chronic low back pain and left-sided radiculopathy. He reports constant sharp pain in the low back radiating to the left leg. Patient reports continued weakness in the left leg with foot drop. He does report an episode of loss of bladder contro today, however without any subsequent loss of bladder control. Recent xrays showed that his instrumentation has displaced following the fall. Neurosurgery consultation was requested 05/11. Continues to suffer severe pain. No further urinary incontinence. Follow up MRI done today 05/12: no improvement in his lumbar and radicular pain, eager for surgery tomorrow 05/14: s/p redo L4-5 PLIF with repositioning of interbody cage on 05/13. pt on bedrest, surgical pain controlled. 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 He than sat up on edge of bed this am on his own despite strict bed rest order. wound reexamined, dressing dry with mild shadowing, no leaking from incision. 05/16: needing to have a BM, incision checked no drainage seen. 05/17: reports left hamstrings muscle spasm not being controlled with flexeril. mild halo sign on his lumbar dressing this morning, no active leaking, no saturation of dressing. 05/18: gauze dressing overnight saturated - yellow tinged. complaining of increased back and neck pain due to prolonged laying flat in bed - requesting [employer]. also requests to restart his Restoril that he takes at home prn sleep, reports feeling very anxious and currently tearful. 05/19: patient seen this morning during rounds. lumbar being drained 10 cc every hour, dressings are still being saturated. has [employer]IATE, reports doing well with pain control on pump. 05/20: pt seen this am during rounds. pt had c/o spinal MACDONALD's last night, CSF draining decreased, improved MACDONALD's. pain controlled on [employer] ASSOCIATE. dressing changed this morning less saturated. 05/23: his dressings are much dryer, still draining CSF and remains on bed rest. c/o of low back pain and leg pain - has been laying for too long. 05/24: dressing dry overnight, still complains of low back pain requesting to increase his pain medication frequency. Labs, Micro, & Vital Signs Results Date Time Temp Pulse Resp B/P (MAP) Pulse Ox O2 Delivery O2 Flow Rate FiO2 05/24/17 12:45 98.2 81 20 119/67 (84) 98 05/24/17 08:00 98.0 89 20 140/69 (92) 98 05/24/17 05:36 98.1 83 18 113/72 (86) 95 05/24/17 00:50 98.4 90 18 120/64 (82) 95 05/23/17 20:50 98.0 95 18 114/73 (87) 95 05/23/17 16:41 98.6 89 20 113/71 (85) 95 Constitutional Vital Signs Date Time Temp Pulse Resp B/P (MAP) Pulse Ox O2 Delivery O2 Flow Rate FiO2 05/24/17 12:45 98.2 81 20 119/67 (84) 98 05/24/17 08:00 98.0 89 20 140/69 (92) 98 05/24/17 05:36 98.1 83 18 113/72 (86) 95 05/24/17 00:50 98.4 90 18 120/64 (82) 95 05/23/17 20:50 98.0 95 18 114/73 (87) 95 05/23/17 16:41 98.6 89 20 113/71 (85) 95 Review of Systems Constitutional: DENIES: Fever Musculoskeletal: COMPLAINS OF: Back pain Physical Exam Mr. Childers is awake and alert. Speech is intact. Lumbar incision without gross drainage and grossly dry dressing lumbar drain intact Medications Current Medications Current Medications Medications (Trade) Dose Ordered Sig/Criselda Route PRN Reason Start Time Stop Time Status Last Admin Dose Admin Magnesium Hydroxide (Milk Of Magnesia Liq) 30 ml Q12H PRN PO Mild constipation 05/10/17 20:00 05/17/17 08:05 Sennosides (Senokot) 17.2 mg Q12H PRN PO Moderate constipation 05/10/17 20:00 05/17/17 08:05 Bisacodyl (Dulcolax Supp) 10 mg DAILY PRN RECTAL SEVERE CONSITIPATION 05/10/17 20:00 05/24/17 01:13 Lactulose (Lactulose Liq) 30 ml DAILY PRN PO SEVERE CONSITIPATION 05/10/17 20:00 Ropinirole HCl (Requip) 10 mg HS PO 05/10/17 21:00 05/23/17 20:07 Ropinirole HCl (Requip) 5 mg DAILY PO 05/11/17 09:00 05/24/17 09:05 Miscellaneous (Pill Splitter) 1 ea UNSCH PRN OTHER SEE LABEL COMMENTS 05/10/17 21:00 Pravastatin Sodium (Pravachol) 20 mg HS PO 05/10/17 21:00 05/23/17 20:04 IV Flush (NS Flush) 2 ml UNSCH PRN IVF FLUSH AFTER USING IV ACCESS 05/13/17 12:30 IV Flush (NS Flush) 2 ml BID IVF 05/13/17 12:30 05/23/17 20:07 Docusate Sodium (Colace) 100 mg BID PO 05/13/17 21:00 05/24/17 09:05 Pantoprazole Sodium (Protonix) 40 mg DAILY PO 05/14/17 09:00 05/24/17 09:05 Ondansetron HCl (Zofran Inj) 4 mg Q6H PRN IV PUSH NAUSEA OR VOMITING 05/13/17 12:30 05/16/17 20:15 Clonidine (Catapres) 0.1 mg Q6H PRN PO/NG SYS BP GREATER THAN 170 MMHG 05/13/17 12:30 Acetaminophen (Tylenol) 650 mg Q4H PRN PO TEMPERATURE > 101.5 F 05/13/17 12:30 Menthol ([place] Mayur) 1 lozenge UNSCH PRN BUCCAL SORE THROAT 05/13/17 12:30 Albuterol Sulfate (Albuterol Neb) 2.5 mg Q4HR NEB PRN INH WHEEZING 05/13/17 12:30 Patient Own Medication Neupro 4mg transdermal pa... HS TOPICAL 05/13/17 21:00 05/23/17 21:00 Carisoprodol (Soma) 350 mg Q8H PRN PO muscle spasms 05/17/17 09:30 05/24/17 05:02 Magnesium Citrate (Citroma Liq) 300 ml Q8H PRN PO VERY SEVERE CONSTIPATION 05/17/17 15:15 Temazepam (Restoril) 7.5 mg HS PRN PO insomnia 05/18/17 21:00 05/23/17 20:04 Alprazolam (Xanax) 0.25 mg Q8H PRN PO anxiety 05/18/17 11:15 05/24/17 05:02 Naloxone HCl (Narcan Inj) 0.4 mg UNSCH PRN IV PUSH RESPIRATORY RATE LESS THAN 10 05/18/17 11:30 Diphenhydramine HCl (Benadryl Inj) 25 mg Q6H PRN IV PUSH ITCHING 05/18/17 11:30 Polyethylene Glycol (Miralax) 17 gm DAILY PO 05/19/17 11:30 05/24/17 09:05 Acetaminophen (Tylenol) 650 mg Q6H PRN PO HEADACHE 05/20/17 01:00 05/22/17 16:41 Gabapentin (Neurontin) 600 mg Q8HR PO 05/20/17 14:00 05/24/17 13:19 Tamsulosin HCl (Flomax) 0.4 mg DAILY PO 05/22/17 14:45 05/24/17 09:05 Hydromorphone HCl (Dilaudid Pf Inj) 0.5 mg Q6HR PRN IV PUSH BREAKTHROUGH PAIN 05/23/17 12:00 05/24/17 09:02 Oxycodone HCl (Roxicodone) 5 mg Q6H PRN PO pain 3-5 05/23/17 11:08 Enoxaparin Sodium (Lovenox Inj) 40 mg Q24H SQ 05/24/17 20:00 Oxycodone HCl (Roxicodone) 10 mg Q4HR PRN PO PAIN 6-10 05/24/17 15:00 Medical Decision Making MDM Remarks 51 y/o male s/p redo L4-5 PLIF with repositioning of interbody cage, dural repair of CSF leak 05/13/17 s/p placement of external lumbar drain 05/18 due to CSF leak, 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 Hood, lumbar drain can be discontinued, keep flat per protocol, may increase HOB, start slow mobilizing out of bed restart sq lovenox tonight SCDs and TEDs for dvt prophylaxis cont medical mgt following - appreciate assistance dw nursing cont daily dressing changes, monitor wound Roxicet increased to 10 mg every 4 hours for pain 6-10 [facility] May 24, 2017 15:34
[2017-05-24 16:09] VITALS: BP 106/66; PULSE 85; RESP 20; TEMP 98.5; O2SAT 97
[2017-05-24 20:00] VITALS: BP 118/74; PULSE 83; RESP 18; TEMP 98.1; O2SAT 99
[2017-05-24] MEDS ORDERED: ENOXAPARIN SODIUM 40 MG/0.4 ML SYRINGE SQ SCH (20:00)
[2017-05-24] MEDS: PRAVASTATIN SOD 20 MG TAB PO SCH (20:59)
[2017-05-24] MEDS: ROTIGOTINE 4 MG TOPICAL SCH (21:00)
[2017-05-25 01:00] VITALS: BP 123/81; PULSE 91; RESP 18; TEMP 98; O2SAT 99
[2017-05-25] MEDS: HYDROmorphone HCL PF 0.5 MG/0.5 ML SYRINGE IV PUSH PRN ×2 (04:15→10:58)
[2017-05-25 04:20] VITALS: BP 111/70; PULSE 89; RESP 18; TEMP 98.3; O2SAT 95
[2017-05-25] MEDS: GABAPENTIN 300 MG CAP PO SCH ×2 (06:14→14:03)
[2017-05-25 08:00] VITALS: BP 124/72; PULSE 79; RESP 16; TEMP 98.3; O2SAT 97
[2017-05-25] MEDS: PANTOPRAZOLE SOD 40 MG DELAYED RELEASE TAB PO SCH (08:18)
[2017-05-25] MEDS: TAMSULOSIN HCL 0.4 MG CAP PO SCH (08:18)
[2017-05-25] MEDS: POLYETHYLENE GLYCOL 17 GM PKG PO SCH (08:19)
[2017-05-25] MEDS: DOCUSATE SODIUM 100 MG CAP PO SCH (08:19)
[2017-05-25] MEDS: ALPRAZolam 0.25 MG TAB PO PRN (08:26)
[2017-05-25] MEDS: SODIUM CHLORIDE 0.9% FLUSH 5 ML FLUSH IVF SCH (09:00)
--- NOTE | 2017-05-25 11:00 | HHI.NSPN ---
Note Status Status: Progress Note Interval History Interval History Mr Childers 51-year-old male with severe spinal spondylosis, status post laminectomy and arthrodhesis in January of this year. Postoperatively he was doing very well with clinical resolution of his back pain and radiculopathy, until he suffered a severe fall and reinjured his spine. He presents with acute worsening of chronic low back pain and left-sided radiculopathy. He reports constant sharp pain in the low back radiating to the left leg. Patient reports continued weakness in the left leg with foot drop. He does report an episode of loss of bladder contro today, however without any subsequent loss of bladder control. Recent xrays showed that his instrumentation has displaced following the fall. Neurosurgery consultation was requested 05/11. Continues to suffer severe pain. No further urinary incontinence. Follow up MRI done today 05/12: no improvement in his lumbar and radicular pain, eager for surgery tomorrow 05/14: s/p redo L4-5 PLIF with repositioning of interbody cage on 05/13. pt on bedrest, surgical pain controlled. 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 He than sat up on edge of bed this am on his own despite strict bed rest order. wound reexamined, dressing dry with mild shadowing, no leaking from incision. 05/16: needing to have a BM, incision checked no drainage seen. 05/17: reports left hamstrings muscle spasm not being controlled with flexeril. mild halo sign on his lumbar dressing this morning, no active leaking, no saturation of dressing. 05/18: gauze dressing overnight saturated - yellow tinged. complaining of increased back and neck pain due to prolonged laying flat in bed - requesting [employer]. also requests to restart his Restoril that he takes at home prn sleep, reports feeling very anxious and currently tearful. 05/19: patient seen this morning during rounds. lumbar being drained 10 cc every hour, dressings are still being saturated. has [employer], reports doing well with pain control on pump. 05/20: pt seen this am during rounds. pt had c/o spinal MACDONALD's last night, CSF draining decreased, improved MACDONALD's. pain controlled on [employer]. dressing changed this morning less saturated. 05/23: his dressings are much dryer, still draining CSF and remains on bed rest. c/o of low back pain and leg pain - has been laying for too long. 05/24: dressing dry overnight, still complains of low back pain requesting to increase his pain medication frequency. 05/25: doing better following being mobilized OOB. pain is better controlled, still reports of some achiness and tightness in b/l hamstrings. wound has been dry overnight. Labs, Micro, & Vital Signs Results Date Time Temp Pulse Resp B/P (MAP) Pulse Ox O2 Delivery O2 Flow Rate FiO2 05/25/17 08:00 98.3 79 16 124/72 (89) 97 05/25/17 04:20 98.3 89 18 111/70 (84) 95 05/25/17 01:00 98.0 91 18 123/81 (95) 99 05/24/17 20:00 98.1 83 18 118/74 (89) 99 05/24/17 16:09 98.5 85 20 106/66 (79) 97 05/24/17 12:45 98.2 81 20 119/67 (84) 98 05/26/17 07:00 Output Total 375 ml Balance -375 ml Constitutional Vital Signs Date Time Temp Pulse Resp B/P (MAP) Pulse Ox O2 Delivery O2 Flow Rate FiO2 05/25/17 08:00 98.3 79 16 124/72 (89) 97 05/25/17 04:20 98.3 89 18 111/70 (84) 95 05/25/17 01:00 98.0 91 18 123/81 (95) 99 05/24/17 20:00 98.1 83 18 118/74 (89) 99 05/24/17 16:09 98.5 85 20 106/66 (79) 97 05/24/17 12:45 98.2 81 20 119/67 (84) 98 05/26/17 07:00 Output Total 375 ml Balance -375 ml Review of Systems Constitutional: DENIES: Fever Musculoskeletal: COMPLAINS OF: Back pain (stable, better controlled) Physical Exam Mr. Liseth is awake and alert. Speech is intact. Wound dry without drainage. Medications Current Medications Current Medications Medications (Trade) Dose Ordered Sig/Criselda Route PRN Reason Start Time Stop Time Status Last Admin Dose Admin Magnesium Hydroxide (Milk Of Magnesia Liq) 30 ml Q12H PRN PO Mild constipation 05/10/17 20:00 05/17/17 08:05 Sennosides (Senokot) 17.2 mg Q12H PRN PO Moderate constipation 05/10/17 20:00 05/17/17 08:05 Bisacodyl (Dulcolax Supp) 10 mg DAILY PRN RECTAL SEVERE CONSITIPATION 05/10/17 20:00 05/24/17 01:13 Lactulose (Lactulose Liq) 30 ml DAILY PRN PO SEVERE CONSITIPATION 05/10/17 20:00 Ropinirole HCl (Requip) 10 mg HS PO 05/10/17 21:00 05/24/17 20:58 Ropinirole HCl (Requip) 5 mg DAILY PO 05/11/17 09:00 05/25/17 08:19 Miscellaneous (Pill Splitter) 1 ea UNSCH PRN OTHER SEE LABEL COMMENTS 05/10/17 21:00 Pravastatin Sodium (Pravachol) 20 mg HS PO 05/10/17 21:00 05/24/17 20:59 IV Flush (NS Flush) 2 ml UNSCH PRN IVF FLUSH AFTER USING IV ACCESS 05/13/17 12:30 IV Flush (NS Flush) 2 ml BID IVF 05/13/17 12:30 05/25/17 09:00 Docusate Sodium (Colace) 100 mg BID PO 05/13/17 21:00 05/25/17 08:19 Pantoprazole Sodium (Protonix) 40 mg DAILY PO 05/14/17 09:00 05/25/17 08:18 Ondansetron HCl (Zofran Inj) 4 mg Q6H PRN IV PUSH NAUSEA OR VOMITING 05/13/17 12:30 05/16/17 20:15 Clonidine (Catapres) 0.1 mg Q6H PRN PO/NG SYS BP GREATER THAN 170 MMHG 05/13/17 12:30 Acetaminophen (Tylenol) 650 mg Q4H PRN PO TEMPERATURE > 101.5 F 05/13/17 12:30 Menthol ([place] Mayur) 1 lozenge UNSCH PRN BUCCAL SORE THROAT 05/13/17 12:30 Albuterol Sulfate (Albuterol Neb) 2.5 mg Q4HR NEB PRN INH WHEEZING 05/13/17 12:30 Patient Own Medication Neupro 4mg transdermal pa... HS TOPICAL 05/13/17 21:00 05/24/17 21:00 Carisoprodol (Soma) 350 mg Q8H PRN PO muscle spasms 05/17/17 09:30 05/24/17 05:02 Magnesium Citrate (Citroma Liq) 300 ml Q8H PRN PO VERY SEVERE CONSTIPATION 05/17/17 15:15 Temazepam (Restoril) 7.5 mg HS PRN PO insomnia 05/18/17 21:00 05/23/17 20:04 Alprazolam (Xanax) 0.25 mg Q8H PRN PO anxiety 05/18/17 11:15 05/25/17 08:26 Naloxone HCl (Narcan Inj) 0.4 mg UNSCH PRN IV PUSH RESPIRATORY RATE LESS THAN 10 05/18/17 11:30 Diphenhydramine HCl (Benadryl Inj) 25 mg Q6H PRN IV PUSH ITCHING 05/18/17 11:30 Polyethylene Glycol (Miralax) 17 gm DAILY PO 05/19/17 11:30 05/25/17 08:19 Acetaminophen (Tylenol) 650 mg Q6H PRN PO HEADACHE 05/20/17 01:00 05/22/17 16:41 Gabapentin (Neurontin) 600 mg Q8HR PO 05/20/17 14:00 05/25/17 06:14 Tamsulosin HCl (Flomax) 0.4 mg DAILY PO 05/22/17 14:45 05/25/17 08:18 Hydromorphone HCl (Dilaudid Pf Inj) 0.5 mg Q6HR PRN IV PUSH BREAKTHROUGH PAIN 05/23/17 12:00 05/25/17 04:15 Oxycodone HCl (Roxicodone) 5 mg Q6H PRN PO pain 3-5 05/23/17 11:08 Enoxaparin Sodium (Lovenox Inj) 40 mg Q24H SQ 05/24/17 20:00 11/14/17 20:59 Oxycodone HCl (Roxicodone) 10 mg Q4HR PRN PO PAIN 6-10 05/24/17 15:00 05/25/17 10:08 Medical Decision Making [facility] Remarks 51 y/o male s/p redo L4-5 PLIF with repositioning of interbody cage, dural repair of CSF leak 05/13/17 s/p placement of external lumbar drain 05/18 due to CSF leak, 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
[2017-05-25] MEDS ORDERED: NEUR300C PO (11:04)
[2017-05-25] MEDS ORDERED: TAMS5CAP PO (11:04)
[2017-05-25] MEDS ORDERED: CARI350T25 PO (11:04)
[2017-05-25] MEDS ORDERED: OXYC-395 PO (11:04)
[2017-05-25] MEDS ORDERED: ALPR.25 PO (11:04)
--- NOTE | 2017-05-25 11:07 | HHI.DS ---
Discharge Summary Admission Date May 13, 2017 at 09:42 Discharge Date: May 25, 2017 Admitting Diagnosis Acute on Chronic LBP (1) Lumbar radiculopathy ICD Code: M54.16 - Radiculopathy, lumbar region Status: Acute (2) Acute exacerbation of chronic low back pain ICD Code: M54.5 - Low back pain; G89.29 - Other chronic pain Status: Acute (3) S/P lumbar spinal fusion ICD Code: Z98.1 - Arthrodesis status Status: Acute (4) Anxiety ICD Code: F41.9 - Anxiety disorder, unspecified (5) Restless leg syndrome ICD Code: G25.81 - Restless legs syndrome (6) Dyslipidemia ICD Code: E78.5 - Hyperlipidemia, unspecified Procedures s/p redo L4-5 PLIF with repositioning of interbody cage on 05/13 Brief History - From Admission 51-year-old male with spinal compression, status post laminectomy with Dr. Hood in January of this year. Patient presents with acute worsening of chronic low back pain and left-sided radiculopathy. He reports constant sharp pain in the low back radiating to the left leg. Patient reports continued weakness in the left leg with foot drop ever since surgery in January. He does report an episode of loss of bladder control yesterday, however without any subsequent loss of bladder control. Denies any fevers, chills, chest pain, shortness of breath, nausea, vomiting. He did have some constipation which resolved yesterday after laxatives.. CBC/BMP: 05/21/17 0643 Imaging Last Impressions Lumbar Puncture Fluoroscopy 05/18/17 0915 Signed Impressions: Service Date/Time: Thursday, May 18, 2017 15:41 - CONCLUSION: Uncomplicated lumbar drain placement as above. Yuri Mendez MD Lumbar Spine X-Ray 05/13/17 0000 Signed Impressions: Service Date/Time: Saturday, May 13, 2017 09:38 - CONCLUSION: Anatomic alignment.. Dameon Lovell MD FACR Lumbar Spine MRI 05/11/172008 Signed Impressions: Service Date/Time: Thursday, May 11, 2017 08:48 - CONCLUSION: Epidural scarring involving the left L4, left L5 and left S1 roots. Artifact from transpedicular fixation of L4 and L5. No other significant postoperative changes are noted. Dameon Lovell MD FACR PE at Discharge GENERAL: Alert, Oriented x 3 SKIN: Warm and dry. HEAD: Normocephalic. EYES: No scleral icterus. No injection or drainage. NECK: Supple, trachea midline. No JVD or lymphadenopathy. CARDIOVASCULAR: Regular rate and rhythm without murmurs, gallops, or rubs. RESPIRATORY: Breath sounds equal bilaterally. No accessory muscle use. GASTROINTESTINAL: Abdomen soft, non-tender, nondistended. MUSCULOSKELETAL: No cyanosis, or edema. BACK: Nontender without obvious deformity. No CVA tenderness. Pt update on day of discharge Patient is doing well. He is ambulating well. No acute concerns. Neurosurgery cleared for discharge. Hospital Course Mr Childers 51-year-old male with severe spinal spondylosis, status post laminectomy and arthrodhesis he developed acute worsening of his lower back pain which resulted in redo L4-5 PLIF with repositioning of interbody cage on . S/p redo L4-5 PLIF with repositioning of interbody cage 05/13/17 MRI lumbar spine shows previous fusion L4L5, epidural scarring left L4, L5 and S1 roots. - on oxycodone q6h with Dilaudid for breakthrough pain. Wean as tolerated. - increase gabapentin to 600 mg TID. Improved. Also on Soma. - Drain discontinued by Neurosurgery. Patient to follow up with neurosurgery in the office for suture removal on 06/01/2017. - Patient is doing well with activity. Urinary retention - Will d/c Ramírez. - Continue Tamsulosin. Restless leg syndrome - Continue Ropinirole. Pt Condition on Discharge: Good Discharge Disposition: Discharge to SNF Discharge Time: > 30 minutes Discharge Instructions DIET: Follow Instructions for: As Tolerated, No Restrictions Activities you can perform: Regular-No Restrictions Follow up Referrals: [facility]/ New Medications: Alprazolam (Xanax) 0.25 Mg Tab 0.25 MG PO Q8H PRN for anxiety, #20 TAB Carisoprodol (Carisoprodol) 350 Mg Tablet 350 MG PO Q8H PRN for muscle spasms, #30 TAB Gabapentin (Neurontin) 300 Mg Cap 600 MG PO Q8HR for Neuropathy, #30 CAP Oxycodone (Oxycodone) 10 Mg Tab 10 MG PO Q6HR PRN for PAIN 6-10, #30 TAB Tamsulosin (Flomax) 0.4 Mg Cap 0.4 MG PO DAILY for Urinary, #30 CAP Continued Medications: Pravastatin (Pravastatin) 20 Mg Tab 20 MG PO HS for Cholesterol Management, #30 TAB 0 Refills Ropinirole (Requip) 5 Mg Tab 5 MG PO DAILY, #90 TAB 0 Refills Ropinirole (Requip) 5 Mg Tab 10 MG PO HS, #30 TAB 0 Refills Rotigotine Patch 24 HR (Neupro Patch 24 HR) 4 Mg/24 Hr Patch 4 MG T-DERMAL DAILY for Parkinson Disease Mgmt, PATCH 0 Refills Temazepam (Temazepam) 15 Mg Cap Discontinued Medications: Diazepam (Diazepam) 5 Mg Tab 5 MG PO DAILY PRN for ANXIETY, TAB 0 Refills Hydrocodone-Acetaminophen (Hydrocodone-Acetaminophen) 10-325 mg Tab Naproxen Sodium (Aleve Arthritis) 220 Mg Tab 220 MG PO BID, TAB Ruben Flores DO May 25, 2017 11:07
== END 2017-05-25 14:06 | DRG 460 ==
LOC: NEPC 17:57 → NEDA 19:58 → NEPFCDU 21:18 → OBSVTOIN 05-13 09:42 → N06B 05-13 09:57 → N06A 05-13 15:04 → N05B 05-18 16:11
PROVIDERS: ADMIT Hospitalist; ATTEND Hospitalist
PROC: 01NB0ZZ Release Lumbar Nerve, Open Approach (ICD-10-PCS; 2017-05-13)
PROC: 0ST20ZZ Resection of Lumbar Vertebral Disc, Open Approach (ICD-10-PCS; 2017-05-13)
PROC: 0QB20ZZ Excision of Right Pelvic Bone, Open Approach (ICD-10-PCS; 2017-05-13)
PROC: 00QT0ZZ Repair Spinal Meninges, Open Approach (ICD-10-PCS; 2017-05-13)
PROC: 4A11X4G Monitoring of Peripheral Nervous Electrical Activity, Intraoperative, External Approach (ICD-10-PCS; 2017-05-13)
PROC: 0SG00AJ Fusion of Lumbar Vertebral Joint with Interbody Fusion Device, Posterior Approach, Anterior Column, Open Approach (ICD-10-PCS; principal; 2017-05-13 08:23)
PROC: B01BZZZ Fluoroscopy of Spinal Cord (ICD-10-PCS; 2017-05-18)
PROC: 009U30Z Drainage of Spinal Canal with Drainage Device, Percutaneous Approach (ICD-10-PCS; 2017-05-18)
DX: T84.226A Displacement of internal fixation device of vertebrae, initial encounter (principal); G96.0 Cerebrospinal fluid leak; G97.41 Accidental puncture or laceration of dura during a procedure; M51.16 Intervertebral disc disorders with radiculopathy, lumbar region; K59.03 Drug induced constipation; T40.605A Adverse effect of unspecified narcotics, initial encounter; R32 Unspecified urinary incontinence; M21.372 Foot drop, left foot; G25.81 Restless legs syndrome; G47.00 Insomnia, unspecified; G97.1 Other reaction to spinal and lumbar puncture; R33.9 Retention of urine, unspecified; E78.5 Hyperlipidemia, unspecified; F17.200 Nicotine dependence, unspecified, uncomplicated; F41.9 Anxiety disorder, unspecified; W19.XXXA Unspecified fall, initial encounter; Y83.8 Other surgical procedures as the cause of abnormal reaction of the patient, or of later complication, without mention of misadventure at the time of the procedure; Y82.8 Other medical devices associated with adverse incidents; Z23 Encounter for immunization; Y84.4 Aspiration of fluid as the cause of abnormal reaction of the patient, or of later complication, without mention of misadventure at the time of the procedure; Z85.820 Personal history of malignant melanoma of skin; Z96.611 Presence of right artificial shoulder joint; Z98.1 Arthrodesis status
CPT/HCPCS: 63741; 72100; 72158; 76000; 77003; 80048; 80053; 81001; 82948; 83036; 83735; 84100; 84439; 84443; 85025; 85610; 86850; 86900; 86901; 87070; 87205; 88304; 90471; 90472; 90686; 90732; 94150; 96376; 99152; 99153; J1170; A9579; C1713; C1755; G0008; G0009; G0378; G8987-GO; G8987-GP; G8988-GO; G8988-GP; G8989-GO; J0690; J1100; J1580; J1644; J1650; J2175; J2250; J2270; J2370; J2405; J3010; J3370; J7030; J7040; J7050; J7120; L0200; L0484; Q2038

== ENCOUNTER → 2017-09-21 | Outpatient (CLI) | payer MEDICARE, OTHER ==
[~2017-09-21] MED LIST changes: +ALPR.25 PO; -BEDSIDE COMMODE1 MI1; +CARI350T25 PO; -CYCL10TA PO; -DIAZ5TAB PO; -DILA2TAB4 PO; -GADODIAMIDE PF 287 MG/ML 20 ML VIAL (for RAD MRI) IV PUSH ONE; -HYDR-3583; +HYDR-3583 PO; -IBUP1TAB7 PO; +NAPR500 PO; +NEUR300C PO; +OXYC-395 PO; -PERC10TA27 PO; -PROT40TA PO; +ROTI4DIS T-DERMAL; -ROTI6DIS
[2017-09-21 09:28] LABS: AUTOMATED NEUTROPHIL # 3.3 TH/MM3 (1.8-7.7); BASOPHIL % 0.3 % (0.0-2.0); EOSINOPHIL # 0.1 TH/MM3 (0-0.4); EOSINOPHIL % 1.5 % (0.0-4.0); HEMATOCRIT 41.9 % (39.0-51.0); HEMOGLOBIN 14.6 GM/DL (13.0-17.0); LYMPH % 29.9 % (9.0-44.0); LYMPHOCYTE # 1.7 TH/MM3 (1.0-4.8); MEAN CELL VOLUME 95.4 FL (80.0-100.0); MEAN CORPUSCULAR HEMOGLOBIN 33.2 PG (27.0-34.0); MEAN CORPUSCULAR HGB CONC 34.9 % (32.0-36.0); MEAN PLATELET VOLUME 7.3 FL (7.0-11.0); MONO % 11.2 % (0.0-8.0); MONOCYTE # 0.6 TH/MM3 (0-0.9); NEUT % 57.1 % (16.0-70.0); PLATELET COUNT 211 TH/MM3 (150-450); RED CELL DISTRIBUTION WIDTH 13.4 % (11.6-17.2); WHITE BLOOD COUNT 5.7 TH/MM3 (4.0-11.0)
[2017-09-21 09:30] LABS: BILIRUBIN, URINE NEG (NEG); BLOOD, URINE NEG (NEG); GLUCOSE,URINE NEG (NEG); KETONE, URINE TRACE mg/dL (NEG); NITRITE,URINE NEG (NEG); PH, URINE 6.5 (5.0-8.5); SQUAMOUS EPITHELIAL CELL URINE <1 /hpf (0-5); URINE COLOR YELLOW (YELLW/STRAW); URINE LEUKOCYTE ESTERASE NEG (NEG)
[2017-09-21 09:34] LABS: PROTHROMBIN TIME - PATIENT 10.2 SEC (9.8-11.6)
[2017-09-21 09:50] LABS: ALBUMIN 4.1 GM/DL (3.4-5.0); AST (GOT) 13 U/L (15-37); BICARBONATE 25.3 MEQ/L (21.0-32.0); BLOOD UREA NITROGEN 14 MG/DL (7-18); CALCIUM 9.1 MG/DL (8.5-10.1); CHLORIDE 102 MEQ/L (98-107); CREATININE 0.78 MG/DL (0.60-1.30); GLOMERULAR FILTRATION RATE 104 ML/MIN (>89); GLUCOSE,FASTING 112 MG/DL (74-99); SODIUM (NA) 137 MEQ/L (136-145)
[2017-09-21 09:51] LABS: ALT (GPT) 20 U/L (12-78)
[2017-09-21 09:53] LABS: ALKALINE PHOSPHATASE 112 U/L (45-117); TOTAL BILIRUBIN ADULT 0.5 MG/DL (0.2-1.0); TOTAL PROTEIN 7.9 GM/DL (6.4-8.2)
--- NOTE | 2017-09-21 10:20 | RADRPT ---
EXAM DATE/TIME: 09/21/2017 09:31 [place] COMPARISON: CHEST PA & LAT, June 28, 2016, 19:28. INDICATIONS : Pre op. Evaluate for pneumonia, pneumothorax, or communicable diseases. MEDICAL HISTORY : None. SURGICAL HISTORY : None. ENCOUNTER: Initial ACUITY: 1 day PAIN SCORE: 0/10 LOCATION: Bilateral chest FINDINGS: There is a 2.4 cm right upper lung field mass which is new compared to the previous chest x-ray in of 2015. CT of the chest with contrast would be helpful for further evaluation of this new des picious lesion which may represent bronchogenic carcinoma. Underlying biapical emphysematous changes are noted. No focal infiltrate is noted. No pulmonary edema is noted. Right shoulder replacement is n oted. CONCLUSION: New 2.4 cm right upper lung field mass which is suspicious for bronchogenic carcinoma . CT of the chest with contrast would be helpful for further evaluation of this finding. Guillermo Alvarado MD on September 21, 2017 at 10:15 Board Certified Radiologist. This report was verified electronically.
--- NOTE | 2017-09-21 22:59 | EKG ---
Date Performed: 09/21/2017 Time Performed: 09:06:24 PTAGE: 52 years EKG: Sinus rhythm NORMAL ECG NO PREVIOUS TRACING DOCTOR: Kartik Cyr Interpretating Date/Time 09/21/2017 22:57:52
== END ==
LOC: CPRE 08:17
PROVIDERS: ATTEND Neurological Surgery
DX: Z01.812 Encounter for preprocedural laboratory examination (principal); Z01.810 Encounter for preprocedural cardiovascular examination; Z01.811 Encounter for preprocedural respiratory examination; M50.10 Cervical disc disorder with radiculopathy, unspecified cervical region
CPT/HCPCS: 36415; 71046; 80053; 81001; 85025; 85610; 85730; 87640; 87641; 93005

== ENCOUNTER 2017-09-23 06:27 | Observation (INO) | payer MEDICARE, OTHER ==
[~2017-09-23] VITALS: Ht 180.3 cm; Wt 79.4 kg
[~2017-09-23 06:27] MED LIST changes: -ALPR.25 PO; -CARI350T25 PO; -HYDR-3583 PO; -NEUR300C PO; -OXYC-395 PO; -PRAV20TA2 PO; -TAMS5CAP PO; -TEMA15CA; -WALKER WHEELS/F1 MIS
[2017-09-23] MEDS ORDERED: METOPROLOL TARTRATE 25 MG TAB PO PRN (06:45)
[2017-09-23] MEDS ORDERED: VANCOMYCIN 1000 MG/NS 250 ML ON-CALL IV SCH ×2 (06:45)
[2017-09-23] MEDS ORDERED: POVIDONE IODINE 5% (ANTISEPSIS KIT) 4 APPLICATIONS EACH NARE PRN (06:45)
[2017-09-23] MEDS ORDERED: SODIUM CHLOR 0.9% 1000 ML INJ 1,000 ML IV SCH (06:45)
[2017-09-23] MEDS ORDERED: SODIUM CHLORID 0.9% 500 ML IV PRN (06:45)
[2017-09-23] MEDS ORDERED: LACTATED RINGER'S 1000 ML IV PRN (06:45)
[2017-09-23] MEDS ORDERED: CHLORHEXIDINE GLUCONATE 2 % 1 PACK (2 CLOTHS) TOPICAL PRN (06:45)
[2017-09-23] MEDS ORDERED: PROPOFOL 500 MG/50 ML INJ 100 ML ONE (07:06)
[2017-09-23] MEDS ORDERED: ACETAMINOPHEN 1000 MG/100 ML 100 ML IV ONE (07:06)
[2017-09-23] MEDS ORDERED: ARTIFICIAL TEARS OPTH OINT 3.5 APPLIC/3.5 GM TUBO ONE (07:06)
[2017-09-23] MEDS ORDERED: RESP: ALBUTEROL 2.5 MG/3 ML NEB (SCH) ONE ×2 (07:40→07:41)
[2017-09-23] MEDS ORDERED: methylPREDNISolone SOD SUCC 125 MG/2 ML VIAL ONE (07:40)
[2017-09-23] MEDS ORDERED: THROMBIN (TOPICAL) 5,000 UNIT VIAL ONE (08:01)
[2017-09-23] MEDS ORDERED: ceFAZolin 2 GM PREMIX 50 ML ONE (08:01)
[2017-09-23] MEDS ORDERED: GELFOAM SIZE 100 ONE (08:01)
[2017-09-23] MEDS ORDERED: GENTAMICIN SULFATE 80 MG/2 ML VIAL ONE (08:01)
[2017-09-23] MEDS ORDERED: HYDROmorphone HCL PF 2 MG/ML VIAL ONE ×2 (08:15→13:28)
[2017-09-23] MEDS ORDERED: KETAMINE HCL 10 MG/5 ML SYRINGE IV PUSH ONE (08:16)
[2017-09-23] MEDS ORDERED: SUFentanil INJ 250 MCG/5 ML AMP ONE ×2 (08:16→13:15)
[2017-09-23] MEDS ORDERED: ePHEDrine/NS 25 MG/5 ML SYRINGE IV ONE (12:00)
[2017-09-23] MEDS ORDERED: STERILE WATER FOR INJECTION 20 ML VIAL IV ONE (12:00)
[2017-09-23] MEDS ORDERED: LIDOCAINE HCL 1% PF 5 ML SYRINGE OTHER ONE (12:00)
[2017-09-23] MEDS ORDERED: DEXAMETHASONE SOD PHOS 4 MG/ML VIAL IV ONE (12:00)
[2017-09-23] MEDS ORDERED: ONDANSETRON HCL 4 MG/2 ML VIAL IV ONE (12:00)
[2017-09-23] MEDS ORDERED: GLYCOPYRROLATE 1 MG/5 ML SYRINGE IV PUSH ONE (12:00)
[2017-09-23] MEDS ORDERED: ROCURONIUM INJ 50 MG/5 ML SYRINGE IV PUSH ONE (12:00)
[2017-09-23] MEDS ORDERED: PHENYLEPHRINE HCL 10 MG/ML VIAL IV ONE (12:00)
[2017-09-23] MEDS ORDERED: PHENYLEPH/NS 1000 MCG/10 ML SYR IV ONE (12:00)
[2017-09-23] MEDS ORDERED: PROPOFOL 200 MG/20 ML AMP IV ONE (12:00)
[2017-09-23] MEDS ORDERED: LACTATED RINGER'S 1000 ML INJ 2,000 ML IV ONE (12:00)
[2017-09-23] MEDS ORDERED: DO NOT ADM ANY ANTICOAGULANT DRUGS PRN (12:54)
[2017-09-23] MEDS ORDERED: MIDAZOLAM HCL 2 MG/2 ML VIAL ONE (13:12)
[2017-09-23] MEDS ORDERED: RESP: ALBUTEROL 2.5 MG/3 ML NEB (PRN) INH (13:15)
[2017-09-23] MEDS ORDERED: ACETAMINOPHEN 325 MG TAB PO PRN (13:15)
[2017-09-23] MEDS ORDERED: ONDANSETRON HCL 4 MG/2 ML VIAL IV PRN (13:15)
[2017-09-23] MEDS ORDERED: MENTHOL LOZENGE BUCCAL PRN (13:15)
[2017-09-23] MEDS ORDERED: MAGNESIUM HYDROXIDE SUSP 30 ML CUP PO PRN (13:15)
[2017-09-23] MEDS ORDERED: cloNIDine HCL 0.1 MG TAB PO/NG PRN (13:15)
[2017-09-23] MEDS ORDERED: CYCLOBENZAPRINE HCL 10 MG TAB PO PRN (13:15)
[2017-09-23] MEDS ORDERED: GLUCAGON 1 MG/ML VIAL OTHER PRN (13:15)
[2017-09-23] MEDS ORDERED: BISACODYL 10 MG SUPP RECTAL PRN (13:15)
[2017-09-23] MEDS ORDERED: DEXTROSE 50% IN WATER 50 ML VIAL(D50) IV PUSH PRN (13:15)
[2017-09-23] MEDS ORDERED: IOHEXOL 350 MG/ML 10 ML VIAL (for RAD DIAG) IVCONTRAST ONE (13:17)
[2017-09-23] MEDS: SODIUM CHLOR 0.9% 1000 ML INJ 1,000 ML IV SCH (14:30)
[2017-09-23] MEDS ORDERED: HYDR-3583 PO (14:33)
[2017-09-23 14:55] VITALS: BP 99/71; PULSE 71; RESP 18; TEMP 95.4; O2SAT 98
[2017-09-23] MEDS ORDERED: PILL SPLITTER OTHER PRN (15:15)
[2017-09-23] MEDS: ACETAMINOPHEN/HYDROcodone 325 MG/10 MG TAB PO PRN ×2 (15:33→19:22)
[2017-09-23] MEDS: DEXAMETHASONE SOD PHOS 4 MG/ML VIAL IV PUSH SCH ×2 (15:33→21:52)
--- NOTE | 2017-09-23 16:57 | PD.OP ---
Operative Report Date of Surgery: Sep 23, 2017 Preoperative Diagnosis: Cervical spondylosis with spinal stenosis Postoperative Diagnosis: Cervical spondylosis with spinal stenosis Procedure: C5-6, C6-7 anterior cervical discectomy, interbody arthodhesis using PEEK cage filled with autologous bone graft, Simplicity plate and screws. Anesthesia: general Surgeon: Jairo Hood Coordinate Measuring Machine Technician(s): Agatha Hinds Operation and Findings: INDICATIONS FOR THE PROCEDURE Mr Childers is a 52 year-old female who presented with intractable neck pain and clinical evidence of C6 and C7 upper extremity radiculopathy. He was found to have significant spondylosis with stenosis. He has failed maximum nonsurgical management including multiple modalities of conservative treatment as well as pain management interventions by an interventional pain specialist. A surgical decompression and arthrodhesis were indicated. The [id number] details of the procedure, indications, alternatives, risks and potential complications were fully discussed with the patient. The patient fully understood. All The questions were answered. No guarantees were given. The patient voiced requesting the procedure and provided informed consents. The patient was offered the alternative of delaying the procedure and continuing with nonsurgical management. DETAILS OF THE SURGICAL PROCEDURE After the induction of general anesthesia, endotracheal intubation was performed. A Ramírez catheter, bilateral TORREY hose, and sequential compression devices were placed and kept throughout the procedure. Placement of electrodes for neurophysiological monitoring of the somato sensorial evoked potentials. motor evoked potentials, and EMG as well as laryngeal nerve monitoring was achieved. The patient was positioned supine on a Sanya table with the head over a gel doughnut. All pressure points were carefully padded with eggcrate mattress. The eyes were tapped shut after ointment was applied by the anesthesiologist to prevent corneal abrasion. A Melia hugger was placed over the exposed lower body to maintain control of the core body temperature. The electrophysiological team placed the needles and electrodes in their proper location and baseline SSEP's and motor evoked potentials were registered prior and after positioning and endotracheal intubation. The anterior cervical region was prepped and draped in the usual sterile fashion. A localizing x-ray was performed with a C-arm. The surgical procedure was performed in several steps as follow: SURGICAL APPROACH A skin incision was made along the inferior cervical crease with a #10 blade. The dissection was carried out through the platysma exposing the sternocleidomastoid muscle. The cervical spine was approached following the fascial layers of the neck just medial to the anterior border of the sternocleidomastoid and carotid sheath by a combination of sharp and dull dissection. The omohyoid muscle was identified and carefully dissected laterally and the deep cervical fascia was carefully opened. The longus colli muscles were retracted to each side of the midline. A marker was placed at the disc space C5-6 and a cross-table lateral x-ray performed with a C-arm. SURGICAL DECOMPRESSION In order to decompress the anterior surface of the spinal cord it was necessary to preform a microsurgical resection of the disk at C5-6 and C6-7. At this point in the procedure the operating microscope was draped in the usual sterile fashion and brought to the field. The rest of the surgical procedure was performed using microdissection technique with the exception of the closure. Under the operative microscopic, a self-retaining retractor was placed underneath the longus colli muscle. Anterior osteophite spurs werte carefully removed with the Leksell. The annulus at C5-6 and C6-7 were incised with a #15 blade and microdiscectomy was then carefully carried out using angled curets and pituitary forceps. There were osteophitic/disk complexes mass effect and compression of the dural sac and nerve roots. The posterior longitudinal ligament was then elevated with an angled curet and incised with a 15 bladed knife. A careful resection of the posterior longitudinal ligament was carried out using a thin footplate 2 mm Kerrison. A nerve hook was used to assess the epidural space behind the vertebral bodies C5, C6, and C7 in search for residual disk fragments. The margins of the posterior endplates at C5-6 and C6- 7 were carefully drilled and undercut with a TPS drill under high magnification. The decompression was then carried out laterally, and a bilateral foraminotomy was performed with a 2mm thin foot Kerrison. Then the vertebral bodies above and below the disk space were undercut using a 2 mm thin foot Kerrison. The epidural space was the systematically assessed with a nerve hook in search for disk fragments of scarr tissue. An excellent decompression was achieved in both, the dural sac and bilateral exiting nerve roots. The incision was then irrigated with a large amount of antibiotic solution INTERBODY ARTHRODHESIS In order to avoid collapse of the disk space which would result in bilateral foraminal stenosis, and to increase the chances of a successful fusion, it was necessary to place an interbody cage filled with autologous bone. At this point of the procedure, the superior and inferior endplates were then evenly decorticated with a TPS drill. The use of a drill in combination with a curette allowed me to systematically remove the cartilaginous endplates, exposing healthy bone for the interbody arthrodesis. Fourteen millimeters distraction pins were then placed at the vertebral bodies adjacent to the disk space, and gentle distraction was applied. The size of the interbody cage was then assessed using different size spacers, and a rasp was used to ensure no residual cartilage. A PEEK cage of the appropriate size was selected, and the interbody arthrodesis was then preformed by carefully impacting a PEEK cage filled with autologous bone graft to the disc spaces C5-6 and C6-7. An excellent position of the cage was achieved. This was was confirmed anatomically by feeling the space posterior to the implant and distance to the anterior surface of the dural sac. Radiological confirmation of the position was performed with a cross lateral xray performed with the C-arm. INTERNAL INSTRUMENTAL FIXATION Once that the interbody device was in an appropriate position, it was necessary to stabilize the spine with anterior instrumentation. Anterior instrumentation has demonstrated to increase the rate of fusion, accelerate the patient's recovery, and decrease the rate of failed interbody grafts. At this point of the procedure, the distance between the vertebral bodies was carefully measures, and a Simplicity plate was brought to the field and presented in front of the vertebral bodies C5, C6, and C7. [employer] holes were then drilled using the TPS drill, and the plate was then secured to the spine using self-drilling, self-tapping screws. Initially, the inferior right screw was inserted, followed by placement of the contralateral upper screw. The remanding screws were sequentially placed in a contra-lateral fashion. A proper purchase was achieved with all screws and the position of the cage, plate and screws, and alignment of the spine was assessed anatomically by direct visualization, and radiologically by performing a cross lateral xray of the cervical spine with the C-arm. CLOSURE The incision was irrigated with several liters of antibiotic solution. Hemostasis was achieved with a bipolar. The screws were locked to prevent backing out. A 7 mm Sanya-Wagner drain was left in the prevertebral space and externalized through a separate stab incision. The incision was then closed in layers. 3-0 Vicryl with interrupted sutures was used to close the platysma and subcutaneous tissue. The skin was closed with 4-0 running subcuticular Vicryl and glue was applied to the skin. The drain was secured with a 3-0 nylon. At the end of the procedure the sponge, needle and instrument counts were all correct. The estimated blood loss was less than 70 cc. No blood transfusion was given. No intraoperative complications occurred. The patient received prophylactic antibiotics. The patient was then extubated and transferred to the recovery room in stable condition. Jairo Hood MD Sep 23, 2017 16:57
[2017-09-23] MEDS: HYDROmorphone HCL PF 2 MG/ML VIAL IV PUSH PRN ×2 (17:31→21:58)
[2017-09-23] MEDS: ceFAZolin 2 GM PREMIX 50 ML IV SCH (19:06)
[2017-09-23 20:16] VITALS: BP 134/81; PULSE 84; RESP 18; TEMP 96.4; O2SAT 96
[2017-09-23] MEDS ORDERED: CHLORHEXIDINE GLUCONATE 4% SOLN 120 ML BTL TOP SCH (21:00)
--- NOTE | 2017-09-23 21:20 | RADRPT ---
EXAM DATE/TIME: 09/23/2017 08:02 [facility] COMPARISON: No previous studies available for comparison. INDICATIONS : C5-6, C6-7 Anterior cervical disc fusion. MEDICAL HISTORY : Smoker. SURGICAL HISTORY : Fusion, lumbar. ENCOUNTER: Initial ACUITY: 1 day PAIN SCORE: Non-responsive. LOCATION: Cervical spine. FINDINGS: 2 views in the operating room show discectomy and fusion procedure with interbody and anterior instru mentation at C5/C6 and C6/C7. Alignment is normal. No evidence of an acute complication. CONCLUSION: Expected radiographic appearance discectomy and fusion procedure at C5/C6 and C6/C7. Donaldo Gavin MD on September 23, 2017 at 21:17 Board Certified Radiologist. This report was verified electronically.
[2017-09-23] MEDS: DOCUSATE SODIUM 100 MG CAP PO SCH (21:51)
--- NOTE | 2017-09-23 21:55 | RADRPT ---
EXAM DATE/TIME: 09/23/2017 18:51 [facility] COMPARISON: CHEST PA & LAT, September 21, 2017, 9:31. CHEST PA & LAT, June 28, 2016, 19:28. INDICATIONS : Evaluate right lung nodule. IV CONTRAST: 70 cc Omnipaque 350 (iohexol) IV RADIATION DOSE: 9.21 CTDIvol (mGy) MEDICAL HISTORY : Renal calculi. Melanoma SURGICAL HISTORY : Fusion, cervical. Discectomy, lumbar.Right shoulder replacement ENCOUNTER: Initial ACUITY: 1 day PAIN SCALE: 0/10 LOCATION: Right chest TECHNIQUE: Volumetric scanning of the chest was performed. Using automated exposure control and adjustment of t he mA and/or kV according to patient size, radiation dose was kept as low as reasonably achievable to obtain optimal diagnostic quality images. DICOM format image data is available electronically for review and comparison. Follow-up recommendations for detected pulmonary nodules are based at a minimum on nodule size and pa tient risk factors according to Fleischner Society Guidelines. FINDINGS: There is a mildly lobulated soft tissue mass measuring approximately 19 x 28 x 20 mm in the right upp er lobe. It does not appear to have been present on the 2016 comparison x-ray and is malignant until proven otherwise. There are scattered mediastinal lymph nodes that measure up to 12 x 17 mm in size. There is a 11 x 15 mm right hilar lymph node. Moderate to severe emphysema present. Patchy areas of benign-appearing groundglass infiltrates seen o f both lungs, upper lobe predominant, most likely infectious or inflammatory. No pleural effusion see n. No pneumothorax. No lytic or sclerotic lesions or other acute abnormalities seen of the visualized osseous structures. There is an old L1 right transverse process fracture. Upper abdomen only partly included on the study. 7 mm subcapsular hypodensity seen of the medial segm ent of the right hepatic lobe on series 2 image 67. There is focal benign fatty infiltration adjacent to the falciform ligament. The adrenal glands are within normal limits. No lymphadenopathy seen in t he upper abdomen. There is a 4 mm nonobstructing stone upper pole of the right kidney. CONCLUSION: 1. Mass of the right upper lobe of concern for primary bronchogenic carcinoma. 2. Upper limits of normal to mildly enlarged right hilar and mediastinal lymphadenopathy. 3. Patchy upper lobe predominant bilateral airspace groundglass opacities, most likely infectious or inflammatory. 4. Emphysema. 5. Indeterminate subcentimeter hypodensity of the liver. Visualized upper abdomen otherwise within no rmal limits. Donaldo Gavin MD on September 23, 2017 at 21:48 Board Certified Radiologist. This report was verified electronically.
[2017-09-24] VITALS: BP 115/71; PULSE 72; RESP 18; TEMP 96.3; O2SAT 95
[2017-09-24] MEDS: SODIUM CHLOR 0.9% 1000 ML INJ 1,000 ML IV SCH (01:00)
[2017-09-24] MEDS: HYDROmorphone HCL PF 2 MG/ML VIAL IV PUSH PRN (01:57)
[2017-09-24] MEDS: DEXAMETHASONE SOD PHOS 4 MG/ML VIAL IV PUSH SCH ×2 (02:01→09:00)
[2017-09-24] MEDS: ceFAZolin 2 GM PREMIX 50 ML IV SCH (02:05)
[2017-09-24 04:00] VITALS: BP 114/66; PULSE 61; RESP 18; TEMP 96.2; O2SAT 97
[2017-09-24] MEDS: ACETAMINOPHEN/HYDROcodone 325 MG/10 MG TAB PO PRN ×2 (05:57→10:51)
[2017-09-24 08:00] VITALS: BP 132/76; PULSE 84; RESP 18; TEMP 95.6; O2SAT 96
[2017-09-24] MEDS ORDERED: PANTOPRAZOLE SOD 40 MG DELAYED RELEASE TAB PO SCH (09:00)
[2017-09-24] MEDS ORDERED: PANTOPRAZOLE SODIUM 40 MG VIAL IVP SCH (09:00)
[2017-09-24] MEDS ORDERED: REMOVE OLD PATCH T-DERMAL SCH (09:00)
[2017-09-24] MEDS ORDERED: NEUPRO 4 MG/24 HR TOPICAL SCH (09:00)
--- NOTE | 2017-09-24 10:21 | HHI.DS ---
Discharge Summary Admission Date Sep 23, 2017 at 13:16 Discharge Date: Sep 24, 2017 Admitting Diagnosis s/p ACDF (1) Status post cervical arthrodesis ICD Code: Z98.1 - Arthrodesis status Brief History Mr Childers is a 52 year-old female who presented with intractable neck pain and clinical evidence of C6 and C7 upper extremity radiculopathy. He was found to have significant spondylosis with stenosis. He has failed maximum nonsurgical management including multiple modalities of conservative treatment as well as pain management interventions by an interventional pain specialist. A surgical decompression and arthrodesis were indicated. Imaging Last Impressions Chest CT 09/23/17 0000 Signed Impressions: Service Date/Time: Saturday, September 23, 2017 18:51 - CONCLUSION: 1. Mass of the right upper lobe of concern for primary bronchogenic carcinoma. 2. Upper limits of normal to mildly enlarged right hilar and mediastinal lymphadenopathy. 3. Patchy upper lobe predominant bilateral airspace groundglass opacities, most likely infectious or inflammatory. 4. Emphysema. 5. Indeterminate subcentimeter hypodensity of the liver. Visualized upper abdomen otherwise within normal limits. Donaldo Gavin MD Cervical Spine X-Ray 09/23/17 0000 Signed Impressions: Service Date/Time: Saturday, September 23, 2017 08:02 - CONCLUSION: Expected radiographic appearance discectomy and fusion procedure at C5/C6 and C6/C7. Donaldo Gavin MD Hospital Course Mr. Childers underwent C5-6, C6-7 anterior cervical discectomy, interbody arthodhesis using PEEK cage filled with autologous bone graft, Simplicity plate and screws on Sep 23, 2017 for cervical spondylosis with spinal stenosis. His surgery went well without complications. Per Dr. Hood orders, patient underwent a CT of Chest w/contrast due to new lesion on his chest x-ray. Radiology reports lung mass suspicious for malignancy. Dr. Hood cleared patient for discharge home with follow up with medical oncology. Referral placed for Dr. Rahul Valles. dw patient CT Chest results, copy of report provided. discussed with patient that final diagnoses will be made with lung biopsy, Dr. Hood to defer further work up to oncology. Mr. Childers's questions were answered, he was discharged in stable conditions. Pt Condition on Discharge: Stable Discharge Disposition: Discharge Home Discharge Instructions DIET: Follow Instructions for: Soft Diet ADDITIONAL Diet Instructions: advance as tolerated ACTIVITIES You can perform: Weight Bearing As Kaylie ADDITIONAL Activity Instructio: Avoid heavy lifting, strenuous activities, pushing, pulling, overhead activities or any other activities that may place stress on the cervical spine. Wear cervical collar at all times, may remove when eating. Avoid falls. Follow up Referrals: Referral @ oncology with Rahul Valles New Medications: Hydrocodone/Acetaminophen (Hydrocodone-Acetamin 10-325 mg) 10 Mg-325 Mg Tablet 1 TAB PO Q4H PRN for PAIN SCALE 1 TO 5, #62 TAB-CAP 0 Refills Continued Medications: Naproxen (Naprosyn) 500 Mg Tab 5 TAB PO DAILY, #60 TAB 0 Refills Ropinirole (Requip) 5 Mg Tab 5 MG PO DAILY, #90 TAB 0 Refills Ropinirole (Requip) 5 Mg Tab 10 MG PO HS, #30 TAB 0 Refills Rotigotine Patch 24 HR (Neupro Patch 24 HR) 4 Mg/24 Hr Patch 4 MG T-DERMAL DAILY for restless leg syndrome, PATCH 0 Refills Mary Beth Witt Sep 24, 2017 10:21
--- NOTE | 2017-09-24 10:21 | HHI.DCPOC ---
Discharge Care Plan Diagnosis: (1) Status post cervical arthrodesis Goals to Promote Your Health * To prevent worsening of your condition and complications * To maintain your health at the optimal level Directions to Meet Your Goals Take your medications as prescribed Follow your dietary instruction Follow activity as directed Keep your appointments as scheduled Take your immunizations and boosters as scheduled If your symptoms worsen call your PCP, if no PCP go to Urgent Care Center or Emergency Room Smoking is Dangerous to Your Health. Avoid second hand smoke Call the 24-hour hour crisis hotline for domestic abuse at Mary Beth Witt Sep 24, 2017 10:21
--- NOTE | 2017-09-24 10:22 | HHI.DS ---
Discharge Summary Admission Date Sep 23, 2017 at 13:16 Discharge Date: Sep 24, 2017 Admitting Diagnosis Pt Condition on Discharge: Stable Discharge Disposition: Discharge Home Discharge Instructions DIET: Follow Instructions for: Soft Diet ADDITIONAL Diet Instructions: advance as tolerated ADDITIONAL Activity Instructio: Avoid heavy lifting, strenuous activities, pushing, pulling, overhead activities or any other activities that may place stress on the cervical spine. Wear cervical collar at all times, may remove when eating. Avoid falls. Mary Beth Witt Sep 24, 2017 10:22
[2017-09-24] MEDS: DOCUSATE SODIUM 100 MG CAP PO SCH (11:35)
[2017-09-24 12:00] VITALS: BP 116/77; PULSE 97; RESP 19; TEMP 96.2; O2SAT 97
== END 2017-09-24 14:11 | disposition home or self-care (01) ==
LOC: HSDC 06:27 → HSDI 13:16 → N06B 14:45
PROVIDERS: ADMIT Neurological Surgery; ATTEND Neurological Surgery
DX: M47.812 Spondylosis without myelopathy or radiculopathy, cervical region (principal); M48.02 Spinal stenosis, cervical region; M54.12 Radiculopathy, cervical region; J43.9 Emphysema, unspecified; Z85.828 Personal history of other malignant neoplasm of skin
CPT/HCPCS: 00600; 20936; 22551; 22552; 22853; 71260; 72040; 76000; 94150; 96365; 96375; 96376; 97163; C1713; G0378; G8987; G8988; J0131; J0690; J1100; J1170; J1580; J2250; J2370; J2405; J2930; J3010; J7030; J7120; J7613; L0150; L0172; Q9967

== ENCOUNTER 2017-10-12 14:46 | Emergency (ER) | payer MEDICARE, OTHER ==
[~2017-10-12] VITALS: Ht 180.3 cm; Wt 80.0 kg
[~2017-10-12 14:46] MED LIST changes: +HYDR-3583 PO
--- NOTE | 2017-10-12 15:07 | PD ---
HPI Chief Complaint: Pain Time Seen by Provider: 15:01 Travel History International Travel<30 days: No Contact w/Intl Traveler<30days: No Traveled to known affect area: No History of Present Illness HPI 52-year-old male presents via EMS for evaluation of dyspnea and pleuritic chest pain. Symptoms started this morning at 4 AM. Sharp pain generalized in his chest which is worse with deep inspiration. He reports some dysphasia and sore throat and sensation of swelling in his throat as well. Of note, the patient underwent C5-6, C6-7 anterior cervical discectomy, interbody arthodhesis using PEEK cage filled with autologous bone graft, Simplicity plate and screws. This was performed on September 23. In addition the patient underwent CT of the thorax on September 23 which incidentally found a mass in the right upper lobe concerning for primary bronchogenic carcinoma. There is also right hilar and mediastinal lymphadenopathy, patchy upper lobe, emphysema. The patient is scheduled to have a biopsy of the lung mass tomorrow. Denies any leg swelling. Denies any history of DVT or PE. Denies any hemoptysis. He does have a slight cough. He received 1 DuoNeb treatment as well as 80 mg of Solu-Medrol by EMS. he has no other complaints at this time. PFSH Past Medical History Anxiety: Yes Depression: No Cancer: Yes (MELANOMA) Cardiovascular Problems: No High Cholesterol: Yes Diabetes: No Endocrine: No Genitourinary: No Hepatitis: No Hiatal Hernia: No Immune Disorder: No Musculoskeletal: Yes (arthritis) Neurologic: Yes (NERVE COMPRESSION, HERNIATED DISK, numbness in left leg, RLS) Psychiatric: Yes (ANXIETY) Reproductive: No Respiratory: Yes (SLEEP APNEA) Immunizations Current: Yes Thyroid Disease: No Past Surgical History Abdominal Surgery: No AICD: No Cardiac Surgery: No Ear Surgery: No Endocrine Surgery: No Eye Surgery: Yes (BILATERAL CATARACT) Genitourinary Surgery: No Gynecologic Surgery: No Joint Replacement: Yes (right shoulder) Neurologic Surgery: Yes (L4 & L5 in December and & L5-S1 LAMINECTOMY X5 few years ago ) Oral Surgery: No Pacemaker: No Thoracic Surgery: No Other Surgery: Yes (SPINAL FUSIONS , MELANOMA REMOVAL FROM BACK) Social History Alcohol Use: No Tobacco Use: Yes (07/14 PPD ) Substance Use: No Allergies-Medications (Allergen,Severity, Reaction): Coded Allergies: oxycodone (Verified Allergy, Severe, Itching, 10/12/17) ketorolac (Verified Allergy, Intermediate, VOMITING, 10/12/17) morphine (Verified Adverse Reaction, Mild, Rash, 10/12/17) Reported Meds & Prescriptions Reported Meds & Active Scripts Active Prednisone 20 Mg Tab 20 Mg PO BID 5 Days Proair Hfa 8.5 GM Inh (Albuterol Sulfate) 90 Mcg/Act Aer 2 Puff INH Q4-6H PRN 108 mcg/actuation Hydrocodone-Acetamin 10-325 mg (Hydrocodone/Acetaminophen) 10 Mg-325 Mg Tablet 1 Tab PO Q4H PRN Reported Naprosyn (Naproxen) 500 Mg Tab 5 Tab PO DAILY Neupro Patch 24 HR (Rotigotine Patch 24 HR) 4 Mg/24 Hr Patch 4 Mg T-DERMAL DAILY Requip (Ropinirole) 5 Mg Tab 10 Mg PO HS Requip (Ropinirole) 5 Mg Tab 5 Mg PO DAILY Review of Systems Except as stated in HPI: all other systems reviewed are Neg Physical Exam Narrative GENERAL: Well-developed well-nourished male in no acute distress SKIN: Warm and dry. Surgical site noted to the anterior right neck. Mildly tender to palpation. No erythema or dehiscence. HEAD: Atraumatic. Normocephalic. EYES: Pupils equal and round. No scleral icterus. No injection or drainage. ENT: No nasal bleeding or discharge. Mucous membranes pink and moist. NECK: Trachea midline. No JVD. CARDIOVASCULAR: Regular rate and rhythm. No murmur appreciated. RESPIRATORY: No accessory muscle use. Mild wheezing bilaterally GASTROINTESTINAL: Abdomen soft, non-tender, nondistended. Hepatic and splenic margins not palpable. MUSCULOSKELETAL: No obvious deformities. No clubbing. No cyanosis. No edema. NEUROLOGICAL: Awake and alert. No obvious cranial nerve deficits. Motor grossly within normal limits. Normal speech. PSYCHIATRIC: Appropriate mood and affect; insight and judgment normal. Data Data Last Documented VS Vital Signs Date Time Temp Pulse Resp B/P (MAP) Pulse Ox O2 Delivery O2 Flow Rate FiO2 10/12/17 19:05 83 18 141/89 (106) 98 Room Air 10/12/17 17:04 2.00 10/12/17 15:11 98.4 Orders Orders Electrocardiogram (10/12/17 15:04) Basic Metabolic Panel (Bmp) (10/12/17 15:04) Ckmb (Isoenzyme) Profile (10/12/17 15:04) Complete Blood Count With Diff (10/12/17 15:04) Magnesium (Mg) (10/12/17 15:04) Prothrombin Time / Inr (Pt) (10/12/17 15:04) Act Partial Throm Time (Ptt) (10/12/17 15:04) Troponin I (10/12/17 15:04) Chest, Single Ap (10/12/17 15:04) Ecg Monitoring (10/12/17 15:04) Bilateral Bp Monitoring (10/12/17 15:04) Iv Access Insert/Monitor (10/12/17 15:04) Oximetry (10/12/17 15:04) Oxygen Administration (10/12/17 15:04) Sodium Chloride 0.9% Flush (Ns Flush) (10/12/17 15:15) Ct Pulmonary Angiogram (10/12/17 15:04) Ct Soft Tiss Neck W Iv Cont (10/12/17 ) Albuterol-Ipratropium Neb (Duoneb Neb) (10/12/17 15:15) Iohexol 350 Inj (Omnipaque 350 Inj) (10/12/17 19:16) Acetamin-Hydrocod 325-5 Mg (Yuma 5-325 (10/12/17 20:00) Ed Discharge Order (10/12/17 19:57) Labs Laboratory Tests Test 10/12/17 15:15 White Blood Count 7.6 TH/MM3 Red Blood Count 4.15 MIL/MM3 Hemoglobin 13.6 GM/DL Hematocrit 39.3 % Mean Corpuscular Volume 94.6 FL Mean Corpuscular Hemoglobin 32.7 PG Mean Corpuscular Hemoglobin Concent 34.5 % Red Cell Distribution Width 13.3 % Platelet Count 293 TH/MM3 Mean Platelet Volume 7.1 FL Neutrophils (%) (Auto) 52.5 % Lymphocytes (%) (Auto) 36.9 % Monocytes (%) (Auto) 8.0 % Eosinophils (%) (Auto) 1.9 % Basophils (%) (Auto) 0.7 % Neutrophils # (Auto) 4.0 TH/MM3 Lymphocytes # (Auto) 2.8 TH/MM3 Monocytes # (Auto) 0.6 TH/MM3 Eosinophils # (Auto) 0.1 TH/MM3 Basophils # (Auto) 0.1 TH/MM3 CBC Comment DIFF FINAL Differential Comment Prothrombin Time 10.1 SEC Prothromb Time International Ratio 1.0 RATIO Activated Partial Thromboplast Time 28.6 SEC Blood Urea Nitrogen 12 MG/DL Creatinine 0.86 MG/DL Random Glucose 115 MG/DL Calcium Level 8.6 MG/DL Magnesium Level 2.2 MG/DL Sodium Level 142 MEQ/L Potassium Level 3.8 MEQ/L Chloride Level 110 MEQ/L Carbon Dioxide Level 24.9 MEQ/L Anion Gap 7 MEQ/L Estimat Glomerular Filtration Rate 93 ML/MIN Total Creatine Kinase 89 U/L Troponin I LESS THAN 0.02 NG/ML [facility] Medical Decision Making Medical Screen Exam Complete: Yes Emergency Medical Condition: Yes Medical Record Reviewed: Yes Differential Diagnosis Pulmonary embolism, pneumothorax, pericarditis, myocarditis, COPD exacerbation, postoperative abscess Narrative Course 52-year-old male with recent cervical spine fusion presents with sensation of swelling in his throat as well as a pleuritic chest pain and dyspnea which started this morning. He recently underwent a CT of the thorax which revealed a mass concerning for bronchogenic carcinoma, is scheduled to undergo biopsy tomorrow. Given his history, CT pulmonary angiogram is been ordered as well as a CT soft tissue of the neck. Lab work has been ordered. The patient will be placed on ECG monitoring pulse oximetry. A 12-lead EKG will be obtained. The patient received DuoNeb treatment as well as Solu-Medrol prior to arrival, additional DuoNeb treatment has been ordered. CTA of the chest, CT of the neck reveal no acute abnormalities, mass which is previously noted in the chest. Lab work is unremarkable. At this point in time the plan is to discharge the patient with a short course of prednisone as well as a new albuterol inhaler. He has allergies listed to morphine, oxycodone , Toradol, but he can take Yuma which she does not regular basis overdose of Lortab has been ordered. Diagnosis Primary Impression: Pleurisy Additional Impressions: Wheezing Dysphagia Additional Instructions: Medication as prescribed. Follow-up tomorrow morning for biopsy as discussed. Return for any emergent medical conditions. Med/Other Pt SpecificInfo: Prescription(s) given Scripts Prednisone (Prednisone) 20 Mg Tab 20 MG PO BID for 5 Days, #10 TAB 0 Refills Prov: Kocisko,Ken J. MD 10/12/17 Albuterol 8.5 GM Inh (Proair Hfa 8.5 GM Inh) 90 Mcg/Act Aer 2 PUFF INH Q4-6H Y for SHORTNESS OF BREATH, #1 INHALER 0 Refills 108 mcg/actuation Prov: Ken Marino MD 10/12/17 Disposition: 01 DISCHARGE HOME Condition: Stable Markel Craig Oct 12, 2017 15:06
[2017-10-12 15:11] VITALS: BP 135/64; PULSE 73; RESP 20; TEMP 98.4; O2SAT 96
[2017-10-12 15:14] VITALS: BP_SYST 131; BP_SYST 135; BP_DIAS 58; BP_DIAS 64; O2SAT 100
[2017-10-12] MEDS ORDERED: SODIUM CHLORIDE 0.9% FLUSH 10 ML FLUSH IVF PRN (15:15)
[2017-10-12] MEDS ORDERED: RESP: ALBUTEROL 2.5 MG/IPRATROPIUM 0.5 MG NEB (SCH) INH ONE (15:15)
[2017-10-12 15:48] LABS: BASOPHIL # 0.1 TH/MM3 (0-0.2); BASOPHIL % 0.7 % (0.0-2.0); EOSINOPHIL # 0.1 TH/MM3 (0-0.4); EOSINOPHIL % 1.9 % (0.0-4.0); HEMATOCRIT 39.3 % (39.0-51.0); HEMOGLOBIN 13.6 GM/DL (13.0-17.0); LYMPH % 36.9 % (9.0-44.0); LYMPHOCYTE # 2.8 TH/MM3 (1.0-4.8); MEAN CELL VOLUME 94.6 FL (80.0-100.0); MEAN CORPUSCULAR HEMOGLOBIN 32.7 PG (27.0-34.0); MEAN CORPUSCULAR HGB CONC 34.5 % (32.0-36.0); MEAN PLATELET VOLUME 7.1 FL (7.0-11.0); MONOCYTE # 0.6 TH/MM3 (0-0.9); NEUT % 52.5 % (16.0-70.0); PLATELET COUNT 293 TH/MM3 (150-450); RED BLOOD COUNT 4.15 MIL/MM3 (4.50-5.90); RED CELL DISTRIBUTION WIDTH 13.3 % (11.6-17.2); WHITE BLOOD COUNT 7.6 TH/MM3 (4.0-11.0)
[2017-10-12 16:01] LABS: PROTHROMBIN TIME - PATIENT 10.1 SEC (9.8-11.6)
[2017-10-12 16:05] LABS: BICARBONATE 24.9 MEQ/L (21.0-32.0); BLOOD UREA NITROGEN 12 MG/DL (7-18); CALCIUM 8.6 MG/DL (8.5-10.1); CHLORIDE 110 MEQ/L (98-107); CREATININE 0.86 MG/DL (0.60-1.30); GLOMERULAR FILTRATION RATE 93 ML/MIN (>89); GLUCOSE,RANDOM 115 MG/DL (74-106); SODIUM (NA) 142 MEQ/L (136-145)
--- NOTE | 2017-10-12 16:41 | RADRPT ---
EXAM DATE/TIME: 10/12/2017 15:44 [facility] COMPARISON: CHEST PA & LAT, June 28, 2016, 19:28. CHEST SINGLE AP, March 20, 2016, 14:02. INDICATIONS : Shortness of breath for 24 hours MEDICAL HISTORY : Renal calculi. Melanoma. Right lung mass SURGICAL HISTORY : Fusion, cervical. Discectomy, lumbar.Right shoulder replacement ENCOUNTER: Initial ACUITY: 1 day PAIN SCORE: 0/10 LOCATION: Bilateral chest FINDINGS: There is a new oval-shaped smooth margin 2 cm mass projected over the lateral right upper lung. Raysa radha of the lungs are clear. the heart is normal in size. Anterior plate in the cervical region an d right shoulder prosthesis. CONCLUSION: 2 cm mass projected over the right upper lung, new since 2015, suspicious for malignancy. Erik Castillo MD on October 12, 2017 at 16:37 Board Certified Radiologist. This report was verified electronically.
[2017-10-12 16:43] LABS: MAGNESIUM 2.2 MG/DL (1.5-2.5); TROPONIN I LESS THAN 0.02 NG/ML (0.02-0.05)
[2017-10-12 17:04] VITALS: BP 112/75; PULSE 74; RESP 17; O2SAT 98
[2017-10-12 19:05] VITALS: BP 141/89; PULSE 83; RESP 18; O2SAT 98
[2017-10-12] MEDS ORDERED: IOHEXOL 350 MG/ML 10 ML VIAL (for RAD DIAG) IVCONTRAST ONE (19:16)
--- NOTE | 2017-10-12 19:22 | RADRPT ---
EXAM DATE/TIME: 10/12/2017 18:39 [facility] COMPARISON: No previous studies available for comparison. INDICATIONS : Shortness of breath. IV CONTRAST: 75 cc Omnipaque 350 (iohexol) IV ; Cumulative dose for multiple exams. RADIATION DOSE: 9.44 CTDIvol (mGy) MEDICAL HISTORY : Melanoma SURGICAL HISTORY : None. ENCOUNTER: Initial ACUITY: 1 day PAIN SCALE: 0/10 LOCATION: chest TECHNIQUE: Volumetric scanning of the chest was performed using a pulmonary embolism protocol MIP images were re constructed. Using automated exposure control and adjustment of the mA and/or kV according to patien t size, radiation dose was kept as low as reasonably achievable to obtain optimal diagnostic quality images. DICOM format image data is available electronically for review and comparison. Follow-up recommendations for detected pulmonary nodules are based at a minimum on nodule size and pa tient risk factors according to Fleischner Society Guidelines. FINDINGS: Extensive emphysematous changes are seen in both lungs. 2.7 cm mass right upper lobe. There is no pleural effusion There is no axillary adenopathy. There is suspicious minimal right hilar adenopathy evident. There is no central pulmonary emboli There is no pleural effusion Degenerative changes are present in the thoracic spine. There is no interest CONCLUSION: 2.7 cm mass right upper lobe suspicious for neoplastic process; this was described on the CT scan the chest. Dameon Lovell MD FACR on October 12, 2017 at 19:16 Board Certified Radiologist. This report was verified electronically.
--- NOTE | 2017-10-12 19:30 | RADRPT ---
EXAM DATE/TIME: 10/12/2017 18:39 [facility] COMPARISON: No previous studies available for comparison. INDICATIONS : Difficulty breathing. IV CONTRAST: 75 cc Omnipaque 350 (iohexol) IV ; Cumulative dose for multiple exams. RADIATION DOSE: 16.23 CTDIvol (mGy) MEDICAL HISTORY : Nerve compression, herniated disc, melenoma. SURGICAL HISTORY : None. ENCOUNTER: Initial ACUITY: 1 day PAIN SCALE: 0/10 LOCATION: Bilateral neck TECHNIQUE: Volumetric scanning of the neck was performed. Using automated exposure control and adjustment of th e mA and/or kV according to patient size, radiation dose was kept as low as reasonably achievable to obtain optimal diagnostic quality images. DICOM format image data is available electronically for r eview and comparison. FINDINGS: NASOPHARYNX: The nasopharyngeal airway has a normal configuration. No mucosal thickening or mass is seen. OROPHARYNX: The intrinsic muscles of the tongue are symmetric. The tonsillar pillars are intact. The prevertebr al soft tissues are not thickened. LARYNX: The supraglottic, glottic, and infraglottic structures are intact. PARAPHARYNGEAL: The parapharyngeal space is intact. SALIVARY GLANDS: The parotid and submandibular glands are intact. LYMPH NODES: No enlarged or necrotic-appearing nodes. THYROID: Homogeneous enhancement without evidence of nodule. BONES: Unremarkable. Marked emphysematous changes apices both lungs. CONCLUSION: Negative CT scan of soft tissue of the neck. Lobular mass seen on CT scan the chest right upper lobe suspicious for neoplasm. Dameon Lovell MD FACR on October 12, 2017 at 19:26 Board Certified Radiologist. This report was verified electronically.
[2017-10-12] MEDS ORDERED: ALBUAER3 INH (19:59)
[2017-10-12] MEDS ORDERED: PRED20 PO (19:59)
[2017-10-12] MEDS ORDERED: ACETAMINOPHEN/HYDROcodone 325 MG/5 MG TAB PO ONE (20:00)
[2017-10-13] MEDS ORDERED: HYDR-3583 PO (08:40)
--- NOTE | 2017-10-13 13:59 | EKG ---
Date Performed: 10/12/2017 Time Performed: 15:23:26 PTAGE: 52 years EKG: Sinus rhythm NORMAL ECG Since the PREVIOUS TRACING , no significant change noted PREVIOUS TRACIN09/21/2017 09.06 DOCTOR: Jacque Guadarrama Interpretating Date/Time 10/13/2017 13:58:14
== END 2017-10-12 20:47 | disposition home or self-care (01) ==
LOC: NEPC 14:46
DX: R09.1 Pleurisy (principal); R13.10 Dysphagia, unspecified; G25.81 Restless legs syndrome; F17.200 Nicotine dependence, unspecified, uncomplicated; Z79.899 Other long term (current) drug therapy
CPT/HCPCS: 70491; 71045; 71275; 80048; 82550; 83735; 84484; 85025; 85610; 85730; 93005; 94664; 99285; Q9967

== ENCOUNTER 2017-10-13 07:27 | Day surgery (SDC) | payer MEDICARE, OTHER ==
[~2017-10-13] VITALS: Ht 180.3 cm; Wt 82.0 kg
[2017-10-13] VITALS (8 sets, daily range): BP systolic 107–140; BP diastolic 71–90; PULSE 71–84; RESP 16–20; TEMP 97.5–98.4; O2SAT 96–98
[~2017-10-13 07:27] MED LIST changes: +ALBUAER3 INH; +PRED20 PO
[2017-10-13] MEDS ORDERED: SODIUM CHLOR 0.9% 1000 ML IV SCH (08:00)
[2017-10-13] MEDS ORDERED: HYDR-3583 PO (08:40)
[2017-10-13] MEDS ORDERED: LORazepam 2 MG/ML VIAL ONE (09:47)
[2017-10-13] MEDS ORDERED: fentaNYL CITRATE 250 MCG/5 ML AMP ONE (09:53)
[2017-10-13] MEDS ORDERED: MIDAZOLAM HCL 5 MG/5 ML VIAL ONE (09:53)
[2017-10-13] MEDS ORDERED: MIDAZOLAM HCL 2 MG/2 ML VIAL ONE (10:28)
--- NOTE | 2017-10-13 10:53 | PD.RAD ---
Post CT Procedure Prog Note Pre Procedure Diagnosis: (1) Lung mass Post Procedure Diagnosis: (1) Lung mass Procedure Date: Oct 13, 2017 Supervising Radiologist: Beny Baldwin Anesthesia: Local, Analgesia, Conscious Sedation Plan of Activity Patient to Unit: ROPU Patient Condition: Good See PACS Report for procedural detail/treatment Biopsy Imaging Guidance: CT Side: Right Biopsy Procedure: Lung Specimen: Core Biopsy (Single 18 gauge core) Beny Baldwin MD Oct 13, 2017 10:53
--- NOTE | 2017-10-13 11:39 | RADRPT ---
EXAM DATE/TIME: 10/13/2017 10:11 [facility] COMPARISON: No previous studies available for comparison. INDICATIONS : Right upper lobe mass. SEDATION TIME: 30 minutes BIOPSY SITE: Right MEDICATION(S): 1.) 5 mg midazolam (Versed) IV 2.) 250 mcg fentanyl (Sublimaze) IV 3.) 3 mg lorazepam (Ativan) IV DEVICE(S): 1.) 18 gauge Bard MEDICAL HISTORY : Hypertension. SURGICAL HISTORY : None. ENCOUNTER: Initial ACUITY: 1 day PAIN SCORE: 0/10 LOCATION: Right A total of one core specimen(s) were obtained and sent to the laboratory for pathologic evaluation. PROCEDURE: 1. CT guided lung biopsy. 2. Conscious sedation with continuous EKG and oximetry monitoring. 3. EKG and oximetry remained stable throughout the procedure. Prior to the procedure informed consent was obtained. Any appropriate prior imaging studies were rev iewed. Using automated exposure control and adjustment of the mA and/or kV according to patient size, radiation dose was kept as low as reasonably achievable to obtain optimal diagnostic quality images. DICOM format image data is available electronically for review and comparison. The site was prepped in a sterile fashion. Full sterile technique was used, including cap, mask, heather rile gloves and gown and a large sterile sheet. Hand hygiene and 2% chlorhexidine and/or betadine/al cohol prep was utilized per protocol for cutaneous antisepsis. The skin and subcutaneous tissues wer e infiltrated with local anesthetic solution. With CT guidance the previously identified target was localized. Biopsy was performed using the presc ribed needle as above. Adequate hemostasis was obtained with compression at the puncture site. Follow-up CT scan reveals no pneumothorax. Conscious sedation was performed with the prescribed dosages and duration as above in the presence of an independent trained radiology nurse to assist in the monitoring of the patient. EKG and oximetry remained stable throughout the procedure. The patient tolerated the procedure well and there were no complications. The patient was sent to Radiology Outpatient Unit in stable condition. CONCLUSION: Uncomplicated CT guided biopsy. Single 18 gauge core biopsy obtained. Beny Baldwin MD on October 13, 2017 at 11:36 Board Certified Radiologist. This report was verified electronically.
--- NOTE | 2017-10-13 13:20 | RADRPT ---
EXAM DATE/TIME: 10/13/2017 12:30 [facility] COMPARISON: CHEST SINGLE AP, October 12, 2017, 15:44. INDICATIONS : S/p right side lung biopsy. MEDICAL HISTORY : Hypertension. melanoma SURGICAL HISTORY : None. ENCOUNTER: Initial ACUITY: 1 day PAIN SCORE: 0/10 LOCATION: Bilateral chest FINDINGS: Single view chest is provided. The patient's pulmonary nodule in the right is again identified. There is no pneumothorax evident following biopsy. There are chronic interstitial changes throughout both lungs. The heart is normal in size. The osseous structures are grossly intact CONCLUSION: 1. No pneumothorax following CT-guided biopsy right lung. Brett Lovell MD on October 13, 2017 at 13:17 Board Certified Radiologist. This report was verified electronically.
[2017-10-13] MEDS ORDERED: HYDROmorphone HCL PF 2 MG/ML VIAL ONE (13:38)
--- NOTE | 2017-10-13 14:22 | RADRPT ---
EXAM DATE/TIME: 10/13/2017 13:17 [facility] COMPARISON: CHEST PA & LAT, September 21, 2017, 9:31. CT NEEDLE BIOPSY LUNG, RIGHT, October 13, 2017, 10:11. CHEST SI NGLE AP, October 12, 2017, 15:44. INDICATIONS : Post right lung biopsy. Inspiration view after having increased chest pain. MEDICAL HISTORY : Hypertension. melanoma SURGICAL HISTORY : None. ENCOUNTER: Subsequent ACUITY: 1 day PAIN SCORE: 7/10 LOCATION: Bilateral chest FINDINGS: The cardiac silhouette is normal in transverse diameter. There is no evidence of pneumothorax. Right upper lobe mass is again identified. CONCLUSION: No evidence of pneumothorax following lung biopsy. John Bull MD on October 13, 2017 at 14:15 Board Certified Radiologist. This report was verified electronically.
== END 2017-10-13 15:00 | disposition home or self-care (01) ==
LOC: HRAD 07:27 → HRIP 07:28 → HRAD 15:00
PROVIDERS: ATTEND Internal Medicine
DX: R91.8 Other nonspecific abnormal finding of lung field (principal); J43.9 Emphysema, unspecified; I10 Essential (primary) hypertension; Z85.820 Personal history of malignant melanoma of skin
CPT/HCPCS: 32405; 71045; 77012; 88305; 88341; 88342; 99152; 99153; J1170; J2060; J2250; J3010

== ENCOUNTER → 2017-11-03 | Outpatient (CLI) | payer MEDICARE, OTHER ==
[~2017-11-03] MED LIST changes: +DOCU1CAP39 PO; +HYDR-3366 PO; -NAPR500 PO; -PRED20 PO
[2017-11-03 10:29] LABS: HEMATOCRIT 42.6 % (39.0-51.0); HEMOGLOBIN 14.5 GM/DL (13.0-17.0); MEAN CELL VOLUME 95.9 FL (80.0-100.0); MEAN CORPUSCULAR HEMOGLOBIN 32.7 PG (27.0-34.0); MEAN CORPUSCULAR HGB CONC 34.1 % (32.0-36.0); MEAN PLATELET VOLUME 6.8 FL (7.0-11.0); PLATELET COUNT 242 TH/MM3 (150-450); RED BLOOD COUNT 4.45 MIL/MM3 (4.50-5.90); RED CELL DISTRIBUTION WIDTH 13.8 % (11.6-17.2); WHITE BLOOD COUNT 7.1 TH/MM3 (4.0-11.0)
[2017-11-03 10:36] LABS: BILIRUBIN, URINE NEG (NEG); BLOOD, URINE NEG (NEG); GLUCOSE,URINE NEG (NEG); KETONE, URINE NEG (NEG); MUCUS URINE FEW /lpf (OCC); NITRITE,URINE NEG (NEG); PH, URINE 5.5 (5.0-8.5); SQUAMOUS EPITHELIAL CELL URINE <1 /hpf (0-5); URINE COLOR YELLOW (YELLW/STRAW); URINE LEUKOCYTE ESTERASE NEG (NEG)
[2017-11-03 10:36] LABS: PROTHROMBIN TIME - PATIENT 10.5 SEC (9.8-11.6)
[2017-11-03 10:58] LABS: BICARBONATE 28.7 MEQ/L (21.0-32.0); CALCIUM 8.9 MG/DL (8.5-10.1); CREATININE 0.96 MG/DL (0.60-1.30)
--- NOTE | 2017-11-08 10:42 | RSPPFT ---
DATE OF PROCEDURE: 11/03/17 COMMENTS: VOLUMES DYNAMIC: FVC and FEV1 moderately reduced. FLOWS: FEV1% normal; FEF 25-75 severely reduced. IMPRESSION: Moderate obstructive ventilatory defect. Co-existent restriction would require full lung volumes to evaluate. Post-bronchodilator study may be helpful in planning therapy.
== END ==
LOC: CPRE 09:59
PROVIDERS: ATTEND Thoracic Surgery (Cardiothoracic Vascular Surgery)
DX: Z01.812 Encounter for preprocedural laboratory examination (principal); R91.8 Other nonspecific abnormal finding of lung field
CPT/HCPCS: 36415; 80048; 81001; 85027; 85610; 85730

== ENCOUNTER 2017-11-08 05:27 | Inpatient (IN) | payer MEDICARE, OTHER ==
[~2017-11-08] VITALS: Ht 180.3 cm; Wt 79.5 kg
[~2017-11-08 05:27] MED LIST changes: -DOCU1CAP39 PO; -HYDR-3366 PO
[2017-11-08] MEDS ORDERED: CHLORHEXIDINE GLUCONATE 2 % 1 PACK (2 CLOTHS) TOPICAL PRN (06:00)
[2017-11-08] MEDS ORDERED: METOPROLOL TARTRATE 25 MG TAB PO PRN (06:00)
[2017-11-08] MEDS ORDERED: SODIUM CHLORID 0.9% 500 ML IV PRN (06:00)
[2017-11-08] MEDS ORDERED: POVIDONE IODINE 5% (ANTISEPSIS KIT) 4 APPLICATIONS EACH NARE PRN (06:00)
[2017-11-08] MEDS: LACTATED RINGER'S 1000 ML IV PRN ×2 (06:45→17:45)
[2017-11-08] MEDS ORDERED: ceFAZolin 2 GM PREMIX 50 ML ONE (06:49)
[2017-11-08] MEDS ORDERED: BUPIVACAINE LIPOSO PF 1.3% INJ 20 ML, DEXAMETHASONE INJ 4 MG, MORPHINE INJ 8 MG in SODI... IRRIGATION ONE (07:30)
[2017-11-08] MEDS ORDERED: BUPIVACAINE LIPOSO PF 1.3% INJ 20 ML, DEXAMETHASONE INJ 4 MG in SODIUM CHLORIDE 0.9% IN... IRRIGATION ONE (07:30)
--- NOTE | 2017-11-08 08:42 | PD.CAR.PN ---
CVT Progress Note Subjective/Hospital Course: 52/ male referred to Dr Patel's office per Dr Valles, new findings of a right upper lobe lung mass. He has H/O of melanoma diagnosed and treated in 2011. Percutaneous BC of lung mass consistent with metastatic melanoma PMH Melanoma, restless leg syndrome , COPD, emphysema , chronic nicotine use 11/08 electively admitted for surgery today Objective: Vital Signs Date Time Temp Pulse Resp B/P (MAP) Pulse Ox O2 Delivery O2 Flow Rate FiO2 11/08/17 06:39 98.3 69 22 118/82 (94) 98 Naheed Floyd November 08, 2017 08:42
[2017-11-08] MEDS ORDERED: NALOXONE HCL 0.4 MG/ML AMP IV PUSH PRN (10:30)
[2017-11-08] MEDS ORDERED: RESP: ALBUTEROL 2.5 MG/3 ML NEB (PRN) NEB (10:30)
[2017-11-08] MEDS ORDERED: ACETAMINOPHEN 325 MG TAB PO PRN (10:30)
[2017-11-08] MEDS ORDERED: MAGNESIUM HYDROXIDE SUSP 30 ML CUP PO PRN (10:30)
[2017-11-08] MEDS ORDERED: KETOROLAC TROMETHAMINE 30 MG/ML (IVP) VIAL IV PUSH SCH (10:30)
[2017-11-08] MEDS ORDERED: SODIUM CHLORIDE 0.9% FLUSH 10 ML FLUSH IV FLUSH PRN (10:30)
[2017-11-08] MEDS ORDERED: ONDANSETRON HCL 4 MG/2 ML VIAL IV PUSH PRN (10:30)
[2017-11-08] MEDS ORDERED: Post-op Orders (for Pharmacy) OTHER ONE (10:30)
--- NOTE | 2017-11-08 10:40 | PD.OP ---
cc: Nicky Patel MD; Rahul Valles MD Operative Report Date of Surgery: November 08, 2017 Preoperative Diagnosis: Postoperative Diagnosis: Procedure: 1. Right Posterolateral Muscle-sparing Thoracotomy 2. Right Upper Lobectomy 3. Mediastinal Lymph Node Dissection 4. Lysis of Adhesions 5. Intercostal Nerve Block Surgeon: Nicky Patel Inspector Aluminum Boat(s): Catarina Laird Operation and Findings: PREOPERATIVE DIAGNOSIS 1. Right Upper Lobe Lung Melanoma 2. Severe COPD 3. Bullous Emphysema 4. Melanoma of the Back POSTOPERATIVE DIAGNOSIS same PROCEDURES 1. Right Posterolateral Muscle-sparing Thoracotomy 2. Right Upper Lobectomy 3. Mediastinal Lymph Node Dissection 4. Lysis of Adhesions 5. Intercostal Nerve Block SURGEON Nicky Patel MD [employer]PUT[employer]SULTANT Kassandra Laird PA-C ANESTHESIA General double-lumen endotracheal. ENERGY EFFICIENCY FINANCE MANAGER LEROY Hassan MD DRAINS [address] COUNTS Needle, sponge, and instrument counts were correct. COMPLICATIONS None. INDICATION FOR PROCEDURE The patient is a 52 yo gentleman with h/o melanoma resection now presenting with a RUL lung mass which is biopsy proven to be a melanoma. He is being brought to the OR for surgical resection. DESCRIPTION OF PROCEDURE The patient was brought to the operating suite and placed in supine position. Following satisfactory induction of general double-lumen endotracheal anesthesia , the patient was placed in the left lateral decubitus position. The right chest and surrounding area was then prepped and draped in the usual sterile fashion. A standard muscle-sparing posterolateral thoracotomy was performed and the serratus anterior muscle spared. The pleural space was entered. Exploration of the chest revealed mass in the upper lobe with dense circumferential adhesions. The adhesions were divided sharply and the lung freed. The large mass was deep within the right upper lobe and not amenable to a wedge resection. The inferior pulmonary ligament was divided. The pulmonary arterial supply to the upper lobe was identified, dissected free and divided as was the pulmonary venous supply. The bronchus was then dissected free, clamped and the remaining lung was insufflated without any difficulty. Lymph node dissections of level 4, 7, 8, 9 and 10 were performed along with the course of this removal. Some of these were retained with the specimen. Specimen was removed from the chest. The remaining lung was submerged under sterile water and inflated. No air leaks were identified. At this point the closure was undertaken. A 32-Sinhala chest tube was placed. Intercostal nerve block was performed at the level of the incision and 3 rib spaces above and below using Exparel with Decadron solution. The pericostal space was approximated with interrupted #1 Vicryl sutures in a pericostal fashion. The serratus fascia and Latissimus dorsi were closed with running 0-Vicryl and the remaining wounds closed with 3-0, and 4-0 Monocryl. The patient tolerated the procedure well and postoperatively went to the PACU in stable condition. Nicky Patel MD November 08, 2017 10:40
[2017-11-08] MEDS ORDERED: DO NOT ADM ANY ANTICOAGULANT DRUGS PRN (10:50)
[2017-11-08] MEDS ORDERED: *HYDROmorphone PF 0.5 MG/0.5 ML PERIprocedure ONLY ONE ×3 (10:55→11:32)
[2017-11-08] MEDS ORDERED: *ONDANSETRON 4 MG VIAL PERIprocedural Use ONLY ONE (10:56)
[2017-11-08] MEDS ORDERED: MIDAZOLAM HCL 2 MG/2 ML VIAL ONE (10:59)
[2017-11-08] MEDS ORDERED: fentaNYL CITRATE 250 MCG/5 ML AMP ONE (11:00)
[2017-11-08] MEDS: HYDROmorphone HCL PCA 6 MG/30 ML IV SCH ×2 (11:20→19:31)
--- NOTE | 2017-11-08 11:37 | RADRPT ---
EXAM DATE/TIME: 11/08/2017 12:08 [facility] COMPARISON: CHEST SINGLE AP, October 13, 2017, 13:17. INDICATIONS : S/p thoracotomy, right upper lobectomy MEDICAL HISTORY : Hypertension. melanoma SURGICAL HISTORY : right shoulder replacement. ENCOUNTER: Initial ACUITY: 1 day PAIN SCORE: 10/10 LOCATION: Bilateral chest FINDINGS: Interval thoracotomy with chest tube projecting at the right apex. No evidence of pneumothorax. The left lung is clear. The heart is normal size. Orthopedic hardware in the lower cervical region and right shoulder. CONCLUSION: Status post right thoracotomy with chest tube in place. No evidence of pneumothorax. Erik Castillo MD on November 08, 2017 at 11:35 Board Certified Radiologist. This report was verified electronically.
[2017-11-08] MEDS ORDERED: GLYCOPYRROLATE 0.2 MG/ML VIAL IV ONE (12:00)
[2017-11-08] MEDS ORDERED: LACTATED RINGER'S 1000 ML INJ 1,000 ML IV ONE (12:00)
[2017-11-08] MEDS ORDERED: SODIUM CHLOR 0.9% 250 ML INJ 250 ML IV ONE (12:00)
[2017-11-08] MEDS ORDERED: ePHEDrine/NS 25 MG/5 ML SYRINGE IV ONE (12:00)
[2017-11-08] MEDS ORDERED: PHENYLEPH/NS 1000 MCG/10 ML SYR IV ONE (12:00)
[2017-11-08] MEDS ORDERED: PROPOFOL 500 MG/50 ML BTL IV ONE (12:00)
[2017-11-08] MEDS ORDERED: SODIUM CHLORID 0.9% 500 ML INJ 500 ML IV ONE (12:00)
[2017-11-08] MEDS ORDERED: NEOSTIGMINE METHYLSULFATE 10 MG/10 ML VIAL IV PUSH ONE (12:00)
[2017-11-08] MEDS ORDERED: VECURONIUM BROMIDE 10 MG VIAL IV ONE (12:00)
[2017-11-08] MEDS ORDERED: SODIUM BICARBONATE 8.4% INJ 50 MEQ/50 ML SYR IV ONE (12:00)
[2017-11-08] MEDS: ACETAMINOPHEN 1000 MG/100 ML 100 ML IV SCH ×2 (14:00→21:00)
[2017-11-08 16:00] VITALS: BP 126/74; PULSE 84; RESP 22; TEMP 97.9; O2SAT 96
[2017-11-08] MEDS: ceFAZolin 2 GM PREMIX 50 ML IV SCH ×2 (16:41→23:44)
[2017-11-08 19:00] VITALS: BP 112/66; PULSE 79; TEMP 98.4; TEMP 98.5; O2SAT 96
[2017-11-08] MEDS: NEUPRO 4 MG/24 HR TOPICAL SCH (20:00)
[2017-11-08] MEDS: DOCUSATE CALCIUM 240 MG CAP PO SCH (20:58)
[2017-11-08] MEDS: PANTOPRAZOLE SOD 40 MG DELAYED RELEASE TAB PO SCH (20:59)
[2017-11-08] MEDS: SODIUM CHLORIDE 0.9% FLUSH 10 ML FLUSH IV FLUSH SCH (21:00)
[2017-11-08] MEDS: PCA - TOTAL MG DILAUDID DELIVERED PER SHIFT OTHER SCH (22:00)
[2017-11-08] MEDS: RESP: ALBUTEROL 2.5 MG/3 ML NEB (SCH) NEB (22:40)
[2017-11-08 23:00] VITALS: PULSE 80
[2017-11-09] VITALS (20 sets, daily range): BP systolic 99–130; BP diastolic 57–73; PULSE 72–93; RESP 17–21; TEMP 98.4–100.6; O2SAT 86–100
[2017-11-09] MEDS: HYDROmorphone HCL PCA 6 MG/30 ML IV SCH ×6 (00:57→23:51)
[2017-11-09] MEDS: RESP: ALBUTEROL 2.5 MG/3 ML NEB (SCH) NEB ×4 (02:29→23:08)
[2017-11-09] MEDS: ACETAMINOPHEN 1000 MG/100 ML 100 ML IV SCH ×2 (02:38→08:00)
--- NOTE | 2017-11-09 04:14 | RADRPT ---
EXAM DATE/TIME: 11/09/2017 03:12 [facility] COMPARISON: CHEST SINGLE AP, October 13, 2017, 13:17. CHEST SINGLE AP, November 08, 2017, 12:08. INDICATIONS : Short of breath. Post thoracotomy. MEDICAL HISTORY : Hypertension. melanoma SURGICAL HISTORY : None. ENCOUNTER: Subsequent ACUITY: 2 days PAIN SCORE: 0/10 LOCATION: Bilateral chest FINDINGS: A single view of the chest demonstrates right-sided thoracostomy tube. No pneumothorax. Previously se en right upper lobe mass lesion is no longer present characteristic of a reported history of thoracot salma and presumed partial pneumonectomy. Lungs are clear. Heart size is normal. Anterior fixation of t he lower cervical spine. Right shoulder arthroplasty. CONCLUSION: 1. Previously seen nodule in the right upper lung is no longer present probably represent surgical re section. 2. Right-sided thoracostomy tube without pneumothorax. Left lung remains clear. Beny Baldwin MD on November 09, 2017 at 4:11 Board Certified Radiologist. This report was verified electronically.
[2017-11-09 05:24] LABS: AUTOMATED NEUTROPHIL # 8.7 TH/MM3 (1.8-7.7); BASOPHIL % 0.2 % (0.0-2.0); EOSINOPHIL % 0.1 % (0.0-4.0); HEMATOCRIT 38.5 % (39.0-51.0); HEMOGLOBIN 13.1 GM/DL (13.0-17.0); LYMPH % 17.3 % (9.0-44.0); MEAN CELL VOLUME 94.4 FL (80.0-100.0); MEAN CORPUSCULAR HEMOGLOBIN 32.2 PG (27.0-34.0); MEAN CORPUSCULAR HGB CONC 34.1 % (32.0-36.0); MEAN PLATELET VOLUME 7.3 FL (7.0-11.0); MONO % 6.9 % (0.0-8.0); MONOCYTE # 0.8 TH/MM3 (0-0.9); NEUT % 75.5 % (16.0-70.0); PLATELET COUNT 223 TH/MM3 (150-450); RED BLOOD COUNT 4.08 MIL/MM3 (4.50-5.90); RED CELL DISTRIBUTION WIDTH 13.9 % (11.6-17.2); WHITE BLOOD COUNT 11.5 TH/MM3 (4.0-11.0)
[2017-11-09 05:42] LABS: BICARBONATE 29.4 MEQ/L (21.0-32.0); CALCIUM 8.4 MG/DL (8.5-10.1); CREATININE 0.96 MG/DL (0.60-1.30)
[2017-11-09] MEDS: PCA - TOTAL MG DILAUDID DELIVERED PER SHIFT OTHER SCH ×3 (05:43→22:00)
[2017-11-09] MEDS: ceFAZolin 2 GM PREMIX 50 ML IV SCH (08:00)
[2017-11-09] MEDS: SODIUM CHLORIDE 0.9% FLUSH 10 ML FLUSH IV FLUSH SCH ×2 (09:00→21:00)
[2017-11-09] MEDS ORDERED: NEUPRO 4 MG/24 HR TOPICAL SCH (09:00)
[2017-11-09] MEDS: ACETAMINOPHEN/HYDROcodone 325 MG/10 MG TAB PO PRN ×2 (09:48→17:15)
[2017-11-09] MEDS ORDERED: BISACODYL 10 MG SUPP RECTAL PRN (10:15)
[2017-11-09] MEDS ORDERED: POTASSIUM CHLORIDE 10 MEQ CONTROLLED RELEASE TAB PO ONE (10:15)
--- NOTE | 2017-11-09 10:21 | PD.CAR.PN ---
CVT Progress Note Subjective/Hospital Course: 52/ male referred to Dr Patel's office per Dr Valles, new findings of a right upper lobe lung mass. He has H/O of melanoma diagnosed and treated in 2011. Percutaneous BC of lung mass consistent with metastatic melanoma PMH Melanoma, restless leg syndrome , COPD, emphysema , chronic nicotine use 11/08 surgery : 1. Right Posterolateral Muscle-sparing Thoracotomy 2. Right Upper Lobectomy 3. Mediastinal Lymph Node Dissection 4. Lysis of Adhesions 5. 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 incision intact to right postero lateral chest wall HEAD: Normocephalic. EYES: No scleral icterus. No injection or drainage. NECK: Supple, trachea midline. No JVD or lymphadenopathy. CARDIOVASCULAR: Regular rate and rhythm without murmurs, gallops, or rubs. RESPIRATORY: Breath sounds equal bilaterally. No accessory muscle use. right chest tube in place, with intermittent small air leak / drained 250cc/ 12 hrs GASTROINTESTINAL: Abdomen soft, non-tender, nondistended. MUSCULOSKELETAL: No cyanosis, or edema. BACK: Nontender without obvious deformity. No CVA tenderness. Vital Signs Date Time Temp Pulse Resp B/P (MAP) Pulse Ox O2 Delivery O2 Flow Rate FiO2 11/09/17 10:00 81 11/09/17 09:35 19 11/09/17 09:02 19 11/09/17 09:02 19 11/09/17 09:00 79 11/09/17 07:00 98.4 82 19 107/72 (84) 96 11/09/17 07:00 76 11/09/17 05:43 20 11/09/17 05:30 20 11/09/17 04:34 99.0 79 99/57 (71) 95 11/09/17 00:57 20 11/09/17 00:33 98.8 86 111/66 (81) 95 11/09/17 00:30 98.8 86 111/66 (81) 95 11/08/17 23:00 80 11/08/17 22:00 18 11/08/17 19:31 18 11/08/17 19:00 98.4 79 112/66 (81) 96 11/08/17 19:00 98.5 79 112/66 (81) 96 11/08/17 16:00 97.9 84 22 126/74 (91) 96 11/08/17 15:00 98.4 80 15 115/73 (87) 97 Room Air 11/08/17 14:00 76 16 103/67 (79) 100 11/08/17 13:00 76 17 114/69 (84) 100 11/08/17 12:00 71 19 105/62 (76) 96 11/08/17 11:30 67 20 121/73 (89) 100 11/08/17 11:20 12 11/08/17 11:15 74 19 126/73 (90) 100 11/08/17 11:00 77 20 125/69 (87) 100 Nasal Cannula 2 11/08/17 10:51 98.4 85 17 132/73 (92) 100 Nasal Cannula 2 Labs: Laboratory Tests Test 11/09/17 04:40 White Blood Count 11.5 TH/MM3 (4.0-11.0) Red Blood Count 4.08 MIL/MM3 (4.50-5.90) Hemoglobin 13.1 GM/DL (13.0-17.0) Hematocrit 38.5 % (39.0-51.0) Mean Corpuscular Volume 94.4 FL (80.0-100.0) Mean Corpuscular Hemoglobin 32.2 PG (27.0-34.0) Mean Corpuscular Hemoglobin Concent 34.1 % (32.0-36.0) Red Cell Distribution Width 13.9 % (11.6-17.2) Platelet Count 223 TH/MM3 (150-450) Mean Platelet Volume 7.3 FL (7.0-11.0) Neutrophils (%) (Auto) 75.5 % (16.0-70.0) Lymphocytes (%) (Auto) 17.3 % (9.0-44.0) Monocytes (%) (Auto) 6.9 % (0.0-8.0) Eosinophils (%) (Auto) 0.1 % (0.0-4.0) Basophils (%) (Auto) 0.2 % (0.0-2.0) Neutrophils # (Auto) 8.7 TH/MM3 (1.8-7.7) Lymphocytes # (Auto) 2.0 TH/MM3 (1.0-4.8) Monocytes # (Auto) 0.8 TH/MM3 (0-0.9) Eosinophils # (Auto) 0.0 TH/MM3 (0-0.4) Basophils # (Auto) 0.0 TH/MM3 (0-0.2) CBC Comment DIFF FINAL Differential Comment Blood Urea Nitrogen 14 MG/DL (7-18) Creatinine 0.96 MG/DL (0.60-1.30) Random Glucose 122 MG/DL (74-106) Calcium Level 8.4 MG/DL (8.5-10.1) Sodium Level 139 MEQ/L (136-145) Potassium Level 3.5 MEQ/L (3.5-5.1) Chloride Level 104 MEQ/L (98-107) Carbon Dioxide Level 29.4 MEQ/L (21.0-32.0) Anion Gap 6 MEQ/L (5-15) Estimat Glomerular Filtration Rate 82 ML/MIN (>89) Result Diagram: 11/09/170 11/09/170 Telemetry: NSR (1) s/p thoracotomy Plan: pulm toileting pain control OOB/ ambulate GI Motility meds await path (2) Lung mass (3) Restless leg syndrome Plan: Naheed Guzman November 09, 2017 10:21
--- NOTE | 2017-11-09 10:23 | HHI.FF ---
Face to Face Verification Diagnosis: (1) Lung mass (2) s/p thoracotomy (3) Anxiety Home Health Nursing Order: Medication education-adverse effect Wound care and dressing changes Nursing assessment with vital signs Instructions: Thoracic Surgery patients Mandatory frequency Assess and evaluation, 2-3 x a week for one week Initial visit 1. Review post chest surgery instructions chest precautions, Activity, Elastic hose, Incision care, Driving, Incentive spirometry, Smoking, [place] , Work and other) 2. Need Betadine to paint incision 3. Medication reconciliation 4. Importance of follow up care/ check on appointments 5. Make calendar record temperature daily 6. When to call Home nurse, review instructions, phone list 7. Incentive Spirometry, demonstration Visit 1- Begin discharge instruction for patient family and/ or caregiver using teach back method- 1. Signs and symptoms of infection 2. Disease characteristics 3. Medicines and side effects 4. Foods and nutrition/ appetite 5. Infection control/ hand washing/ hygiene Visit 2- Continue teaching 1. Discharge instructions- include additional information on smoking cessation , Visit 3- Continue teaching- 1. Cough and deep breathing, incision monitoring. For any questions please call : / [facility] Cardiothoracic Surgery Incentive spirometry Q1 hr x 10, while awake, also use acapella device hourly whole Chest wall precautions: NO pushing or pulling, ( pt must use chest pillow support chest with all activities and with coughing Daily incision care: ok to shower ( 48hrs after chest tube removed) and then daily, no tub bath. Wash all incisions with liquid dial soap, clean wash cloth to each site, rinse and pat dry. Observe for any signs of infection, such as drainage which is dark yellow, cueva, green or foul smelling. Immediately report to the surgeon any drainage from the chest incision, or legs, and for any abnormal drainage from the chest tube sites. Notify surgeon if any temp > 101.5 degrees F. When specialty dressing removed/ or if you do not have one, continue to shower daily as above, then rinse and pat incision dry and paint with betadine daily x 5 days. Allow steri strips to fall off if you have any. Avoid lotions, creams, salves, oils, etc. for the first month F/U appointment: as per SD instructions: PCP in 2 weeks, CV surgeon 2 weeks, Oncologist 3-4 weeks For any questions regarding incisions/ dressing / meds / post op care or above Symptoms, Tuesday 8am-5pm Heart & Vascular Surgery Office ( Dr. Patel & Dr. Mcduffie), After Hours / Nights (5pm -8am) Weekends and Holidays Please call [facility] Cardiac Inter[facility] Unit ([facility]) Charge Nurse I have seen patient Jamal Childers on 11/09/17. My clinical findings support the need for the requested home health care services because: Deconditioned w/ increased weakness I certify that my clinical findings support that this patient is homebound because: Post-op weakness Naheed Floyd November 09, 2017 10:23
[2017-11-09] MEDS: POLYETHYLENE GLYCOL 17 GM PKG PO SCH (11:43)
[2017-11-09] MEDS: LACTATED RINGER'S 1000 ML IV PRN (17:26)
[2017-11-09] MEDS: LACTATED RINGER'S 1000 ML INJ 1,000 ML IV SCH (18:00)
[2017-11-09] MEDS: NEUPRO 4 MG/24 HR TOPICAL SCH (20:00)
[2017-11-09] MEDS: PANTOPRAZOLE SOD 40 MG DELAYED RELEASE TAB PO SCH (21:45)
[2017-11-09] MEDS: DOCUSATE CALCIUM 240 MG CAP PO SCH (21:45)
[2017-11-09] MEDS: DOCUSATE SODIUM 100 MG CAP PO SCH (21:45)
[2017-11-09] MEDS: TEMAZEPAM 15 MG CAP PO PRN (21:45)
[2017-11-10] VITALS (25 sets, daily range): BP systolic 108–145; BP diastolic 69–83; PULSE 77–95; RESP 16–21; TEMP 98.3–99.5; O2SAT 95–96
[2017-11-10] MEDS: ACETAMINOPHEN/HYDROcodone 325 MG/10 MG TAB PO PRN ×5 (02:29→22:41)
[2017-11-10] MEDS: RESP: ALBUTEROL 2.5 MG/3 ML NEB (SCH) NEB ×4 (03:55→21:41)
[2017-11-10] MEDS: PCA - TOTAL MG DILAUDID DELIVERED PER SHIFT OTHER SCH (06:00)
[2017-11-10] MEDS: HYDROmorphone HCL PCA 6 MG/30 ML IV SCH ×2 (06:14→11:05)
[2017-11-10] MEDS: DOCUSATE SODIUM 100 MG CAP PO SCH ×2 (08:47→21:27)
[2017-11-10] MEDS: POLYETHYLENE GLYCOL 17 GM PKG PO SCH (08:47)
[2017-11-10] MEDS: SODIUM CHLORIDE 0.9% FLUSH 10 ML FLUSH IV FLUSH SCH ×2 (09:00→21:00)
--- NOTE | 2017-11-10 13:00 | PD.CAR.PN ---
CVT Progress Note Subjective/Hospital Course: 52/ male referred to Dr Patel's office per Dr Valles, new findings of a right upper lobe lung mass. He has H/O of melanoma diagnosed and treated in 2011. Percutaneous BC of lung mass consistent with metastatic melanoma PMH Melanoma, restless leg syndrome , COPD, emphysema , chronic nicotine use 11/08 surgery : 1. Right Posterolateral Muscle-sparing Thoracotomy 2. Right Upper Lobectomy 3. Mediastinal Lymph Node Dissection 4. Lysis of Adhesions 5. 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 incision intact right posterior lateral chest wall HEAD: Normocephalic. EYES: No scleral icterus. No injection or drainage. NECK: Supple, trachea midline. No JVD or lymphadenopathy. CARDIOVASCULAR: Regular rate and rhythm without murmurs, gallops, or rubs. RESPIRATORY: Breath sounds equal bilaterally. No accessory muscle use. slightly diminished in right base GASTROINTESTINAL: Abdomen soft, non-tender, nondistended. MUSCULOSKELETAL: No cyanosis, or edema. BACK: Nontender without obvious deformity. No CVA tenderness. Vital Signs Date Time Temp Pulse Resp B/P (MAP) Pulse Ox O2 Delivery O2 Flow Rate FiO2 11/10/17 11:35 20 11/10/17 11:05 20 11/10/17 11:00 98.6 95 16 123/83 (96) 95 11/10/17 10:00 84 11/10/17 09:52 18 11/10/17 09:00 82 11/10/17 08:00 90 11/10/17 07:00 86 11/10/17 07:00 98.3 88 18 120/69 (86) 95 11/10/17 06:20 87 11/10/17 06:14 20 11/10/17 06:00 20 11/10/17 05:43 82 11/10/17 04:34 83 11/10/17 03:27 98.9 94 20 145/73 (97) 95 11/10/17 03:27 86 11/10/17 02:46 83 11/10/17 01:31 82 11/10/17 00:30 82 11/09/17 23:51 20 11/09/17 23:50 100.6 87 21 122/65 (84) 97 11/09/17 23:40 89 11/09/17 22:30 90 11/09/17 22:00 21 11/09/17 21:30 84 11/09/17 20:50 90 11/09/17 19:50 99.3 86 21 130/73 (92) 96 11/09/17 19:50 88 11/09/17 18:00 77 11/09/17 17:25 19 11/09/17 17:00 93 11/09/17 16:00 85 11/09/17 15:00 99.7 81 18 115/69 (84) 100 11/09/17 15:00 83 11/09/17 14:00 72 11/09/17 13:58 19 11/09/17 13:57 19 11/09/17 13:00 81 Result Diagram: 11/09/17 0440 11/09/17 0440 (1) s/p thoracotomy Plan: pulm toileting pain control / 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
[2017-11-10] MEDS: NEUPRO 4 MG/24 HR TOPICAL SCH (20:00)
[2017-11-10] MEDS: TEMAZEPAM 15 MG CAP PO PRN (21:27)
[2017-11-10] MEDS: DOCUSATE CALCIUM 240 MG CAP PO SCH (21:27)
[2017-11-10] MEDS: PANTOPRAZOLE SOD 40 MG DELAYED RELEASE TAB PO SCH (21:27)
[2017-11-10] MEDS ORDERED: ACETAMINOPHEN/HYDROcodone 325 MG/10 MG TAB PO PRN (22:45)
[2017-11-11] VITALS (13 sets, daily range): BP systolic 112–135; BP diastolic 70–87; PULSE 84–96; RESP 18–20; TEMP 98–98.2; O2SAT 96–97
[2017-11-11] MEDS: ACETAMINOPHEN/HYDROcodone 325 MG/10 MG TAB PO PRN ×2 (02:52→08:51)
[2017-11-11] MEDS: RESP: ALBUTEROL 2.5 MG/3 ML NEB (SCH) NEB ×2 (04:23→10:56)
--- NOTE | 2017-11-11 05:55 | RADRPT ---
EXAM DATE/TIME: 11/11/2017 05:12 [place] COMPARISON: CHEST SINGLE AP, November 09, 2017, 3:12. INDICATIONS : Chest tube removal. Rule out pneumothorax. MEDICAL HISTORY : Hypertension. melanoma SURGICAL HISTORY : None. ENCOUNTER: Subsequent ACUITY: 1 day PAIN SCORE: Non-responsive. LOCATION: Bilateral chest FINDINGS: There has been interval removal of a right thoracostomy tube. No evidence of pneumothorax. Right supr ahilar and medial upper lobe parenchymal density is unchanged. Left lung is grossly clear. CONCLUSION: Chest tube removal without pneumothorax Donaldo Avila MD on November 11, 2017 at 5:51 Board Certified Radiologist. This report was verified electronically.
[2017-11-11] MEDS: LACTATED RINGER'S 1000 ML INJ 1,000 ML IV SCH (08:04)
[2017-11-11] MEDS: POLYETHYLENE GLYCOL 17 GM PKG PO SCH (08:14)
[2017-11-11] MEDS: SODIUM CHLORIDE 0.9% FLUSH 10 ML FLUSH IV FLUSH SCH (08:16)
[2017-11-11] MEDS: DOCUSATE SODIUM 100 MG CAP PO SCH (08:16)
[2017-11-11] MEDS ORDERED: BISACODYL 10 MG SUPP RECTAL ONE (11:00)
[2017-11-11] MEDS ORDERED: SOD PHOSPHATE/SOD BIPHOSPHATE (ADULT) ENEMA 133ML PR ONE (11:00)
[2017-11-11] MEDS ORDERED: DOCU1CAP39 PO (12:09)
[2017-11-11] MEDS ORDERED: HYDR-3366 PO (12:09)
--- NOTE | 2017-11-11 12:14 | HHI.DS ---
Discharge Summary Admission Date November 08, 2017 at 05:27 Discharge Date: November 11, 2017 Admitting Diagnosis 1. Right Upper Lobe Lung Melanoma (1) s/p thoracotomy Diagnosis: Secondary (2) Lumbar radiculopathy Diagnosis: Principal ICD Codes: M54.16 - Radiculopathy, lumbar region Status: Acute (3) Lung mass Diagnosis: Principal ICD Codes: R91.8 - Other nonspecific abnormal finding of lung field Procedures 11/08 1. Right Posterolateral Muscle-sparing Thoracotomy 2. Right Upper Lobectomy 3. Mediastinal Lymph Node Dissection 4. Lysis of Adhesions 5. Intercostal Nerve Block Brief History 52/ male referred to Dr Patel's office per Dr Valles, new findings of a right upper lobe lung mass. He has H/O of melanoma diagnosed and treated in 2011. Percutaneous BC of lung mass consistent with metastatic melanoma PMH Melanoma, restless leg syndrome , COPD, emphysema , chronic nicotine use CBC/BMP: 11/09/17 0440 11/09/17 0440 Significant Findings Laboratory Tests Test 11/09/17 04:40 White Blood Count 11.5 TH/MM3 (4.0-11.0) Red Blood Count 4.08 MIL/MM3 (4.50-5.90) Hematocrit 38.5 % (39.0-51.0) Neutrophils (%) (Auto) 75.5 % (16.0-70.0) Neutrophils # (Auto) 8.7 TH/MM3 (1.8-7.7) Random Glucose 122 MG/DL (74-106) Calcium Level 8.4 MG/DL (8.5-10.1) Estimat Glomerular Filtration Rate 82 ML/MIN (>89) Imaging Last Impressions Chest X-Ray 11/11/17 0600 Signed Impressions: Service Date/Time: Saturday, November 11, 2017 05:12 - CONCLUSION: Chest tube removal without pneumothorax Donaldo Avila MD PE at Discharge GENERAL: A&O x 3 SKIN: Warm and dry. dressing dry and intact to right lateral chest wall HEAD: Normocephalic. EYES: No scleral icterus. No injection or drainage. NECK: Supple, trachea midline. No JVD or lymphadenopathy. CARDIOVASCULAR: Regular rate and rhythm without murmurs, gallops, or rubs. RESPIRATORY: Breath sounds equal bilaterally. No accessory muscle use. GASTROINTESTINAL: Abdomen soft, non-tender, nondistended. MUSCULOSKELETAL: No cyanosis, or edema. BACK: Nontender without obvious deformity. No CVA tenderness. Hospital Course 11/08 surgery : 1. Right Posterolateral Muscle-sparing Thoracotomy 2. Right Upper Lobectomy 3. Mediastinal Lymph Node Dissection 4. Lysis of Adhesions 5. 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 11/11 post CXR stable ok to dc home today after pt has BM pain control RX for [place], says he has no further meds at home Pt Condition on Discharge: Good Discharge Disposition: Disch w/ Home Health Serv Discharge Instructions DIET: Follow Instructions for: As Tolerated, No Restrictions Activities you can perform: Full Weight Bearing, Shower Only-No Bath Activities to avoid: Strenuous Activity, Driving Additional Activity Instructio: no lifting > 8 lbs or gallon of milk Follow up Referrals: Appointment for Follow Up - 4 Weeks with Rahul Valles MD PCP Follow-up - 2 Weeks with Jared Isaacs Md Surgical - 2 Weeks with Nicky Patel MD New Medications: Hydrocodone-Acetaminophen ([place]) 10-325 Mg Tab 1 TAB PO Q4H PRN for PAIN, #30 TAB 0 Refills Docusate Sodium (Dok) 100 Mg Cap 100 MG PO BID for Constipation, #60 CAP 0 Refills Continued Medications: Albuterol 8.5 GM Inh (Proair Hfa 8.5 GM Inh) 90 Mcg/Act Aer 2 PUFF INH Q4-6H PRN for SHORTNESS OF BREATH, #1 INHALER 0 Refills 108 mcg/actuation Ropinirole (Requip) 5 Mg Tab 10 MG PO HS, #30 TAB 0 Refills Rotigotine Patch 24 HR (Neupro Patch 24 HR) 4 Mg/24 Hr Patch 4 MG T-DERMAL DAILY for restless leg syndrome, PATCH 0 Refills Discontinued Medications: Hydrocodone-Acetaminophen (Hydrocodone-Acetaminophen) 10-325 mg Tab 1 TAB PO Q4H PRN for PAIN, TAB 0 Refills Naheed Floyd November 11, 2017 12:14
== END 2017-11-11 13:06 | disposition home health service (06) | DRG 164 ==
LOC: HSDI 05:27 → HCPC 16:00
PROVIDERS: ADMIT Thoracic Surgery (Cardiothoracic Vascular Surgery); ATTEND Thoracic Surgery (Cardiothoracic Vascular Surgery)
PROC: 0BNC0ZZ Release Right Upper Lung Lobe, Open Approach (ICD-10-PCS; 2017-11-08)
PROC: 07B70ZZ Excision of Thorax Lymphatic, Open Approach (ICD-10-PCS; 2017-11-08)
PROC: 3E0T3BZ Introduction of Anesthetic Agent into Peripheral Nerves and Plexi, Percutaneous Approach (ICD-10-PCS; 2017-11-08)
PROC: 0BTC0ZZ Resection of Right Upper Lung Lobe, Open Approach (ICD-10-PCS; principal; 2017-11-08 07:35)
DX: C78.01 Secondary malignant neoplasm of right lung (principal); J93.82 Other air leak; J43.9 Emphysema, unspecified; K66.0 Peritoneal adhesions (postprocedural) (postinfection); M54.16 Radiculopathy, lumbar region; Z85.820 Personal history of malignant melanoma of skin; G25.81 Restless legs syndrome; Z96.619 Presence of unspecified artificial shoulder joint; Z88.5 Allergy status to narcotic agent; Z88.8 Allergy status to other drugs, medicaments and biological substances; Z87.891 Personal history of nicotine dependence
CPT/HCPCS: 71045; 80048; 85025; 86850; 86900; 86901; 86920; 88305; 88307; 94150; 94640; 94664; 94667; 94668; C9290; J0131; J0690; J1100; J1170; J2250; J2270; J2370; J2405; J2710; J3010; J7040; J7050; J7120; J7613

== ENCOUNTER 2017-12-03 10:16 | Emergency (ER) | payer MEDICARE, OTHER ==
[~2017-12-03] VITALS: Ht 180.3 cm; Wt 78.6 kg
[~2017-12-03 10:16] MED LIST changes: +DOCU1CAP39 PO; +HYDR-3366 PO; -HYDR-3583 PO
[2017-12-03 10:20] VITALS: BP 147/90; PULSE 91; RESP 20; TEMP 98.3; O2SAT 98
[2017-12-03] MEDS ORDERED: SODIUM CHLOR 0.9% 1000 ML INJ 1,000 ML IV SCH (10:33)
[2017-12-03] MEDS ORDERED: HYDROmorphone HCL PF 0.5 MG/0.5 ML SYRINGE ONE ×2 (10:39→12:16)
--- NOTE | 2017-12-03 10:39 | PD ---
HPI Chief Complaint: Complaint Time Seen by Provider: 10:26 Travel History International Travel<30 days: No Contact w/Intl Traveler<30days: No Traveled to known affect area: No History of Present Illness HPI The patient is a 52-year-old male who presents to emergency department for left flank pain. The patient developed left flank pain last night. The pain is located in left mid back, radiates to the left flank and down into the left inguinal region. Pain is sharp, associated with nausea, urgency, frequency, dysuria, and hematuria. The patient does have a history of nephrolithiasis. He denies any testicular pain. He denies any associated fever , chills, or sweats. The patient does have a history of metastatic melanoma and recently underwent partial right lobectomy by Dr. Patel. The patient is followed by his fios line installer/oncologist, Dr. Valles. The patient's symptoms are moderate. There are no current alleviating or exacerbating factors. The patient states he is allergic to morphine with "code Blue ", however, is able to take Dilaudid and Demerol. PFSH Past Medical History Anxiety: Yes Depression: No Cancer: Yes (MELANOMA ON BACK, NOW IN LUNG) Cardiovascular Problems: No High Cholesterol: Yes Diabetes: No Endocrine: No Genitourinary: No Hepatitis: No Hiatal Hernia: No Immune Disorder: No Musculoskeletal: Yes (arthritis) Neurologic: Yes (NERVE COMPRESSION, HERNIATED DISKS, numbness in left leg, RLS) Psychiatric: Yes (ANXIETY) Reproductive: No Respiratory: Yes (EMPHYSEMA) Immunizations Current: Yes Thyroid Disease: No Past Surgical History Abdominal Surgery: No AICD: No Body Medical Devices: NECK AND BACK Cardiac Surgery: No Ear Surgery: No Endocrine Surgery: No Eye Surgery: Yes (BILATERAL CATARACT) Genitourinary Surgery: No Gynecologic Surgery: No Joint Replacement: Yes (right shoulder) Neurologic Surgery: Yes (L4 & L5 in December and & L5-S1 LAMINECTOMY, spinal fusions-multiple ) Oral Surgery: No Pacemaker: No Thoracic Surgery: No Other Surgery: Yes (SPINAL FUSIONS , MELANOMA REMOVAL FROM BACK) Social History Alcohol Use: No Tobacco Use: Yes (07/14 PPD ) Substance Use: No Allergies-Medications (Allergen,Severity, Reaction): Coded Allergies: morphine (Verified Allergy, Severe, ANAPHYLAXIS "I WENT CODE BLUE", ) oxycodone (Verified Allergy, Severe, Itching AND RASH, 12/03/17) ketorolac (Verified Allergy, Intermediate, ITCHING AND RASH, 12/03/17) diphenhydramine (Verified Adverse Reaction, Unknown, OPPOSITE REACTION; CANNOT SLEEP DUE TO WAKEFULNESS, 12/03/17) Reported Meds & Prescriptions Reported Meds & Active Scripts Active [place] (Hydrocodone-Acetaminophen) 10-325 Mg Tab 1 Tab PO Q4H PRN Dok (Docusate Sodium) 100 Mg Cap 100 Mg PO BID Proair Hfa 8.5 GM Inh (Albuterol Sulfate) 90 Mcg/Act Aer 2 Puff INH Q4-6H PRN 108 mcg/actuation Reported Neupro Patch 24 HR (Rotigotine Patch 24 HR) 4 Mg/24 Hr Patch 4 Mg T-DERMAL DAILY Requip (Ropinirole) 5 Mg Tab 10 Mg PO HS Review of Systems Except as stated in HPI: all other systems reviewed are Neg General / Constitutional: No: Fever, Chills Cardiovascular: Positive: Chest Pain or Discomfort (Right-sided pleuritic chest pain after partial right lobectomy, has been seen by his oncologist and his cardiothoracic surgeon) Respiratory: No: Shortness of Breath Gastrointestinal: Positive: Nausea, Abdominal Pain, No: Vomiting Genitourinary: Positive: Urgency, Frequency, Dysuria, Hematuria, Flank Pain Skin: No Rash Physical Exam Narrative GENERAL: Awake, alert, pleasant 52-year-old male who appears his stated age and appears in moderate discomfort. SKIN: Focused skin assessment warm/dry. HEAD: Atraumatic. Normocephalic. EYES: No injection or drainage. ENT: No nasal bleeding or discharge. Mucous membranes pink and moist. NECK: Trachea midline. No JVD. CARDIOVASCULAR: Regular rate and rhythm. No murmur appreciated. RESPIRATORY: No accessory muscle use. Clear to auscultation. Breath sounds equal bilaterally. GASTROINTESTINAL: Abdomen soft, non-tender, nondistended. No rebound tenderness. Back: Healing right thoracotomy scar. Scars noted in the lower back in the lumbar region. No CVA tenderness. Genitourinary: Circumcised phallus. Both testicles are descended. No tenderness of the testicles or epididymis. MUSCULOSKELETAL: No obvious deformities. No clubbing. No cyanosis. No edema. NEUROLOGICAL: Awake and alert. No obvious cranial nerve deficits. Motor grossly within normal limits. Normal speech. PSYCHIATRIC: Appropriate mood and affect; insight and judgment normal. Data Data Last Documented VS Vital Signs Date Time Temp Pulse Resp B/P (MAP) Pulse Ox O2 Delivery O2 Flow Rate FiO2 12/03/17 11:46 98.0 74 16 143/84 (103) 100 Room Air Orders Orders Complete Blood Count With Diff (12/03/17 10:33) Comprehensive Metabolic Panel (12/03/17 10:33) Lipase (12/03/17 10:33) Urinalysis - C+S If Indicated (12/03/17 10:33) Ct Abd/Pel W/O Iv Contrast (12/03/17 10:33) Iv Access Insert/Monitor (12/03/17 10:33) Ecg Monitoring (12/03/17 10:33) Oximetry (12/03/17 10:33) Sodium Chlor 0.9% 1000 Ml Inj (Ns 1000 M (12/03/17 10:33) Sodium Chloride 0.9% Flush (Ns Flush) (12/03/17 10:45) Hydromorphone Pf Inj (Dilaudid Pf Inj) (12/03/17 10:45) Ondansetron Odt (Zofran Odt) (12/03/17 10:45) Hydromorphone Pf Inj (Dilaudid Pf Inj) (12/03/17 10:39) Ondansetron Odt (Zofran Odt) (12/03/17 10:40) Hydromorphone Pf Inj (Dilaudid Pf Inj) (12/03/17 12:15) Tamsulosin (Flomax) (12/03/17 12:15) Labs Laboratory Tests Test 12/03/17 10:50 White Blood Count 8.4 TH/MM3 Red Blood Count 4.62 MIL/MM3 Hemoglobin 14.7 GM/DL Hematocrit 43.4 % Mean Corpuscular Volume 93.9 FL Mean Corpuscular Hemoglobin 31.7 PG Mean Corpuscular Hemoglobin Concent 33.8 % Red Cell Distribution Width 14.5 % Platelet Count 319 TH/MM3 Mean Platelet Volume 6.7 FL Neutrophils (%) (Auto) 57.0 % Lymphocytes (%) (Auto) 31.2 % Monocytes (%) (Auto) 8.6 % Eosinophils (%) (Auto) 2.5 % Basophils (%) (Auto) 0.7 % Neutrophils # (Auto) 4.8 TH/MM3 Lymphocytes # (Auto) 2.6 TH/MM3 Monocytes # (Auto) 0.7 TH/MM3 Eosinophils # (Auto) 0.2 TH/MM3 Basophils # (Auto) 0.1 TH/MM3 CBC Comment DIFF FINAL Differential Comment Urine Color YELLOW Urine Turbidity HAZY Urine pH 7.0 Urine Specific [place] 1.023 Urine Protein TRACE mg/dL Urine Glucose (UA) NEG mg/dL Urine Ketones NEG mg/dL Urine Occult Blood LARGE Urine Nitrite NEG Urine Bilirubin NEG Urine Urobilinogen 2.0 MG/DL Urine Leukocyte Esterase NEG Urine RBC /hpf Urine WBC 3 /hpf Urine Amorphous Sediment MOD Urine Bacteria OCC /hpf Urine Mucus FEW /lpf Microscopic Urinalysis Comment CULT NOT INDICATED Blood Urea Nitrogen 17 MG/DL Creatinine 0.90 MG/DL Random Glucose 96 MG/DL Total Protein 8.0 GM/DL Albumin 4.2 GM/DL Calcium Level 9.3 MG/DL Alkaline Phosphatase 133 U/L Aspartate Amino Transf (AST/SGOT) 13 U/L Alanine Aminotransferase (ALT/SGPT) 24 U/L Total Bilirubin 0.5 MG/DL Sodium Level 141 MEQ/L Potassium Level 4.3 MEQ/L Chloride Level 104 MEQ/L Carbon Dioxide Level 29.7 MEQ/L Anion Gap 7 MEQ/L Estimat Glomerular Filtration Rate 88 ML/MIN Lipase 136 U/L [facility] Medical Decision Making Medical Screen Exam Complete: Yes Emergency Medical Condition: Yes Medical Record Reviewed: Yes Interpretation(s) Last Impressions Abdomen/Pelvis CT 12/03/17 1033 Signed Impressions: CONCLUSION: 1. There are 2 separate stones in the distal left ureter at the left UVJ. The stones measure approximately 4 and 3 mm. 2. Multiple tiny subcentimeter nonobstructing stones in both kidneys. 3. Scattered diverticulosis throughout the descending and sigmoid colon withou t inflammatory changes. Laboratory Tests Test 12/03/17 10:50 White Blood Count 8.4 TH/MM3 Red Blood Count 4.62 MIL/MM3 Hemoglobin 14.7 GM/DL Hematocrit 43.4 % Mean Corpuscular Volume 93.9 FL Mean Corpuscular Hemoglobin 31.7 PG Mean Corpuscular Hemoglobin Concent 33.8 % Red Cell Distribution Width 14.5 % Platelet Count 319 TH/MM3 Mean Platelet Volume 6.7 FL Neutrophils (%) (Auto) 57.0 % Lymphocytes (%) (Auto) 31.2 % Monocytes (%) (Auto) 8.6 % Eosinophils (%) (Auto) 2.5 % Basophils (%) (Auto) 0.7 % Neutrophils # (Auto) 4.8 TH/MM3 Lymphocytes # (Auto) 2.6 TH/MM3 Monocytes # (Auto) 0.7 TH/MM3 Eosinophils # (Auto) 0.2 TH/MM3 Basophils # (Auto) 0.1 TH/MM3 CBC Comment DIFF FINAL Differential Comment Urine Color YELLOW Urine Turbidity HAZY Urine pH 7.0 Urine Specific [place] 1.023 Urine Protein TRACE mg/dL Urine Glucose (UA) NEG mg/dL Urine Ketones NEG mg/dL Urine Occult Blood LARGE Urine Nitrite NEG Urine Bilirubin NEG Urine Urobilinogen 2.0 MG/DL Urine Leukocyte Esterase NEG Urine RBC /hpf Urine WBC 3 /hpf Urine Amorphous Sediment MOD Urine Bacteria OCC /hpf Urine Mucus FEW /lpf Microscopic Urinalysis Comment CULT NOT INDICATED Blood Urea Nitrogen 17 MG/DL Creatinine 0.90 MG/DL Random Glucose 96 MG/DL Total Protein 8.0 GM/DL Albumin 4.2 GM/DL Calcium Level 9.3 MG/DL Alkaline Phosphatase 133 U/L Aspartate Amino Transf (AST/SGOT) 13 U/L Alanine Aminotransferase (ALT/SGPT) 24 U/L Total Bilirubin 0.5 MG/DL Sodium Level 141 MEQ/L Potassium Level 4.3 MEQ/L Chloride Level 104 MEQ/L Carbon Dioxide Level 29.7 MEQ/L Anion Gap 7 MEQ/L Estimat Glomerular Filtration Rate 88 ML/MIN Lipase 136 U/L Differential Diagnosis Differential diagnosis includes nephrolithiasis, ureterolithiasis, pyelonephritis, diverticulitis, infarcted kidney, acute renal failure, testicular torsion. Narrative Course IV was established, labs are drawn and sent, and the patient was placed on cardiac telemetry monitoring and continuous pulse oximetry monitoring. The patient was administered Dilaudid, Zofran, and IV fluids. UA was sent to lab. Noncontrast CT of the abdomen and pelvis was obtained to evaluate for possible nephrolithiasis. UA is positive for innumerable RBCs. Creatinine is normal. CT reveals the patient is passing a 3 mm and 4 mm stone in the distal left ureter. The patient was reassessed at 12:05 PM, still has pain, therefore, was administered a second dose of pain medications. The patient was also administered Flomax 0.4 mg orally. He will be discharged home on pain medications and Flomax. He will be provided a copy of his CT findings. He is advised to follow-up with his primary physician and urology if symptoms persist. The patient states he is able to take Aleve, therefore, I will prescribe Naprosyn with [place] and Flomax. The patient is within 30 days of lobectomy, therefore, I discussed the patient with his cardiothoracic surgeon, Dr. Patel. He is aware that the patient was in the emergency department for kidney stone will be discharged home. Diagnosis Primary Impression: Ureterolithiasis Patient Instructions: General Instructions Additional Instructions: Medications as directed. Follow-up with your primary physician and urology if symptoms persist. Please provide the patient a copy of his CT findings and lab results at discharge. Return if symptoms worsen or progress. Med/Other Pt SpecificInfo: Prescription(s) given Scripts Tamsulosin (Flomax) 0.4 Mg Cap 0.4 MG PO HS for Manage Prostate Problems, #7 CAP 0 Refills Prov: Surendra Roman MD 12/03/17 Naproxen (Naprosyn) 500 Mg Tab 500 MG PO BID, #20 TAB 0 Refills Prov: Surendra Roman MD 12/03/17 Hydrocodone-Acetaminophen ([place]) 5 Mg-325 Mg Tab 1 TAB PO Q6H Y for PAIN, #15 TAB 0 Refills Prov: Surendra Roman MD 12/03/17 Disposition: 01 DISCHARGE HOME Condition: Stable Surendra Roman MD December 03, 2017 10:39
[2017-12-03] MEDS ORDERED: ONDANSETRON ODT 4 MG TAB ONE (10:40)
[2017-12-03] MEDS ORDERED: SODIUM CHLORIDE 0.9% FLUSH 10 ML FLUSH IV FLUSH PRN (10:45)
[2017-12-03] MEDS ORDERED: HYDROmorphone HCL PF 1 MG/ML VIAL IVS ONE (10:45)
[2017-12-03] MEDS ORDERED: ONDANSETRON ODT 4 MG TAB PO ONE (10:45)
[2017-12-03 10:57] VITALS: BP 105/72; PULSE 76; RESP 15; TEMP 98.2; O2SAT 99
[2017-12-03 11:04] LABS: AUTOMATED NEUTROPHIL # 4.8 TH/MM3 (1.8-7.7); BASOPHIL # 0.1 TH/MM3 (0-0.2); BASOPHIL % 0.7 % (0.0-2.0); EOSINOPHIL # 0.2 TH/MM3 (0-0.4); EOSINOPHIL % 2.5 % (0.0-4.0); HEMATOCRIT 43.4 % (39.0-51.0); HEMOGLOBIN 14.7 GM/DL (13.0-17.0); LYMPH % 31.2 % (9.0-44.0); LYMPHOCYTE # 2.6 TH/MM3 (1.0-4.8); MEAN CELL VOLUME 93.9 FL (80.0-100.0); MEAN CORPUSCULAR HEMOGLOBIN 31.7 PG (27.0-34.0); MEAN CORPUSCULAR HGB CONC 33.8 % (32.0-36.0); MEAN PLATELET VOLUME 6.7 FL (7.0-11.0); MONO % 8.6 % (0.0-8.0); MONOCYTE # 0.7 TH/MM3 (0-0.9); PLATELET COUNT 319 TH/MM3 (150-450); RED BLOOD COUNT 4.62 MIL/MM3 (4.50-5.90); RED CELL DISTRIBUTION WIDTH 14.5 % (11.6-17.2); WHITE BLOOD COUNT 8.4 TH/MM3 (4.0-11.0)
[2017-12-03 11:12] LABS: AMORPHOUS SEDIMENT, URINE MOD; BACTERIA, URINE OCC /hpf; BILIRUBIN, URINE NEG (NEG); BLOOD, URINE LARGE (NEG); GLUCOSE,URINE NEG (NEG); KETONE, URINE NEG (NEG); MUCUS URINE FEW /lpf (OCC); NITRITE,URINE NEG (NEG); URINE COLOR YELLOW (YELLW/STRAW); URINE LEUKOCYTE ESTERASE NEG (NEG)
--- NOTE | 2017-12-03 11:22 | RADRPT ---
EXAM DATE: 12/03/2017 11:12 AM EDT AGE/SEX: 52 years / Male INDICATIONS: Left flank pain. CLINICAL DATA: This is the patient's initial encounter. Patient reports that signs and symptoms have been present for 1 day and indicates a pain score of 7/10. MEDICAL/SURGICAL HISTORY: Renal disease. Carcinoma, lung. Carcinoma, skin cancer. Fusion, lum bar. Lobectomy. RADIATION DOSE: 11.82 CTDI (mGy) COMPARISON: No prior [facility] exams available for comparison. TECHNIQUE: Multiple contiguous axial images were obtained through the abdomen. Images were obtained using multiple row detector helical technique. Using dose reduction techniques, radiation dose was ke pt as low as reasonably achievable to obtain optimal diagnostic quality images. Lack of IV contrast l imits the diagnosis for certain organ pathology. FINDINGS: Lower Lungs: The visualized lower lungs are clear. Liver: The liver has a homogeneous density without space-occupying lesion. There is no dilation of th e biliary tree. Gallbladder unremarkable. Spleen: Homogeneous density without enlargement. Pancreas: Unremarkable without mass or calcification. Kidneys: Normal in size and shape. There are multiple tiny nonobstructing stones in both kidneys. Th ere is no hydronephrosis of the right kidney. There is some mild prominence of the left collecting sy stem as well as mild dilatation of the left ureter. At the level of the left UVJ there are 2 separate distal ureteral stones. There is a stone measuring 4 mm at the left UVJ. There is a stone measuring 3 mm just before the left UVJ.. Adrenal Glands: Unremarkable. Aorta: The aorta and proximal iliac vessels are grossly unremarkable without aneurysmal dilation. Bowel/Mesentery: The bowel loops are grossly unremarkable. The cecum and sigmoid colon have a normal configuration. Scattered diverticulosis of the descending and sigmoid colon without inflammatory tiffanie nges. There is stool throughout the colon. The appendix is unremarkable. Abdominal Wall: Intact. Retroperitoneum: No evidence of adenopathy in the retrocrural, para-aortic, or deep pelvic regions. Bladder: Contours are smooth. There are 2 stones at the left UVJ. Reproductive Organs: No abnormal masses or calcifications seen. Inguinal: The inguinal region is unremarkable without evidence of adenopathy. Bony Structures: Evidence of previous lumbar spinal surgery with fusion involving the lower lumbar s pine. Primary bony degenerative changes. CONCLUSION: 1. There are 2 separate stones in the distal left ureter at the left UVJ. The stones measure approxi mately 4 and 3 mm. 2. Multiple tiny subcentimeter nonobstructing stones in both kidneys. 3. Scattered diverticulosis throughout the descending and sigmoid colon without inflammatory changes . Electronically signed by: Rivera Simon MD 12/03/2017 11:21 AM EDT
[2017-12-03 11:25] LABS: ALBUMIN 4.2 GM/DL (3.4-5.0); ALT (GPT) 24 U/L (12-78); AST (GOT) 13 U/L (15-37); BICARBONATE 29.7 MEQ/L (21.0-32.0); BLOOD UREA NITROGEN 17 MG/DL (7-18); CALCIUM 9.3 MG/DL (8.5-10.1); CHLORIDE 104 MEQ/L (98-107); GLOMERULAR FILTRATION RATE 88 ML/MIN (>89); GLUCOSE,RANDOM 96 MG/DL (74-106); SODIUM (NA) 141 MEQ/L (136-145)
[2017-12-03 11:27] LABS: ALKALINE PHOSPHATASE 133 U/L (45-117); TOTAL BILIRUBIN ADULT 0.5 MG/DL (0.2-1.0)
[2017-12-03 11:46] VITALS: BP 143/84; PULSE 74; RESP 16; TEMP 98; O2SAT 100
[2017-12-03] MEDS ORDERED: NAPR500 PO (12:15)
[2017-12-03] MEDS ORDERED: TAMSULOSIN HCL 0.4 MG CAP PO ONE (12:15)
[2017-12-03] MEDS ORDERED: NORC5TAB PO (12:15)
[2017-12-03] MEDS ORDERED: TAMS5CAP PO (12:15)
[2017-12-03] MEDS ORDERED: HYDROmorphone HCL PF 1 MG/ML VIAL IV PUSH ONE (12:15)
[2017-12-03 12:41] VITALS: BP 130/75; TEMP 98
== END 2017-12-03 12:42 | disposition home or self-care (01) ==
LOC: NEPE 10:16
DX: N20.1 Calculus of ureter (principal); K57.30 Diverticulosis of large intestine without perforation or abscess without bleeding; G25.81 Restless legs syndrome
CPT/HCPCS: 74176; 80053; 81001; 83690; 85025; 96361; 96374; 96375; 99284; J1170; J7030

== ENCOUNTER 2017-12-15 07:40 | Day surgery (SDC) | payer MEDICARE, OTHER ==
[~2017-12-15] VITALS: Ht 180.3 cm; Wt 78.2 kg
[~2017-12-15 07:40] MED LIST changes: +NAPR500 PO; +NORC5TAB PO; +TAMS5CAP PO
[2017-12-15 08:00] VITALS: BP 145/88; PULSE 79; RESP 20; TEMP 98; O2SAT 95
[2017-12-15 09:17] LABS: PROTHROMBIN TIME - PATIENT 10.2 SEC (9.8-11.6)
[2017-12-15] MEDS ORDERED: VANCOMYCIN 1000 MG/NS 250 ML - implanted port/tunneled catheter IV SCH ×2 (09:30)
[2017-12-15] MEDS ORDERED: POVIDONE IODINE 5% (ANTISEPSIS KIT) 4 APPLICATIONS EACH NARE SCH (09:30)
[2017-12-15] MEDS ORDERED: ceFAZolin 2 GM PREMIX 50 ML - implanted port/tunneled catheter insertion IV SCH (09:30)
[2017-12-15] MEDS ORDERED: SODIUM CHLORIDE 0.9% 1000 ML IV SCH (09:30)
[2017-12-15] MEDS ORDERED: CHLORHEXIDINE GLUCONATE 2 % 1 PACK (2 CLOTHS) TOPICAL SCH (09:30)
[2017-12-15] MEDS ORDERED: oxyCODONE/ACETAMINOPHEN 5 MG/325 MG TAB PO ONE (09:45)
[2017-12-15] MEDS ORDERED: MIDAZOLAM HCL 5 MG/5 ML VIAL ONE (10:58)
[2017-12-15] MEDS ORDERED: fentaNYL CITRATE 250 MCG/5 ML AMP ONE (10:59)
[2017-12-15] MEDS ORDERED: LIDOCAINE 1%/EPINEPHrine 1:100,000 SOLN 20 ML VIAL ONE (11:01)
[2017-12-15] MEDS ORDERED: SODIUM CHLORIDE 0.9% FLUSH 10 ML FLUSH IVF PRN (12:00)
--- NOTE | 2017-12-15 12:01 | PD.RAD ---
Post Procedure Progress Note Pre Procedure Diagnosis: (1) Lung cancer Post Procedure Diagnosis: (1) Lung cancer Procedure Date: Dec 15, 2017 Supervising Radiologist: Erik Mccallum JR Proceduralist/Assist: Amrit Pena RT(R), Other Anesthesia: Conscious Sedation Plan of Activity Patient to Unit: ROPU Patient Condition: Good See PACS Report for procedural detail/treatment Central Venous Access Device Procedure 1 Right Internal Jugular Infusaport Placement single lumen [place]: 8 Findings: Port in good position and ready for use. OK to use. Plan F/U with IR or a physician in 10-14 days for a site check Jr. Alessio,Erik Atkinson MD Dec 15, 2017 12:01
[2017-12-15 12:10] VITALS: BP_SYST 112; BP_SYST 115; BP_DIAS 62; BP_DIAS 73; PULSE 67; PULSE 68; RESP 18; TEMP 97.5; O2SAT 95; O2SAT 96
[2017-12-15 12:25] VITALS: BP 115/73; PULSE 68; RESP 18; O2SAT 96
[2017-12-15 12:55] VITALS: BP 105/73; PULSE 70; RESP 18; O2SAT 94
--- NOTE | 2017-12-15 13:06 | RADRPT ---
EXAM DATE: 12/15/2017 12:29 PM EDT AGE/SEX: 52 years / Male INDICATIONS: Patient presents with lung cancer status post lobectomy in need of port placement for c hemotherapy treatment. CLINICAL DATA: This is the patient's subsequent encounter. Patient reports that signs and symptoms h ave been present for 1 month and indicates a pain score of 4/10. MEDICAL/SURGICAL HISTORY: . Emphysema Lung cancer Mets melanoma Anxiety . Right upper Lobectom y Laminectomy COMPARISON: No prior exams available for comparison. FLUORO TIME (min): 0.4 IMAGE SERIES: 2 SEDATION TIME (min): 30 MEDICATION(S): 4 mg midazolam (Versed) IV 200 mcg fentanyl (Sublimaze) IV Vancomycin within 2 hrs of procedure, Ancef (or alternative) within 1 hr of procedure. DEVICE(S): Right 8fr Xcela plus port . . PROCEDURE : 1. Continuous pulse oximetry and EKG monitoring. 2. Intravenous conscious sedation. 3. Ultrasound guidance for venous access. 4. Fluoroscopic guided implantable central venous port placement. The patient was placed supine. The neck was prepped in sterile fashion. Full sterile technique was u sed, including cap, mask, sterile gloves and gown, and a large sterile sheet. Hand hygiene and 2% ch lorhexidine Betadine was utilized per protocol for cutaneous antisepsis with appropriate dry time for site. Sterile gel and sterile probe cover were utilized for ultrasound guidance. The skin and sub cutaneous tissues were infiltrated with local anesthetic solution. Under direct ultrasound guidance, central venous access was accomplished in the targeted vessel. The ultrasound images depicting access guidance were stored and saved to PACS for permanent record. A s ubcutaneous pocket was created using blunt dissection. The port was introduced to the pocket. The c atheter tubing was fed through a subcutaneous tunnel to the venotomy site. The catheter tubing was c ut to a suitable length and then was introduced through a valved Peel-Away sheath and positioned with catheter tubing tip at the cavo-atrial junction level. The pocket incision was closed with subcutic ular Vicryl suture. Steri-Strips were applied. The port was flushed and locked with heparin solutio n per protocol. Sterile dressing was applied to the site. The patient tolerated the procedure well. Conscious sedation was performed with the prescribed dosages and duration as above in the presence of an independent trained radiology nurse to assist in the monitoring of the patient. EKG and oximetry remained stable throughout the procedure. The patient tolerated the procedure well and there were no complications. The patient was sent to post anesthesia recovery in stable condition. CONCLUSION: 1. Uncomplicated ultrasound and fluoroscopic guided implanted central venous port catheter placement as described in detail above. An 8 [place] port was placed. Electronically signed by: Erik Mccallum MD 12/15/2017 1:05 PM EDT
[2017-12-15 13:25] VITALS: BP 116/74; PULSE 71; RESP 16; O2SAT 95
== END 2017-12-15 14:00 | disposition home or self-care (01) ==
LOC: HROP 07:40 → HRIP 07:43 → HROP 14:00
PROVIDERS: ATTEND Internal Medicine Hematology & Oncology
DX: Z45.2 Encounter for adjustment and management of vascular access device (principal); C34.90 Malignant neoplasm of unspecified part of unspecified bronchus or lung; J43.9 Emphysema, unspecified; F41.9 Anxiety disorder, unspecified; Z85.820 Personal history of malignant melanoma of skin; Z90.2 Acquired absence of lung [part of]
CPT/HCPCS: 36561; 76937; 77001; 85610; 85730; 99152; 99153; C1788; J0690; J1642; J2250; J3010; J3370; J7030; J7050

== ENCOUNTER 2017-12-26 13:24 | Emergency (ER) | payer MEDICARE, OTHER ==
[~2017-12-26] VITALS: Ht 180.3 cm; Wt 77.0 kg
[~2017-12-26 13:24] MED LIST changes: -ALBUAER3 INH; -DOCU1CAP39 PO; -HYDR-3366 PO; -NAPR500 PO; -NORC5TAB PO; -TAMS5CAP PO
[2017-12-26 13:29] VITALS: BP 119/59; PULSE 98; RESP 20; TEMP 98.3; O2SAT 96
[2017-12-26 13:54] VITALS: PULSE 89; RESP 18
[2017-12-26 14:00] VITALS: BP 128/88; PULSE 82; RESP 18; O2SAT 97
[2017-12-26] MEDS ORDERED: SODIUM CHLOR 0.9% 1000 ML INJ 1,000 ML IV ONE ×2 (14:01→16:15)
[2017-12-26] MEDS ORDERED: PERC10TA27 PO (14:05)
[2017-12-26] MEDS ORDERED: NICO21DI6 T-DERMAL (14:05)
[2017-12-26 14:12] VITALS: BP 155/76; PULSE 78; RESP 18; O2SAT 97
[2017-12-26] MEDS ORDERED: ACETAMINOPHEN 1000 MG/100 ML 100 ML IV ONE (14:15)
[2017-12-26] MEDS ORDERED: PROMETHAZINE INJ 25 MG/ML VIAL IM ONE (14:15)
[2017-12-26] MEDS ORDERED: SODIUM CHLORIDE 0.9% FLUSH 10 ML FLUSH IVF PRN (14:15)
[2017-12-26 14:25] LABS: AUTOMATED NEUTROPHIL # 5.3 TH/MM3 (1.8-7.7); BASOPHIL # 0.1 TH/MM3 (0-0.2); BASOPHIL % 0.6 % (0.0-2.0); EOSINOPHIL # 0.1 TH/MM3 (0-0.4); EOSINOPHIL % 0.8 % (0.0-4.0); HEMATOCRIT 43.7 % (39.0-51.0); HEMOGLOBIN 14.8 GM/DL (13.0-17.0); LYMPH % 24.4 % (9.0-44.0); MEAN CELL VOLUME 93.9 FL (80.0-100.0); MEAN CORPUSCULAR HEMOGLOBIN 31.8 PG (27.0-34.0); MEAN CORPUSCULAR HGB CONC 33.9 % (32.0-36.0); MONO % 8.8 % (0.0-8.0); MONOCYTE # 0.7 TH/MM3 (0-0.9); NEUT % 65.4 % (16.0-70.0); PLATELET COUNT 311 TH/MM3 (150-450); RED BLOOD COUNT 4.65 MIL/MM3 (4.50-5.90); RED CELL DISTRIBUTION WIDTH 15.5 % (11.6-17.2); WHITE BLOOD COUNT 8.2 TH/MM3 (4.0-11.0)
[2017-12-26 14:42] LABS: ALBUMIN 4.3 GM/DL (3.4-5.0); ALT (GPT) 22 U/L (12-78); AST (GOT) 16 U/L (15-37); BICARBONATE 23.6 MEQ/L (21.0-32.0); BLOOD UREA NITROGEN 22 MG/DL (7-18); CALCIUM 9.1 MG/DL (8.5-10.1); CHLORIDE 108 MEQ/L (98-107); CREATININE 0.89 MG/DL (0.60-1.30); GLOMERULAR FILTRATION RATE 89 ML/MIN (>89); GLUCOSE,RANDOM 101 MG/DL (74-106); SODIUM (NA) 142 MEQ/L (136-145)
[2017-12-26 14:44] LABS: ALKALINE PHOSPHATASE 125 U/L (45-117); TOTAL BILIRUBIN ADULT 0.5 MG/DL (0.2-1.0); TOTAL PROTEIN 8.1 GM/DL (6.4-8.2)
--- NOTE | 2017-12-26 14:52 | RADRPT ---
EXAM DATE: 12/26/2017 2:48 PM EDT AGE/SEX: 52 years / Male INDICATIONS: Vomiting. CLINICAL DATA: This is the patient's initial encounter. Patient reports that signs and symptoms have been present for 1 day and indicates a pain score of 0/10. MEDICAL/SURGICAL HISTORY: . melanoma, lung cancer, chemotherapy . right upper lobe lung remove d COMPARISON: C, CHEST SINGLE AP, 11/11/2017. . FINDINGS: Right IJ [id number] with tip in the proximal SVC. Elevation of the right hemidiaphragm. No signifi cant new focal pleural or parenchymal opacities. Cardiomediastinal contours are within normal limits. Redemonstration of right shoulder arthroplasty and fixation hardware in the lower cervical spine. CONCLUSION: 1. No acute cardiopulmonary disease. Electronically signed by: Yuri Mendez MD 12/26/2017 2:50 PM EDT
[2017-12-26 15:53] LABS: BACTERIA, URINE RARE /hpf; BILIRUBIN, URINE NEG (NEG); BLOOD, URINE LARGE (NEG); GLUCOSE,URINE NEG (NEG); KETONE, URINE TRACE mg/dL (NEG); MUCUS URINE MOD /lpf (OCC); NITRITE,URINE NEG (NEG); SQUAMOUS EPITHELIAL CELL URINE 1 /hpf (0-5); URINE COLOR YELLOW (YELLW/STRAW); URINE LEUKOCYTE ESTERASE TRACE (NEG)
[2017-12-26] MEDS ORDERED: cefTRIAXone INJ 2,000 MG in SODIUM CHLORIDE 0.9% INJ 100 ML IV ONE (16:00)
--- NOTE | 2017-12-26 16:09 | PD ---
HPI Chief Complaint: Abnormal Results Time Seen by Provider: 13:44 Travel History International Travel<30 days: No Contact w/Intl Traveler<30days: No Traveled to known affect area: No History of Present Illness HPI Patient is a 52-year-old male presenting to the emergency department for evaluation of nausea, vomiting, body aches, dysuria. Patient recently started chemotherapy last week, his symptoms started shortly thereafter. He reports that his urine is red. He denies any burning or abdominal pain or fevers. Patient was advised by his oncologist office to present to the emergency department for evaluation. Patient has a history of myeloma with a right upper lobectomy. He is followed by Dr. Valles. Patient reports generalized body aches and lower back pain. He normally takes Percocet 10 mg 3 times a day. His pain is currently an 8 out of 10, aching, constant. Patient also reports a headache, dull and aching. He reports a history of the same type of headache. Symptom onset was gradual, symptoms are moderate in nature. There are no alleviating or exacerbating factors. PFSH Past Medical History Anxiety: Yes Depression: Yes Cancer: Yes (Melanoma with metastatic disease of the lung) High Cholesterol: Yes Chemotherapy: Yes Musculoskeletal: Yes Neurologic: Yes (NERVE COMPRESSION, HERNIATED DISKS, numbness in left leg, RLS) Integumentary: Yes Immunizations Current: Yes Tetanus Vaccination: > 5 Years Influenza Vaccination: Yes ?: Not Past Surgical History Abdominal Surgery: No AICD: No Body Medical Devices: NECK AND BACK Cardiac Surgery: No Ear Surgery: No Endocrine Surgery: No Eye Surgery: Yes (CATARACT REMOVAL AND IMPLANTS) Genitourinary Surgery: No Gynecologic Surgery: No Joint Replacement: Yes (right shoulder) Neurologic Surgery: Yes (L4 & L5 in December and & L5-S1 LAMINECTOMY, spinal fusions-multiple ) Oral Surgery: No Pacemaker: No Thoracic Surgery: Yes (R UPPER LOBECTOMY) Social History Alcohol Use: No Tobacco Use: No Substance Use: No Allergies-Medications (Allergen,Severity, Reaction): Coded Allergies: ketorolac (Verified Allergy, Intermediate, ITCHING AND RASH, 12/03/17) morphine (Verified Adverse Reaction, Mild, ANAPHYLAXIS "I WENT CODE BLUE" , 12/26/17) discussed with provider, patient not allergic. diphenhydramine (Verified Adverse Reaction, Unknown, OPPOSITE REACTION; CANNOT SLEEP DUE TO WAKEFULNESS, 12/03/17) Reported Meds & Prescriptions Reported Meds & Active Scripts Active Reported Percocet (Oxycodone-Acetaminophen) 10-325 mg Tab 1 Tab PO TID PRN Nicoderm CQ Patch (Nicotine) 21 Mg/24 Hr Patch 21 Mg T-DERMAL DAILY Neupro Patch 24 HR (Rotigotine Patch 24 HR) 4 Mg/24 Hr Patch 4 Mg T-DERMAL DAILY Requip (Ropinirole) 5 Mg Tab 10 Mg PO HS Review of Systems Except as stated in HPI: all other systems reviewed are Neg General / Constitutional: No: Fever Eyes: No: Blurred Vision HENT: Positive: Headaches Cardiovascular: No: Chest Pain or Discomfort Respiratory: No: Cough, Shortness of Breath Gastrointestinal: Positive: Nausea, Vomiting Musculoskeletal: Positive: Myalgias, Pain Physical Exam Narrative GENERAL: Well-developed, well-nourished, alert male. Presenting in no acute distress. SKIN: Warm and dry. HEAD: Atraumatic. Normocephalic. EYES: Pupils equal and round. No scleral icterus. No injection or drainage. ENT: No nasal bleeding or discharge. Mucous membranes pink and moist. NECK: Trachea midline. No JVD. CARDIOVASCULAR: Regular rate and rhythm. RESPIRATORY: No accessory muscle use. Clear to auscultation. Breath sounds equal bilaterally. GASTROINTESTINAL: Abdomen soft, non-tender, nondistended. Hepatic and splenic margins not palpable. MUSCULOSKELETAL: Extremities without clubbing, cyanosis, or edema. No obvious deformities. NEUROLOGICAL: Awake and alert. No obvious cranial nerve deficits. Motor grossly within normal limits. Five out of 5 muscle strength in the arms and legs. Normal speech. PSYCHIATRIC: Appropriate mood and affect; insight and judgment normal. Data Data Last Documented VS Vital Signs Date Time Temp Pulse Resp B/P (MAP) Pulse Ox O2 Delivery O2 Flow Rate FiO2 12/26/17 14:12 78 18 155/76 (102) 97 Room Air 12/26/17 13:29 98.3 Orders Orders Complete Blood Count With Diff (12/26/17 14:01) Comprehensive Metabolic Panel (12/26/17 14:01) Urinalysis - C+S If Indicated (12/26/17 14:01) Iv Access Insert/Monitor (12/26/17 14:01) Ecg Monitoring (12/26/17 14:01) Oximetry (12/26/17 14:01) Sodium Chlor 0.9% 1000 Ml Inj (Ns 1000 M (12/26/17 14:01) Sodium Chloride 0.9% Flush (Ns Flush) (12/26/17 14:15) Chest, Single Ap (12/26/17 ) Promethazine Inj (Phenergan Inj) (12/26/17 14:15) Acetaminophen 1000 Mg/100 Ml (Ofirmev 10 (12/26/17 14:15) Urine Culture (12/26/17 15:30) Ceftriaxone Inj (Rocephin Inj) (12/26/17 16:00) Morphine Inj (Morphine Inj) (12/26/17 16:15) Sodium Chlor 0.9% 1000 Ml Inj (Ns 1000 M (12/26/17 16:15) Labs Laboratory Tests Test 12/26/17 13:55 12/26/17 15:30 White Blood Count 8.2 TH/MM3 Red Blood Count 4.65 MIL/MM3 Hemoglobin 14.8 GM/DL Hematocrit 43.7 % Mean Corpuscular Volume 93.9 FL Mean Corpuscular Hemoglobin 31.8 PG Mean Corpuscular Hemoglobin Concent 33.9 % Red Cell Distribution Width 15.5 % Platelet Count 311 TH/MM3 Mean Platelet Volume 7.0 FL Neutrophils (%) (Auto) 65.4 % Lymphocytes (%) (Auto) 24.4 % Monocytes (%) (Auto) 8.8 % Eosinophils (%) (Auto) 0.8 % Basophils (%) (Auto) 0.6 % Neutrophils # (Auto) 5.3 TH/MM3 Lymphocytes # (Auto) 2.0 TH/MM3 Monocytes # (Auto) 0.7 TH/MM3 Eosinophils # (Auto) 0.1 TH/MM3 Basophils # (Auto) 0.1 TH/MM3 CBC Comment DIFF FINAL Differential Comment Blood Urea Nitrogen 22 MG/DL Creatinine 0.89 MG/DL Random Glucose 101 MG/DL Total Protein 8.1 GM/DL Albumin 4.3 GM/DL Calcium Level 9.1 MG/DL Alkaline Phosphatase 125 U/L Aspartate Amino Transf (AST/SGOT) 16 U/L Alanine Aminotransferase (ALT/SGPT) 22 U/L Total Bilirubin 0.5 MG/DL Sodium Level 142 MEQ/L Potassium Level 3.7 MEQ/L Chloride Level 108 MEQ/L Carbon Dioxide Level 23.6 MEQ/L Anion Gap 10 MEQ/L Estimat Glomerular Filtration Rate 89 ML/MIN Urine Color YELLOW Urine Turbidity HAZY Urine pH 5.0 Urine Specific [place] 1.029 Urine Protein 30 mg/dL Urine Glucose (UA) NEG mg/dL Urine Ketones TRACE mg/dL Urine Occult Blood LARGE Urine Nitrite NEG Urine Bilirubin NEG Urine Urobilinogen LESS THAN 2 mg/dL Urine Leukocyte Esterase TRACE Urine RBC /hpf Urine WBC 24 /hpf Urine Squamous Epithelial Cells 1 /hpf Urine Bacteria RARE /hpf Urine Mucus MOD /lpf Microscopic Urinalysis Comment CULTURE INDICATED MDM Medical Decision Making Medical Screen Exam Complete: Yes Emergency Medical Condition: Yes Medical Record Reviewed: Yes Interpretation(s) Last Impressions Chest X-Ray 12/26/17 0000 Signed Impressions: CONCLUSION: 1. No acute cardiopulmonary disease. Laboratory Tests Test 12/26/17 13:55 12/26/17 15:30 White Blood Count 8.2 TH/MM3 Red Blood Count 4.65 MIL/MM3 Hemoglobin 14.8 GM/DL Hematocrit 43.7 % Mean Corpuscular Volume 93.9 FL Mean Corpuscular Hemoglobin 31.8 PG Mean Corpuscular Hemoglobin Concent 33.9 % Red Cell Distribution Width 15.5 % Platelet Count 311 TH/MM3 Mean Platelet Volume 7.0 FL Neutrophils (%) (Auto) 65.4 % Lymphocytes (%) (Auto) 24.4 % Monocytes (%) (Auto) 8.8 % Eosinophils (%) (Auto) 0.8 % Basophils (%) (Auto) 0.6 % Neutrophils # (Auto) 5.3 TH/MM3 Lymphocytes # (Auto) 2.0 TH/MM3 Monocytes # (Auto) 0.7 TH/MM3 Eosinophils # (Auto) 0.1 TH/MM3 Basophils # (Auto) 0.1 TH/MM3 CBC Comment DIFF FINAL Differential Comment Blood Urea Nitrogen 22 MG/DL Creatinine 0.89 MG/DL Random Glucose 101 MG/DL Total Protein 8.1 GM/DL Albumin 4.3 GM/DL Calcium Level 9.1 MG/DL Alkaline Phosphatase 125 U/L Aspartate Amino Transf (AST/SGOT) 16 U/L Alanine Aminotransferase (ALT/SGPT) 22 U/L Total Bilirubin 0.5 MG/DL Sodium Level 142 MEQ/L Potassium Level 3.7 MEQ/L Chloride Level 108 MEQ/L Carbon Dioxide Level 23.6 MEQ/L Anion Gap 10 MEQ/L Estimat Glomerular Filtration Rate 89 ML/MIN Urine Color YELLOW Urine Turbidity HAZY Urine pH 5.0 Urine Specific [place] 1.029 Urine Protein 30 mg/dL Urine Glucose (UA) NEG mg/dL Urine Ketones TRACE mg/dL Urine Occult Blood LARGE Urine Nitrite NEG Urine Bilirubin NEG Urine Urobilinogen LESS THAN 2 mg/dL Urine Leukocyte Esterase TRACE Urine RBC /hpf Urine WBC 24 /hpf Urine Squamous Epithelial Cells 1 /hpf Urine Bacteria RARE /hpf Urine Mucus MOD /lpf Microscopic Urinalysis Comment CULTURE INDICATED Vital Signs Date Time Temp Pulse Resp B/P (MAP) Pulse Ox O2 Delivery O2 Flow Rate FiO2 12/26/17 14:12 78 18 155/76 (102) 97 Room Air 12/26/17 14:00 82 18 128/88 (101) 97 Room Air 12/26/17 13:54 89 18 Room Air 12/26/17 13:29 98.3 98 20 119/59 (79) 96 Differential Diagnosis Metabolic abnormality versus medication side effect versus UTI versus other Narrative Course Patient is a 52-year-old male presenting to the emergency room for evaluation of nausea, vomiting, dysuria and body aches. Patient is well-appearing, his vital signs are currently stable. Labs imaging ordered and pending. Acetaminophen IV ordered, patient was given Phenergan for nausea. CBC with no acute findings Chemistry with a BUN of 22 otherwise unremarkable Urinalysis consistent with a urinary tract infection, reflex culture is pending. Rocephin 2 g IV 1 dose ordered. Chest x-ray shows no acute disease. Patient was reassessed, he continued to complain of pain. Morphine 4 mg IV 1 dose ordered. Patient be given additional liter of IV fluids. Patient is currently on Nivolumab this medication was researched, patient's current symptoms can also be attributed to medication side effects. Patient will be discharged home, he will be given a prescription for antibiotics to complete full course of therapy for urinary tract infection. He was encouraged to maintain adequate fluid intake. He was encouraged to follow-up with his oncologist. He was encouraged return to emergency department immediately for any new or worsening symptoms. Findings and plan of care discussed with my attending physician. Diagnosis Primary Impression: UTI (urinary tract infection) Qualified Codes: N39.0 - Urinary tract infection, site not specified; R31.9 - Hematuria, unspecified Additional Impressions: Medication side effects Chemotherapy induced nausea and vomiting Referrals: Rahul Valles MD 1 day Patient Instructions: Chemo Induced Nausea and Vomiting (DC), General Instructions, Urinary Tract Infection in Men (DC) Additional Instructions: Follow-up with Dr. Valles Continue home medications as previously prescribed Maintain adequate fluid intake Complete full course of antibiotics as prescribed Return to emergency department for any new or worsening symptoms Med/Other Pt SpecificInfo: Prescription(s) given Scripts Cephalexin (Keflex) 500 Mg Cap 500 MG PO Q8H for Infection for 7 Days, #21 CAP 0 Refills Prov: Beckie Mccullough 12/26/17 Disposition: 01 DISCHARGE HOME Condition: Stable Beckie Mccullough Dec 26, 2017 16:09
[2017-12-26] MEDS ORDERED: MORPHINE SULFATE 4 MG/ML INJ IV PUSH ONE (16:15)
[2017-12-26] MEDS ORDERED: CEPH-460 PO (17:04)
== END 2017-12-26 18:04 | disposition home or self-care (01) ==
LOC: NEPC 13:24
DX: N39.0 Urinary tract infection, site not specified (principal); R31.9 Hematuria, unspecified; T45.1X5A Adverse effect of antineoplastic and immunosuppressive drugs, initial encounter; R11.2 Nausea with vomiting, unspecified; M54.5 Low back pain; R51 Headache; E78.00 Pure hypercholesterolemia, unspecified; G25.81 Restless legs syndrome; F32.9 Major depressive disorder, single episode, unspecified; F41.9 Anxiety disorder, unspecified; Z92.21 Personal history of antineoplastic chemotherapy; Z85.118 Personal history of other malignant neoplasm of bronchus and lung; Z88.5 Allergy status to narcotic agent; Z79.899 Other long term (current) drug therapy
CPT/HCPCS: 71045; 80053; 81001; 85025; 87086; 96361; 96365; 96367; 96372; 96375; 99284; J0131; J0696; J2270; J2550; J7030

== ENCOUNTER 2018-03-22 20:36 | Observation (INO) ==
[2018-03-22] MEDS ORDERED: Morphine Inj 4 MG/ML Vial IV.PUSH ONE (21:02)
[2018-03-22] MEDS ORDERED: Sod Chloride 0.9% Inj 1,000 ML IV.SIG ONE (21:02)
--- NOTE | 2018-03-22 21:14 | ED ---
HPI General Chief complaint: GI Bleed Stated complaint: Sent by Dr/Patient states swollen organs Time Seen by Provider: 03/22/18 20:57 History of Present Illness HPI narrative: 52-year-old male with a history of metastatic melanoma to the lung presents to the emergency department at the instruction of his oncologist for evaluation and treatment of colitis. The patient states that he has had abdominal pain and diarrhea for the past 3 days which began after his recent treatment with development of nivolumab. States that the abdominal pain is worse in the right upper and right lower quadrants. States it is constant. Denies any alleviating factors. Aggravated with movement and palpation. He was seen by his oncologist Dr. Valles today who believes that this is an adverse effect of the Nivolumab and has sent him here for admission with recommendations for treatment. Patient denies any fever, chills, nausea, vomiting, chest pain, shortness of breath. He states he did have some black stools over the past few days but Dr. Valles tested and it was negative for blood. No other complaints. Related Data Home Medications Medication Instructions Recorded Confirmed oxycodone-acetaminophen [Percocet] 1 tab PO Q4H PRN MDD 4 03/22/18 03/22/18 paroxetine HCl [Paxil] 30 mg PO HS 03/22/18 03/22/18 ropinirole [Requip XL] 12 mg PO BID 03/22/18 03/22/18 Allergies Allergy/AdvReac Type Severity Reaction Status Date / Time ketorolac Allergy Intermediate ITCHING Verified 03/22/18 20:54 AND RASH diphenhydramine AdvReac Unknown OPPOSITE Verified 03/22/18 20:54 REACTION; CANNOT SLEEP DUE TO WAKEFULNESS Review of Systems ROS: all other systems reviewed are negative [facility] Medical History Medical History Restless legs syndrome (RLS) (Acute) Cancer determined by lung biopsy (Acute) Arthritis (Acute) Depression (Acute) Lung cancer (Acute) Melanoma (Acute) Surgical History Surgical History H/O Spinal surgery (Acute) History of total replacement of right shoulder joint (Acute) History of neck surgery (Acute) History of lobectomy of lung (Acute) Social History Social History Substance History: Active Abuse Second Hand Smoke Exposure: No Smoking Status: Former smoker Tobacco Type: Cigarettes How Often Do You Have a Drink Containing Alcohol: Never Recent Travel in [facility] within the Last 8 Weeks: No Recent Out of Country Travel within the Last 8 Weeks: No Exam Narrative Exam Narrative: GENERAL: Well-nourished and well-developed male patient in no acute distress who is nontoxic appearing. SKIN: Warm and dry. HEAD: Normocephalic and atraumatic. EYES: No injection, drainage, or hyphema noted. PERRLA. EOMI. ENT: No nasal drainage noted. Oropharynx is clear. NECK: Supple and the trachea is midline. CARDIOVASCULAR: Regular rate and rhythm. RESPIRATORY: Breath sounds are equal bilaterally with no accessory muscle use, wheezing, rhonchi, or crackles. GASTROINTESTINAL: Diffuse abdominal tenderness, worse to left lower and left upper quadrants. Abdomen is soft and nondistended. MUSCULOSKELETAL: No obvious deformities, swelling, cyanosis, or ecchymosis is present throughout the upper and lower extremities. Patient has full range of motion without any signs of neurovascular compromise. Distal pulses are 2+ throughout. NEUROLOGICAL: Awake, alert, and oriented. Normal speech and gait. Cranial nerves are grossly intact. Course Initial Documented Vital Signs Temperature 98.4 F 03/22/18 20:50 Pulse Rate 90 03/22/18 20:50 Respiratory Rate 20 03/22/18 20:50 Blood Pressure 146/77 H 03/22/18 20:50 Pulse Oximetry 97 03/22/18 20:50 Last Documented Vital Signs Temperature 98.4 F 03/22/18 20:50 Pulse Rate 72 03/22/18 23:00 Respiratory Rate 18 03/22/18 20:53 Blood Pressure 120/74 03/22/18 23:00 Pulse Oximetry 100 03/22/18 23:00 Medical Decision Making KASHIF Attestation KASHIF supervised visit: Yes Attestation: I was present with the advanced practitioner during the management of this patient. I discussed the case with the advanced practitioner and agree with the findings and plan as documented in their note except as noted below. 52yM sent in by oncology for colitis. The patient states that he's had left upper/ lower abdominal pain, "swelling", and diarrhea. He is being treated with nivolumab for metastatic melanoma (stage IV), saw Dr. Valles of med onc today, and was sent in to the ED for admission/ concern for C diff colitis vs chemotherapy-induced colitis. The patient admits to nausea and vomiting, denies fever, cough, or dysuria. Appears uncomfortable, no acute distress NCAT Regular rate and rhythm Breath sounds diminished in right upper chest, otherwise CTAB Port present in right upper chest Abdomen soft, mildly distended, moderately tender in LUQ and LLQ GCS 15, no focal neuro deficits A/P: 52yM presenting with diarrhea, abdominal pain, currently on chemo Pain control IV fluids Antiemetics Labs C diff PCR CT abd/ pelvis with dual contrast IV steroids as directed by Dr. Valles (solumedrol 60 q12) AM consult to med onc and colorectal surgery Will d/w hospitalist [facility] Narrative Medical decision making narrative: 52-year-old male presents to the emergency department for evaluation of abdominal pain and diarrhea. Patient is afebrile, vital signs are stable. IV access is obtained, labs of been drawn and sent. Patient is placed on cardiac telemetry and pulse oximetry monitoring. The patient's oncologist Dr. Valles called and gave report to ED physician and also has documentation in the patient's chart stating the treatment plan. Per his recommendation the patient is administered Solu-Medrol [address] of the abdomen and pelvis with IV contrast and oral contrast has been ordered and is pending. CBC is unremarkable. CMP is unremarkable. Hemoccult done by Dr. Valles today in office, noted to be negative on his documentation. Patient will be admitted to medicine with consults to Dr. Weinstein colorectal and Dr. Valles oncology. Solumedrol 60 [address] IV BID per Dr. Valles's recommendation. Dr. Cook accepts admission. Medical Screen Exam Complete: Yes Emergency Medical Condition: Yes Differential Diagnosis Differential Diagnosis: Colitis versus diverticulitis versus medication reaction versus C. difficile Lab Data Result diagrams: 03/22/18 21:40 03/22/18 21:40 Lab Results 03/22/18 03/22/18 03/22/18 Range/Units 21:40 21:40 21:40 WBC 9.1 (4.0-11.0) th/mm3 RBC 4.67 (4.50-5.90) mil/mm3 Hgb 15.0 (13.0-17.0) gm/dL Hct 44.4 (39.0-51.0) % MCV 95.0 (80.0-100.0) fL MCH 32.2 (27.0-34.0) pg MCHC 33.9 (32.0-36.0) % RDW 14.4 (11.6-17.2) % Plt Count 260 (150-450) th/mm3 MPV 7.7 (7.0-11.0) fL Neut % (Auto) 60.7 (16.0-70.0) % Lymph % (Auto) 29.7 (9.0-44.0) % [place] % (Auto) 7.0 (0.0-8.0) % Eos % (Auto) 1.9 (0.0-4.0) % Baso % (Auto) 0.7 (0.0-2.0) % Neut # (Auto) 5.5 (1.8-7.7) th/mm3 Lymph # (Auto) 2.7 (1.0-4.8) th/mm3 [place] # (Auto) 0.6 (0.0-0.9) th/mm3 Eos # (Auto) 0.2 (0.0-0.4) th/mm3 Baso # (Auto) 0.1 (0.0-0.2) th/mm3 WBC Differential . Differential Comment Auto diff final Sodium 141 (136-145) meq/L Potassium 4.4 (3.5-5.1) meq/L Chloride 107 (98-107) meq/L Carbon Dioxide 24.7 (21.0-32.0) meq/L Anion Gap 9 (5-15) meq/L BUN 20 H (7-18) mg/dL Creatinine 0.92 (0.60-1.30) mg/dL Estimated GFR 86 L (>89) mL/min Random Glucose 91 (74-106) mg/dL Calcium 8.7 (8.5-10.1) mg/dL Total Bilirubin 0.4 (0.2-1.0) mg/dL AST 27 (15-37) U/L ALT 25 (12-78) U/L Alkaline Phosphatase 119 H (45-117) U/L Total Protein 7.9 (6.4-8.2) g/dL Albumin 3.8 (3.4-5.0) g/dL Amylase 30 (25-115) U/L Lipase 148 (73-393) U/L Imaging Data Radiologist's impression: Abdomen/Pelvis CT 03/22/18 21:02 CONCLUSION: 1. No acute findings. Colonic diverticula without evidence for diverticulitis. Previous fusion lower lumbar spine. Multiple nonobstructing bilateral renal calculi. Discharge Plan Discharge Disposition Patient Disposition: 30 Still Patient Discharge Details Diagnosis: Colitis Physicians Team ED Provider: Cele Webster ED Midlevel Provider: Laura Vilchis Primary Care Provider: Jared Isaacs Attending Provider: Virgie Cook Other Providers: Sherri Hickman ; Susana Buenrostro Status ED Status: Admitted Observation Patient
[2018-03-22] MEDS ORDERED: Diatrizoate Meglum/Diatrizoate Sod Liq 9 ML UDC PO ONE (22:00)
[2018-03-22 22:06] LABS: Baso # (Auto) 0.1 th/mm3 (0.0-0.2); Baso % (Auto) 0.7 % (0.0-2.0); Eos # (Auto) 0.2 th/mm3 (0.0-0.4); Eos % (Auto) 1.9 % (0.0-4.0); Hematocrit 44.4 % (39.0-51.0); Lymph # (Auto) 2.7 th/mm3 (1.0-4.8); Lymph % (Auto) 29.7 % (9.0-44.0); Mean Corpuscular HGB Conc 33.9 % (32.0-36.0); Mean Corpuscular Hemoglobin 32.2 pg (27.0-34.0); Mean Platelet Volume 7.7 fL (7.0-11.0); Mono # (Auto) 0.6 th/mm3 (0.0-0.9); Neut # (Auto) 5.5 th/mm3 (1.8-7.7); Neut % (Auto) 60.7 % (16.0-70.0); Platelet Count 260 th/mm3 (150-450); Red Blood Count 4.67 mil/mm3 (4.50-5.90); Red Cell Distribution Width 14.4 % (11.6-17.2); White Blood Count 9.1 th/mm3 (4.0-11.0)
[2018-03-22 22:23] LABS: Alanine Aminotransferase 25 U/L (12-78)
[2018-03-22 22:25] LABS: Alkaline Phosphatase 119 U/L (45-117); Total Protein 7.9 g/dL (6.4-8.2)
[2018-03-22 22:27] LABS: Albumin 3.8 g/dL (3.4-5.0); Anion Gap 9 meq/L (5-15); Aspartate Aminotransferase 27 U/L (15-37); Blood Urea Nitrogen 20 mg/dL (7-18); Calcium 8.7 mg/dL (8.5-10.1); Carbon Dioxide 24.7 meq/L (21.0-32.0); Chloride 107 meq/L (98-107); Glomerular Filtration Rate 86 mL/min (>89); Glucose,Random 91 mg/dL (74-106); Lipase 148 U/L (73-393); Sodium 141 meq/L (136-145)
[2018-03-22 22:29] LABS: Potassium 4.4 meq/L (3.5-5.1)
[2018-03-22] MEDS ORDERED: HYDROmorphone PF Inj 2 MG/ML Vial IV.PUSH ONE (22:51)
[2018-03-22] MEDS ORDERED: HYDROmorphone PF Inj 2 MG/ML Vial IV.PUSH PRN (23:50)
--- NOTE | 2018-03-22 23:54 | P.HPIM ---
History of Present Illness Service: [facility] Primary Care Physician: Jared Isaacs Chief Complaint: Nausea vomiting diarrhea History of Present Illness: 52-year-old male with a history of metastatic melanoma to the lung was sent to the ER department from Dr. Valles his oncologist, Dr. Valles, for evaluation and treatment of colitis. Patient states that he has had abdominal pain and diarrhea for the past 3 days which began after his recent treatment of Nivolumab. He states the pain is worse in his right upper and right lower quadrant, stabbing in nature, 8/10, constant with associated nausea and vomiting he states so far nothing is alleviating his pain. Per Dr. Valles patient was Hemoccult negative in the office. He denies any chest pain, shortness of breath, fever or chills. Inpatient Certification: I certify that the inpatient services were ordered in accordance with Medicare regulations governing the order. This includes certification that hospital inpatient services are reasonable and necessary and in the case of services not specified as inpatient-only under 42 CFR 419.22(n), that they are appropriately provided as inpatient services in accordance to with the 2-midnight benchmark under 43 CFR 412.3(e) Review of Systems All other systems reviewed negative except as stated in HPI PMFSH - History History Provided By: Patient - Medical History Medical History: Medical History (Last Updated 03/22/18 @ 23:54 by JIMY Carrera) Restless legs syndrome (RLS) (Acute) Cancer determined by lung biopsy (Acute) Arthritis Depression Lung cancer Melanoma - Surgical History Surgical History: Surgical History (Last Reviewed 03/22/18 @ 23:46 by JIMY Carrera) H/O Spinal surgery (Acute) History of total replacement of right shoulder joint (Acute) History of neck surgery (Acute) History of lobectomy of lung - Family History Family History: Family History (Last Reviewed 03/22/18 @ 23:45 by JIMY Carrera) Father Lung disease Mother AAA (abdominal aortic aneurysm, ruptured) - Social History I have reviewed the patient's Social History: Yes - Tobacco History Second Hand Smoke Exposure: No Smoking Status: Former smoker Tobacco Type: Cigarettes - Alcohol History How Often Do You Have a Drink Containing Alcohol: Never - Substance Use History Substance History: Active Abuse - Travel History Recent Travel in the [place] Within the Last 8 Weeks: No Recent Travel Out of the Country Within the Last 8 Weeks: No - Immunization History Tetanus Immunization: <5 Years Hx Influenza Vaccine This Season: Yes Medications and Allergies Active Medications: Active Medications Methylprednisolone Sodium Succinate (Solumedrol Inj) 60 mg IV.PUSH ONCE ONE Stop: 03/23/18 23:06 Sodium Chloride (Ns Flush) 2 ml IV.FLUSH PRN PRN PRN Reason: FLUSH AFTER USING IV ACCESS Allergies Allergy/AdvReac Type Severity Reaction Status Date / Time ketorolac Allergy Intermediate ITCHING Verified 03/22/18 20:54 AND RASH diphenhydramine AdvReac Unknown OPPOSITE Verified 03/22/18 20:54 REACTION; CANNOT SLEEP DUE TO WAKEFULNESS Home Medications Medication Instructions Recorded Confirmed Type oxycodone-acetaminophen [Percocet] 1 tab PO Q4H PRN MDD 4 03/22/18 03/22/18 History paroxetine HCl [Paxil] 30 mg PO HS 03/22/18 03/22/18 History ropinirole [Requip XL] 12 mg PO BID 03/22/18 03/22/18 History Exam Vital signs: Vital Signs 03/22/18 20:50 03/22/18 20:53 03/22/18 22:29 Temperature 98.4 F Pulse Rate 90 79 75 Respiratory Rate 20 18 Blood Pressure 146/77 H 117/76 117/76 Pulse Oximetry 97 96 100 03/22/18 23:00 Temperature Pulse Rate 72 Respiratory Rate Blood Pressure 120/74 Pulse Oximetry 100 Intake & Output 03/22/18 03/22/18 03/23/18 06:59 18:59 06:59 Intake Total 1000 / 1000 Balance 1000 / 1000 Weight 77.111 kg Intake: IV 1000 / 1000 NS Inj 1,000 ML @ Wide Open IV. 1000 / 1000 SIG BOLUS ONE Rx#:[id number] Narrative: GENERAL: This is a well-nourished, well-developed patient, who is nauseated and in pain. SKIN: Warm, dry, intact, no ecchymosis or open lesions EYES: Pupils equal round and reactive, no scleral edema or drainage CARDIOVASCULAR: Regular rate and rhythm without murmurs, gallops, or rubs. RESPIRATORY: Clear to auscultation. Breath sounds equal bilaterally. No wheezes , rales, or rhonchi. GASTROINTESTINAL: Abdomen soft, RUQ and RLQ tenderness, nondistended. Normal active bowel sounds MUSCULOSKELETAL: Extremities without clubbing, cyanosis, or edema. NEURO: Alert & Oriented x4 to person, place, time, situation. Moves all ext x4 Results - Labs CBC & Chem 7: 03/22/18 21:40 03/22/18 21:40 Labs: Short CBC 03/22/18 Range/Units 21:40 WBC 9.1 (4.0-11.0) th/mm3 Hgb 15.0 (13.0-17.0) gm/dL Hct 44.4 (39.0-51.0) % Plt Count 260 (150-450) th/mm3 BMP 03/22/18 21:40 Sodium 141 Potassium 4.4 Chloride 107 Carbon Dioxide 24.7 BUN 20 H Creatinine 0.92 Calcium 8.7 Liver Function 03/22/18 Range/Units 21:40 Total Bilirubin 0.4 (0.2-1.0) mg/dL AST 27 (15-37) U/L ALT 25 (12-78) U/L Alkaline Phosphatase 119 H (45-117) U/L Albumin 3.8 (3.4-5.0) g/dL Caprini VTE Risk Assessment Caprini VTE Risk Assessment: No/Low Risk (score <= 1) Caprini Risk Assessment Model: Point Value = 1 Point Value = 2 Point Value = 3 Point Value = 5 Age 41-60 Minor surgery BMI > 25 kg/m2 Swollen legs Varicose veins or History of unexplained or recurrent spontaneous Oral contraceptives or hormone replacement Sepsis (< 1 month) Serious lung disease, including pneumonia (< 1 month) Abnormal pulmonary function Acute myocardial infarction Congestive heart failure (< 1 month) History of inflammatory bowel disease Medical patient at bed rest Age 61-74 Arthroscopic surgery Major open surgery (> 45 min) Laparoscopic surgery (> 45 min) Malignancy Confined to bed (> 72 hours) Immobilizing plaster cast Central venous access Age >= 75 History of VTE Family history of VTE Factor V Leiden Prothrombin [id number] Lupus anticoagulant Anticardiolipin antibodies Elevated serum homocysteine Heparin-induced thrombocytopenia Other congenital or acquired thrombophilia Stroke (< 1 month) Elective arthroplasty Hip, pelvis, or leg fracture Acute spinal cord injury (< 1 month) Prophylaxis Regimen: Total Risk Factor Score Risk Level Prophylaxis Regimen 0-1 Low Early ambulation 2 Moderate Order ONE of the following: *Sequential Compression Device (SCD) *Heparin 5000 units SQ BID 3-4 Higher Order ONE of the following medications: *Heparin 5000 units SQ TID *Enoxaparin/Lovenox 40 mg SQ daily (WT < 150 kg, CrCl > 30 mL/min) *Enoxaparin/Lovenox 30 mg SQ daily (WT < 150 kg, CrCl > 10-29 mL/min) *Enoxaparin/Lovenox 30 mg SQ BID (WT < 150 kg, CrCl > 30 mL/min) AND/OR *Sequential Compression Device (SCD) 5 or more Highest Order ONE of the following medications: *Heparin 5000 units SQ TID (Preferred with Epidurals) *Enoxaparin/Lovenox 40 mg SQ daily (WT < 150 kg, CrCl > 30 mL/min) *Enoxaparin/Lovenox 30 mg SQ daily (WT < 150 kg, CrCl > 10-29 mL/min) *Enoxaparin/Lovenox 30 mg SQ BID (WT < 150 kg, CrCl > 30 mL/min) AND *Sequential Compression Device (SCD) Assessment and Plan - Plan Possible chemo-induced colitis Lipase 148, amylase 30 IVF C. difficile ordered Clear liquids Solu-Medrol 60 mg IV every 12 Consult colorectal, Dr. Weinstein, for possible colonoscopy CT abdomen pelvis pending Dilaudid IV for pain management Melanoma with metastases to the lung Continue treatment with oncology Consult oncology to follow Depression, chronic Resume home medications DVT prophylaxis: SCDs Discussed Condition With: Patient and RN
--- NOTE | 2018-03-23 00:27 | CT ---
EXAM DATE: 03/23/2018 12:15 AM EDT AGE/SEX: 52 years / Male INDICATIONS: Right side abdominal pain, blood in stool. CLINICAL DATA: This is the patient's initial encounter. Patient reports that signs and symptoms have been present for 2 days and indicates a pain score of 7/10. MEDICAL/SURGICAL HISTORY: Metastatic disease. Melanoma. Chemotherapy. . Port Placement. ORAL CONTRAST: Prescribed oral contrast ingested. RADIATION DOSE: 6.64 CTDI (mGy) COMPARISON: [facility] [place], CT ABDOMEN & PELVIS W/O CONTRAST, 12/03/2017. . TECHNIQUE: Multiple contiguous axial images were obtained through the abdomen and pelvis following b olus infusion of 80 ml Omnipaque 350 (iohexol) nonionic water-soluble contrast as a single exam dos e. Prescribed oral contrast ingested. Using automated exposure control and adjustment of the mA and/ or kV according to patient size, radiation dose was kept as low as reasonably achievable to obtain op timal diagnostic quality images. DICOM format image data is available electronically for review and comparison. FINDINGS: Lung bases demonstrate minimal linear scarring. No acute findings in the liver, spleen, adrenals, kid neys or pancreas. Numerous nonobstructing small bilateral renal calculi are present. There is no free fluid. No bowel obstruction. No adenopathy. Atherosclerotic aorta without aneurysm. Previous fusion lower lumbar spine. CONCLUSION: 1. No acute findings. Colonic diverticula without evidence for diverticulitis. Previous fusion lower lumbar spine. Multiple nonobstructing bilateral renal calculi. Electronically signed by: Cedric Harmon MD 03/23/2018 12:26 AM EDT
[2018-03-23] MEDS: Sod Chloride 0.9% Inj 1,000 ML IV.CONT SCH ×3 (02:15→21:22)
[2018-03-23] MEDS ORDERED: Acetaminophen 500 MG Tablet PO PRN (08:42)
[2018-03-23 08:56] LABS: Baso % (Auto) 0.1 % (0.0-2.0); Hematocrit 42.1 % (39.0-51.0); Hemoglobin 14.1 gm/dL (13.0-17.0); Lymph # (Auto) 0.6 th/mm3 (1.0-4.8); Lymph % (Auto) 10.7 % (9.0-44.0); Mean Corpuscular HGB Conc 33.5 % (32.0-36.0); Mean Corpuscular Volume 95.7 fL (80.0-100.0); Mean Platelet Volume 7.1 fL (7.0-11.0); Mono % (Auto) 0.4 % (0.0-8.0); Neut # (Auto) 4.8 th/mm3 (1.8-7.7); Neut % (Auto) 88.8 % (16.0-70.0); Platelet Count 245 th/mm3 (150-450); Red Cell Distribution Width 14.3 % (11.6-17.2); White Blood Count 5.4 th/mm3 (4.0-11.0)
[2018-03-23] MEDS ORDERED: ROPINIROLE 12 MG PO SCH (09:00)
[2018-03-23 09:15] LABS: Anion Gap 9 meq/L (5-15); Blood Urea Nitrogen 15 mg/dL (7-18); Calcium 8.5 mg/dL (8.5-10.1); Carbon Dioxide 26.4 meq/L (21.0-32.0); Chloride 105 meq/L (98-107); Glomerular Filtration Rate Greater Than 89 mL/min (>89); Potassium 3.8 meq/L (3.5-5.1); Sodium 140 meq/L (136-145)
[2018-03-23 09:16] LABS: Glucose,Random 133 mg/dL (74-106)
[2018-03-23] MEDS: MethylPREDNISolone Sod Succinate Inj 125 MG/2 ML Vial IV.PUSH SCH ×2 (09:30→21:23)
[2018-03-23] MEDS: oxyCODONE/Acetaminophen 10/325 Tablet PO PRN ×2 (09:42→22:44)
--- NOTE | 2018-03-23 10:52 | P.PN ---
Subjective Interval history: Follow up for abdominal pain, diarrhea in a patient with a history of metastatic melanoma. Patient denies any further diarrhea ever since he came to the hospital for this admission. However, he has significant abdominal pain as well as joint pain. No fever, chills. Physical Exam Vital signs: Vital Signs 03/22/18 20:50 03/22/18 20:53 03/22/18 22:29 Temperature 98.4 F Pulse Rate 90 79 75 Respiratory Rate 20 18 Blood Pressure 146/77 H 117/76 117/76 Pulse Oximetry 97 96 100 03/22/18 23:00 03/23/18 01:10 03/23/18 03:09 Temperature 97.5 F L 98.6 F Pulse Rate 72 66 72 Respiratory Rate 17 20 Blood Pressure 120/74 110/77 110/70 Pulse Oximetry 100 96 03/23/18 04:00 03/23/18 07:13 Temperature 98.0 F Pulse Rate 75 93 H Respiratory Rate 18 Blood Pressure 125/90 Pulse Oximetry 99 Intake & Output 03/22/18 03/23/18 03/23/18 18:59 06:59 18:59 Intake Total 1200 / 1200 Output Total 300 / 300 Balance 900 / 900 Weight 77.4 kg Intake: IV 1000 / 1000 NS Inj 1,000 ML @ Wide Open IV. 1000 / 1000 SIG BOLUS ONE Rx#:[id number] Oral 200 / 200 Output: Urine 300 / 300 Narrative: GENERAL: Alert, Oriented x 3, NAD. SKIN: Warm and dry. HEAD: Normocephalic. EYES: No scleral icterus. No injection or drainage. NECK: Supple, trachea midline. No JVD or lymphadenopathy. CARDIOVASCULAR: Regular rate and rhythm without murmurs, gallops, or rubs. RESPIRATORY: Breath sounds equal bilaterally. No accessory muscle use. GASTROINTESTINAL: Abdomen soft, diffuse tenderness on palpation, nondistended. MUSCULOSKELETAL: No cyanosis, or edema. BACK: Nontender without obvious deformity. No CVA tenderness. Results - Labs CBC & Chem 7: 03/23/18 08:30 03/23/18 08:30 Laboratory Results - last 24 hr 03/22/18 03/22/18 03/22/18 21:40 21:40 21:40 WBC 9.1 RBC 4.67 Hgb 15.0 Hct 44.4 MCV 95.0 MCH 32.2 MCHC 33.9 RDW 14.4 Plt Count 260 MPV 7.7 Neut % (Auto) 60.7 Lymph % (Auto) 29.7 Lane % (Auto) 7.0 Eos % (Auto) 1.9 Baso % (Auto) 0.7 Neut # (Auto) 5.5 Lymph # (Auto) 2.7 Lane # (Auto) 0.6 Eos # (Auto) 0.2 Baso # (Auto) 0.1 WBC Differential . Differential Comment Auto diff final Sodium 141 Potassium 4.4 Chloride 107 Carbon Dioxide 24.7 Anion Gap 9 BUN 20 H Creatinine 0.92 Estimated GFR 86 L Random Glucose 91 Calcium 8.7 Total Bilirubin 0.4 AST 27 ALT 25 Alkaline Phosphatase 119 H Total Protein 7.9 Albumin 3.8 Amylase 30 Lipase 148 03/23/18 03/23/18 08:30 08:30 WBC 5.4 RBC 4.40 L Hgb 14.1 Hct 42.1 MCV 95.7 MCH 32.0 MCHC 33.5 RDW 14.3 Plt Count 245 MPV 7.1 Neut % (Auto) 88.8 H Lymph % (Auto) 10.7 Lane % (Auto) 0.4 Eos % (Auto) 0.0 Baso % (Auto) 0.1 Neut # (Auto) 4.8 Lymph # (Auto) 0.[address] # (Auto) 0.0 Eos # (Auto) 0.0 Baso # (Auto) 0.0 WBC Differential . Differential Comment Auto diff final Sodium 140 Potassium 3.8 Chloride 105 Carbon Dioxide 26.4 Anion Gap 9 BUN 15 Creatinine 0.85 Estimated GFR Greater than 89 Random Glucose 133 H Calcium 8.5 Total Bilirubin AST ALT Alkaline Phosphatase Total Protein Albumin Amylase Lipase - Imaging Impressions Abdomen/Pelvis CT 03/22/18 21:02 CONCLUSION: 1. No acute findings. Colonic diverticula without evidence for diverticulitis. Previous fusion lower lumbar spine. Multiple nonobstructing bilateral renal calculi. Assessment and Plan - Plan Mr. 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 Upon admission, his diarrhea seems to have resolved. However, he continues to have abdominal pain. Heme/onc as well as Colorectal surgery were consulted. Probable chemotherapy induced colitis -Diarrhea resolved. If, however, we can obtain a sample, we will send it for C. Diff PCR. -Colorectal surgery on board. Will wait for their recs. -We will use acetaminophen, Percocet, Dilaudid for pain management. -Patient is currently on methylprednisolone 60 mg every 12 hours. History of metastatic melanoma -Management per oncology. Oncology consulted. Restless leg syndrome -Patient is on Neupro patch as well as Ropinirole which will continue. Full code. SCDs.
--- NOTE | 2018-03-23 20:13 | MB ---
cc: Elroy Weinstein MD,Rahul COFFEY DATE: 03/23/2018 REASON FOR CONSULTATION: Nausea, vomiting and diarrhea. HISTORY OF PRESENT ILLNESS: Mr. Childers is a 52-year-old male who has been taken care of by Dr. Valles with a history of metastatic melanoma to the lung. The patient has been treated with chemotherapy. He had tolerated the previous treatments well, but after this treatment developed diffuse abdominal pain and watery stools with some rectal bleeding. The patient thought the pain was worse in the upper abdomen, but it was radiating down to the right lower quadrant. It was pretty consistent, with some nausea and some emesis. The patient was seen by Dr. Valles who felt the patient was in significant discomfort after having chemotherapy to warrant admission for additional workup and diagnosis of his abdominal pain. He denied any fever or chills. No hematemesis or melena. PAST MEDICAL HISTORY: History of metastatic melanoma to the lung. PAST SURGICAL HISTORY: History of spinal surgery, total shoulder replacement, neck surgery, and a lobectomy of his lung. FAMILY HISTORY: No family history of colorectal cancer or other inflammatory bowel disease. PHYSICAL EXAMINATION: GENERAL: A very pleasant, anxious male in no acute distress. HEENT: Remarkable for dry, but pink membranes. Nonicteric sclerae. NECK: Supple without gross adenopathy. CHEST: Relatively clear. Slightly decreased in the bases. HEART: Had a regular rhythm. ABDOMEN: Soft, a little tympanic, but mildly tender to deep palpation. No rebound or guarding or any masses noted. No obvious hernias. EXTREMITIES: Show no cyanosis or clubbing and minimal trace pedal edema. LABORATORY STUDIES: White count was 9.1, hemoglobin 15.0, platelet count 260,000. Electrolytes remarkable for BUN of 20 and creatinine of 0.92. Liver functions were pretty normal with an alkaline phosphatase of 119. CT scan was reviewed showing no cause for any acute abdominal pain. No obstruction. No significant adenopathy. No obvious inflammation or swelling of the colon or small intestines. ASSESSMENT AND PLAN: Abdominal pain, diarrhea, certainly consistent with chemotherapy-induced colitis, even though the CAT scan shows the colon to be pretty normal. His exam today is pretty benign. Clostridium difficile was sent and was negative for Clostridium difficile toxins. He appears to have an appetite and would like to at least try to drink some liquids. We will advance his diet, treat him with intravenous fluids to avoid dehydration, and continue conservative treatment for the present. If he does not respond to conservative treatment, we will do a sigmoidoscopy to evaluate the mucosa of the rectosigmoid for more definitive diagnosis. We will see how he does over the next 12-24 hours. Elroy Weinstein MD [facility]/rohit , 06:42 PM , 06:51 PM
[2018-03-23] MEDS ORDERED: MethylPREDNISolone Sod Succinate Inj 125 MG/2 ML Vial IV.PUSH ONE ×2 (21:13→23:05)
[2018-03-23] MEDS: HYDROmorphone PF Inj 2 MG/ML Vial IV.PUSH PRN (21:24)
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
[2018-03-24] MEDS: HYDROmorphone PF Inj 2 MG/ML Vial IV.PUSH PRN ×2 (05:11→09:17)
[2018-03-24] MEDS: Sod Chloride 0.9% Inj 1,000 ML IV.CONT SCH (05:13)
[2018-03-24] MEDS: MethylPREDNISolone Sod Succinate Inj 125 MG/2 ML Vial IV.PUSH SCH (09:15)
--- NOTE | 2018-03-24 09:15 | P.PNONC ---
Subjective Interval history: There is no further abdominal pain. No diarrhea. He feels well. Objective Vital Signs/Intake & Output: Vital Signs 03/23/18 12:59 03/23/18 16:31 03/23/18 21:12 Temperature 98.5 F 98.5 F 97.7 F Pulse Rate 82 79 87 Respiratory Rate 20 20 18 Blood Pressure 117/76 130/76 108/74 Pulse Oximetry 97 97 98 03/24/18 00:00 03/24/18 00:37 03/24/18 04:00 Temperature 97.9 F Pulse Rate 72 81 71 Respiratory Rate 16 Blood Pressure 124/78 Pulse Oximetry 98 03/24/18 05:16 03/24/18 05:41 Temperature 97.8 F Pulse Rate 89 Respiratory Rate 18 17 Blood Pressure 123/91 H Pulse Oximetry 97 Intake & Output 03/23/18 03/24/18 03/24/18 18:59 06:59 18:59 Intake Total 1820 / 1820 2220 / 2220 Output Total 400 / 400 Balance 1820 / 1820 1820 / 1820 Weight 78.4 kg Intake: IV 1000 / 1000 1979 NS Inj 1,000 ML @ 100 mls/hr IV 1000 / 1000 1979 .CONT .Q10H [facility] Rx#:[id number] Oral 820 / 820 240 / 240 Output: Urine 400 / 400 Stool 0 / 0 Other: # Voids 6 2 Date of Last Bowel Movement 03/23/18 # Bowel Movements 1 1 Result Diagrams: 03/23/18 08:30 03/23/18 08:30 Laboratory Results: Laboratory Results - last 24 hr 03/23/18 03/23/18 08:30 12:25 Sodium 140 Potassium 3.8 Chloride 105 Carbon Dioxide 26.4 Anion Gap 9 BUN 15 Creatinine 0.85 Estimated GFR Greater than 89 Random Glucose 133 H Calcium 8.5 Stl C.difficile Tox PCR Negative St C. diff Tox Epid 027 Negative Medications: Active Medications Generic Name Dose Route Start Last Admin Trade Name Freq PRN Reason Stop Dose Admin Acetaminophen 500 mg 03/23/18 08:42 03/23/18 14:44 Tylenol PO 500 mg Q6H PRN Administration Fever, headache, pain 1-4 Hydromorphone HCl 1 mg 03/23/18 08:46 03/24/18 05:11 Dilaudid Pf Inj IV.PUSH 1 mg Q4H PRN Administration Breakthrough pain Sodium Chloride 1,000 mls @ 100 mls/hr 03/22/18 23:45 03/24/18 05:13 Ns Inj IV.CONT 100 mls/hr .Q10H [facility] Administration Methylprednisolone Sodium Succinate 60 mg 03/23/18 09:00 03/23/18 21:23 Solumedrol Inj IV.PUSH 60 mg Q12HR [facility] Administration Oxycodone/Acetaminophen 1 tab 03/23/18 08:45 03/23/18 22:44 Percocet 10/325 Mg PO 1 tab Q4H PRN Administration Pain 5-10 Pantoprazole Sodium 40 mg 03/23/18 09:00 03/23/18 09:42 Protonix PO 40 mg DAILY [facility] Administration Paroxetine HCl 30 mg 03/23/18 21:00 03/23/18 22:40 Paxil PO 30 mg HS [facility] Administration Ropinirole HCl 12 mg 03/23/18 21:00 03/23/18 21:23 Requip PO 12 mg HS [facility] Administration Objective Remarks: GENERAL: Well-nourished, well-developed patient. SKIN: Warm and dry. HEAD: Normocephalic. EYES: No scleral icterus. No injection or drainage. NECK: Supple, trachea midline. No JVD or lymphadenopathy. LYMPHATIC: No adenopathy. CARDIOVASCULAR: Regular rate and rhythm without murmurs. RESPIRATORY: Breath sounds equal bilaterally. No accessory muscle use. GASTROINTESTINAL: Abdomen soft, non-tender, nondistended. EXTREMITIES: No cyanosis, or edema. MUSCULOSKELETAL: Adequate muscle tone. NEUROLOGICAL: No obvious focal deficit. Awake, alert, and oriented x3. PSYCHIATRIC: Appropriate mood and affect; insight and judgment normal. Assessment/Plan - Attending Statement The signs and symptoms of colitis have resolved. At this point I would discharge him on prednisone 60 mg a day and a proton pump inhibitor to protect his stomach. I told him to call the office Tuesday and we will begin to taper prednisone as an outpatient. Appreciate the help.
--- NOTE | 2018-03-24 09:26 | P.DS ---
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 Valles his oncologist, Dr. Valles, for evaluation and treatment of colitis. Patient states that he has had abdominal pain and diarrhea for the past 3 days which began after his recent treatment of Nivolumab. He states the pain is worse in his right upper and right lower quadrant, stabbing in nature, 8/10, constant with associated nausea and vomiting he states so far nothing is alleviating his pain. Per Dr. Valles patient was Hemoccult negative in the office. He denies any chest pain, shortness of breath, fever or chills. DS: Medications - Discharge Medications Prescriptions: pantoprazole [Protonix] 40 mg PO DAILY #30 tab prednisone 60 mg PO DAILY 20 Days #60 tab DS: Summary Hospital Course: Mr. 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 Upon admission, his diarrhea seems to have resolved. However, he continues to have abdominal pain. Heme/onc as well as Colorectal surgery were consulted. Probable chemotherapy induced colitis -Diarrhea resolved. C. Diff PCR negative. -Colorectal surgery as well as oncology have evaluated patient. Patient is currently tolerating normal diet. -Discussed with oncology who recommended prednisone [address] Valles will taper prednisone when he sees him in the office. History of metastatic melanoma -Management per oncology. Restless leg syndrome -Patient is on Neupro patch as well as Ropinirole which will continue. Patient is being discharged home today with outpatient follow up. - Time Spent with Patient Total time spent providing and/or coordinating discharge services: Less than 30 minutes - Quality: VTE Deep Vein Thrombosis/Pulmonary Embolism Present on Admission: No Exam Vital signs: Vital Signs 03/23/18 12:59 03/23/18 16:31 03/23/18 21:12 Temperature 98.5 F 98.5 F 97.7 F Pulse Rate 82 79 87 Respiratory Rate 20 20 18 Blood Pressure 117/76 130/76 108/74 Pulse Oximetry 97 97 98 03/24/18 00:00 03/24/18 00:37 03/24/18 04:00 Temperature 97.9 F Pulse Rate 72 81 71 Respiratory Rate 16 Blood Pressure 124/78 Pulse Oximetry 98 03/24/18 05:16 03/24/18 05:41 Temperature 97.8 F Pulse Rate 89 Respiratory Rate 18 17 Blood Pressure 123/91 H Pulse Oximetry 97 Intake & Output 03/23/18 03/24/18 03/24/18 18:59 06:59 18:59 Intake Total 1820 / 1820 2220 / 2220 400 / 400 Output Total 400 / 400 Balance 1820 / 1820 1820 / 1820 400 / 400 Weight 78.4 kg Intake: IV 1000 / 1000 1979 400 / 400 NS Inj 1,000 ML @ 100 mls/hr IV 1000 / 1000 1979 400 / 400 .CONT .Q10H [facility] Rx#:[id number] Oral 820 / 820 240 / 240 Output: Urine 400 / 400 Stool 0 / 0 Other: # Voids 6 2 Date of Last Bowel Movement 03/23/18 # Bowel Movements 1 1 Results Procedures completed during hospitalization: None. Labs on day of discharge: Labs from last 24 hours 03/23/18 12:25 Stl C.difficile Tox PCR Negative St C. diff Tox Epid 027 Negative - Impressions ITS Impressions Abdomen/Pelvis CT 03/22/18 21:02 CONCLUSION: 1. No acute findings. Colonic diverticula without evidence for diverticulitis. Previous fusion lower lumbar spine. Multiple nonobstructing bilateral renal calculi. Discharge Plan - Discharge Disposition Patient Disposition: 01 Discharge Home - Discharge Condition Condition: Good - Discharge Order Discharge Orders: Discharge Order (Routine); Ordered 03/24/18 Ordered By: Myranda Flores - Discharge Details Anticipated Discharge Date: 03/24/18 - Physicians Team Primary Care Provider: Jared Isaacs Attending Provider: Myranda Flores Other Providers: Sherri Hickman MD ; Susana Buenrostro MD ; Rahul Valles MD
[2018-03-24 10:48] VITALS: BP 119/75; PULSE 98; RESP 20; TEMP 98.3; O2SAT 98
== END 2018-03-24 11:44 | disposition home or self-care (01) ==
LOC: NEPE 20:36 → NEDA 23:09 → INTOOBSV 23:09 → NEDA 03-23 00:51 → HCIN 03-23 00:55
PROVIDERS: ADMIT Hospitalist; ATTEND Hospitalist